=== PATIENT | female | born 1980 | race Caucasian/White ===

== ENCOUNTER → 2018-12-01 16:39 | Outpatient (CLI) | payer OTHER, SELFPAY | PROVIDERS: Family Provider Family Medicine; PCP Family Medicine; Visit Provider Physician Assistant | DX: R30.0 Dysuria (principal) | CPT/HCPCS: 87077; 87086; 87186 ==

== ENCOUNTER → 2019-04-01 12:32 | Outpatient (CLI) | payer OTHER, SELFPAY ==
--- NOTE | 2019-04-01 | DI.MRI.S_ITS ---
PROCEDURE: MR HEAD/BRAIN WO/W CON INDICATIONS: Multiple sclerosis TECHNIQUE: Noncontrast sagittal and axial FLAIR, axial and coronal T2 fast spin echo, axial VIBE, axial gradient echo, axial diffusion and ADC through the brain. After the administration of contrast, axial and coronal VIBE with fat saturation through the brain. COMPARISON: None are available for review at the time of this dictation. FINDINGS: Image quality: Excellent. CSF spaces: Ventricles are normal in size and shape. Basal cisterns are patent. No extra-axial fluid collections. Brain: There are numerous abnormal white matter lesions are seen, which are primarily seen within the periventricular and deep white matter. Several of the periventricular lesions demonstrate a perpendicular orientation to the lateral ventricles. Several of the larger lesions demonstrate decreased T1 weighted signal. There is involvement of the undersurface of the corpus callosum. Numerous juxtacortical lesions are also seen. There are faintly seen lesions present within the brainstem and within the cerebellum. On postcontrast imaging, these lesions do not enhance. No intracranial bleeds or mass effects. Manzo-white matter interface appears intact. Diffusion weighted images show no acute ischemic insults. Brainstem appears normal. Normal intravascular flow voids are present. Skull and face: Calvarial marrow signal is normal. Orbits appear normal. Sinuses: Sinuses and mastoids are clear. IMPRESSION: Multiple T2 hyperintense white matter lesions are seen, which are highly worrisome for the given clinical history of multiple sclerosis. No abnormal enhancement is seen. Dictated by: Colby Walter M.D. on 04/01/2019 at 14:35 Approved by: Colby Walter M.D. on 04/01/2019 at 14:37
== END ==
PROVIDERS: Family Provider Family Medicine; PCP Family Medicine; Visit Provider Psychiatry & Neurology Neurology
DX: G35 Multiple sclerosis (principal)
CPT/HCPCS: 70553; A9579

== ENCOUNTER → 2019-04-29 15:35 | Outpatient (CLI) | payer OTHER, SELFPAY ==
[2019-04-29 15:45] LABS: RBC Urine None Seen (0-5/HPF)
[2019-04-29 16:15] LABS: Appearance Urine UA CLEAR; Bilirubin Urine UA NEGATIVE (NEGATIVE); Color Urine UA YELLOW; Glucose Urine UA NEGATIVE (Negative); Ketones Urine UA NEGATIVE (NEGATIVE); Leukocyte Esterase Urine UA 1+ (NEGATIVE); Nitrite Urine UA NEGATIVE (Negative); Occult Blood Urine UA NEGATIVE (Negative); Protein Urine UA NEGATIVE (Negative); Specific Gravity Urine UA <=1.005 (1.000-1.035); Urobilinogen Urine UA 0.2 E.U./dL (0.2)
[2019-04-29 16:16] LABS: pH Urine UA 6.5 (4.5-8.0)
[2019-04-29 16:23] LABS: Amorphous Sediment Urine 1+; Bacteria Urine Few (2-10); Culture Indicated Urine Specimen Cultured; Squamous Epithelial Cell Urine 0-1 /HPF (0-5/HPF); WBC Urine 1-5/HPF (0-5/HPF)
== END ==
PROVIDERS: Family Provider Family Medicine; PCP Family Medicine; Referring Provider Podiatrist; Visit Provider Psychiatry & Neurology Neurology
DX: Z01.818 Encounter for other preprocedural examination (principal); Z51.81 Encounter for therapeutic drug level monitoring; G35 Multiple sclerosis
CPT/HCPCS: 81001; 87086; 93005

== ENCOUNTER 2019-06-25 07:12 | Emergency (ER) | payer OTHER, SELFPAY ==
[2019-06-25 07:28] VITALS: BP 153/97; PULSE 74; RESP 13; TEMP 36.4; O2SAT 99
--- NOTE | 2019-06-25 08:06 | ED_ITS ---
HPI - General Adult General Chief complaint: Hypertension Stated complaint: states really high blood pressure 162/107 Time Seen by Provider: 06/25/19 07:50 Source: patient Mode of arrival: Ambulatory Limitations: no limitations History of Present Illness HPI narrative: Patient comes emergency department complaining elevated blood pressure since at least 4:00 this morning. She states that she woke up and could not go back to sleep, and she felt as though her blood pressure was elevated. She states she took a measurement, and found to be in the 160s/107. Patient states that her diastolic over successive measurements went as high as 113. The patient denies any chest pain or shortness of breath. No headache or neurologic symptoms. She states she otherwise feels fine. She does state that she felt as though her blood pressure was probably high yesterday, but did not take any measurements. The patient is on atenolol for her blood pressure, and has been for number of years. She states that generally, her blood pressure runs 120s over 70s to 80s. She states that when it does go higher, it is usually when she is having an MS flare and is in pain. However, the patient states she is not currently in pain and feels fairly good. Patient states that she has not had any nausea or vomiting. She took her atenolol this morning and states it did not seem to help. She states she has felt somewhat anxious since finding the blood pressure was high, and has noticed a slight tightness in her chest. The patient states she sees Dr. Weinstein in [place] for her primary care. She does not currently have a contingent plan for taking her meds at home when her blood pressure runs higher than normal. Related Data Home Medications Medication Instructions Recorded Confirmed ibuprofen 600 mg PO TIDP PRN #0 11/27/10 12/01/18 lamotrigine [Lamictal] 25 mg PO BID #0 08/26/16 12/01/18 methylphenidate HCl 5 mg PO BID #0 08/26/16 12/01/18 acetaminophen 325 mg capsule 325 mg PO Q6H PRN 12/01/18 12/01/18 atenolol 25 mg tablet 25 mg PO DAILY 12/01/18 12/01/18 baclofen 20 mg tablet 20 mg PO QID 12/01/18 12/01/18 bupropion HCl 150 mg 24 hr tablet, 150 mg PO QAM 12/01/18 12/01/18 extended release buspirone 30 mg tablet mg PO tab 12/01/18 12/01/18 melatonin 5 mg capsule mg PO cap 12/01/18 12/01/18 olanzapine 2.5 mg tablet 2.5 mg PO BEDTIME 12/01/18 12/01/18 topiramate 25 mg tablet 50 mg PO DAILY tab 12/01/18 12/01/18 trazodone 50 mg tablet 75 mg PO DAILY 12/01/18 12/01/18 Allergies Allergy/AdvReac Type Severity Reaction Status Date / Time amitriptyline [AMITRIPTYLINE] Allergy Unknown Verified 12/01/18 16:21 gabapentin [GABAPENTIN] Allergy Unknown Verified 12/01/18 16:21 shayne [SHAYNE] Allergy Unknown Verified 12/01/18 16:21 Review of Systems Constitutional Constitutional: Denies chills, Denies fatigue, Denies fever(s), Denies frequent falls, Denies lethargy and Denies weakness Eyes Eyes: Denies change in vision, Denies eye discharge, Denies irritation and Denies loss of vision ENT Ears, Nose, Mouth, and Throat: Denies change in voice, Denies dizziness, Denies neck pain, Denies sore throat and Denies throat swelling Cardiovascular Cardiovascular: Denies chest pain, Denies irregular heart rhythm, Denies lightheadedness, Denies palpitations, Denies dyspnea, Denies dyspnea on exertion and Denies orthopnea Respiratory Respiratory: Denies cough, Denies dyspnea, Denies dyspnea on exertion and Denies wheezing Gastrointestinal Gastrointestinal: Denies abdominal pain, Denies change in bowel habits, Denies diarrhea, Denies nausea and Denies vomiting Genitourinary Genitourinary: Denies hematuria, Denies flank pain, Denies urinary incontinence and Denies urinary urgency Musculoskeletal Musculoskeletal: Denies back pain, Denies muscle weakness, Denies neck pain, Denies numbness and Denies tingling Integumentary/Breasts Skin/Breast: Denies pruritus, Denies erythema, Denies rash and Denies wounds Neurologic Neurologic: Denies behavioral changes, Denies confusion, Denies dizziness, Denies frequent falls, Denies loss of vision, Denies numbness, Denies tingling and Denies weakness Psychiatric Psychiatric: Denies anxiety, Denies behavioral changes, Denies confusion, Denies depression, Denies homicidal ideation and Denies suicidal ideation Endocrine Endocrine: Denies fatigue, Denies flushing and Denies palpitations Hematologic/Lymphatic Hematologic/Lymphatic: Denies easy bruising Allergic/Immunologic Allergic/Immunologic: Denies urticaria, Denies throat swelling and Denies wheezing Patient History Medical History HTN (hypertension) (Acute) MS (multiple sclerosis) (Acute) Social History Smoking Status: Never smoker Smoking Status: Never smoker Substance Use Type: does not use Exam Initial Vital Signs Initial Vital Signs: Vital Signs Temperature 97.5 F L 06/25/19 07:28 Pulse Rate 74 06/25/19 07:28 Respiratory Rate 13 06/25/19 07:28 Blood Pressure 153/97 H 06/25/19 07:28 Pulse Oximetry 99 06/25/19 07:28 Const General: cooperative and well developed Nutritional Appearance: well nourished Orientation: alert, awake, oriented x3 and not confused HENCA Head: normocephalic and atraumatic Ears: external ears normal Nose: external nose normal and No nasal discharge Face and sinus: face symmetric and No dry mucous membranes Mouth: oral mucosae normal and moist mucous membranes Teeth and gingiva: dentition normal Eyes General: appearance normal, both eyes and all related structures Eyelids: eyelids normal Conjunctivae: conjunctivae normal Sclera: sclerae normal Pupils: PERRL EOM: EOM intact bilaterally Neck Neck: normal visual inspection, trachea midline, No lymphadenopathy, No midline deformity and No JVD Lymphatic: No lymphedema Chest Chest: normal inspection of the chest Resp Effort & Inspection: normal respiratory effort, able to speak in complete sentences, no respiratory distress and no use of accessory muscles Auscultation: clear to auscultation bilaterally, no rales, no rhonchi and no wheezes Cardio Rate: regular rate Rhythm: regular rhythm Heart Sounds: no click, no gallops, no murmurs and no rubs Pulses: normal peripheral pulses GI Inspection: non-distended Palpation: soft, no hepatosplenomegaly, No guarding, No pulsatile mass and No tender Back/Spine/Pelvis Back: No CVA tenderness Cervical Spine: cervical ROM normal and No pain with cervical ROM Thoracic/Lumbar Spine: thoracic and lumbar spine normal to inspection Skin General: no rashes or lesions noted, No jaundice and No petechiae Neuro General: alert, oriented x3, gait normal and no focal motor deficits Speech: speech normal Extrem General: full ROM, no clubbing, cyanosis or edema, no pedal edema and no calf tenderness Psych Appearance: well kempt Mental Status: mental status grossly normal Attitude: cooperative Thought Content: normal and suicidality Judgment: judgment good Course Course Course Narrative: The patient, overall, looked good, and did not show any signs of hypertensive emergency. I gave her dose of metoprolol in the emergency department and I discussed with her a plan for taking extra atenolol at home if her blood pressure was running sustainedly high. I've also advised her that she needs to follow up with her primary care physician to discuss whether she should have a different medication at home to take in this situation when her blood pressure is running much higher than usual and is not responding to her regular home medication. We have discussed the usual indications for return. Orders Ordered: Discontinued Medications Metoprolol Tartrate (Lopressor) 25 mg PO NOW ONE Stop: 06/25/19 08:05 Last Admin: 06/25/19 08:13 Dose: 25 mg Documented by: SCANAPO Vital Signs Vital signs: Vital Signs - 8 hr 06/25/19 07:28 Temperature 97.5 F L Pulse Rate 74 Respiratory Rate 13 Blood Pressure 153/97 H Pulse Oximetry 99 Medical Decision Making Medical Records Medical records reviewed: Yes I reviewed the patient's medical records. Discharge Plan Departure Patient Disposition: Home Clinical Impression: HTN (hypertension) Qualifiers: Hypertension type: essential hypertension Qualified Code(s): I10 - Essential (primary) hypertension Discharge Date/Time: 06/25/19 08:44 Instructions: DI for High Blood Pressure Activity Restrictions/Additional Instructions: You may continue on your current dose of atenolol in general. However, if you experience a sustained elevation in your blood pressure of greater than 140/95 for more than 3 hours after taking your normal medication, you may take a 2nd dose of the atenolol 25 mg. if you would like, you could even take 1/2 of a tab of atenolol, at 12.5 mg, for your extra dose. If a few hours after this, your blood pressure is still running high, then you will need to see your primary doctor to talk about either adjusting your overall atenolol dose up or adding another medication to help better control your blood pressure. Prescriptions: No Action atenolol 25 mg tablet 25 mg PO DAILY RF: 0 bupropion HCl 150 mg tablet extended release 24 hr 150 mg PO QAM RF: 0 buspirone 30 mg tablet PO RF: 0 baclofen 20 mg tablet 20 mg PO QID RF: 0 trazodone 50 mg tablet 75 mg PO DAILY RF: 0 olanzapine 2.5 mg tablet 2.5 mg PO BEDTIME RF: 0 topiramate [Topamax] 25 mg tablet 50 mg PO DAILY RF: 0 melatonin 5 mg capsule PO RF: 0 acetaminophen [Tylenol] 325 mg capsule 325 mg PO Q6H PRNRF: 0 ibuprofen 600 MG tablet 600 mg PO TIDP PRNQty: 0 RF: 0 methylphenidate HCl 5 MG tablet 5 mg PO BID Qty: 0 RF: 0 lamotrigine [Lamictal] 25 MG tablet 25 mg PO BID Qty: 0 RF: 0 Referrals: Mona Weinstein DO [Primary Care Provider] -
[2019-06-25] MEDS: METOPROLOL IR 25 MG TABLET PO (08:13)
--- NOTE | 2019-06-25 08:43 | PC.NURSE ---
pt reports she takes htn medication daily. today noticed htn, has no other symptoms. states normally when this happens she is having an MS flare, today that is not happening.
[2019-06-25 08:44] VITALS: BP 150/99
== END 2019-06-25 08:44 | disposition home or self-care (01) ==
PROVIDERS: Emergency Provider Emergency Medicine; Family Provider Family Medicine; PCP Family Medicine
DX: I10 Essential (primary) hypertension (principal)
CPT/HCPCS: 99283

== ENCOUNTER → 2019-07-08 11:29 | Outpatient (CLI) | payer OTHER, SELFPAY ==
[2019-07-10 10:55] LABS: Collection Time Urine 24 Hours; Creatinine 24 Hour Urine 1904 mg/day (800-1800); Creatinine Urine Random 52.9 mg/dL; Sodium 24 Hour Urine 76 mmol/day (40-220); Sodium Urine Random 21 mmol/L (30-90); Total Volume Urine 3600 mL
== END ==
PROVIDERS: Family Provider Family Medicine; PCP Family Medicine; Visit Provider Nurse Practitioner Family
DX: E26.9 Hyperaldosteronism, unspecified (principal); R94.4 Abnormal results of kidney function studies
CPT/HCPCS: 82088; 82570; 84300

== ENCOUNTER → 2019-08-14 13:18 | Outpatient (CLI) | payer OTHER, SELFPAY | PROVIDERS: Family Provider Family Medicine; PCP Family Medicine; Referring Provider Family Medicine; Visit Provider Family Medicine | DX: T24.231A Burn of second degree of right lower leg, initial encounter (principal); G35 Multiple sclerosis; Z79.899 Other long term (current) drug therapy | CPT/HCPCS: 16020; 99203; 99213 ==

== ENCOUNTER → 2019-08-20 09:55 | Outpatient (CLI) | payer OTHER, SELFPAY | PROVIDERS: Family Provider Family Medicine; PCP Family Medicine; Referring Provider Family Medicine; Visit Provider Family Medicine | DX: T24.231A Burn of second degree of right lower leg, initial encounter (principal) | CPT/HCPCS: 99213 ==

== ENCOUNTER → 2019-08-27 09:39 | Outpatient (CLI) | payer OTHER, SELFPAY | PROVIDERS: Family Provider Family Medicine; PCP Family Medicine; Referring Provider Family Medicine; Visit Provider Family Medicine | DX: T24.231A Burn of second degree of right lower leg, initial encounter (principal); G35 Multiple sclerosis; Z79.899 Other long term (current) drug therapy | CPT/HCPCS: 99212; 99213 ==

== ENCOUNTER 2019-09-30 20:12 | Emergency (ER) | payer OTHER, SELFPAY ==
[2019-09-30 20:20] VITALS: BP 165/101; PULSE 82; RESP 20; TEMP 36.8; O2SAT 95; BMI 20.9
--- NOTE | 2019-09-30 20:42 | ED.GENADULT ---
HPI - General Adult General Chief complaint: Urogenital-Female Stated complaint: PELVIC PAIN Time Seen by Provider: 09/30/19 20:42 Source: patient Mode of arrival: Ambulatory Limitations: no limitations History of Present Illness HPI narrative: 39-year-old woman with multiple sclerosis presents with 6 weeks of abdominal/pelvic pain. She describes it as bilateral and constant. She has been seen by her smoking pipe liner and workup to date has included a pelvic ultrasound is reportedly unremarkable as well as a pelvic exam that is ?inconclusive?. She has as stable partner for 25 years and reports no dysuria or vaginal discharge. Last menses was in May and she uses 2 types of control (continuous NuvaRing and condoms) as she takes Topamax to help control neuropathic pain related to multiple sclerosis. She describes no change to bowel or bladder habits. No abdominal bloating, no nausea vomiting or diarrhea. She reports no fevers. She does note that the pain is getting worse over the last 6 weeks has not responded well to the oxycodone she takes for the neuropathic pain related to her multiple sclerosis and at this point the pain is significant enough that it interfering with sleep. Related Data Home Medications Medication Instructions Recorded Confirmed ibuprofen 600 mg PO TIDP PRN #0 11/27/10 12/01/18 lamotrigine [Lamictal] 25 mg PO BID #0 08/26/16 12/01/18 methylphenidate HCl 5 mg PO BID #0 08/26/16 12/01/18 acetaminophen 325 mg capsule 325 mg PO Q6H PRN 12/01/18 12/01/18 atenolol 25 mg tablet 25 mg PO DAILY 12/01/18 12/01/18 baclofen 20 mg tablet 20 mg PO QID 12/01/18 12/01/18 bupropion HCl 150 mg 24 hr tablet, 150 mg PO QAM 12/01/18 12/01/18 extended release buspirone 30 mg tablet mg PO tab 12/01/18 12/01/18 melatonin 5 mg capsule mg PO cap 12/01/18 12/01/18 olanzapine 2.5 mg tablet 2.5 mg PO BEDTIME 12/01/18 12/01/18 topiramate 25 mg tablet 50 mg PO DAILY tab 12/01/18 12/01/18 trazodone 50 mg tablet 75 mg PO DAILY 12/01/18 12/01/18 Allergies Allergy/AdvReac Type Severity Reaction Status Date / Time amitriptyline [AMITRIPTYLINE] Allergy Unknown Verified 12/01/18 16:21 gabapentin [GABAPENTIN] Allergy Unknown Verified 12/01/18 16:21 shayne [SHAYNE] Allergy Unknown Verified 12/01/18 16:21 Review of Systems Review of Systems Narrative: All systems reviewed and are unremarkable except as noted in HPI and below Patient History Social History Smoking Status: Never smoker Smoking Status: Never smoker alcohol intake frequency: 0-2 drinks per day Substance Use Type: does not use Exam Narrative Exam Narrative: General: Healthy appearing, anxious and frightened but no acute medical distress. Able to give a complete and coherent history. Well-nourished well-developed HEENT: Moist mucous membranes, normal sclera with reactive pupils, Neck: No JVD, supple Respiratory: Lungs are clear to auscultation, no wheezing no rales no rhonchi. Full and symmetrical air movement Cardiac: Regular rate and rhythm no murmurs no bruits Abdomen: Soft, mildly tender in lower quadrants without rebound or guarding, good bowel tones, no flank pain Skin: Warm and dry, no rashes Neurologic: Grossly neurologically intact with no obvious asymmetries or abnormalities Extremities: No trauma, well perfused Psych: Cooperative, appropriate insight and affect Initial Vital Signs Initial Vital Signs: Vital Signs Temperature 98.2 F 09/30/19 20:20 Pulse Rate 82 09/30/19 20:20 Respiratory Rate 20 09/30/19 20:20 Blood Pressure 165/101 H 09/30/19 20:20 Pulse Oximetry 95 09/30/19 20:20 Course Orders Ordered: ED Orders 09/30/19 20:38 Chlamydia Gonorrhea PCR -URINE Stat Urine Culture Stat Urine Microscopic Stat 09/30/19 20:58 CT chest abd pel w con Stat 09/30/19 21:25 Complete Blood Count AUTO DIFF Stat Comprehensive Metabolic Panel Stat HCG Quantitative /Beta subunit Stat Discontinued Medications Ketorolac Tromethamine (Toradol) 15 mg IV NOW ONE Stop: 09/30/19 20:57 Last Admin: 09/30/19 21:15 Dose: 15 mg Documented by: SARAH Vital Signs Vital signs: Vital Signs - 8 hr 09/30/19 20:20 09/30/19 21:03 09/30/19 22:42 Temperature 98.2 F 98.2 F Pulse Rate 82 89 Respiratory Rate 20 18 Blood Pressure 165/101 H Blood Pressure [Left Arm] 131/88 165/70 H Pulse Oximetry 95 98 Medical Decision Making Medical Records Medical records reviewed: Yes I reviewed the patient's medical records. Lab Data Lab results reviewed: Yes I reviewed the patient's lab results. Result diagrams: 09/30/19 21:25 09/30/19 21:25 Labs: Lab Results 09/30/19 09/30/19 09/30/19 Range/Units 20:38 21:25 21:25 WBC 5.2 (4.5-11.0) X10^3/uL RBC 3.88 L (4.0-5.2) X10^6/uL Hgb 11.8 L (12.0-16.0) g/dL Hct 35.0 L (36-46) % MCV 90.1 (80-100) fL MCH 30.4 (26-34) PG MCHC 33.8 (30-36) % RDW 12.7 (11.6-14.8) % Plt Count 222 (150-400) X10^3/uL Neut % (Auto) 52.4 (50-75) % Lymph % (Auto) 33.3 (25-40) % Luna % (Auto) 10.0 (3-14) % Eos % (Auto) 3.4 (2-4) % Baso % (Auto) 0.9 (0-2) % Neut # (Auto) 2700 (8582-6516) /uL Lymph # (Auto) 1700 (9428-6438) /uL Luna # (Auto) 500 (0-900) /uL Eos # (Auto) 200 (0-450) /uL Baso # (Auto) 0 (0-100) /uL Sodium 138 (137-145) mmol/L Potassium 3.3 L (3.4-5.1) mmol/L Chloride 104 (98-107) mmol/L Carbon Dioxide 29 (22-32) mmol/L BUN 18 H (7-17) mg/dL Creatinine 1.06 H (0.52-1.04) mg/dL Estimated GFR 57.1 L (>60) mL/min BUN/Creatinine Ratio 17.0 (6-22) Glucose 87 (70-100) mg/dL Calcium 9.2 (8.4-10.2) mg/dL Total Bilirubin 0.2 (0.2-1.3) mg/dL AST 26 (14-36) IU/L ALT 23 (<35) IU/L Alkaline Phosphatase 54 (38-126) U/L Total Protein 7.6 (6.3-8.2) g/dL Albumin 4.4 (3.5-5.0) g/dL Globulin 3.2 (1.7-4.1) g/dL Albumin/Globulin Ratio 1.4 (1.0-2.8) HCG, Quant < 2.4 mIU/mL Urine RBC None seen (0-5/HPF) Urine WBC 5-10/hpf H (0-5/HPF) Ur Squamous Epith Cells 0-1 /hpf (0-5/HPF) Urine Bacteria Few (2-10) H (None) Ur Culture Indicated? Specimen cultured Point of Care Testing Test Results Negative Urine Dip Bedside Urine Glucose Negative Bedside Urine Bilirubin - Negative Bedside Urine Ketone - Negative Urine Specific [place] 1.015 Bedside Urine Occult Blood - Negative Bedside Urine pH 6.0 Bedside Urine Protein - Negative Bedside Urine Urobilinogen - Negative Bedside Urine Nitrite - Negative Bedside Urine Leukocytes + 70 Esterase Point of care testing: Point of Care Testing Test Results Negative Urine Dip Bedside Urine Glucose Negative Bedside Urine Bilirubin - Negative Bedside Urine Ketone - Negative Urine Specific [place] 1.015 Bedside Urine Occult Blood - Negative Bedside Urine pH 6.0 Bedside Urine Protein - Negative Bedside Urine Urobilinogen - Negative Bedside Urine Nitrite - Negative Bedside Urine Leukocytes + [address] chest abdomen pelvis: Radiologist's Impression: No evidence of acute pathology Ruslan Stephens MD [facility] Narrative Medical decision making narrative: No significant pathology is found to explain the pelvic pain she is having. CT of the abdomen pelvis was what I had meant order, chest abdomen pelvis is a study that I actually clicked. I did reveal the accidental chest CT scan order. We reviewed the findings of the full scan from the chest through the pelvis, blood work and urinalysis. She understands that there is no significant pathology that we found and certainly nothing life-threatening. At this point she continues on up to 615 mg of oxycodone daily, I do not believe that adding additional pain medication for example tramadol would be of any benefit. She notes that even with the oxycodone the abdominal pelvic pain is not relieved. She will follow-up with her primary care physician in is safe for home discharge Discharge Plan Departure Patient Disposition: Home Clinical Impression: Pelvic pain Instructions: DI for Pelvic Pain Activity Restrictions/Additional Instructions: Thank you for coming in today Your blood work and CT scan were very reassuring. No significant pathology was found. Specifically there is no liver injury, kidney injury, tumors, masses or other findings of significance at this time. While this does not explain why you were hurting it does give you quite a bit of reassurance that the pain is not currently life-threatening. Please continue with your current pain regimen and follow-up with your primary care physician regarding next steps in trying to figure out source of the pain or help in treating the overall pain. I wish you the best Prescriptions: No Action atenolol 25 mg tablet 25 mg PO DAILY RF: 0 bupropion HCl 150 mg tablet extended release 24 hr 150 mg PO QAM RF: 0 buspirone 30 mg tablet PO RF: 0 baclofen 20 mg tablet 20 mg PO QID RF: 0 trazodone 50 mg tablet 75 mg PO DAILY RF: 0 olanzapine 2.5 mg tablet 2.5 mg PO BEDTIME RF: 0 topiramate [Topamax] 25 mg tablet 50 mg PO DAILY RF: 0 melatonin 5 mg capsule PO RF: 0 acetaminophen [Tylenol] 325 mg capsule 325 mg PO Q6H PRNRF: 0 ibuprofen 600 MG tablet 600 mg PO TIDP PRNQty: 0 RF: 0 methylphenidate HCl 5 MG tablet 5 mg PO BID Qty: 0 RF: 0 lamotrigine [Lamictal] 25 MG tablet 25 mg PO BID Qty: 0 RF: 0 Referrals: Mona Weinstein DO [Primary Care Provider] -
[2019-09-30 20:48] LABS: RBC Urine None Seen (0-5/HPF)
[2019-09-30 20:58] LABS: Bacteria Urine Few (2-10); Culture Indicated Urine Specimen Cultured; Squamous Epithelial Cell Urine 0-1 /HPF (0-5/HPF); WBC Urine 5-10/HPF (0-5/HPF)
--- NOTE | 2019-09-30 20:58 | DI.CT.S_ITS ---
PROCEDURE: CT CHEST ABD PEL W CON INDICATIONS: abdominal/pelvic pain TECHNIQUE: After the administration of intravenous contrast, 5 mm thick sections acquired from the lung apices to the symphysis. 2.5 mm thick coronal and sagittal reformats were acquired. Additional 7 mm thick coronal maximum intensity projection (MIP) reformats acquired through the lungs. Optional 10-minute delayed imaging may be performed from the kidneys to the bladder. For radiation dose reduction, the following was used: automated exposure control, adjustment of mA and/or kV according to patient size. COMPARISON: [facility], CT, ABDOMEN/PELVIS WITH CONTRAST, 12/03/2013, 22:49. [facility], CT, ABDOMEN/PELVIS WITH CONTRAST, 12/07/2013, 11:01. [facility], CT, PE STUDY (CTA CHEST), 12/08/2013, 21:30. FINDINGS: Image quality: Excellent. CHEST: Lungs: No pulmonary contusions or lacerations. No acute airspace opacities. No pneumothorax or hemothorax. Central and peripheral airways appear patent and normal in caliber. Mediastinum: No mediastinal hematomas. Heart size is normal. No pericardial effusion. Thoracic aorta and pulmonary arteries demonstrate normal size and enhancement. No mediastinal or hilar adenopathy. Esophagus is normal in caliber. No hiatal hernia. Chest wall: No rib fractures. No subcutaneous emphysema. No axillary or supraclavicular adenopathy. Thyroid gland is normal. ABDOMEN: Solid organs: Liver is normal in size and enhancement, without lacerations. Gallbladder is normal. Biliary system is non-dilated. Pancreas enhances normally, without transection. Spleen is normal in size and enhancement, without lacerations. No adrenal hematomas. Both kidneys enhance normally, without hydronephrosis or lacerations. There is a 4 mm non--obstructing stone in right kidney. A possible 3 mm stone is present in the left kidney. A 1.8 cm simple appearing cyst is present in the inferior pole of the right kidney, and a 7 mm cyst in the left kidney.. Peritoneum and bowel: Stomach is mildly distended. No free fluid or air. Unenhanced bowel loops demonstrate normal wall thickness and caliber. There is a moderate amount of stool in colon. Normal appendix. Nodes and vessels: No retroperitoneal or mesenteric adenopathy. Aorta and inferior vena cava are normal in size and enhancement. Miscellaneous: No ventral hernias. PELVIS: Genitourinary: Bladder wall thickness is normal. Miscellaneous: No inguinal hernias or adenopathy. Bones: Pelvic ring and hip joints appear intact. No vertebral compression fractures. IMPRESSION: 1. No acute abnormalities. 2. Moderately distended stomach, which is nonspecific. 3. Moderate amount of stool in colon. 4. Small non-obsjectiong stones in kidneys. 5. Bilateral small renal cysts No significant discrepancy with the maintenance technician 2nd shift radiology preliminary report. Dictated by: Rafa Encarnacion M.D. on 10/01/2019 at 8:00 Approved by: Rafa Encarnacion M.D. on 10/01/2019 at 8:16
[2019-09-30 21:03] VITALS: BP 131/88
[2019-09-30] MEDS: KETOROLAC 60 MG/2 ML VIAL 15 MG IV (21:15)
[2019-09-30 21:32] LABS: Add Manual Diff / Slide Review NO; Basophils Absolute Auto 0 /uL (0-100); Basophils Percent Auto 0.9 % (0-2); Eosinophils Absolute Auto 200 /uL (0-450); Eosinophils Percent Auto 3.4 % (2-4); Hemoglobin 11.8 g/dL (12.0-16.0); Lymphocytes Absolute Auto 1700 /uL (1100-4500); Lymphocytes Percent Auto 33.3 % (25-40); Mean Corpuscular HGB Conc 33.8 % (30-36); Mean Corpuscular Hemoglobin 30.4 PG (26-34); Mean Corpuscular Volume 90.1 fL (80-100); Monocytes Absolute Auto 500 /uL (0-900); Neutrophils Absolute Auto 2700 /uL (1500-7000); Neutrophils Percent Auto 52.4 % (50-75); Platelet Count 222 X10^3/uL (150-400); Red Blood Cell Count 3.88 X10^6/uL (4.0-5.2); Red Cell Distribution Width 12.7 % (11.6-14.8); White Blood Cell Count 5.2 X10^3/uL (4.5-11.0)
[2019-09-30 21:41] LABS: Alanine Aminotransferase 23 IU/L (<35); Albumin 4.4 g/dL (3.5-5.0); Albumin Globulin Ratio 1.4 (1.0-2.8); Alkaline Phosphatase 54 U/L (38-126); Aspartate Aminotransferase 26 IU/L (14-36); Bilirubin Total 0.2 mg/dL (0.2-1.3); Blood Urea Nitrogen 18 mg/dL (7-17); Calcium 9.2 mg/dL (8.4-10.2); Carbon Dioxide 29 mmol/L (22-32); Chloride 104 mmol/L (98-107); Estimated Glomerular Filt Rate 57.1 mL/min (>60); Globulin 3.2 g/dL (1.7-4.1); Glucose 87 mg/dL (70-100); HEMOLYSIS < 15 (0-50); Potassium 3.3 mmol/L (3.4-5.1); Sodium 138 mmol/L (137-145); Total Protein 7.6 g/dL (6.3-8.2)
[2019-09-30 21:59] LABS: HCG Quantitative /Beta subunit < 2.4 mIU/mL
[2019-09-30 22:42] VITALS: BP 165/70; PULSE 89; RESP 18; TEMP 36.8; O2SAT 98
[2019-09-30 23:41] LABS: Urine Chlamydia NOT DETECTED; Urine N gonorrhoeae NOT DETECTED
== END 2019-09-30 22:52 | disposition home or self-care (01) ==
PROVIDERS: Emergency Provider Emergency Medicine; Family Provider Family Medicine; PCP Family Medicine
DX: R10.2 Pelvic and perineal pain (principal); I10 Essential (primary) hypertension
CPT/HCPCS: 36415; 71260; 74177; 80053; 81003; 81015; 81025; 84702; 85025; 87086; 87491; 87591; 96374; 99284; J1885; Q9967

== ENCOUNTER → 2019-12-08 14:20 | Outpatient (CLI) | payer OTHER, SELFPAY ==
[2019-12-09 09:04] LABS: COVID19 Sendout NOT DETECTED (Not Detect)
== END ==
PROVIDERS: Family Provider Family Medicine; PCP Family Medicine; Visit Provider Physician Assistant
DX: Z01.818 Encounter for other preprocedural examination (principal)
CPT/HCPCS: 87635

== ENCOUNTER 2019-12-16 06:42 | Emergency (ER) | payer OTHER, SELFPAY ==
[2019-12-16] VITALS (9 sets, daily range): BP systolic 114–139; BP diastolic 63–91; PULSE 60–82; RESP 20; TEMP 36.9; O2SAT 98–100; BMI 19.5
--- NOTE | 2019-12-16 07:14 | ED.GENADULT ---
HPI - General Adult General Chief complaint: Extremity Problem,Nontraumatic Stated complaint: multiple sclerosis problems Time Seen by Provider: 12/16/19 06:45 Mode of arrival: Wheelchair History of Present Illness HPI narrative: 39-year-old woman with multiple sclerosis with increasing lower extremity pain, neuropathic pain muscle spasm and a feeling that her skin is being peeled off all worsening over the last month. Plans were in place to schedule another MRI to see if there is new lesions in her spinal cord and to schedule her for IV steroids in addition to continuing all of her usual multiple sclerosis medications. Last night was severe enough that she was unable to sleep at all in presents to the emergency room this morning with significant physical as well as emotional distress. Related Data Home Medications Medication Instructions Recorded Confirmed ibuprofen 600 mg PO TIDP PRN #0 11/27/10 12/01/18 lamotrigine [Lamictal] 25 mg PO BID #0 08/26/16 12/01/18 methylphenidate HCl 5 mg PO BID #0 08/26/16 12/01/18 acetaminophen 325 mg capsule 325 mg PO Q6H PRN 12/01/18 12/01/18 atenolol 25 mg tablet 25 mg PO DAILY 12/01/18 12/01/18 baclofen 20 mg tablet 20 mg PO QID 12/01/18 12/01/18 bupropion HCl 150 mg 24 hr tablet, 150 mg PO QAM 12/01/18 12/01/18 extended release buspirone 30 mg tablet mg PO tab 12/01/18 12/01/18 melatonin 5 mg capsule mg PO cap 12/01/18 12/01/18 olanzapine 2.5 mg tablet 2.5 mg PO BEDTIME 12/01/18 12/01/18 topiramate 25 mg tablet 50 mg PO DAILY tab 12/01/18 12/01/18 trazodone 50 mg tablet 75 mg PO DAILY 12/01/18 12/01/18 Previous Rx's Medication Instructions Recorded diazepam 5 mg PO BID PRN #30 tab 12/16/19 Allergies Allergy/AdvReac Type Severity Reaction Status Date / Time amitriptyline [AMITRIPTYLINE] Allergy Unknown Verified 12/01/18 16:21 gabapentin [GABAPENTIN] Allergy Unknown Verified 12/01/18 16:21 shayne [SHAYNE] Allergy Unknown Verified 12/01/18 16:21 Review of Systems Review of Systems Narrative: Pertinent positive and negative findings as per HPI Remainder of review of systems is otherwise unremarkable for Constitutional: Fevers, chills, weakness ENT: No sore throat, neck pain, ear pain CV: Chest pain, palpitations, dyspnea on exertion Respiratory: Cough, wheeze, dyspnea GI: Nausea, vomiting, diarrhea, change in bowel habits, black or bloody stools : Dysuria, hematuria, flank pain Skin: Rashes, nonhealing lesions Neuro: Syncope, dizziness, Psych: Depression, anxiety, suicidal ideation Patient History Medical History HTN (hypertension) (Acute) MS (multiple sclerosis) (Acute) Social History Smoking Status: Never smoker Smoking Status: Never smoker alcohol intake frequency: 0-2 drinks per day Substance Use Type: does not use Exam Narrative Exam Narrative: General: Healthy appearing, in mild distress due to neuropathic pain and sleep deprivation.. Able to give a complete and coherent history. Well-nourished well-developed HEENT: Moist mucous membranes, normal sclera with reactive pupils, Neck: No JVD, supple Respiratory: Lungs are clear to auscultation, no wheezing no rales no rhonchi. Full and symmetrical air movement Cardiac: Regular rate and rhythm no murmurs no bruits Abdomen: Soft nontender good bowel tones, no flank pain Skin: Warm and dry, no rashes Neurologic: Hyperreflexic lower extremities with no obvious asymmetries or abnormalities Extremities: No trauma, well perfused Psych: Cooperative, sleep deprived, anxious Initial Vital Signs Initial Vital Signs: Vital Signs Temperature 98.5 F 12/16/19 06:53 Pulse Rate 81 12/16/19 06:53 Respiratory Rate 20 12/16/19 06:53 Blood Pressure 139/91 H 12/16/19 06:53 Pulse Oximetry 100 12/16/19 06:53 Course Orders Ordered: ED Orders 12/16/19 07:10 Basic Metabolic Panel Stat C-Reactive Protein Quant Stat Complete Blood Count AUTO DIFF Stat Hydromorphone HCl (Dilaudid) 0.5 mg IV PRN PRN PRN Reason: Pain, Moderate (4-6) Discontinued Medications Diazepam (Valium) 5 mg PO NOW ONE Stop: 12/16/19 08:20 Last Admin: 12/16/19 08:24 Dose: 5 mg Documented by: TOYA Methylprednisolone 1,000 mg/ (Sodium Chloride) 258 mls @ 258 mls/hr IV NOW ONE Stop: 12/16/19 06:54 Last Infusion: 12/16/19 08:19 Dose: 0 mls/hr Documented by: Admin: 12/16/19 07:18 Dose: 258 mls/hr Documented by: TOYA Ketorolac Tromethamine (Toradol) 15 mg IV NOW ONE Stop: 12/16/19 08:20 Last Admin: 12/16/19 08:24 Dose: 15 mg Documented by: TOYA Vital Signs Vital signs: Vital Signs - 8 hr 12/16/19 06:53 12/16/19 07:00 12/16/19 07:05 Temperature 98.5 F Pulse Rate 81 60 60 Respiratory Rate 20 20 20 Blood Pressure 139/91 H Pulse Oximetry 100 12/16/19 08:05 12/16/19 08:10 12/16/19 08:27 Temperature Pulse Rate 60 60 60 Respiratory Rate 20 20 20 Blood Pressure Pulse Oximetry 12/16/19 08:30 12/16/19 09:27 12/16/19 09:28 Temperature Pulse Rate 60 82 79 Respiratory Rate Blood Pressure 114/63 Pulse Oximetry 98 98 Medical Decision Making Lab Data Lab results reviewed: Yes I reviewed the patient's lab results. Result diagrams: 12/16/19 07:10 12/16/19 07:10 Labs: Lab Results 12/16/19 12/16/19 12/16/19 Range/Units 07:10 07:10 07:10 WBC 6.2 (4.5-11.0) X10^3/uL RBC 4.16 (4.0-5.2) X10^6/uL Hgb 12.9 (12.0-16.0) g/dL Hct 37.8 (36-46) % MCV 90.8 (80-100) fL MCH 31.0 (26-34) PG MCHC 34.1 (30-36) % RDW 12.6 (11.6-14.8) % Plt Count 239 (150-400) X10^3/uL Neut % (Auto) 61.1 (50-75) % Lymph % (Auto) 27.2 (25-40) % Marin % (Auto) 7.9 (3-14) % Eos % (Auto) 3.2 (2-4) % Baso % (Auto) 0.6 (0-2) % Neut # (Auto) 3800 (7034-2470) /uL Lymph # (Auto) 1700 (8520-4374) /uL Marin # (Auto) 500 (0-900) /uL Eos # (Auto) 200 (0-450) /uL Baso # (Auto) 0 (0-100) /uL Sodium 141 (137-145) mmol/L Potassium 3.3 L (3.4-5.1) mmol/L Chloride 108 H (98-107) mmol/L Carbon Dioxide 23 (22-32) mmol/L BUN 18 H (7-17) mg/dL Creatinine 0.83 (0.52-1.04) mg/dL Estimated GFR > 60.0 (>60) mL/min BUN/Creatinine Ratio 21.7 (6-22) Glucose 109 H (70-100) mg/dL Calcium 9.3 (8.4-10.2) mg/dL C-Reactive Protein < 0.5 (<1.0) mg/dL MDM Narrative Medical decision making narrative: 39-year-old woman with MS. Currently mid flare. She is given 1gm IV Solu-Medrol here in the emergency department. She is also given 5 mg of oral Valium and 15 mg of IV Toradol which helped with the overall pain and muscle spasm as well. Phone call to her primary care physician Dr. Hoff to help arrange additional outpatient 1 g Solu-Medrol infusions. Typically when she has a flare she states she does 5 days rather than 3. Will give her a prescription for oral Valium to help with muscle spasm over the next couple of days. She will follow-up with her primary care physician and scheduled infusion tomorrow. 950 finally able to reach front office staff at clinic. Doctor is out of the office. Message is left with [facility] of the clinic nurses who will route the request for outpatient Solu-Medrol over the next 4 days to the on-call doctor. They will contact patient with follow-up times. Discharge Plan Departure Patient Disposition: Home Clinical Impression: MS (multiple sclerosis) Activity Restrictions/Additional Instructions: Thank you for coming in today I am so sorry that your MS is flaring right now. You received 1 g of IV Solu-Medrol as well as 5 mg of Valium and 15 mg of IV Toradol for pain control in the emergency department today. In addition to your usual medications I am going to give you a small prescription for Valium to help with muscle spasm. The prescription has been electronically transmitted to [facility] in [place] for you. You can compare this to baclofen and see which is most effective for you. I have left a message with her primary care physician's office. Your doctor is not in the office today but the providing doctor should be able to schedule the next 4 days of Solu-Medrol at the infusion clinic at [facility]. You should hear from their office by today with scheduled times. I wish you the best Prescriptions: New diazepam 5 mg tablet 5 mg PO BID PRN (Reason: muscle spasm) Qty: 30 RF: 0 No Action atenolol 25 mg tablet 25 mg PO DAILY RF: 0 bupropion HCl 150 mg tablet extended release 24 hr 150 mg PO QAM RF: 0 buspirone 30 mg tablet PO RF: 0 baclofen 20 mg tablet 20 mg PO QID RF: 0 trazodone 50 mg tablet 75 mg PO DAILY RF: 0 olanzapine 2.5 mg tablet 2.5 mg PO BEDTIME RF: 0 topiramate [Topamax] 25 mg tablet 50 mg PO DAILY RF: 0 melatonin 5 mg capsule PO RF: 0 acetaminophen [Tylenol] 325 mg capsule 325 mg PO Q6H PRNRF: 0 ibuprofen 600 MG tablet 600 mg PO TIDP PRNQty: 0 RF: 0 methylphenidate HCl 5 MG tablet 5 mg PO BID Qty: 0 RF: 0 lamotrigine [Lamictal] 25 MG tablet 25 mg PO BID Qty: 0 RF: 0 Referrals: Mona Weinstein DO [Primary Care Provider] -
[2019-12-16] MEDS: methylPREDNISolone 1,000 MG in SODIUM CHLORIDE 0.9% 250 ML 258 ML IV (07:18)
--- NOTE | 2019-12-16 07:20 | PC.NURSE ---
Pt reports MS flare up. Bilateral leg burning and sharp pain. Reports toes are curling from pain. Reports pain has been getting worse over the last couple weeks
[2019-12-16 07:21] LABS: Add Manual Diff / Slide Review NO; Basophils Absolute Auto 0 /uL (0-100); Basophils Percent Auto 0.6 % (0-2); Eosinophils Absolute Auto 200 /uL (0-450); Eosinophils Percent Auto 3.2 % (2-4); Hematocrit 37.8 % (36-46); Hemoglobin 12.9 g/dL (12.0-16.0); Lymphocytes Absolute Auto 1700 /uL (1100-4500); Lymphocytes Percent Auto 27.2 % (25-40); Mean Corpuscular HGB Conc 34.1 % (30-36); Mean Corpuscular Volume 90.8 fL (80-100); Monocytes Absolute Auto 500 /uL (0-900); Monocytes Percent Auto 7.9 % (3-14); Neutrophils Absolute Auto 3800 /uL (1500-7000); Neutrophils Percent Auto 61.1 % (50-75); Platelet Count 239 X10^3/uL (150-400); Red Blood Cell Count 4.16 X10^6/uL (4.0-5.2); Red Cell Distribution Width 12.6 % (11.6-14.8); White Blood Cell Count 6.2 X10^3/uL (4.5-11.0)
[2019-12-16 07:36] LABS: BUN Creatinine Ratio 21.7 (6-22); Blood Urea Nitrogen 18 mg/dL (7-17); Calcium 9.3 mg/dL (8.4-10.2); Carbon Dioxide 23 mmol/L (22-32); Chloride 108 mmol/L (98-107); Estimated Glomerular Filt Rate > 60.0 mL/min (>60); Glucose 109 mg/dL (70-100); HEMOLYSIS < 15 (0-50); Potassium 3.3 mmol/L (3.4-5.1); Sodium 141 mmol/L (137-145)
[2019-12-16 07:40] LABS: C-Reactive Protein Quant < 0.5 mg/dL (<1.0)
[2019-12-16] MEDS: KETOROLAC 60 MG/2 ML VIAL 15 MG IV (08:24)
[2019-12-16] MEDS: diazePAM 5 MG TABLET PO (08:24)
== END 2019-12-16 10:06 | disposition home or self-care (01) ==
PROVIDERS: Emergency Medicine; Emergency Provider Emergency Medicine; Family Provider Family Medicine; PCP Family Medicine
DX: G35 Multiple sclerosis (principal)
CPT/HCPCS: 36415; 80048; 85025; 86140; 96365; 96375; 99284; J1885; J2930

== ENCOUNTER 2019-12-17 02:18 | Emergency (ER) | payer OTHER, SELFPAY ==
[2019-12-17 02:21] VITALS: PULSE 107; O2SAT 98
[2019-12-17 02:22] VITALS: BP 143/87; PULSE 107; O2SAT 98
[2019-12-17 02:25] VITALS: BP 143/87; PULSE 110; RESP 16; TEMP 36.8; O2SAT 97; BMI 19.7
[2019-12-17 02:30] VITALS: BP 138/91; PULSE 108; O2SAT 99
--- NOTE | 2019-12-17 02:33 | ED_ITS ---
HPI - Extremity Problem General Chief complaint: Extremity Problem,Nontraumatic Stated complaint: leg pain Time Seen by Provider: 12/17/19 02:21 Source: patient and EMS History of Present Illness HPI Narrative: Patient brought in by ambulance from home, seen here 24 hours ago for the same complaints. Multiple sclerosis flare. Please see notes below from previous visit for disposition and plan. Patient does have a neurologist in telling him, Dr. Maldonado, goes to [facility]. Had MRI of the lower spine 2 months ago with concern of lesions at the lumbar spine, scheduled for repeat lumbar spine MRI December 26. Symptoms have worsened. Two days ago flared up again. No incontinence. Has burning fire sensation to both legs right greater than left, denies any back pain, no recent injury or fever or chills. No cough cold congestion MDM Narrative Medical decision making narrative: 39-year-old woman with MS. Currently mid flare. She is given 1gm IV Solu-Medrol here in the emergency department. She is also given 5 mg of oral Valium and 15 mg of IV Toradol which helped with the overall pain and muscle spasm as well. Phone call to her primary care physician Dr. Hoff to help arrange additional outpatient 1 g Solu-Medrol infusions. Typically when she has a flare she states she does 5 days rather than 3. Will give her a prescription for oral Valium to help with muscle spasm over the next couple of days. She will follow-up with her primary care physician and scheduled infusion tomorrow. 950 finally able to reach front office staff at clinic. Doctor is out of the office. Message is left with A[facility] Best of the clinic nurses who will route the request for outpatient Solu-Medrol over the next 4 days to the on-call doctor. They will contact patient with follow-up times. Complaint: extremity pain Onset (ago): day(s) Pain Consistency: constant Location: left, right and lower extremity Severity scale (1-10): 10 Quality: burning Radiation: none Relieving factors: nothing Exacerbating factors: nothing Related Data Home Medications Medication Instructions Recorded Confirmed ibuprofen 600 mg PO TIDP PRN #0 11/27/10 12/01/18 lamotrigine [Lamictal] 25 mg PO BID #0 08/26/16 12/01/18 methylphenidate HCl 5 mg PO BID #0 08/26/16 12/01/18 acetaminophen 325 mg capsule 325 mg PO Q6H PRN 12/01/18 12/01/18 atenolol 25 mg tablet 25 mg PO DAILY 12/01/18 12/01/18 baclofen 20 mg tablet 20 mg PO QID 12/01/18 12/01/18 bupropion HCl 150 mg 24 hr tablet, 150 mg PO QAM 12/01/18 12/01/18 extended release buspirone 30 mg tablet mg PO tab 12/01/18 12/01/18 melatonin 5 mg capsule mg PO cap 12/01/18 12/01/18 olanzapine 2.5 mg tablet 2.5 mg PO BEDTIME 12/01/18 12/01/18 topiramate 25 mg tablet 50 mg PO DAILY tab 12/01/18 12/01/18 trazodone 50 mg tablet 75 mg PO DAILY 12/01/18 12/01/18 Previous Rx's Medication Instructions Recorded diazepam 5 mg PO BID PRN #30 tab 12/16/19 Allergies Allergy/AdvReac Type Severity Reaction Status Date / Time amitriptyline [AMITRIPTYLINE] Allergy Unknown Verified 12/01/18 16:21 gabapentin [GABAPENTIN] Allergy Unknown Verified 12/01/18 16:21 shayne [SHAYNE] Allergy Unknown Verified 12/01/18 16:21 Review of Systems Review of Systems Narrative: GENERAL: Denies chills, fatigue, malaise, fever, sweats. HEENT: Denies sinus pain, ear pain, sore throat, difficulty swallowing, dizziness. RESPIRATORY: Denies dyspnea, cough, wheezing, hemoptysis, sputum. CARDIOVASCULAR: Denies chest pain, palpitations, orthopnea, edema, GASTROINTESTINAL: Denies nausea, vomiting, abdominal pain, diarrhea, constipation, melena. : Denies dysuria, frequency, incontinence, hematuria, urinary retention. MUSCULOSKELETAL: denies weakness, joint pain, or bony pain SKIN: Denies rash, skin lesions, or other NEUROLOGIC: Denies weakness, headache, numbness, change in speech, confusion, seizures, incoordination. PSYCHIATRIC: No concerning psychosocial issues. ROS Unobtainable: All systems reviewed & are unremarkable except as noted in HPI and below Patient History Medical History HTN (hypertension) (Acute) MS (multiple sclerosis) (Acute) Social History Smoking Status: Never smoker Smoking Status: Never smoker alcohol intake frequency: 0-2 drinks per day Substance Use Type: does not use Exam Narrative Exam Narrative: GENERAL: patient appears stated age. Well-nourished, well-developed patient, in no distress, not toxic HEAD: Atraumatic. Normocephalic. EYES: Pupils equal round and reactive. Extraocular motions intact. No scleral icterus. No injection or drainage. ENT: Nose without bleeding, purulent drainage. Throat without erythema, tonsillar hypertrophy or exudate. Airway patent. NECK: Trachea midline. Non tender CARDIOVASCULAR: Regular rate and rhythm without murmurs, gallops, or rubs. RESPIRATORY: Clear to auscultation. Breath sounds equal bilaterally. No wheezes, rales, or rhonchi. GASTROINTESTINAL: Abdomen soft, non-tender, nondistended. EXTREMITIES: Bilateral knees to toes exposed. Shoes and socks off. No rash. No erythema no induration. No knee or ankle tenderness. Light touch intact to bilateral feet toes and legs, he will to bring legs off the bed BACK: Nontender without deformity or crepitance. No flank tenderness. NEURO: AOx3. SKIN: No rash or erythema of visible areas Initial Vital Signs Initial Vital Signs: Vital Signs Pulse Rate 107 H 12/17/19 02:21 Pulse Oximetry 98 12/17/19 02:21 Course Course Course Narrative: [facility] neurologist 3:40 a.m., no call back at 4:33 a.m.. We will proceed to call hospitalist for admission Orders Ordered: ED Orders 12/17/19 02:40 Complete Blood Count AUTO DIFF Stat Comprehensive Metabolic Panel Stat Test Serum,Qual Stat Discontinued Medications Diazepam (Valium) 5 mg PO NOW ONE Stop: 12/17/19 02:34 Last Admin: 12/17/19 02:45 Dose: 5 mg Documented by: NOEMÍ Methylprednisolone 1,000 mg/ (Sodium Chloride) 258 mls @ 258 mls/hr IV NOW ONE Stop: 12/17/19 02:42 Last Infusion: 12/17/19 04:39 Dose: 0 mls/hr Documented by: Admin: 12/17/19 03:21 Dose: 258 mls/hr Documented by: NOEMÍ Reevaluation(s) Reevaluation #1: Patient resting comfortably at this time. No distress Time: 04:34 Consultations Consultation #1: Spoke with [facility], [facility], hospitalist, Dr. Saldana, will accept Time: 04:41 Vital Signs Vital signs: Vital Signs - 8 hr 12/17/19 02:21 12/17/19 02:22 12/17/19 02:25 Temperature 98.3 F Pulse Rate 107 H 107 H 110 H Respiratory Rate 16 Blood Pressure 143/87 H 143/87 H Pulse Oximetry 98 98 97 12/17/19 02:30 12/17/19 05:30 Temperature Pulse Rate 108 H 99 H Respiratory Rate Blood Pressure 138/91 H 137/70 Pulse Oximetry 99 96 MDM - Extremity (Nontraumatic) Differential Diagnosis Differential diagnosis: Likely other (MS flare-up) Lab Data Result diagrams: 12/17/19 02:40 12/17/19 02:40 Labs: Lab Results 12/17/19 12/17/19 12/17/19 Range/Units 02:40 02:40 02:40 WBC 10.0 D (4.5-11.0) X10^3/uL RBC 4.05 (4.0-5.2) X10^6/uL Hgb 12.7 (12.0-16.0) g/dL Hct 36.6 (36-46) % MCV 90.6 (80-100) fL MCH 31.5 (26-34) PG MCHC 34.7 (30-36) % RDW 12.4 (11.6-14.8) % Plt Count 234 (150-400) X10^3/uL Neut % (Auto) 84.6 H D (50-75) % Lymph % (Auto) 8.3 L (25-40) % Perry % (Auto) 6.9 (3-14) % Eos % (Auto) 0.0 L (2-4) % Baso % (Auto) 0.2 (0-2) % Neut # (Auto) 8500 H (3672-5386) /uL Lymph # (Auto) 800 L (7800-1318) /uL Perry # (Auto) 700 (0-900) /uL Eos # (Auto) 0 (0-450) /uL Baso # (Auto) 0 (0-100) /uL Sodium 143 (137-145) mmol/L Potassium 3.5 (3.4-5.1) mmol/L Chloride 110 H (98-107) mmol/L Carbon Dioxide 22 (22-32) mmol/L BUN 18 H (7-17) mg/dL Creatinine 0.82 (0.52-1.04) mg/dL Estimated GFR > 60.0 (>60) mL/min BUN/Creatinine Ratio 22.0 (6-22) Glucose 118 H (70-100) mg/dL Calcium 9.3 (8.4-10.2) mg/dL Total Bilirubin 0.3 (0.2-1.3) mg/dL AST 25 (14-36) IU/L ALT 23 (<35) IU/L Alkaline Phosphatase 53 (38-126) U/L Total Protein 7.6 (6.3-8.2) g/dL Albumin 4.9 (3.5-5.0) g/dL Globulin 2.7 (1.7-4.1) g/dL Albumin/Globulin Ratio 1.8 (1.0-2.8) Serum , Qual Negative (Negative) COVID-19 PCR (Negative) 12/17/19 Range/Units 05:30 WBC (4.5-11.0) X10^3/uL RBC (4.0-5.2) X10^6/uL Hgb (12.0-16.0) g/dL Hct (36-46) % MCV (80-100) fL MCH (26-34) PG MCHC (30-36) % RDW (11.6-14.8) % Plt Count (150-400) X10^3/uL Neut % (Auto) (50-75) % Lymph % (Auto) (25-40) % Perry % (Auto) (3-14) % Eos % (Auto) (2-4) % Baso % (Auto) (0-2) % Neut # (Auto) (0777-7383) /uL Lymph # (Auto) (0029-2853) /uL Perry # (Auto) (0-900) /uL Eos # (Auto) (0-450) /uL Baso # (Auto) (0-100) /uL Sodium (137-145) mmol/L Potassium (3.4-5.1) mmol/L Chloride (98-107) mmol/L Carbon Dioxide (22-32) mmol/L BUN (7-17) mg/dL Creatinine (0.52-1.04) mg/dL Estimated GFR (>60) mL/min BUN/Creatinine Ratio (6-22) Glucose (70-100) mg/dL Calcium (8.4-10.2) mg/dL Total Bilirubin (0.2-1.3) mg/dL AST (14-36) IU/L ALT (<35) IU/L Alkaline Phosphatase (38-126) U/L Total Protein (6.3-8.2) g/dL Albumin (3.5-5.0) g/dL Globulin (1.7-4.1) g/dL Albumin/Globulin Ratio (1.0-2.8) Serum , Qual (Negative) COVID-19 PCR Negative (Negative) MDM Narrative Medical decision making narrative: Patient to be transferred to [facility] [place] for pain management and further evaluation by her neurologist, we do not have Neurology here at this hospital, MRI not available here at this time. Patient was seen here earlier today, has not improved through the course of the day. Will admit/transfer for continuity of care with her neurologist in [place] Discharge Plan Departure Patient Disposition: [facility] Clinical Impression: MS (multiple sclerosis) Prescriptions: No Action atenolol 25 mg tablet 25 mg PO DAILY RF: 0 bupropion HCl 150 mg tablet extended release 24 hr 150 mg PO QAM RF: 0 buspirone 30 mg tablet PO RF: 0 baclofen 20 mg tablet 20 mg PO QID RF: 0 trazodone 50 mg tablet 75 mg PO DAILY RF: 0 olanzapine 2.5 mg tablet 2.5 mg PO BEDTIME RF: 0 topiramate [Topamax] 25 mg tablet 50 mg PO DAILY RF: 0 melatonin 5 mg capsule PO RF: 0 acetaminophen [Tylenol] 325 mg capsule 325 mg PO Q6H PRNRF: 0 ibuprofen 600 MG tablet 600 mg PO TIDP PRNQty: 0 RF: 0 methylphenidate HCl 5 MG tablet 5 mg PO BID Qty: 0 RF: 0 lamotrigine [Lamictal] 25 MG tablet 25 mg PO BID Qty: 0 RF: 0 diazepam 5 mg tablet 5 mg PO BID PRN (Reason: muscle spasm) Qty: 30 RF: 0 Referrals: Mona Weinstein DO [Primary Care Provider] -
[2019-12-17] MEDS: diazePAM 5 MG TABLET PO (02:45)
[2019-12-17 02:49] LABS: Add Manual Diff / Slide Review NO; Basophils Absolute Auto 0 /uL (0-100); Basophils Percent Auto 0.2 % (0-2); Eosinophils Absolute Auto 0 /uL (0-450); Hematocrit 36.6 % (36-46); Hemoglobin 12.7 g/dL (12.0-16.0); Lymphocytes Absolute Auto 800 /uL (1100-4500); Lymphocytes Percent Auto 8.3 % (25-40); Mean Corpuscular HGB Conc 34.7 % (30-36); Mean Corpuscular Hemoglobin 31.5 PG (26-34); Mean Corpuscular Volume 90.6 fL (80-100); Monocytes Absolute Auto 700 /uL (0-900); Monocytes Percent Auto 6.9 % (3-14); Neutrophils Absolute Auto 8500 /uL (1500-7000); Neutrophils Percent Auto 84.6 % (50-75); Platelet Count 234 X10^3/uL (150-400); Red Blood Cell Count 4.05 X10^6/uL (4.0-5.2); Red Cell Distribution Width 12.4 % (11.6-14.8)
[2019-12-17 02:58] LABS: Alanine Aminotransferase 23 IU/L (<35); Albumin 4.9 g/dL (3.5-5.0); Albumin Globulin Ratio 1.8 (1.0-2.8); Alkaline Phosphatase 53 U/L (38-126); Aspartate Aminotransferase 25 IU/L (14-36); Bilirubin Total 0.3 mg/dL (0.2-1.3); Blood Urea Nitrogen 18 mg/dL (7-17); Calcium 9.3 mg/dL (8.4-10.2); Carbon Dioxide 22 mmol/L (22-32); Chloride 110 mmol/L (98-107); Estimated Glomerular Filt Rate > 60.0 mL/min (>60); Globulin 2.7 g/dL (1.7-4.1); Glucose 118 mg/dL (70-100); HEMOLYSIS < 15 (0-50); Potassium 3.5 mmol/L (3.4-5.1); Sodium 143 mmol/L (137-145); Total Protein 7.6 g/dL (6.3-8.2)
[2019-12-17 03:01] LABS: Pregnancy Test Serum,Qual Negative (Negative)
[2019-12-17] MEDS: methylPREDNISolone 1,000 MG in SODIUM CHLORIDE 0.9% 250 ML 258 ML IV (03:21)
[2019-12-17 05:30] VITALS: BP 137/70; PULSE 99; O2SAT 96
[2019-12-17 06:25] LABS: COVID19 -Nasal RAPID Negative (Negative)
[2019-12-17 07:35] VITALS: BP 123/73; PULSE 60; RESP 18
== END 2019-12-17 07:58 | disposition short-term general hospital (02) ==
PROVIDERS: Emergency Provider Emergency Medicine; Family Provider Family Medicine; PCP Family Medicine
DX: G35 Multiple sclerosis (principal); Z11.59 Encounter for screening for other viral diseases
CPT/HCPCS: 36415; 80053; 84703; 85025; 87635; 96365; 99284; J2930

== ENCOUNTER 2020-01-13 13:28 | Observation (INO) | payer OTHER, SELFPAY ==
[2020-01-13] VITALS (13 sets, daily range): BP systolic 103–137; BP diastolic 56–80; PULSE 57–101; RESP 13–22; TEMP 36.1–36.9; O2SAT 97–100; BMI 19.1
--- NOTE | 2020-01-13 14:09 | ED_ITS ---
HPI - Altered Mental Status General Chief Complaint: Altered Mental Status Stated Complaint: Neuro Time Seen by Provider: 01/13/20 13:44 Source: patient, family and EMS Mode of arrival: EMS History of Present Illness HPI narrative: Patient is a 38-year-old female with history of MS presenting with cognitive impairment. She was previously seen here a month ago and was head and the midst of an MS flare, she received IV Solu-Medrol and was transferred to [facility] at the time the states that seems to have improved. However today for about the last 1 hour she is not acting herself she is having some physical movements she is not comprehending or able to answer questions in fact she is very repetitive. He is not sure if she took medicine she was and supposed to typically she is very good at taking her medications. He says that he has seen bouts of this in the past but nothing this profound. She is able to answer some questions but is obviously confused in not able to answer all questions. She is able to follow commands. MD complaint: altered mental status and confusion Onset (ago): hour(s) Timing confirmed by: spouse Related Data Home Medications Medication Instructions Recorded Confirmed ibuprofen 600 mg PO TIDP PRN #0 11/27/10 12/01/18 lamotrigine [Lamictal] 25 mg PO BID #0 08/26/16 12/01/18 methylphenidate HCl 5 mg PO BID #0 08/26/16 12/01/18 acetaminophen 325 mg capsule 325 mg PO Q6H PRN 12/01/18 12/01/18 atenolol 25 mg tablet 25 mg PO DAILY 12/01/18 12/01/18 baclofen 20 mg tablet 20 mg PO QID 12/01/18 12/01/18 bupropion HCl 150 mg 24 hr tablet, 150 mg PO QAM 12/01/18 12/01/18 extended release buspirone 30 mg tablet mg PO tab 12/01/18 12/01/18 melatonin 5 mg capsule mg PO cap 12/01/18 12/01/18 olanzapine 2.5 mg tablet 2.5 mg PO BEDTIME 12/01/18 12/01/18 topiramate 25 mg tablet 50 mg PO DAILY tab 12/01/18 12/01/18 trazodone 50 mg tablet 75 mg PO DAILY 12/01/18 12/01/18 Previous Rx's Medication Instructions Recorded diazepam 5 mg PO BID PRN #30 tab 12/16/19 Allergies Allergy/AdvReac Type Severity Reaction Status Date / Time amitriptyline [AMITRIPTYLINE] Allergy Unknown Verified 12/01/18 16:21 gabapentin [GABAPENTIN] Allergy Unknown Verified 12/01/18 16:21 shayne [SHAYNE] Allergy Unknown Verified 12/01/18 16:21 Review of Systems Review of Systems ROS Unobtainable: All systems reviewed & are unremarkable except as noted in HPI and below Constitutional Constitutional: Denies chills, Denies fever(s), Denies lethargy and Denies weakness Eyes Eyes: Denies change in vision, Denies eye discharge, Denies irritation and Denies loss of vision ENT Ears, Nose, Mouth, and Throat: Denies change in voice, Denies neck pain and Denies sore throat Cardiovascular Cardiovascular: Denies chest pain, Denies irregular heart rhythm, Denies lig htheadedness, Denies palpitations, Denies dyspnea, Denies dyspnea on exertion and Denies orthopnea Respiratory Respiratory: Denies cough, Denies dyspnea, Denies dyspnea on exertion and Denies wheezing Gastrointestinal Gastrointestinal: Denies abdominal pain, Denies change in bowel habits, Denies diarrhea, Denies nausea and Denies vomiting Musculoskeletal Musculoskeletal: Denies back pain and Denies neck pain Integumentary/Breasts Skin/Breast: Denies pruritus, Denies erythema, Denies rash and Denies wounds Neurologic Neurologic: Reports as per HPI, Reports burning sensations, Reports confusion, Reports lack of coordination, Denies loss of vision and Denies weakness Psychiatric Psychiatric: Reports confusion Endocrine Endocrine: Denies palpitations Allergic/Immunologic Allergic/Immunologic: Denies wheezing Patient History Medical History HTN (hypertension) (Acute) MS (multiple sclerosis) (Acute) Social History Smoking Status: Never smoker Smoking Status: Never smoker alcohol intake frequency: 0-2 drinks per day Substance Use Type: does not use Exam Initial Vital Signs Initial Vital Signs: Vital Signs Temperature 98.4 F 01/13/20 13:33 Pulse Rate 97 H 01/13/20 13:33 Respiratory Rate 22 01/13/20 13:33 Blood Pressure 123/80 01/13/20 13:33 Pulse Oximetry 99 01/13/20 13:33 GENERAL: Alert female confused and in no acute distress. HEENT: Head atraumatic,EOMI, pupils reactive, face symmetric, moist mucous membranes CARDIOVASCULAR: Regular rate and rhythm without murmurs, rubs or gallops. RESPIRATORY: Breath sounds equal bilaterally, no wheezes rales or rhonchi. ABDOMEN: Soft, nontender. Normoactive bowel sounds all 4 quadrants. No guarding or rebound. EXTREMITIES: Normal range of motion, no clubbing or edema. Neurovascularly intact NEUROLOGICAL: Alert and oriented x4.Normal gait and speech. Binding Stitcher strength equal bilaterally unable to count by serial sevens cannot spell world backwards, decreased sensation to the left side SKIN: Warm, dry, no laceration, no petechiae, no rashes or lesions. Course Orders Ordered: ED Orders 01/13/20 14:07 CT head/brain wo con Stat 01/13/20 14:40 Acetaminophen Stat Complete Blood Count AUTO DIFF Stat Comprehensive Metabolic Panel Stat Ethanol (ETOH) Stat Lactate (Lactic Acid) Stat Partial Thromboplastin Time Stat Prolactin Stat Prothrombin Time INR Stat Salicylate Stat Thyroid Stimulating Hormone Stat Urinalysis and Microscopic Stat Urine Culture Stat Urine Drug Screen, Rapid Stat 01/13/20 14:59 Blood Culture Stat Discontinued Medications Sodium Chloride (Normal Saline 0.9%) 1,000 mls @ 1,000 mls/hr IV BOLUS ONE Stop: 01/13/20 16:30 Last Infusion: 01/13/20 17:03 Dose: 0 mls/hr Documented by: Admin: 01/13/20 15:34 Dose: 1,000 mls/hr Documented by: TASIA Ketorolac Tromethamine (Toradol) 15 mg IV NOW ONE Stop: 01/13/20 14:17 Last Admin: 01/13/20 15:07 Dose: 15 mg Documented by: TASIA Lorazepam (Ativan) 1 mg IV NOW ONE Stop: 01/13/20 14:18 Last Admin: 01/13/20 15:07 Dose: 1 mg Documented by: TASIA Reevaluation(s) Reevaluation #1: After Ativan Not able to spell STATE can count by 7's., arousable, still confused. Time: 17:10 Consultations Consultation #1: Dr. Palmer,request neuroogy consult. Time: 17:32 Consultation #2: Dr. Mata, neurology at [facility] has reviewed patient's chart at this time difficult to assess however does not quite sound like MS does not recommend steroids at this time does recommend repeat MRI patient also has history of PTSD bipolar possible psychiatric break. Time: 18:09 Vital Signs Vital signs: Vital Signs - 8 hr 01/13/20 13:33 01/13/20 14:30 01/13/20 15:38 Temperature 98.4 F Pulse Rate 97 H 94 H 65 Respiratory Rate 22 22 15 Blood Pressure 123/80 132/67 118/66 Pulse Oximetry 99 100 98 01/13/20 16:00 01/13/20 16:30 01/13/20 16:45 Temperature Pulse Rate 62 61 57 L Respiratory Rate 15 15 15 Blood Pressure 125/66 125/66 Pulse Oximetry 100 100 100 01/13/20 17:00 01/13/20 17:30 01/13/20 18:00 Temperature Pulse Rate 61 61 60 Respiratory Rate 15 13 17 Blood Pressure 126/70 121/65 103/56 L Pulse Oximetry 100 100 100 MDM - Altered Mental Status Lab Data Attestation: I reviewed the patient's lab results. Result diagrams: 01/13/20 14:40 01/13/20 14:40 Labs: Lab Results 01/13/20 01/13/20 01/13/20 Range/Units 14:40 14:40 14:40 WBC 5.9 (4.5-11.0) X10^3/uL RBC 4.04 (4.0-5.2) X10^6/uL Hgb 12.5 (12.0-16.0) g/dL Hct 36.4 (36-46) % MCV 90.1 (80-100) fL MCH 31.0 (26-34) PG MCHC 34.4 (30-36) % RDW 12.9 (11.6-14.8) % Plt Count 253 (150-400) X10^3/uL Neut % (Auto) 75.3 H (50-75) % Lymph % (Auto) 14.9 L (25-40) % [place] % (Auto) 8.3 (3-14) % Eos % (Auto) 0.8 L (2-4) % Baso % (Auto) 0.7 (0-2) % Neut # (Auto) 4400 (3717-2930) /uL Lymph # (Auto) 900 L (6905-3089) /uL [place] # (Auto) 500 (0-900) /uL Eos # (Auto) 0 (0-450) /uL Baso # (Auto) 0 (0-100) /uL PT 10.5 (10.1-12.7) SECONDS INR 0.9 (0.9-1.3) APTT 31 (26.4-36.2) SECONDS Sodium 142 (137-145) mmol/L Potassium 3.1 L (3.4-5.1) mmol/L Chloride 107 (98-107) mmol/L Carbon Dioxide 26 (22-32) mmol/L BUN 22 H (7-17) mg/dL Creatinine 1.17 H (0.52-1.04) mg/dL Estimated GFR 51.0 L (>60) mL/min BUN/Creatinine Ratio 18.8 (6-22) Glucose 98 (70-100) mg/dL Lactate (0.7-2.1) mmol/L Calcium 9.8 (8.4-10.2) mg/dL Total Bilirubin 0.5 (0.2-1.3) mg/dL AST 25 (14-36) IU/L ALT 19 (<35) IU/L Alkaline Phosphatase 69 (38-126) U/L Total Protein 7.5 (6.3-8.2) g/dL Albumin 4.7 (3.5-5.0) g/dL Globulin 2.8 (1.7-4.1) g/dL Albumin/Globulin Ratio 1.7 (1.0-2.8) TSH (0.47-4.68) uIU/mL Prolactin 9.2 (3.0-18.6) ng/mL Urine Color Urine Appearance Urine pH (4.5-8.0) Ur Specific [place] (1.000-1.035) Urine Protein (Negative) Urine Glucose (UA) (Negative) g/dL Urine Ketones (NEGATIVE) Urine Occult Blood (Negative) Urine Nitrate (Negative) Urine Bilirubin (NEGATIVE) Urine Urobilinogen (0.2) E.U./dL Ur Leukocyte Esterase (NEGATIVE) Urine RBC (0-5/HPF) Urine WBC (0-5/HPF) Ur Squamous Epith Cells (0-5/HPF) Urine Bacteria (None) Ur Culture Indicated? Salicylates < 1.0 (<20) mg/dL U Opiates 300ng/mL cut (Negative) Ur Oxycodone Screen (Negative) Urine Methadone Screen (Negative) Acetaminophen < 10 L (10-30) ug/mL Ur Barbiturates Screen (Negative) U Tricyclic Antidepress (Negative) Ur Phencyclidine Scrn (Negative) Ur Amphetamines Screen (Negative) U Methamphetamines Scrn (Negative) Ur MDMA Scrn (Ecstasy) (Negative) U Benzodiazepines Scrn (Negative) Urine Cocaine Screen (Negative) U Marijuana (THC) Screen (Negative) Ethyl Alcohol < 10 ( - 10) mg/dL 01/13/20 01/13/20 01/13/20 Range/Units 14:40 14:40 14:40 WBC (4.5-11.0) X10^3/uL RBC (4.0-5.2) X10^6/uL Hgb (12.0-16.0) g/dL Hct (36-46) % MCV (80-100) fL MCH (26-34) PG MCHC (30-36) % RDW (11.6-14.8) % Plt Count (150-400) X10^3/uL Neut % (Auto) (50-75) % Lymph % (Auto) (25-40) % [place] % (Auto) (3-14) % Eos % (Auto) (2-4) % Baso % (Auto) (0-2) % Neut # (Auto) (2073-5710) /uL Lymph # (Auto) (8536-9401) /uL [place] # (Auto) (0-900) /uL Eos # (Auto) (0-450) /uL Baso # (Auto) (0-100) /uL PT (10.1-12.7) SECONDS INR (0.9-1.3) APTT (26.4-36.2) SECONDS Sodium (137-145) mmol/L Potassium (3.4-5.1) mmol/L Chloride (98-107) mmol/L Carbon Dioxide (22-32) mmol/L BUN (7-17) mg/dL Creatinine (0.52-1.04) mg/dL Estimated GFR (>60) mL/min BUN/Creatinine Ratio (6-22) Glucose (70-100) mg/dL Lactate 1.0 (0.7-2.1) mmol/L Calcium (8.4-10.2) mg/dL Total Bilirubin (0.2-1.3) mg/dL AST (14-36) IU/L ALT (<35) IU/L Alkaline Phosphatase (38-126) U/L Total Protein (6.3-8.2) g/dL Albumin (3.5-5.0) g/dL Globulin (1.7-4.1) g/dL Albumin/Globulin Ratio (1.0-2.8) TSH 0.106 L (0.47-4.68) uIU/mL Prolactin (3.0-18.6) ng/mL Urine Color Yellow Urine Appearance Clear Urine pH 5.5 (4.5-8.0) Ur Specific [place] 1.015 (1.000-1.035) Urine Protein Negative (Negative) Urine Glucose (UA) Negative (Negative) g/dL Urine Ketones Negative (NEGATIVE) Urine Occult Blood Trace-intact (Negative) Urine Nitrate Negative (Negative) Urine Bilirubin Negative (NEGATIVE) Urine Urobilinogen 0.2 (0.2) E.U./dL Ur Leukocyte Esterase 1+ H (NEGATIVE) Urine RBC None seen (0-5/HPF) Urine WBC 1-5/hpf (0-5/HPF) Ur Squamous Epith Cells 0-1 /hpf (0-5/HPF) Urine Bacteria None seen (None) Ur Culture Indicated? Specimen cultured Salicylates (<20) mg/dL U Opiates 300ng/mL cut (Negative) Ur Oxycodone Screen (Negative) Urine Methadone Screen (Negative) Acetaminophen (10-30) ug/mL Ur Barbiturates Screen (Negative) U Tricyclic Antidepress (Negative) Ur Phencyclidine Scrn (Negative) Ur Amphetamines Screen (Negative) U Methamphetamines Scrn (Negative) Ur MDMA Scrn (Ecstasy) (Negative) U Benzodiazepines Scrn (Negative) Urine Cocaine Screen (Negative) U Marijuana (THC) Screen (Negative) Ethyl Alcohol ( - 10) mg/dL 07/27/20 Range/Units 14:40 WBC (4.5-11.0) X10^3/uL RBC (4.0-5.2) X10^6/uL Hgb (12.0-16.0) g/dL Hct (36-46) % MCV (80-100) fL MCH (26-34) PG MCHC (30-36) % RDW (11.6-14.8) % Plt Count (150-400) X10^3/uL Neut % (Auto) (50-75) % Lymph % (Auto) (25-40) % [place] % (Auto) (3-14) % Eos % (Auto) (2-4) % Baso % (Auto) (0-2) % Neut # (Auto) (4199-2123) /uL Lymph # (Auto) (9371-5112) /uL [place] # (Auto) (0-900) /uL Eos # (Auto) (0-450) /uL Baso # (Auto) (0-100) /uL PT (10.1-12.7) SECONDS INR (0.9-1.3) APTT (26.4-36.2) SECONDS Sodium (137-145) mmol/L Potassium (3.4-5.1) mmol/L Chloride (98-107) mmol/L Carbon Dioxide (22-32) mmol/L BUN (7-17) mg/dL Creatinine (0.52-1.04) mg/dL Estimated GFR (>60) mL/min BUN/Creatinine Ratio (6-22) Glucose (70-100) mg/dL Lactate (0.7-2.1) mmol/L Calcium (8.4-10.2) mg/dL Total Bilirubin (0.2-1.3) mg/dL AST (14-36) IU/L ALT (<35) IU/L Alkaline Phosphatase (38-126) U/L Total Protein (6.3-8.2) g/dL Albumin (3.5-5.0) g/dL Globulin (1.7-4.1) g/dL Albumin/Globulin Ratio (1.0-2.8) TSH (0.47-4.68) uIU/mL Prolactin (3.0-18.6) ng/mL Urine Color Urine Appearance Urine pH (4.5-8.0) Ur Specific [place] (1.000-1.035) Urine Protein (Negative) Urine Glucose (UA) (Negative) g/dL Urine Ketones (NEGATIVE) Urine Occult Blood (Negative) Urine Nitrate (Negative) Urine Bilirubin (NEGATIVE) Urine Urobilinogen (0.2) E.U./dL Ur Leukocyte Esterase (NEGATIVE) Urine RBC (0-5/HPF) Urine WBC (0-5/HPF) Ur Squamous Epith Cells (0-5/HPF) Urine Bacteria (None) Ur Culture Indicated? Salicylates (<20) mg/dL U Opiates 300ng/mL cut Negative (Negative) Ur Oxycodone Screen Positive H (Negative) Urine Methadone Screen Negative (Negative) Acetaminophen (10-30) ug/mL Ur Barbiturates Screen Negative (Negative) U Tricyclic Antidepress Negative (Negative) Ur Phencyclidine Scrn Negative (Negative) Ur Amphetamines Screen Negative (Negative) U Methamphetamines Scrn Negative (Negative) Ur MDMA Scrn (Ecstasy) Negative (Negative) U Benzodiazepines Scrn Negative (Negative) Urine Cocaine Screen Negative (Negative) U Marijuana (THC) Screen Negative (Negative) Ethyl Alcohol ( - 10) mg/dL Point of Care Testing Test Results Negative Urine Dip Bedside Urine Glucose Negative Bedside Urine Bilirubin - Negative Bedside Urine Ketone - Negative Urine Specific [place] 1.020 Bedside Urine Occult Blood + Bedside Urine pH 6.0 Bedside Urine Protein - Negative Bedside Urine Urobilinogen - Negative Bedside Urine Nitrite - Negative Bedside Urine Leukocytes + [address] scan - head: Radiologist's Impression: PROCEDURE: CT HEAD/BRAIN WO CON INDICATIONS: altered TECHNIQUE: Noncontrast 4.5 mm thick angled axial sections acquired from the foramen magnum to the vertex, with coronal and sagittal reformats. For radiation dose reduction, the following was used: automated exposure control, adjustment of mA and/or kV according to patient size. COMPARISON: None. FINDINGS: Image quality: Excellent. CSF spaces: Basal cisterns are patent. No extra-axial fluid collections. Ventricles are normal in size and shape. Brain: No midline shift. No intracranial masses or hemorrhage. Manzo-white matter interface is normal. Skull and face: Calvarium and visualized facial bones are intact, without suspicious lesions. Sinuses: Visualized sinuses and mastoids are clear. IMPRESSION: No acute intracranial finding. Dictated by: Rickie Gutierrez M.D. on 01/13/2020 at 14:29 Approved by: Rickie Gutierrez M.D. on 01/13/2020 at 14:31 MDM Narrative Medical decision making narrative: Patient is given ativan and monitored she is reassessed in her mental status remains the same. I discussed case with Neurology at this time patient does have a psychiatric history this may be psychiatric related versus medication related but unlikely to be EMS related. Nonetheless he still recommends MRI at this time does not recommend steroids. Dr. palmer agrees with observation. Discharge Plan Departure Patient Disposition: Admitted as Observation Clinical Impression: Acute metabolic encephalopathy Discharge Date/Time: 01/13/20 19:02 Referrals: Mona Weinstein DO [Primary Care Provider] - Admit Date/Time: 01/13/20 18:10 Admit Provider: [place]
--- NOTE | 2020-01-13 14:11 | PC.NURSE ---
Pt given ice water per providers approval
[2020-01-13 14:51] LABS: Add Manual Diff / Slide Review NO; Basophils Absolute Auto 0 /uL (0-100); Basophils Percent Auto 0.7 % (0-2); Eosinophils Absolute Auto 0 /uL (0-450); Eosinophils Percent Auto 0.8 % (2-4); Hematocrit 36.4 % (36-46); Hemoglobin 12.5 g/dL (12.0-16.0); Lymphocytes Absolute Auto 900 /uL (1100-4500); Lymphocytes Percent Auto 14.9 % (25-40); Mean Corpuscular HGB Conc 34.4 % (30-36); Mean Corpuscular Volume 90.1 fL (80-100); Monocytes Absolute Auto 500 /uL (0-900); Monocytes Percent Auto 8.3 % (3-14); Neutrophils Absolute Auto 4400 /uL (1500-7000); Neutrophils Percent Auto 75.3 % (50-75); Platelet Count 253 X10^3/uL (150-400); Red Blood Cell Count 4.04 X10^6/uL (4.0-5.2); Red Cell Distribution Width 12.9 % (11.6-14.8); White Blood Cell Count 5.9 X10^3/uL (4.5-11.0)
[2020-01-13 15:02] LABS: INR 0.9 (0.9-1.3); Prothrombin Time 10.5 SECONDS (10.1-12.7)
[2020-01-13 15:04] LABS: Bacteria Urine None Seen; PTT Partial Thromboplastin Tim 31 SECONDS (26.4-36.2); RBC Urine None Seen (0-5/HPF)
[2020-01-13 15:06] LABS: Appearance Urine UA CLEAR; Bilirubin Urine UA NEGATIVE (NEGATIVE); Color Urine UA YELLOW; Glucose Urine UA NEGATIVE (Negative); Ketones Urine UA NEGATIVE (NEGATIVE); Leukocyte Esterase Urine UA 1+ (NEGATIVE); Nitrite Urine UA NEGATIVE (Negative); Occult Blood Urine UA TRACE-INTACT (Negative); Protein Urine UA NEGATIVE (Negative); Specific Gravity Urine UA 1.015 (1.000-1.035); Urobilinogen Urine UA 0.2 E.U./dL (0.2)
[2020-01-13] MEDS: KETOROLAC 60 MG/2 ML VIAL 15 MG IV (15:07)
[2020-01-13] MEDS: LORazepam 2 MG/ML INJ 1 MG IV (15:07)
[2020-01-13 15:08] LABS: Acetaminophen < 10 ug/mL (10-30); Alanine Aminotransferase 19 IU/L (<35); Albumin 4.7 g/dL (3.5-5.0); Albumin Globulin Ratio 1.7 (1.0-2.8); Alkaline Phosphatase 69 U/L (38-126); Aspartate Aminotransferase 25 IU/L (14-36); BUN Creatinine Ratio 18.8 (6-22); Bilirubin Total 0.5 mg/dL (0.2-1.3); Blood Urea Nitrogen 22 mg/dL (7-17); Calcium 9.8 mg/dL (8.4-10.2); Carbon Dioxide 26 mmol/L (22-32); Chloride 107 mmol/L (98-107); Ethanol (ETOH) < 10 mg/dL; Globulin 2.8 g/dL (1.7-4.1); Glucose 98 mg/dL (70-100); HEMOLYSIS < 15 (0-50); Potassium 3.1 mmol/L (3.4-5.1); Salicylate < 1.0 mg/dL (<20); Sodium 142 mmol/L (137-145); Total Protein 7.5 g/dL (6.3-8.2)
[2020-01-13 15:09] LABS: UR Morphine/Opiate cutoff 300 Negative (Negative); Ur Creatinine Normal (Normal); Ur Specific Gravity Normal (Normal); Urine Amphetamines Negative (Negative); Urine Barbiturates Negative (Negative); Urine Benzodiazepines Negative (Negative); Urine Cocaine Negative (Negative); Urine MDMA Negative (Negative); Urine Methadone Negative (Negative); Urine Methamphetamines Negative (Negative); Urine Oxycodone Positive (Negative); Urine Phencyclidine Negative (Negative); Urine Tetrahydrocannabinol Negative (Negative); Urine Tricyclic Antidepressant Negative (Negative); Urine pH Normal (Normal)
[2020-01-13 15:12] LABS: Culture Indicated Urine Specimen Cultured; Squamous Epithelial Cell Urine 0-1 /HPF (0-5/HPF); WBC Urine 1-5/HPF (0-5/HPF); pH Urine UA 5.5 (4.5-8.0)
[2020-01-13 15:23] LABS: Prolactin 9.2 ng/mL (3.0-18.6)
[2020-01-13] MEDS: SODIUM CHLORIDE 0.9% 1,000 ML 1000 ML IV (15:34)
[2020-01-13 15:52] LABS: Thyroid Stimulating Hormone 0.106 uIU/mL (0.47-4.68)
--- NOTE | 2020-01-13 16:41 | PC.NURSE ---
Patient with MS having an episode of altered mental status per has been repeating herself for several hours. Was fine this morning he replies, in fact it was a good morning. patient is intermittently able to answer questions appropriately and then lapses into repeating herself and making confused statements that are illogical. reports she has had episodes like this in the past however they last for an hour or so and resolve after she takes a nap. He thinks it may be related to the medication she takes and taking too much of it.
--- NOTE | 2020-01-13 16:43 | PC.NURSE ---
Patient sleeping after ativan dose, I woke her in order to assess her neuro status. it is unchanged at this time. She still is unable to answer my questions consistently and is repeating herself. Dr. Triplett aware.
--- NOTE | 2020-01-13 19:01 | PC.NURSE ---
going to floor with box of meds. at this time.
[2020-01-13 19:51] LABS: COVID19 -Nasal RAPID Negative (Negative)
--- NOTE | 2020-01-13 20:07 | PC.ADMIT ---
[email or web address] Admission Note: The patient,Keesha Cardenas,39 y/o, was given written information regarding hospital policies, unit procedures and contact persons. Patient's smoking status: Never smoker. Pt arrived from ED via stretcher. Able to stand pivot trans to bed with assistance. Oriented to self and place. Repeats answers and questions. Supportive spouse at bedside helping with admission questions. Oriented to room and call system. High fall risk measures implemented. Enc to use FWW for ambulation for now as pt is unsteady and reports mild dizziness. Bed alarm on. Pt verbalized she will call for needs. Vital Signs - 8 hr 01/13/20 13:33 01/13/20 14:30 01/13/20 15:38 Temperature 98.4 F Pulse Rate 97 H 94 H 65 Respiratory Rate 22 22 15 Blood Pressure 123/80 132/67 118/66 Pulse Oximetry 99 100 98 01/13/20 16:00 01/13/20 16:30 01/13/20 16:45 Temperature Pulse Rate 62 61 57 L Respiratory Rate 15 15 15 Blood Pressure 125/66 125/66 Pulse Oximetry 100 100 100 01/13/20 17:00 01/13/20 17:30 01/13/20 18:00 Temperature Pulse Rate 61 61 60 Respiratory Rate 15 13 17 Blood Pressure 126/70 121/65 103/56 L Pulse Oximetry 100 100 100 01/13/20 18:29 01/13/20 18:30 01/13/20 19:05 Temperature 98.3 F Pulse Rate 59 L 76 Respiratory Rate 19 18 Blood Pressure 105/56 L 136/80 Pulse Oximetry 100 98
[2020-01-13] MEDS: POTASSIUM CHLORIDE 20 MEQ TAB 40 MEQ PO (20:49)
--- NOTE | 2020-01-13 22:12 | P.HP_ITS ---
History of Present Illness History of Present Illness Date Patient Seen: 01/13/20 Time Patient Seen: 19:30 Chief complaint: Confusion and unusual movement Narrative: Keesha Cardenas who prefers to be called ?Nena is a pleasant 39-year-old female with history of PTSD and multiple sclerosis was brought in by her today due to having been observed to be confused and demonstrating unusual physical movement. She does not recall what happened and is still feeling somewhat lethargic. in the room is giving much of the history for today. He states that at around 11:00 a.m. this morning she actually got very tired and wanted to go to bed and apparently woke up being very confused. He brought her to the emergency department and when she was in the room she started to rock herself and then clock herself on her both legs and then finally crawled herself up in a ball on her back with her legs up in the air. He showed me videos of this behavior. The patient has a history of PTSD that was diagnosed when she lost her son 8 years ago and has a diagnosis of multiple sclerosis from about 20 years ago. She recently had ropinirole and Cymbalta added to her medications approximately 2 weeks ago. The states that she has lost about 20-30 lb in the past 2 months despite the eating her normal or greater than normal amount of food. Patient denies fever sweats or chills, shortness of breath, chest pain, nausea vomiting, she does have chronic pelvic pain which is still being worked up, she has chronic hand tingling. She states that she has been being worked up for some kind of pelvic pain and underwent exploratory laparoscopic abdominal surgery and found that she had adhesions from her previous C-sections. She sees Dr. Evans neuro psychiatrist at [facility] who also is a MS specialist. Dr. Sheppard in [place] history of general neurologist. And she sees Dr. Sandra DO in [place]. In the ED she was given 1 Ativan does and noted to be confused during her visit there. Temp was 98.3?, blood pressure 136/80, heart rate 76, respiratory rate 18, oxygen saturation 98% on room air, she weighs 52 kg and has a BMI of 19. WBC 5.9, RBC 4.04, hemoglobin 12.5, hematocrit 36.4, platelet count 253, she does have mildly elevated neutrophil percentage of 75%, sodium 142, potassium 3.1, chloride 107, CO2 26, BUN 22, creatinine 1.17, with a GFR greater than 51%. TSH is low at 0.106, lactate was negative and she has normal liver enzymes. COVID- 19 was negative Patient History Medical History HTN (hypertension) (Acute) MS (multiple sclerosis) (Acute) PTSD (post-traumatic stress disorder) (Acute) Surgical History Bunion, right foot (Acute) History of laparoscopy (Acute) Family & Social History Family History Mother CVA (cerebral vascular accident) Diabetes type 2, uncontrolled Father Diabetes type 2, uncontrolled Social History: household members spouse Prior Living Arrangements House Tobacco & Substance use: Smoking Status Never smoker alcohol intake former alcohol intake frequency 0-2 drinks per day Substance Use Type does not use Meds Home Medications and Allergies Home Medications Medication Instructions Recorded Confirmed Type ibuprofen 600 mg PO TIDP PRN #0 11/27/10 01/13/20 History lamotrigine [Lamictal] 250 mg PO DAILY #0 08/26/16 01/13/20 History methylphenidate HCl 5 mg PO BID #0 08/26/16 01/13/20 History acetaminophen 325 mg capsule 325 mg PO Q6H PRN 12/01/18 01/13/20 History atenolol 25 mg tablet 50 mg PO DAILY 12/01/18 01/13/20 History baclofen 20 mg tablet 30 mg PO TID 12/01/18 01/13/20 History bupropion HCl 150 mg 24 hr tablet, 150 mg PO QAM 12/01/18 01/13/20 History extended release buspirone 30 mg tablet 30 mg PO BID tab 12/01/18 01/13/20 History melatonin 5 mg capsule 5 mg PO BEDTIME cap 12/01/18 01/13/20 History olanzapine 2.5 mg tablet 2.5 mg PO BEDTIME 12/01/18 01/13/20 History topiramate 25 mg tablet 50 mg PO TID tab 12/01/18 01/13/20 History trazodone 50 mg tablet 100 mg PO DAILY PRN 12/01/18 01/13/20 History diazepam 5 mg PO BID PRN #30 tab 12/16/19 01/13/20 Rx duloxetine [Cymbalta] 30 mg PO DAILY 01/13/20 01/13/20 History hydrochlorothiazide 25 mg PO DAILY 01/13/20 01/13/20 History oxycodone 30 mg PO Q6H PRN 01/13/20 01/13/20 History ropinirole 0.5 mg PO BEDTIME 01/13/20 01/13/20 History tizanidine 8 mg PO BEDTIME 01/13/20 01/13/20 History Allergies Allergy/AdvReac Type Severity Reaction Status Date / Time amitriptyline [AMITRIPTYLINE] Allergy Unknown Verified 12/01/18 16:21 gabapentin [GABAPENTIN] Allergy Unknown Verified 12/01/18 16:21 shayne [SHAYNE] Allergy Unknown Verified 12/01/18 16:21 Review of Systems Review of Systems ROS: Yes All systems reviewed with the patient and are negative except as otherwise documented Exam Vital Signs (past 8 hours): - 01/13/20 14:30 01/13/20 15:38 01/13/20 16:00 Temperature Pulse Rate 94 H 65 62 Respiratory Rate 22 15 15 Blood Pressure 132/67 118/66 Pulse Oximetry 100 98 100 01/13/20 16:30 01/13/20 16:45 01/13/20 17:00 Temperature Pulse Rate 61 57 L 61 Respiratory Rate 15 15 15 Blood Pressure 125/66 125/66 126/70 Pulse Oximetry 100 100 100 01/13/20 17:30 01/13/20 18:00 01/13/20 18:29 Temperature Pulse Rate 61 60 59 L Respiratory Rate 13 17 19 Blood Pressure 121/65 103/56 L Pulse Oximetry 100 100 100 01/13/20 18:30 01/13/20 19:05 Temperature 98.3 F Pulse Rate 76 Respiratory Rate 18 Blood Pressure 105/56 L 136/80 Pulse Oximetry 98 Oxygen Delivery Method Room Air Objective Labs Result Diagrams: 01/13/20 14:40 01/13/20 14:40 Labs: Laboratory Results - last 24 hr 01/13/20 01/13/20 01/13/20 14:40 14:40 14:40 WBC 5.9 RBC 4.04 Hgb 12.5 Hct 36.4 MCV 90.1 MCH 31.0 MCHC 34.4 RDW 12.9 Plt Count 253 Neut % (Auto) 75.3 H Lymph % (Auto) 14.9 L [place] % (Auto) 8.3 Eos % (Auto) 0.8 L Baso % (Auto) 0.7 Neut # (Auto) 4400 Lymph # (Auto) 900 L [place] # (Auto) 500 Eos # (Auto) 0 Baso # (Auto) 0 PT 10.5 INR 0.9 APTT 31 Sodium 142 Potassium 3.1 L Chloride 107 Carbon Dioxide 26 BUN 22 H Creatinine 1.17 H Estimated GFR 51.0 L BUN/Creatinine Ratio 18.8 Glucose 98 Lactate Calcium 9.8 Total Bilirubin 0.5 AST 25 ALT 19 Alkaline Phosphatase 69 Total Protein 7.5 Albumin 4.7 Globulin 2.8 Albumin/Globulin Ratio 1.7 TSH Prolactin 9.2 Urine Color Urine Appearance Urine pH Ur Specific [place] Urine Protein Urine Glucose (UA) Urine Ketones Urine Occult Blood Urine Nitrate Urine Bilirubin Urine Urobilinogen Ur Leukocyte Esterase Urine RBC Urine WBC Ur Squamous Epith Cells Urine Bacteria Ur Culture Indicated? Salicylates < 1.0 U Opiates 300ng/mL cut Ur Oxycodone Screen Urine Methadone Screen Acetaminophen < 10 L Ur Barbiturates Screen U Tricyclic Antidepress Ur Phencyclidine Scrn Ur Amphetamines Screen U Methamphetamines Scrn Ur MDMA Scrn (Ecstasy) U Benzodiazepines Scrn Urine Cocaine Screen U Marijuana (THC) Screen Ethyl Alcohol < 10 COVID-19 PCR 01/13/20 01/13/20 01/13/20 14:40 14:40 14:40 WBC RBC Hgb Hct MCV MCH MCHC RDW Plt Count Neut % (Auto) Lymph % (Auto) [place] % (Auto) Eos % (Auto) Baso % (Auto) Neut # (Auto) Lymph # (Auto) [place] # (Auto) Eos # (Auto) Baso # (Auto) PT INR APTT Sodium Potassium Chloride Carbon Dioxide BUN Creatinine Estimated GFR BUN/Creatinine Ratio Glucose Lactate 1.0 Calcium Total Bilirubin AST ALT Alkaline Phosphatase Total Protein Albumin Globulin Albumin/Globulin Ratio TSH 0.106 L Prolactin Urine Color Yellow Urine Appearance Clear Urine pH 5.5 Ur Specific [place] 1.015 Urine Protein Negative Urine Glucose (UA) Negative Urine Ketones Negative Urine Occult Blood Trace-intact Urine Nitrate Negative Urine Bilirubin Negative Urine Urobilinogen 0.2 Ur Leukocyte Esterase 1+ H Urine RBC None seen Urine WBC 1-5/hpf Ur Squamous Epith Cells 0-1 /hpf Urine Bacteria None seen Ur Culture Indicated? Specimen cultured Salicylates U Opiates 300ng/mL cut Ur Oxycodone Screen Urine Methadone Screen Acetaminophen Ur Barbiturates Screen U Tricyclic Antidepress Ur Phencyclidine Scrn Ur Amphetamines Screen U Methamphetamines Scrn Ur MDMA Scrn (Ecstasy) U Benzodiazepines Scrn Urine Cocaine Screen U Marijuana (THC) Screen Ethyl Alcohol COVID-19 PCR 01/13/20 01/13/20 14:40 18:40 WBC RBC Hgb Hct MCV MCH MCHC RDW Plt Count Neut % (Auto) Lymph % (Auto) [place] % (Auto) Eos % (Auto) Baso % (Auto) Neut # (Auto) Lymph # (Auto) [place] # (Auto) Eos # (Auto) Baso # (Auto) PT INR APTT Sodium Potassium Chloride Carbon Dioxide BUN Creatinine Estimated GFR BUN/Creatinine Ratio Glucose Lactate Calcium Total Bilirubin AST ALT Alkaline Phosphatase Total Protein Albumin Globulin Albumin/Globulin Ratio TSH Prolactin Urine Color Urine Appearance Urine pH Ur Specific [place] Urine Protein Urine Glucose (UA) Urine Ketones Urine Occult Blood Urine Nitrate Urine Bilirubin Urine Urobilinogen Ur Leukocyte Esterase Urine RBC Urine WBC Ur Squamous Epith Cells Urine Bacteria Ur Culture Indicated? Salicylates U Opiates 300ng/mL cut Negative Ur Oxycodone Screen Positive H Urine Methadone Screen Negative Acetaminophen Ur Barbiturates Screen Negative U Tricyclic Antidepress Negative Ur Phencyclidine Scrn Negative Ur Amphetamines Screen Negative U Methamphetamines Scrn Negative Ur MDMA Scrn (Ecstasy) Negative U Benzodiazepines Scrn Negative Urine Cocaine Screen Negative U Marijuana (THC) Screen Negative Ethyl Alcohol COVID-19 PCR Negative Assessment & Plan Assessment & Plan narrative: Faith Cardenas will be placed into observation for toxic metabolic encephalopathy. Hypokalemia, acute, present on admission -she will receive 40 mEq of potassium, recheck level in the morning Toxic metabolic encephalopathy, acute, present on admission -most of her psychotropic medications have been held for tonight -likely psychiatric polypharmacy contributing to her altered state and movement patterns Cerebellar movement symptoms -MRI of the head with contrast in the am -Differential includes MS flare-up, Kali's chorea, hyperthyroidism -TSH was low, reflex to free T4 ordered and pending -Recommend further discussions with Dr. Evans at [phone] Essential hypertension -Continue home dose of atenolol 50 mg po daily Consults: none Patient is observation status as her stay is not likely to exceed 2 midnights. FEN: NS at 100 ml/hour X 1 liter, general diet, BMP in the am. VTE prophylaxis: Bilateral SCDs Dispo: probable discharge to home Code Status: Full code as discussed with patient COVID-19 COVID-19 status: Negative Result date/Date tested (Pos, Neg/Pending): 01/13/20 Quality VTE Deep Vein Thrombosis/Pulmonary Embolism Present on Admission: No
[2020-01-13] MEDS: BACLOFEN 10 MG TABLET 30 MG PO (22:55)
[2020-01-13 23:26] LABS: Free T4, Direct Thyroxine 1.04 ng/dL (0.78-2.19)
[2020-01-13] MEDS: IBUPROFEN 600 MG TABLET PO (23:33)
[2020-01-13] MEDS: SODIUM CHLORIDE 0.9% 1,000 ML 100 ML IV (23:33)
[2020-01-13] MEDS: ACETAMINOPHEN 325 MG TABLET 650 MG PO (23:33)
[2020-01-14] VITALS: O2SAT 97
[2020-01-14 04:45] VITALS: BP 91/49; PULSE 80; RESP 16; TEMP 36.5; O2SAT 99
[2020-01-14] MEDS: ACETAMINOPHEN 325 MG TABLET 650 MG PO (05:27)
[2020-01-14] MEDS: IBUPROFEN 600 MG TABLET PO (05:27)
[2020-01-14 06:25] LABS: Add Manual Diff / Slide Review NO; Basophils Absolute Auto 0 /uL (0-100); Basophils Percent Auto 0.7 % (0-2); Eosinophils Absolute Auto 100 /uL (0-450); Eosinophils Percent Auto 1.3 % (2-4); Hematocrit 31.2 % (36-46); Hemoglobin 10.6 g/dL (12.0-16.0); Lymphocytes Absolute Auto 1400 /uL (1100-4500); Lymphocytes Percent Auto 30.6 % (25-40); Mean Corpuscular Hemoglobin 30.9 PG (26-34); Mean Corpuscular Volume 90.7 fL (80-100); Monocytes Absolute Auto 600 /uL (0-900); Monocytes Percent Auto 13.2 % (3-14); Neutrophils Absolute Auto 2400 /uL (1500-7000); Neutrophils Percent Auto 54.2 % (50-75); Platelet Count 203 X10^3/uL (150-400); Red Blood Cell Count 3.44 X10^6/uL (4.0-5.2); Red Cell Distribution Width 13.2 % (11.6-14.8); White Blood Cell Count 4.5 X10^3/uL (4.5-11.0)
[2020-01-14 06:31] LABS: Alanine Aminotransferase 16 IU/L (<35); Albumin 3.5 g/dL (3.5-5.0); Albumin Globulin Ratio 1.5 (1.0-2.8); Alkaline Phosphatase 50 U/L (38-126); Aspartate Aminotransferase 22 IU/L (14-36); BUN Creatinine Ratio 27.5 (6-22); Bilirubin Total 0.4 mg/dL (0.2-1.3); Blood Urea Nitrogen 25 mg/dL (7-17); Calcium 8.8 mg/dL (8.4-10.2); Carbon Dioxide 23 mmol/L (22-32); Chloride 114 mmol/L (98-107); Estimated Glomerular Filt Rate > 60.0 mL/min (>60); Globulin 2.3 g/dL (1.7-4.1); Glucose 117 mg/dL (70-100); HEMOLYSIS < 15 (0-50); Potassium 3.8 mmol/L (3.4-5.1); Sodium 142 mmol/L (137-145); Total Protein 5.8 g/dL (6.3-8.2)
[2020-01-14 07:50] VITALS: BP 141/96; PULSE 96; RESP 18; TEMP 37.1; O2SAT 100
[2020-01-14 08:08] VITALS: O2SAT 98
[2020-01-14] MEDS: CEFTRIAXONE 1 GM/50 ML FROZ.PIGGY IV (09:17)
[2020-01-14] MEDS: BACLOFEN 10 MG TABLET 30 MG PO (09:17)
[2020-01-14] MEDS: atenoloL 25 MG TABLET 50 MG PO (09:17)
[2020-01-14] MEDS: OXYCODONE IR 10 MG TABLET 30 MG PO (09:41)
[2020-01-14] MEDS: buPROPion XL 150 MG TAB PO (09:41)
--- NOTE | 2020-01-14 09:57 | DI.MRI.S_ITS ---
PROCEDURE: MR HEAD/BRAIN WO/W CON INDICATIONS: ?MS flare TECHNIQUE: Noncontrast axial T1 spin echo, axial T2 fast spin echo, sagittal and axial FLAIR, coronal T2 fast spin echo, axial gradient echo, axial diffusion and ADC through the brain. After the administration of contrast, axial and coronal 3D VIBE or T1 spin echo with fat saturation through the brain. COMPARISON: [facility], , MR HEAD/BRAIN WO/W CON, 04/01/2019, 12:40. FINDINGS: Image quality: Excellent. CSF Spaces: Basal cisterns are patent. No extra-axial fluid collections. Ventricles are normal in size and shape. Brain: No midline shift. No intracranial bleeds or masses. No abnormal intracranial enhancement. Numerous foci of increased T2 signal involving the colo sole, pericallosal, periventricular, subcortical and juxta cortical white matter as well as the brainstem and cerebellar hemispheres are redemonstrated. White matter lesions are compatible with reported history of multiple sclerosis. Multiple sclerosis plaques are not significantly changed in size, contour or number compared to April 01, 2019. No postcontrast enhancement associated with the multiple sclerosis plaques. Diffusion-weighted images demonstrate no acute ischemic insults. No chronic ischemic insults. Normal intravascular flow voids are present. Skull and face: Calvarial marrow is normal in signal. Orbits appear normal. Sinuses: Sinuses and mastoids appear clear. IMPRESSION: 1. Numerous white matter lesions compatible with reported history of multiple sclerosis demonstrate no significant change in size, contour or number compared to April 01, 2019. 2. No suspicious postcontrast enhancement. Dictated by: Anjali Ochoa MD, PhD on 01/14/2020 at 11:18 Approved by: Anjali Ochoa MD, PhD on 01/14/2020 at 11:24
--- NOTE | 2020-01-14 10:30 | PC.NURSE ---
Day shift: Pt off unit for MRI at approx 1015.
--- NOTE | 2020-01-14 12:55 | P.DS_ITS ---
History of Present Illness History of Present Illness Date Patient Seen: 01/14/20 Time Patient Seen: 12:55 Chief complaint: Confusion and unusual movement Narrative: As per EMILY Alvarez: Keesha Cardenas who prefers to be called ?Nena is a pleasant 39-year-old female with history of PTSD and multiple sclerosis was brought in by her today due to having been observed to be confused and demonstrating unusual physical movement. She does not recall what happened and is still feeling somewhat lethargic. in the room is giving much of the history for today. He states that at around 11:00 a.m. this morning she actually got very tired and wanted to go to bed and apparently woke up being very confused. He brought her to the emergency department and when she was in the room she started to rock herself and then clock herself on her both legs and then finally crawled herself up in a ball on her back with her legs up in the air. He showed me videos of this behavior. The patient has a history of PTSD that was diagnosed when she lost her son 8 years ago and has a diagnosis of multiple sclerosis from about 20 years ago. She recently had ropinirole and Cymbalta added to her medications approximately 2 weeks ago. The states that she has lost about 20-30 lb in the past 2 months despite the eating her normal or greater than normal amount of food. Patient denies fever sweats or chills, shortness of breath, chest pain, nausea vomiting, she does have chronic pelvic pain which is still being worked up, she has chronic hand tingling. She states that she has been being worked up for some kind of pelvic pain and underwent exploratory laparoscopic abdominal surgery and found that she had adhesions from her previous C-sections. She sees Dr. Evans neuro psychiatrist at [facility] sleep homer who also is a MS specialist. Dr. Sheppard in [place] history of general neurologist. And she sees Dr. Sandra DO in [place]. In the ED she was given 1 Ativan does and noted to be confused during her visit there. Temp was 98.3?, blood pressure 136/80, heart rate 76, respiratory rate 18, oxygen saturation 98% on room air, she weighs 52 kg and has a BMI of 19. WBC 5.9, RBC 4.04, hemoglobin 12.5, hematocrit 36.4, platelet count 253, she does have mildly elevated neutrophil percentage of 75%, sodium 142, potassium 3.1, chloride 107, CO2 26, BUN 22, creatinine 1.17, with a GFR greater than 51%. TSH is low at 0.106, lactate was negative and she has normal liver enzymes. COVID- 19 was negative Discharge Providers Provider Date of admission: 01/13/20 18:10 Discharge Date: 01/14/20 Primary care physician: Mona Weinstein DO Consults: 01/13/20 19:25 Consult to Dietitian, Adult Routine Comment: Reason For Exam: recent wt loss Discharge provider: West Palmer DO Summary Hospital Course Discharge Diagnosis: Toxic metabolic encephalopathy. acute, present on admission, resolved. Hypokalemia, acute, present on admission Acute cystitis, present on admission Essential Hypertension Hospital Course: Faith Cardenas is a 39 F with PMH of multiple sclerosis and HTN who presented with a toxic metabolic encephalopathy. In the ER, provider discussed with patient's outpatient neurology whom recommended observation and MRI the following morning to rule out MS flare. Symptoms had resolved by the following morning and was deemed likely due to new medication of either cymbalta or ropinirole which was started the week before. Could also be due to acute cystitis. MRI showed findings consistent with MS with no new lesions. She was discharged home the morning after admission after returning to her baseline mental status and MRI was unremarkable. Exam Vital Signs (past 8 hours): - 01/14/20 07:50 01/14/20 08:08 Temperature 98.7 F Pulse Rate 96 H Respiratory Rate 18 Blood Pressure 141/96 H Pulse Oximetry 100 98 Oxygen Delivery Method Room Air Oxygen Flow Rate 0 Narrative Exam Narrative: Gen: thin appearing female, appears older than stated age CV: RRR no m/r/g Pulm: CTA b/l, no chest tenderness Abd: S NT ND Ext: no edema. Neuro: alert and oriented x3, normal gait, strength +5/5 in UE and LE bilaterally. Objective Labs Result Diagrams: 01/14/20 06:08 01/14/20 06:08 Labs: Laboratory Results - last 24 hr 01/13/20 01/13/20 01/13/20 14:40 14:40 14:40 WBC 5.9 RBC 4.04 Hgb 12.5 Hct 36.4 MCV 90.1 MCH 31.0 MCHC 34.4 RDW 12.9 Plt Count 253 Neut % (Auto) 75.3 H Lymph % (Auto) 14.9 L [place] % (Auto) 8.3 Eos % (Auto) 0.8 L Baso % (Auto) 0.7 Neut # (Auto) 4400 Lymph # (Auto) 900 L [place] # (Auto) 500 Eos # (Auto) 0 Baso # (Auto) 0 PT 10.5 INR 0.9 APTT 31 Sodium 142 Potassium 3.1 L Chloride 107 Carbon Dioxide 26 BUN 22 H Creatinine 1.17 H Estimated GFR 51.0 L BUN/Creatinine Ratio 18.8 Glucose 98 Lactate Calcium 9.8 Magnesium Total Bilirubin 0.5 AST 25 ALT 19 Alkaline Phosphatase 69 Total Protein 7.5 Albumin 4.7 Globulin 2.8 Albumin/Globulin Ratio 1.7 TSH Free T4 Prolactin 9.2 Urine Color Urine Appearance Urine pH Ur Specific [place] Urine Protein Urine Glucose (UA) Urine Ketones Urine Occult Blood Urine Nitrate Urine Bilirubin Urine Urobilinogen Ur Leukocyte Esterase Urine RBC Urine WBC Ur Squamous Epith Cells Urine Bacteria Ur Culture Indicated? Salicylates < 1.0 U Opiates 300ng/mL cut Ur Oxycodone Screen Urine Methadone Screen Acetaminophen < 10 L Ur Barbiturates Screen U Tricyclic Antidepress Ur Phencyclidine Scrn Ur Amphetamines Screen U Methamphetamines Scrn Ur MDMA Scrn (Ecstasy) U Benzodiazepines Scrn Urine Cocaine Screen U Marijuana (THC) Screen Ethyl Alcohol < 10 COVID-19 PCR 01/13/20 01/13/20 01/13/20 14:40 14:40 14:40 WBC RBC Hgb Hct MCV MCH MCHC RDW Plt Count Neut % (Auto) Lymph % (Auto) [place] % (Auto) Eos % (Auto) Baso % (Auto) Neut # (Auto) Lymph # (Auto) [place] # (Auto) Eos # (Auto) Baso # (Auto) PT INR APTT Sodium Potassium Chloride Carbon Dioxide BUN Creatinine Estimated GFR BUN/Creatinine Ratio Glucose Lactate 1.0 Calcium Magnesium Total Bilirubin AST ALT Alkaline Phosphatase Total Protein Albumin Globulin Albumin/Globulin Ratio TSH 0.106 L Free T4 Prolactin Urine Color Yellow Urine Appearance Clear Urine pH 5.5 Ur Specific [place] 1.015 Urine Protein Negative Urine Glucose (UA) Negative Urine Ketones Negative Urine Occult Blood Trace-intact Urine Nitrate Negative Urine Bilirubin Negative Urine Urobilinogen 0.2 Ur Leukocyte Esterase 1+ H Urine RBC None seen Urine WBC 1-5/hpf Ur Squamous Epith Cells 0-1 /hpf Urine Bacteria None seen Ur Culture Indicated? Specimen cultured Salicylates U Opiates 300ng/mL cut Ur Oxycodone Screen Urine Methadone Screen Acetaminophen Ur Barbiturates Screen U Tricyclic Antidepress Ur Phencyclidine Scrn Ur Amphetamines Screen U Methamphetamines Scrn Ur MDMA Scrn (Ecstasy) U Benzodiazepines Scrn Urine Cocaine Screen U Marijuana (THC) Screen Ethyl Alcohol COVID-19 PCR 01/13/20 01/13/20 01/13/20 14:40 14:40 18:40 WBC RBC Hgb Hct MCV MCH MCHC RDW Plt Count Neut % (Auto) Lymph % (Auto) [place] % (Auto) Eos % (Auto) Baso % (Auto) Neut # (Auto) Lymph # (Auto) [place] # (Auto) Eos # (Auto) Baso # (Auto) PT INR APTT Sodium Potassium Chloride Carbon Dioxide BUN Creatinine Estimated GFR BUN/Creatinine Ratio Glucose Lactate Calcium Magnesium Total Bilirubin AST ALT Alkaline Phosphatase Total Protein Albumin Globulin Albumin/Globulin Ratio TSH Free T4 1.04 Prolactin Urine Color Urine Appearance Urine pH Ur Specific [place] Urine Protein Urine Glucose (UA) Urine Ketones Urine Occult Blood Urine Nitrate Urine Bilirubin Urine Urobilinogen Ur Leukocyte Esterase Urine RBC Urine WBC Ur Squamous Epith Cells Urine Bacteria Ur Culture Indicated? Salicylates U Opiates 300ng/mL cut Negative Ur Oxycodone Screen Positive H Urine Methadone Screen Negative Acetaminophen Ur Barbiturates Screen Negative U Tricyclic Antidepress Negative Ur Phencyclidine Scrn Negative Ur Amphetamines Screen Negative U Methamphetamines Scrn Negative Ur MDMA Scrn (Ecstasy) Negative U Benzodiazepines Scrn Negative Urine Cocaine Screen Negative U Marijuana (THC) Screen Negative Ethyl Alcohol COVID-19 PCR Negative 01/14/20 01/14/20 06:08 06:08 WBC 4.5 RBC 3.44 L Hgb 10.6 L Hct 31.2 L MCV 90.7 MCH 30.9 MCHC 34.0 RDW 13.2 Plt Count 203 Neut % (Auto) 54.2 D Lymph % (Auto) 30.6 [place] % (Auto) 13.2 Eos % (Auto) 1.3 L Baso % (Auto) 0.7 Neut # (Auto) 2400 Lymph # (Auto) 1400 [place] # (Auto) 600 Eos # (Auto) 100 Baso # (Auto) 0 PT INR APTT Sodium 142 Potassium 3.8 Chloride 114 H Carbon Dioxide 23 BUN 25 H Creatinine 0.91 Estimated GFR > 60.0 BUN/Creatinine Ratio 27.5 H Glucose 117 H Lactate Calcium 8.8 Magnesium 2.0 Total Bilirubin 0.4 AST 22 ALT 16 Alkaline Phosphatase 50 Total Protein 5.8 L Albumin 3.5 Globulin 2.3 Albumin/Globulin Ratio 1.5 TSH Free T4 Prolactin Urine Color Urine Appearance Urine pH Ur Specific [place] Urine Protein Urine Glucose (UA) Urine Ketones Urine Occult Blood Urine Nitrate Urine Bilirubin Urine Urobilinogen Ur Leukocyte Esterase Urine RBC Urine WBC Ur Squamous Epith Cells Urine Bacteria Ur Culture Indicated? Salicylates U Opiates 300ng/mL cut Ur Oxycodone Screen Urine Methadone Screen Acetaminophen Ur Barbiturates Screen U Tricyclic Antidepress Ur Phencyclidine Scrn Ur Amphetamines Screen U Methamphetamines Scrn Ur MDMA Scrn (Ecstasy) U Benzodiazepines Scrn Urine Cocaine Screen U Marijuana (THC) Screen Ethyl Alcohol COVID-19 PCR Discharge Plan Discharge Plan Patient Disposition: Home Discharge comment: You were admitted to the hospital with confusion. This im proved by withholding some medications. These were likely due to a medication interaction and may be due to the new cymbalta or ropinirole in combination with your other medications. I recommend you hold the cymbalta at this time or discuss with your primary providers if this happens again.You had an MRI that did not show any new findings compared to previous images. Your urine culture was positive and you should complete a course of antibiotics at home, macrobid for 2 additional days. Discharge orders & Medications Prescriptions: Continued atenolol 25 mg tablet 50 mg PO DAILY RF: 0 bupropion HCl 150 mg tablet extended release 24 hr 150 mg PO QAM RF: 0 buspirone 30 mg tablet 30 mg PO BID RF: 0 baclofen 20 mg tablet 30 mg PO TID RF: 0 trazodone 50 mg tablet 100 mg PO DAILY PRN (Reason: Insomnia) RF: 0 olanzapine 2.5 mg tablet 2.5 mg PO BEDTIME RF: 0 topiramate [Topamax] 25 mg tablet 50 mg PO TID RF: 0 melatonin 5 mg capsule 5 mg PO BEDTIME RF: 0 acetaminophen [Tylenol] 325 mg capsule 325 mg PO Q6H PRN (Reason: Pain (Scale Score 1-3)) RF: 0 ibuprofen 600 MG tablet 600 mg PO TIDP PRN (Reason: Pain (Scale Score 1-3)) Qty: 0 RF: 0 methylphenidate HCl 5 MG tablet 5 mg PO BID Qty: 0 RF: 0 lamotrigine [Lamictal] 25 MG tablet 250 mg PO DAILY Qty: 0 RF: 0 tizanidine 4 mg Tablet 8 mg PO BEDTIME RF: 0 oxycodone 15 mg Tablet 30 mg PO Q6H PRN (Reason: Pain (Scale Score 7-10)) RF: 0 hydrochlorothiazide 25 mg Tablet 25 mg PO DAILY RF: 0 ropinirole 0.5 mg Tablet 0.5 mg PO BEDTIME RF: 0 diazepam 5 mg tablet 5 mg PO BID PRN (Reason: muscle spasm) Qty: 30 RF: 0 Discontinued duloxetine [Cymbalta] 30 mg Capsule,Delayed Release(Dr/Ec) 30 mg PO DAILY RF: 0 Follow up/Referrals: Mona Weinstein DO [Primary Care Provider] - Diet/Activity/Treatments Diet: Diet as Tolerated Activity: As tolerated Visit Report/Discharge Packet Instructions: How to Prevent Falls, DI for Prescription Opioid Use, DI for Encephalopathy, Nitrofurantoin Visit Report Forms: Patient Portal/API, Stroke Signs & Symptoms Discharge Data Primary Care Provider: Mona Weinstein Attending Provider: West Palmer Admit Date/Time: 01/13/20 18:10 Discharges patient from system. Discharge Date/Time: 01/14/20 13:55 Quality VTE Deep Vein Thrombosis/Pulmonary Embolism Present on Admission: No
--- NOTE | 2020-01-14 13:04 | CM.DANOTE ---
DCP Assessment: EMR reviewed: Patient is a 39 yr old female who was admitted for toxic metabolic encephalopathy. Patients PCP is Dr. Weinstein . CM/RN met with patient at the bedside and explained role. patient was alert and orientedx3 during CM/Rn visit. patient currently lives with her Speedy. Patient states she is feeling better and more herself. patient just recently started two new medications that Dr. Palmer believes caused psychiatric polypharmacy. Patient is now alert and oriented. I: [place]vin and self pay Plan: D/C home with when medically stable. No identified D/C planning needs noted at this time. Radha Bowens RN Discharge Planning/Care Management Advanced directive, confirm from FAMILY Start: 01/13/20 19:26 Freq: Q24H Status: Active Protocol: Document 01/13/20 20:10 GMP (Rec: 01/13/20 20:12 GMP [id number]) Advance Directive, confirm on record Time 20:10 Person contacted spouse-Copy placed in chart Copy received Yes CM Discharge Assessment Start: 01/14/20 13:01 Freq: Status: Active Protocol: Document 01/14/20 13:02 HS (Rec: 01/14/20 13:04 HS [id number]) Discharge Planning Assessment Assigned Poultry Picking Machine Tender Radha Bowens RN DPOA/Assigned Designee Name Speedy Cardenas () Contact Information Advance Directives? Yes History Provided By Patient,Medical Record Has Patient been admitted in last 30 No days? Prior Living Arrangements House Household Members spouse Type of transporation used prior to Drives own vehicle admit Independent with ADL's Yes Is patient alert and oriented? Yes Caregiver for Another No Barriers to Discharge No Discharge Plan Home Referrals Initiated None needed Whiteboard Updated in Patient Room with Yes name and ext. # of Poultry Picking Machine Tender Review Status In Process Next Review Type Continued Stay Review
--- NOTE | 2020-01-14 13:20 | DIET.PN ---
Dietary Progress Note Assessment: 39y F c hx of MS, PTSD, and fibromyalgia admitted for confusion and unusual movement found to be related to psychiatric polypharmacy referred to nutrition for recent weight loss. Pt taking Ritalin and topamax which both suppress appetite. Pt does not feel physiological hunger per se but does eat based on the clock. UBW is 125# but admit weight was 114#. Pt had been up to 130# in April 2019 and has since been unable to keep on weight. Pts food choices include many whole, unprocessed items heavy in F/V consumption which tend to be low in kcals probably contributing to inability to maintain weight in conjunction c above mentioned medications. Usual Day: wakes has coconut water c meds B: smoothie: berries, pro powder, almond milk, honey, kale, sometimes yogurt/avocado or banana but not always L: salad c small portion of leftovers Sn: 2x/d rotating string cheese, kiwi, almonds D: Chicken Sejal, Chicken enchiladas, taco soup... Does not eat after dinner. Physical Activity: walks on beach 3x/w, yoga several days/w HT: 165.1cm WT: 52kg UBW: 56.8kg BMI: 19.1 Nutrition Diagnosis: underweight r/t medication side effects (topamax, Ritalin) and unrefined diet aeb pt BMI 19.1, pt unable to maintain weight despite intentional increased intake, pt reports little physiological hunger, high intake of high fiber f/v and low intake carbohydrates. Interventions: 1. Discussed strategies to increase weight while supporting MS and fibro. Focus on increased healthy fats and proteins: avocado, nut butter, nuts, seeds, olive oil, avocado oil, larger PRO servings, switching to full fat yogurt over low-fat. Diet Order: General Monitoring/Evaluations: pt to follow up on OP basis if interventions not leading to weight gain/maintenance
--- NOTE | 2020-01-14 13:39 | PC.NURSE ---
Day shift: Pt left unit at approx 1350 via WC w/ FIELD CONSULTANT. Her spouse will be driving her home. Paperwork signed and all questions answered. scripts sent electronic. Pt has all personal belongings.
--- NOTE | 2020-01-20 18:44 | PC.NURSE ---
Late Entry: NS infusion initiated 01/12 at 23:33, complete 01/13 at 09:33.
== END 2020-01-14 13:55 | disposition home or self-care (01) ==
LOC: ED 18:11 → AC 18:11
PROVIDERS: Nurse Practitioner Family; Admitting Provider Internal Medicine; Emergency Provider Emergency Medicine; Family Provider Family Medicine; PCP Family Medicine; Referring Provider Emergency Medicine; Visit Provider Internal Medicine
DX: G92 Toxic encephalopathy (principal); R41.82 Altered mental status, unspecified; G35 Multiple sclerosis; I10 Essential (primary) hypertension; F43.10 Post-traumatic stress disorder, unspecified; Z11.59 Encounter for screening for other viral diseases
CPT/HCPCS: 36415; 70450; 70553; 80053; 80305; 80320; 80329; 81001; 81003; 81025; 83605; 83735; 84146; 84439; 84443; 85025; 85610; 85730; 87040; 87077; 87086; 87147; 87635; 96361; 96365; 96366; 96375; 99284; G0378; A9579; G0480; J1885; J2060

== ENCOUNTER → 2020-04-18 16:54 | Outpatient (CLI) | payer OTHER, SELFPAY ==
[2020-01-13 19:12] VITALS: BMI 19.1
--- NOTE | 2020-04-18 16:57 | DI.RAD.S_ITS ---
PROCEDURE: XR ANKLE RT MIN 3V INDICATIONS: ANKLE PAIN, RIGHT TECHNIQUE: 3 views of the ankle were acquired. COMPARISON: [facility] [place], [place], XR FOOT 3+ VIEWS RIGHT, 03/28/2019, 10:08. FINDINGS: Bones: No fractures or dislocations. Ankle mortise is normally aligned. No suspicious bony lesions. The talar dome demonstrates no karen abnormality. Incidental note is made of an accessory ossicle, an os trigonum. Soft tissues: No tibiotalar joint effusion. Achilles tendon appears normal. IMPRESSION: No significant ankle plain film abnormality is seen. If it would be helpful for clinical management decision making, please consider a dedicated ankle MRI for further evaluation (assuming that there is no contraindication). Dictated by: Colby aWlter M.D. on 04/18/2020 at 16:24 Approved by: Colby Walter M.D. on 04/18/2020 at 16:25
== END ==
PROVIDERS: Family Provider Family Medicine; PCP Family Medicine; Referring Provider Family Medicine; Visit Provider Family Medicine
DX: M25.571 Pain in right ankle and joints of right foot (principal)
CPT/HCPCS: 73610

== ENCOUNTER → 2020-05-26 16:17 | Outpatient (CLI) | payer OTHER, SELFPAY ==
[2020-01-13 19:12] VITALS: BMI 19.1
[2020-05-26 17:48] LABS: Add Manual Diff / Slide Review NO; Basophils Absolute Auto 0 /uL (0-100); Basophils Percent Auto 0.9 % (0-2); Eosinophils Absolute Auto 0 /uL (0-450); Eosinophils Percent Auto 0.7 % (2-4); Hematocrit 36.3 % (36-46); Lymphocytes Absolute Auto 1500 /uL (1100-4500); Lymphocytes Percent Auto 30.3 % (25-40); Mean Corpuscular HGB Conc 33.1 % (30-36); Mean Corpuscular Hemoglobin 29.8 PG (26-34); Mean Corpuscular Volume 89.9 fL (80-100); Monocytes Absolute Auto 500 /uL (0-900); Monocytes Percent Auto 10.4 % (3-14); Neutrophils Absolute Auto 2900 /uL (1500-7000); Neutrophils Percent Auto 57.7 % (50-75); Platelet Count 217 X10^3/uL (150-400); Red Blood Cell Count 4.04 X10^6/uL (4.0-5.2); Red Cell Distribution Width 12.7 % (11.6-14.8)
[2020-05-26 17:54] LABS: Alanine Aminotransferase 21 IU/L (<35); Albumin 4.3 g/dL (3.5-5.0); Albumin Globulin Ratio 1.7 (1.0-2.8); Alkaline Phosphatase 78 U/L (38-126); Aspartate Aminotransferase 28 IU/L (14-36); BUN Creatinine Ratio 17.7 (6-22); Bilirubin Total 0.4 mg/dL (0.2-1.3); Blood Urea Nitrogen 14 mg/dL (7-17); Calcium 8.9 mg/dL (8.4-10.2); Carbon Dioxide 29 mmol/L (22-32); Chloride 103 mmol/L (98-107); Estimated Glomerular Filt Rate > 60.0 mL/min (>60); Globulin 2.5 g/dL (1.7-4.1); Glucose 87 mg/dL (70-100); HEMOLYSIS < 15 (0-50); Potassium 3.4 mmol/L (3.4-5.1); Sodium 135 mmol/L (137-145); Total Protein 6.8 g/dL (6.3-8.2)
== END ==
PROVIDERS: Family Provider Family Medicine; PCP Family Medicine; Referring Provider Psychiatry & Neurology Neurology; Visit Provider Psychiatry & Neurology Neurology
DX: G35 Multiple sclerosis (principal); Z51.81 Encounter for therapeutic drug level monitoring
CPT/HCPCS: 36415; 80053; 85025; 86355; 86359; 86360

== ENCOUNTER → 2020-10-29 15:57 | Outpatient (CLI) | payer OTHER, SELFPAY ==
[2020-01-13 19:12] VITALS: BMI 19.1
[2020-10-29 17:51] LABS: Add Manual Diff / Slide Review NO; Basophils Absolute Auto 100 /uL (0-100); Eosinophils Absolute Auto 100 /uL (0-450); Eosinophils Percent Auto 2.3 % (2-4); Hematocrit 35.9 % (36-46); Hemoglobin 12.1 g/dL (12.0-16.0); Lymphocytes Absolute Auto 1500 /uL (1100-4500); Lymphocytes Percent Auto 36.7 % (25-40); Mean Corpuscular HGB Conc 33.7 % (30-36); Mean Corpuscular Hemoglobin 30.7 PG (26-34); Mean Corpuscular Volume 91.1 fL (80-100); Monocytes Absolute Auto 500 /uL (0-900); Neutrophils Absolute Auto 2000 /uL (1500-7000); Platelet Count 229 X10^3/uL (150-400); Red Blood Cell Count 3.94 X10^6/uL (4.0-5.2); Red Cell Distribution Width 13.4 % (11.6-14.8); White Blood Cell Count 4.2 X10^3/uL (4.5-11.0)
[2020-10-29 19:00] LABS: Alanine Aminotransferase 24 IU/L (<35); Albumin 4.2 g/dL (3.5-5.0); Albumin Globulin Ratio 1.4 (1.0-2.8); Alkaline Phosphatase 71 U/L (38-126); Aspartate Aminotransferase 30 IU/L (14-36); BUN Creatinine Ratio 26.5 (6-22); Bilirubin Total 0.1 mg/dL (0.2-1.3); Blood Urea Nitrogen 26 mg/dL (7-17); Calcium 8.2 mg/dL (8.4-10.2); Carbon Dioxide 25 mmol/L (22-32); Chloride 102 mmol/L (98-107); Estimated Glomerular Filt Rate > 60.0 mL/min (>60); Globulin 2.9 g/dL (1.7-4.1); Glucose 87 mg/dL (70-100); HEMOLYSIS < 15 (0-50); Potassium 3.6 mmol/L (3.4-5.1); Sodium 136 mmol/L (137-145); Total Protein 7.1 g/dL (6.3-8.2)
[2020-10-29 19:09] LABS: HCG Quantitative /Beta subunit < 2.4 mIU/mL
[2020-10-30 14:24] LABS: Appearance Urine UA CLEAR; Bilirubin Urine UA NEGATIVE (NEGATIVE); Color Urine UA YELLOW; Glucose Urine UA NEGATIVE (Negative); Ketones Urine UA 2+ (NEGATIVE); Leukocyte Esterase Urine UA NEGATIVE (NEGATIVE); Nitrite Urine UA NEGATIVE (Negative); Occult Blood Urine UA 2+ (Negative); Protein Urine UA NEGATIVE (Negative)
[2020-10-30 14:25] LABS: pH Urine UA 6.5 (4.5-8.0)
[2020-10-30 14:41] LABS: Bacteria Urine Few (2-10); Culture Indicated Urine Cult Not Indicated; RBC Urine 1-5/HPF (0-5/HPF); WBC Urine 1-5/HPF (0-5/HPF)
== END ==
PROVIDERS: Family Provider Family Medicine; PCP Family Medicine; Referring Provider Psychiatry & Neurology Neurology; Visit Provider Psychiatry & Neurology Neurology
DX: I10 Essential (primary) hypertension (principal); G35 Multiple sclerosis; Z51.81 Encounter for therapeutic drug level monitoring
CPT/HCPCS: 36415; 80053; 81001; 84702; 85025

== ENCOUNTER → 2020-11-23 16:30 | Outpatient (CLI) | payer OTHER, SELFPAY ==
[2020-01-13 19:12] VITALS: BMI 19.1
[2020-11-23 17:11] LABS: Add Manual Diff / Slide Review NO; Basophils Absolute Auto 100 /uL (0-100); Basophils Percent Auto 1.1 % (0-2); Eosinophils Absolute Auto 0 /uL (0-450); Eosinophils Percent Auto 0.6 % (2-4); Hemoglobin 12.7 g/dL (12.0-16.0); Lymphocytes Absolute Auto 1300 /uL (1100-4500); Lymphocytes Percent Auto 19.3 % (25-40); Mean Corpuscular HGB Conc 34.5 % (30-36); Mean Corpuscular Hemoglobin 31.1 PG (26-34); Mean Corpuscular Volume 90.1 fL (80-100); Monocytes Absolute Auto 400 /uL (0-900); Monocytes Percent Auto 6.1 % (3-14); Neutrophils Absolute Auto 4900 /uL (1500-7000); Neutrophils Percent Auto 72.9 % (50-75); Platelet Count 291 X10^3/uL (150-400); Red Blood Cell Count 4.11 X10^6/uL (4.0-5.2); Red Cell Distribution Width 12.6 % (11.6-14.8); White Blood Cell Count 6.8 X10^3/uL (4.5-11.0)
== END ==
PROVIDERS: Family Provider Family Medicine; PCP Family Medicine; Referring Provider Psychiatry & Neurology Neurology; Visit Provider Psychiatry & Neurology Neurology
DX: D70.9 Neutropenia, unspecified (principal)
CPT/HCPCS: 36415; 85025

== ENCOUNTER 2020-11-24 20:11 | Emergency (ER) | payer OTHER, SELFPAY ==
[2020-01-13 19:12] VITALS: BMI 19.1
[2020-11-24 20:21] VITALS: BP 129/78; PULSE 85; RESP 20; TEMP 36.8; O2SAT 99
[2020-11-24 20:51] LABS: Add Manual Diff / Slide Review NO; Basophils Absolute Auto 0 /uL (0-100); Basophils Percent Auto 0.6 % (0-2); Eosinophils Absolute Auto 100 /uL (0-450); Eosinophils Percent Auto 1.5 % (2-4); Hematocrit 36.8 % (36-46); Hemoglobin 12.4 g/dL (12.0-16.0); Lymphocytes Absolute Auto 1800 /uL (1100-4500); Lymphocytes Percent Auto 34.9 % (25-40); Mean Corpuscular HGB Conc 33.7 % (30-36); Mean Corpuscular Hemoglobin 30.4 PG (26-34); Mean Corpuscular Volume 90.3 fL (80-100); Monocytes Absolute Auto 500 /uL (0-900); Monocytes Percent Auto 9.2 % (3-14); Neutrophils Absolute Auto 2700 /uL (1500-7000); Neutrophils Percent Auto 53.8 % (50-75); Platelet Count 284 X10^3/uL (150-400); Red Blood Cell Count 4.07 X10^6/uL (4.0-5.2); Red Cell Distribution Width 13.2 % (11.6-14.8)
[2020-11-24 20:53] LABS: Alanine Aminotransferase 19 IU/L (<35); Albumin 4.4 g/dL (3.5-5.0); Albumin Globulin Ratio 1.5 (1.0-2.8); Alkaline Phosphatase 70 U/L (38-126); Aspartate Aminotransferase 28 IU/L (14-36); BUN Creatinine Ratio 22.7 (6-22); Bilirubin Total 0.1 mg/dL (0.2-1.3); Blood Urea Nitrogen 22 mg/dL (7-17); Calcium 9.1 mg/dL (8.4-10.2); Carbon Dioxide 25 mmol/L (22-32); Chloride 106 mmol/L (98-107); Estimated Glomerular Filt Rate > 60.0 mL/min (>60); Globulin 2.9 g/dL (1.7-4.1); Glucose 98 mg/dL (70-100); HEMOLYSIS 21 (0-50); Lipase 150 U/L (23-300); Potassium 3.2 mmol/L (3.4-5.1); Sodium 141 mmol/L (137-145); Total Protein 7.3 g/dL (6.3-8.2)
--- NOTE | 2020-11-24 22:53 | ED_ITS ---
HPI - Abdominal Pain General Chief Complaint: Abdominal Pain Stated Complaint: stomach ache for 10 days Time Seen by Provider: 11/24/20 22:53 Source: patient Mode of arrival: Ambulatory Limitations: no limitations History of Present Illness HPI narrative: This is a 40-year-old female comes emergency department complaint of stomach discomfort for the past 10 days. Patient states she recently had her injection medication for her multiple sclerosis. The following day she felt fine in the day after that she developed abdominal discomfort which she describes as generalized. She states since then it has been present, does not seem to be exacerbated or alleviated by any factors. It has never resolved. She states it does not really wax or wane. She denies any nausea or vomiting except for 1 time after burping. Patient states that she has had normal bowel movements regularly. She denies any melena or hematochezia. She denies any vaginal bleeding or discharge. She denies any dysuria, urgency or frequency. She denies any fevers or chills. No chest pain or shortness of breath. Patient has not had similar symptoms in the past. She has not had any new medication changes. She states her on injection medication is regular medication she receives q.3 months. Patient does take multiple medications for mood, multiple sclerosis and blood pressure. States she is allergic to amitriptyline, gabapentin and 1 additional medication. She does states she had some chronic pelvic pain and had lysis of adhesions. She states this pain feels different than that. She denies any other intra-abdominal surgeries. Related Data Home Medications Medication Instructions Recorded Confirmed ibuprofen 600 mg PO TIDP PRN #0 11/27/10 01/13/20 lamotrigine [Lamictal] 250 mg PO DAILY #0 08/26/16 01/13/20 methylphenidate HCl 5 mg PO BID #0 08/26/16 01/13/20 acetaminophen 325 mg capsule 325 mg PO Q6H PRN 12/01/18 01/13/20 atenolol 25 mg tablet 50 mg PO DAILY 12/01/18 01/13/20 baclofen 20 mg tablet 30 mg PO TID 12/01/18 01/13/20 bupropion HCl 150 mg 24 hr tablet, 150 mg PO QAM 12/01/18 01/13/20 extended release buspirone 30 mg tablet 30 mg PO BID tab 12/01/18 01/13/20 melatonin 5 mg capsule 5 mg PO BEDTIME cap 12/01/18 01/13/20 olanzapine 2.5 mg tablet 2.5 mg PO BEDTIME 12/01/18 01/13/20 topiramate 25 mg tablet 50 mg PO TID tab 12/01/18 01/13/20 trazodone 50 mg tablet 100 mg PO DAILY PRN 12/01/18 01/13/20 hydrochlorothiazide 25 mg PO DAILY 01/13/20 01/13/20 oxycodone 30 mg PO Q6H PRN 01/13/20 01/13/20 ropinirole 0.5 mg PO BEDTIME 01/13/20 01/13/20 tizanidine 8 mg PO BEDTIME 01/13/20 01/13/20 Previous Rx's Medication Instructions Recorded diazepam 5 mg PO BID PRN #30 tab 12/16/19 Allergies Allergy/AdvReac Type Severity Reaction Status Date / Time amitriptyline [AMITRIPTYLINE] Allergy Unknown Verified 12/01/18 16:21 gabapentin [GABAPENTIN] Allergy Unknown Verified 12/01/18 16:21 shayne [SHAYNE] Allergy Unknown Verified 12/01/18 16:21 Review of Systems Review of Systems ROS Unobtainable: All systems reviewed & are unremarkable except as noted in HPI and below Patient History Medical History (Updated 11/25/20 @ 00:56 by Magda Diaz DO) HTN (hypertension) MS (multiple sclerosis) PTSD (post-traumatic stress disorder) Surgical History Bunion, right foot History of laparoscopy Family History Mother CVA (cerebral vascular accident) Diabetes type 2, uncontrolled Father Diabetes type 2, uncontrolled Social History household members: spouse Smoking Status: Never smoker alcohol intake: former Smoking Status: Never smoker alcohol intake frequency: 0-2 drinks per day Substance Use Type: does not use Exam Narrative Exam Narrative: GENERAL: Alert and oriented x three, well-nourished female in mild distress. HEENT: Head normocephalic, atraumatic, EOMI, pupils reactive, face symmetric, moist mucous membranes NECK: Supple, full range of motion CARDIOVASCULAR: Regular rate and rhythm without murmurs, rubs or gallops. RESPIRATORY: Breath sounds equal bilaterally, no wheezes rales or rhonchi. ABDOMEN: Soft, mild generalized tenderness. Patient's abdomen is not significantly distended but it does feel full throughout.. Hyperactive bowel sounds all 4 quadrants. No guarding or rebound, rigidity, no mass : No CVA tenderness EXTREMITIES: Normal range of motion, no clubbing or edema. Neurovascularly intact NEUROLOGICAL: Cranial nerves II through XII grossly intact. Moving all extremities SKIN: Warm, dry, no petechiae, no rashes or lesions. Initial Vital Signs Initial Vital Signs: Vital Signs Temperature 98.2 F 11/24/20 20:21 Pulse Rate 85 11/24/20 20:21 Respiratory Rate 20 11/24/20 20:21 Blood Pressure 129/78 11/24/20 20:21 Pulse Oximetry 99 11/24/20 20:21 Course Orders Ordered: ED Orders 11/24/20 20:21 EKG-12 Lead Stat 11/24/20 20:25 Complete Blood Count AUTO DIFF Stat Comprehensive Metabolic Panel Stat Lipase Stat 11/24/20 23:03 CT abdomen pelvis w con Stat Discontinued Medications Ketorolac Tromethamine (Ketorolac 30 Mg/Ml Vial) 30 mg IV NOW ONE Stop: 11/24/20 23:04 Last Admin: 11/24/20 23:08 Dose: 30 mg Documented by: GINA Vital Signs Vital signs: Vital Signs - 8 hr 11/24/20 20:21 11/25/20 01:02 Temperature 98.2 F Pulse Rate 85 85 Respiratory Rate 20 18 Blood Pressure 129/78 101/52 L Pulse Oximetry 99 100 MDM - Abdominal Pain Lab Data Attestation: I reviewed the patient's lab results. Result diagrams: 11/24/20 20:25 11/24/20 20:25 Labs: Lab Results 11/24/20 11/24/20 Range/Units 20:25 20:25 WBC 5.0 (4.5-11.0) X10^3/uL RBC 4.07 (4.0-5.2) X10^6/uL Hgb 12.4 (12.0-16.0) g/dL Hct 36.8 (36-46) % MCV 90.3 (80-100) fL MCH 30.4 (26-34) PG MCHC 33.7 (30-36) % RDW 13.2 (11.6-14.8) % Plt Count 284 (150-400) X10^3/uL Neut % (Auto) 53.8 (50-75) % Lymph % (Auto) 34.9 (25-40) % [place] % (Auto) 9.2 (3-14) % Eos % (Auto) 1.5 L (2-4) % Baso % (Auto) 0.6 (0-2) % Neut # (Auto) 2700 (3415-5863) /uL Lymph # (Auto) 1800 (5916-3634) /uL [place] # (Auto) 500 (0-900) /uL Eos # (Auto) 100 (0-450) /uL Baso # (Auto) 0 (0-100) /uL Sodium 141 (137-145) mmol/L Potassium 3.2 L (3.4-5.1) mmol/L Chloride 106 (98-107) mmol/L Carbon Dioxide 25 (22-32) mmol/L BUN 22 H (7-17) mg/dL Creatinine 0.97 (0.52-1.04) mg/dL Estimated GFR > 60.0 (>60) mL/min BUN/Creatinine Ratio 22.7 H (6-22) Glucose 98 (70-100) mg/dL Calcium 9.1 (8.4-10.2) mg/dL Total Bilirubin 0.1 L (0.2-1.3) mg/dL AST 28 (14-36) IU/L ALT 19 (<35) IU/L Alkaline Phosphatase 70 (38-126) U/L Total Protein 7.3 (6.3-8.2) g/dL Albumin 4.4 (3.5-5.0) g/dL Globulin 2.9 (1.7-4.1) g/dL Albumin/Globulin Ratio 1.5 (1.0-2.8) Lipase 150 (23-300) U/L Point of care testing: Point of Care Testing Test Results Negative Urine Dip Bedside Urine Glucose Negative Bedside Urine Bilirubin - Negative Bedside Urine Ketone - Negative Urine Specific [place] 1.030 Bedside Urine Occult Blood - Negative Bedside Urine pH 6.0 Bedside Urine Protein - Negative Bedside Urine Urobilinogen - Negative Bedside Urine Nitrite - Negative Bedside Urine Leukocytes - Negative Esterase Imaging Data CT scan - abdomen/pelvis: Radiologist's Impression: Small nonobstructive right nephrolithiasis. Simple renal cyst. Otherwise normal kidneys. Mild to moderate distension the colon with stool. No pneumoperitoneum or abscess. No bowel obstruction. ECG Data Attestation: I personally reviewed and interpreted this ECG as follows: Interpretation: Sinus rhythm rate of 78 DC 136 QRS 84 and QTC 451. MDM Narrative Medical decision making narrative: This 40-year-old female with known MS you develop stomach discomfort for the past 10 days. She has been having regular stools. She related it to being a day or 2 after her medication that she receives for her muscle sclerosis. Patient did have generalized tenderness throughout and feels somewhat mildly distended. Her labs do not show any major abnormalities. Her urine is negative. is negative as well. Patient CT was obtained that showed renal cyst, stone in the right kidney but otherwise some distended colon throughout. Radiology read does not know a significantly distended stomach but does appear sodium myself and showed this information the patient. She states she had 2 croissants prior to arriving to the emergency department but did not have a large meal. Patient feels comfortable returning home at this time to continue with hydration, fiber and adding MiraLax and/or Colace to help her with constipation to see if this relieves her symptoms. Watchful waiting and follow up with primary care are the plan with return precautions. Discharge Plan Departure Patient Disposition: Home Clinical Impression: Abdominal pain, Constipation, Renal cyst Instructions: DI for Abdominal Pain-Adult, DI for Constipation Activity Restrictions/Additional Instructions: Follow up with your physician for recheck in the next week if no improvement. I would recommend continuing to maintain your hydration and adding fiber to your diet. I would also recommend a dose of miralax 1-2 times daily to see if this improves your symptoms If this is adequate you can add colace 1 daily to your miralax. Your CT does show a stone in the right kidney and a renal cyst so you are aware. Please return to the ER for fevers greater 100.4 F, new or worsening abdominal, back or flank pain, persistent vomiting, black or bloody stools inability to rodriguez ve a bowel movement, new chest pain or shortness of breath or other new or concerning symptoms. Prescriptions: No Action atenolol 25 mg tablet 50 mg PO DAILY RF: 0 bupropion HCl 150 mg tablet extended release 24 hr 150 mg PO QAM RF: 0 buspirone 30 mg tablet 30 mg PO BID RF: 0 baclofen 20 mg tablet 30 mg PO TID RF: 0 trazodone 50 mg tablet 100 mg PO DAILY PRN (Reason: Insomnia) RF: 0 olanzapine 2.5 mg tablet 2.5 mg PO BEDTIME RF: 0 topiramate [Topamax] 25 mg tablet 50 mg PO TID RF: 0 melatonin 5 mg capsule 5 mg PO BEDTIME RF: 0 acetaminophen [Tylenol] 325 mg capsule 325 mg PO Q6H PRN (Reason: Pain (Scale Score 1-3)) RF: 0 ibuprofen 600 MG tablet 600 mg PO TIDP PRN (Reason: Pain (Scale Score 1-3)) Qty: 0 RF: 0 methylphenidate HCl 5 MG tablet 5 mg PO BID Qty: 0 RF: 0 lamotrigine [Lamictal] 25 MG tablet 250 mg PO DAILY Qty: 0 RF: 0 tizanidine 4 mg Tablet 8 mg PO BEDTIME RF: 0 oxycodone 15 mg Tablet 30 mg PO Q6H PRN (Reason: Pain (Scale Score 7-10)) RF: 0 hydrochlorothiazide 25 mg Tablet 25 mg PO DAILY RF: 0 ropinirole 0.5 mg Tablet 0.5 mg PO BEDTIME RF: 0 diazepam 5 mg tablet 5 mg PO BID PRN (Reason: muscle spasm) Qty: 30 RF: 0 Referrals: Mona Weinstein DO [Primary Care Provider] -
--- NOTE | 2020-11-24 23:03 | DI.CT.S_ITS ---
PROCEDURE: CT ABDOMEN PELVIS W CON INDICATIONS: abdominal pain for 10 days TECHNIQUE: After the administration of intravenous contrast, 5 mm thick sections acquired from the diaphragm to the symphysis. 5 mm coronal and sagittal reformats were acquired. For radiation dose reduction, the following was used: automated exposure control, adjustment of mA and/or kV according to patient size. COMPARISON: [facility], CT, ABDOMEN/PELVIS WITH CONTRAST, 12/07/2013, 11:01. [facility], CT, ABDOMEN/PELVIS WITH CONTRAST, 12/03/2013, 22:49. FINDINGS: Image quality: Excellent. ABDOMEN: Lung bases: Lung bases are clear. Heart size is normal. Solid organs: Liver is normal in size and enhancement. Gallbladder is decompressed but otherwise unremarkable. Biliary system is non dilated. Pancreas enhances normally. Spleen is normal in size and enhancement. No adrenal nodules. Kidneys demonstrate normal size and enhancement, without hydronephrosis. Nonobstructing right nephrolith. Redemonstration of right renal cyst. Peritoneum and bowel: Bowel loops demonstrate normal wall thickness and caliber. No free fluid or air. There is a moderate-large amount of fecal material within the colon. No associated wall thickening. Normal appendix. Nodes and vessels: No retroperitoneal or mesenteric adenopathy by size criteria. Aorta and inferior vena cava are normal in size. Miscellaneous: No ventral hernias. PELVIS: Genitourinary: Bladder wall thickness is normal. Miscellaneous: No inguinal hernias or adenopathy. Bones: No suspicious bony lesions. No acute vertebral body compression fractures. IMPRESSION: Moderate amount of fecal material seen throughout the colon. Otherwise, no evidence for acute inflammatory process or obstruction. Nonobstructing right nephrolith. Normal appendix. No significant discrepancy with the welder 2nd shift radiology preliminary report. Dictated by: Joe Ware M.D. on 11/25/2020 at 7:42 Approved by: Joe Ware M.D. on 11/25/2020 at 7:48
[2020-11-24] MEDS: KETOROLAC 30 MG/ML VIAL IV (23:08)
[2020-11-25 01:02] VITALS: BP 101/52; PULSE 85; RESP 18; O2SAT 100
== END 2020-11-25 01:13 | disposition home or self-care (01) ==
PROVIDERS: Emergency Provider Emergency Medicine; Family Provider Family Medicine; PCP Family Medicine
DX: R10.9 Unspecified abdominal pain (principal); K59.00 Constipation, unspecified; N28.1 Cyst of kidney, acquired
CPT/HCPCS: 36415; 74177; 80053; 81003; 81025; 83690; 85025; 93005; 96374; 99284; J1885; Q9967

== ENCOUNTER → 2020-12-07 13:37 | Outpatient (CLI) | payer OTHER, SELFPAY ==
[2020-01-13 19:12] VITALS: BMI 19.1
--- NOTE | 2020-12-07 | DI.MRI.S_ITS ---
PROCEDURE: MR HEAD/BRAIN WO CON INDICATIONS: MS TECHNIQUE: Noncontrast axial T1 spin echo, axial T2 fast spin echo, sagittal and axial FLAIR, coronal T2 fast spin echo, axial gradient echo, axial diffusion and ADC through the brain. COMPARISON: [facility], MR, MR HEAD/BRAIN WO/W CON, 01/14/2020, 10:27. FINDINGS: Image quality: Excellent. CSF Spaces: Basal cisterns are patent. No extra-axial fluid collections. Ventricles are normal in size and shape. Brain: No intracranial masses or hemorrhage. There is redemonstration of widespread extensive bilateral white matter signal changes, grossly stable in appearance since 01/14/20 although suboptimal evaluation given the absence of IV contrast . Brainstem appears normal. Diffusion-weighted images demonstrate no acute ischemic insult. No chronic ischemic insults. Normal intravascular flow voids are present. Skull and face: Calvarium has normal marrow signal. Orbits appear normal. Sinuses: Sinuses and mastoids are clear. IMPRESSION: Overall, grossly unchanged appearance of widespread bilateral white matter signal changes since 01/14/20, in keeping with the patient's given clinical history of demyelination disorder. As clinically desired, further evaluation with IV contrast-enhanced examination could be performed. Dictated by: Salvador Schultz M.D. on 12/07/2020 at 15:54 Approved by: Salvador Schultz M.D. on 12/07/2020 at 16:00
--- NOTE | 2020-12-07 | DI.MRI.S_ITS ---
PROCEDURE: MR CERVICAL SPINE WO CON INDICATIONS: MS TECHNIQUE: Noncontrast sagittal T1 spin echo and T2 fast spin echo, sagittal STIR, foraminal oblique sagittal T2 fast spin echo, and axial gradient echo or T2 fast spin echo through the cervical spine. COMPARISON: None. FINDINGS: Image quality: Degraded by motion artifact. Alignment and Curvature: Reversal of the normal cervical lordosis. Bone Marrow: No evidence of acute fracture. Multilevel degenerative endplate sclerosis and spurring. Diffuse facet arthropathy. Diffuse T2 hyperintense cord signal changes are present. This involves the entire cervical cord as well as the upper thoracic cord to the level of T2. Suboptimal evaluation given the absence of IV contrast. There is also motion degradation of the study. No cerebellar tonsillar herniation. Paraspinous Soft Tissues: No paravertebral masses. Prevertebral soft tissues are normal in thickness. C2-C3: Normal appearance. C3-C4: Normal appearance. C4-C5: Normal appearance. C5-C6: Normal appearance. C6-C7: Mild canal narrowing. Mild right foraminal stenosis. Severe left foraminal stenosis with nerve root compression. C7-T1: Mild left foraminal narrowing. No canal or right foraminal stenosis. IMPRESSION: Motion degraded examination. Diffuse T2 hyperintense cord signal changes in keeping with demyelination involving the entire cervical cord and to the level of T2.Further evaluation could be performed with IV contrast enhanced examination as clinically necessary. Severe left C6-C7 foraminal stenosis. Reversal of the normal cervical lordosis. Dictated by: Salvador Schultz M.D. on 12/07/2020 at 16:00 Approved by: Salvador Schultz M.D. on 12/07/2020 at 16:06
--- NOTE | 2020-12-07 | DI.MRI.S_ITS ---
PROCEDURE: MR THORACIC SPINE WO CON INDICATIONS: MS TECHNIQUE: Noncontrast sagittal T1 spine echo and T2 fast spin echo, sagittal STIR, axial T1 and T2 fast spin echo through the thoracic spine. COMPARISON: None. FINDINGS: Image quality: Excellent. Alignment and Curvature: There is normal bony alignment. Bone Marrow: Marrow is of normal overall signal. No acute vertebral body compression fractures. Spinal Cord: At the level of T5-T6, and T8-T10, there is T2 hyperintense cord signal changes on the STIR pulse sequence suggestive of demyelination. Suboptimal evaluation given the absence of IV contrast. Additional cord signal changes seen at T1-T2. Paraspinous Soft Tissues: No paravertebral masses. Miscellaneous: On axial images, central canal and foramina appear widely patent at all scanned levels. 20 IMPRESSION: Cord signal changes at the level of T1-T2, T5-T6 and T8-T10, suggestive of demyelination . Dictated by: Salvador Schultz M.D. on 12/07/2020 at 16:06 Approved by: Salvador Schultz M.D. on 12/07/2020 at 16:11
== END ==
PROVIDERS: Family Provider Family Medicine; PCP Family Medicine; Referring Provider Psychiatry & Neurology Neurology; Visit Provider Psychiatry & Neurology Neurology
DX: G35 Multiple sclerosis (principal); M48.02 Spinal stenosis, cervical region
CPT/HCPCS: 70551; 72141; 72146

== ENCOUNTER 2021-03-30 19:23 | Emergency (ER) | payer OTHER, SELFPAY ==
[2020-01-13 19:12] VITALS: BMI 19.1
[2021-03-30] VITALS (7 sets, daily range): BP systolic 122–135; BP diastolic 71–84; PULSE 71–94; RESP 10–35; TEMP 36.7; O2SAT 95–99
[2021-03-30 20:07] LABS: Add Manual Diff / Slide Review NO; Basophils Absolute Auto 0 /uL (0-100); Basophils Percent Auto 0.3 % (0-2); Eosinophils Absolute Auto 0 /uL (0-450); Eosinophils Percent Auto 0.4 % (2-4); Hematocrit 36.7 % (36-46); Hemoglobin 12.1 g/dL (12.0-16.0); Lymphocytes Absolute Auto 800 /uL (1100-4500); Lymphocytes Percent Auto 7.9 % (25-40); Mean Corpuscular HGB Conc 33.1 % (30-36); Mean Corpuscular Hemoglobin 30.8 PG (26-34); Mean Corpuscular Volume 92.9 fL (80-100); Monocytes Absolute Auto 600 /uL (0-900); Monocytes Percent Auto 5.9 % (3-14); Neutrophils Absolute Auto 8200 /uL (1500-7000); Neutrophils Percent Auto 85.5 % (50-75); Platelet Count 241 X10^3/uL (150-400); Red Blood Cell Count 3.95 X10^6/uL (4.0-5.2); Red Cell Distribution Width 13.1 % (11.6-14.8); White Blood Cell Count 9.6 X10^3/uL (4.5-11.0)
[2021-03-30 20:22] LABS: Alanine Aminotransferase 28 IU/L (<35); Albumin 4.5 g/dL (3.5-5.0); Albumin Globulin Ratio 1.6 (1.0-2.8); Alkaline Phosphatase 73 U/L (38-126); Aspartate Aminotransferase 28 IU/L (14-36); BUN Creatinine Ratio 20.4 (6-22); Bilirubin Total 0.2 mg/dL (0.2-1.3); Blood Urea Nitrogen 21 mg/dL (7-17); Calcium 9.3 mg/dL (8.4-10.2); Carbon Dioxide 25 mmol/L (22-32); Chloride 107 mmol/L (98-107); Estimated Glomerular Filt Rate 58.8 mL/min (>60); Globulin 2.8 g/dL (1.7-4.1); Glucose 117 mg/dL (70-100); HEMOLYSIS < 15 (0-50); Potassium 3.7 mmol/L (3.4-5.1); Sodium 142 mmol/L (137-145); Total Protein 7.3 g/dL (6.3-8.2)
[2021-03-30 20:32] LABS: UR Morphine/Opiate cutoff 300 Positive (Negative); Ur Creatinine Normal (Normal); Ur Specific Gravity Normal (Normal); Urine Amphetamines Negative (Negative); Urine Barbiturates Negative (Negative); Urine Benzodiazepines Negative (Negative); Urine Cocaine Negative (Negative); Urine MDMA Negative (Negative); Urine Methadone Negative (Negative); Urine Methamphetamines Negative (Negative); Urine Oxycodone Positive (Negative); Urine Phencyclidine Negative (Negative); Urine Tetrahydrocannabinol Positive (Negative); Urine Tricyclic Antidepressant Negative (Negative); Urine pH Normal (Normal)
--- NOTE | 2021-03-30 20:34 | ED_ITS ---
HPI - Neuro Symptoms/Deficit General Chief Complaint: Neuro Symptoms/Deficit Stated Complaint: MS flare up, mental issues Time Seen by Provider: 03/30/21 19:30 Source: patient Mode of arrival: Ambulatory History of Present Illness HPI Narrative: 40-year-old female nonsmoker with history of MS presents with her in the chief complaint of a few days of bilateral lower extremity aching, cramping pain. This is how her MS exacerbations 10 to present. She denies any overuse or recent injuries. She has had no fever or chills. She d enies nausea, vomiting or diarrhea. She has had no change in medications or diet. In addition to this complaint she has been a bit confused and groggy over the past day or 2 as well. She has no neck pain or focal findings such as blurred vision, eye pain, difficulty with speech or other. She is followed by neurology at [facility]. Related Data Home Medications Medication Instructions Recorded Confirmed ibuprofen 600 mg tablet 600 mg PO TIDP PRN #0 11/27/10 01/13/20 lamotrigine 25 mg tablet (Lamictal) 250 mg PO DAILY #0 08/26/16 01/13/20 methylphenidate HCl 5 mg tablet 5 mg PO BID #0 08/26/16 01/13/20 acetaminophen 325 mg capsule 325 mg PO Q6H PRN 12/01/18 01/13/20 (Tylenol) atenolol 25 mg tablet 50 mg PO DAILY 12/01/18 01/13/20 baclofen 20 mg tablet 30 mg PO TID 12/01/18 01/13/20 bupropion HCl 150 mg 24 hr tablet, 150 mg PO QAM 12/01/18 01/13/20 extended release buspirone 30 mg tablet 30 mg PO BID tab 12/01/18 01/13/20 melatonin 5 mg capsule 5 mg PO BEDTIME cap 12/01/18 01/13/20 olanzapine 2.5 mg tablet 2.5 mg PO BEDTIME 12/01/18 01/13/20 topiramate 25 mg tablet (Topamax) 50 mg PO TID tab 12/01/18 01/13/20 trazodone 50 mg tablet 100 mg PO DAILY PRN 12/01/18 01/13/20 hydrochlorothiazide 25 mg tablet 25 mg PO DAILY 01/13/20 01/13/20 oxycodone 15 mg tablet 30 mg PO Q6H PRN 01/13/20 01/13/20 ropinirole 0.5 mg tablet 0.5 mg PO BEDTIME 01/13/20 01/13/20 tizanidine 4 mg tablet 8 mg PO BEDTIME 01/13/20 01/13/20 Previous Rx's Medication Instructions Recorded diazepam 5 mg tablet 5 mg PO BID PRN #30 tab 12/16/19 Allergies Allergy/AdvReac Type Severity Reaction Status Date / Time amitriptyline [AMITRIPTYLINE] Allergy Unknown Verified 12/01/18 16:21 gabapentin [GABAPENTIN] Allergy Unknown Verified 12/01/18 16:21 shayne [SHAYNE] Allergy Unknown Verified 12/01/18 16:21 Review of Systems Review of Systems Narrative: GENERAL: Denies chills, fatigue, malaise, fever, sweats. HEENT: Denies sinus pain, ear pain, sore throat, difficulty swallowing, dizziness. RESPIRATORY: Denies dyspnea, cough, wheezing, hemoptysis, sputum. CARDIOVASCULAR: Denies chest pain, palpitations, orthopnea, edema, GASTROINTESTINAL: Denies nausea, vomiting, abdominal pain, diarrhea, constipation, melena. : Denies dysuria, frequency, incontinence, hematuria, urinary retention. MUSCULOSKELETAL: d see HPI SKIN: Denies rash, skin lesions, or other NEUROLOGIC: See HPI PSYCHIATRIC: No concerning psychosocial issues. 12 point review of systems is negative except for those stated above Patient History Medical History HTN (hypertension) MS (multiple sclerosis) PTSD (post-traumatic stress disorder) Surgical History Bunion, right foot History of laparoscopy Family History Mother CVA (cerebral vascular accident) Diabetes type 2, uncontrolled Father Diabetes type 2, uncontrolled Social History household members: spouse Smoking Status: Never smoker alcohol intake: former Smoking Status: Never smoker alcohol intake frequency: 0-2 drinks per day Substance Use Type: does not use Exam Narrative Exam Narrative: GENERAL: [40 year old patient appears stated age. Well-developed patient, in mild distress. GCS 15, she does have some stuttering speech which is part of the new presentation HEAD: Atraumatic. Normocephalic. EYES: Pupils equal round and reactive. Extraocular motions intact. No scleral icterus. No injection or drainage. ENT: Nose without bleeding, purulent drainage. Throat without erythema, tonsill ar hypertrophy or exudate. Airway patent. NECK: Trachea midline. Non tender CARDIOVASCULAR: Regular rate and rhythm without murmurs, gallops, or rubs. RESPIRATORY: Clear to auscultation. Breath sounds equal bilaterally. No wheezes, rales, or rhonchi. GASTROINTESTINAL: Abdomen soft, non-tender, nondistended. EXTREMITIES: No edema or joint tenderness. BACK: Nontender without deformity or crepitance. No flank tenderness. NEURO: AOx3. SKIN: No rash or erythema of visible areas Initial Vital Signs Initial Vital Signs: Vital Signs Temperature 98.1 F 03/30/21 19:26 Pulse Rate 94 H 03/30/21 19:26 Respiratory Rate 22 03/30/21 19:26 Blood Pressure 135/78 03/30/21 19:26 Pulse Oximetry 97 03/30/21 19:26 Course Course Course Narrative: Early in the course labs were drawn, IV placed and Solu-Medrol 1000 mg ordered. A call was placed to her Neurology group at this time. When they call back they very quickly agreed with administering Solu-Medrol here in the department. We reviewed her most recent visits and imaging. They state that she had an MRI in November which, unfortunately was performed without IV contrast, they recommend that patient receive an MRI with contrast within the next few weeks as an outpatient. Historically patient has been able to connect with her primary care provider who is able to set up home care with the patient to receive Solu-Medrol at home. Neurology was very much on board with this. Patient and family given return precautions and event questions answered to their apparent satisfaction Orders Ordered: Discontinued Medications Methylprednisolone 1,000 mg/ (Sodium Chloride) 258 mls @ 258 mls/hr IV NOW ONE Stop: 03/30/21 19:39 Last Infusion: 03/30/21 22:27 Dose: 0 mls/hr Documented by: Admin: 03/30/21 20:50 Dose: 258 mls/hr Documented by: GIAN Sodium Chloride (Normal Saline 0.9%) 1,000 mls @ 150 mls/hr IV CONT JANE Last Infusion: 03/30/21 22:27 Dose: 0 mls/hr Documented by: Admin: 03/30/21 20:51 Dose: 150 mls/hr Documented by: GINA Reevaluation(s) Reevaluation #1: Patient feeling near complete resolution of symptoms after the above-stated therapies Vital Signs Vital signs: Vital Signs - 8 hr 03/30/21 22:27 Pulse Rate 71 Respiratory Rate 16 Blood Pressure 128/84 Pulse Oximetry 99 MDM - Neuro Symptoms/Deficit Lab Data Result diagrams: 03/30/21 20:00 03/30/21 20:00 Labs: Lab Results 03/30/21 03/30/21 03/30/21 Range/Units 20:00 20:00 20:20 WBC 9.6 (4.5-11.0) X10^3/uL RBC 3.95 L (4.0-5.2) X10^6/uL Hgb 12.1 (12.0-16.0) g/dL Hct 36.7 (36-46) % MCV 92.9 (80-100) fL MCH 30.8 (26-34) PG MCHC 33.1 (30-36) % RDW 13.1 (11.6-14.8) % Plt Count 241 (150-400) X10^3/uL Neut % (Auto) 85.5 H (50-75) % Lymph % (Auto) 7.9 L (25-40) % [place] % (Auto) 5.9 (3-14) % Eos % (Auto) 0.4 L (2-4) % Baso % (Auto) 0.3 (0-2) % Neut # (Auto) 8200 H (0378-8970) /uL Lymph # (Auto) 800 L (8443-6781) /uL [place] # (Auto) 600 (0-900) /uL Eos # (Auto) 0 (0-450) /uL Baso # (Auto) 0 (0-100) /uL Sodium 142 (137-145) mmol/L Potassium 3.7 (3.4-5.1) mmol/L Chloride 107 (98-107) mmol/L Carbon Dioxide 25 (22-32) mmol/L BUN 21 H (7-17) mg/dL Creatinine 1.03 (0.52-1.04) mg/dL Estimated GFR 58.8 L (>60) mL/min BUN/Creatinine Ratio 20.4 (6-22) Glucose 117 H (70-100) mg/dL Calcium 9.3 (8.4-10.2) mg/dL Total Bilirubin 0.2 (0.2-1.3) mg/dL AST 28 (14-36) IU/L ALT 28 (<35) IU/L Alkaline Phosphatase 73 (38-126) U/L Total Protein 7.3 (6.3-8.2) g/dL Albumin 4.5 (3.5-5.0) g/dL Globulin 2.8 (1.7-4.1) g/dL Albumin/Globulin Ratio 1.6 (1.0-2.8) U Opiates 300ng/mL cut Positive H (Negative) Ur Oxycodone Screen Positive H (Negative) Urine Methadone Screen Negative (Negative) Ur Barbiturates Screen Negative (Negative) U Tricyclic Antidepress Negative (Negative) Ur Phencyclidine Scrn Negative (Negative) Ur Amphetamines Screen Negative (Negative) U Methamphetamines Scrn Negative (Negative) Ur MDMA Scrn (Ecstasy) Negative (Negative) U Benzodiazepines Scrn Negative (Negative) Urine Cocaine Screen Negative (Negative) U Marijuana (THC) Screen Positive H (Negative) Point of Care Testing Glucose POC 101 Discharge Plan Departure Patient Disposition: Home Clinical Impression: MS (multiple sclerosis) Instructions: DI for Multiple Sclerosis Activity Restrictions/Additional Instructions: *You have been diagnosed with [multiple sclerosis exacerbation] *What to do: *Please continue to take your regular medications as directed. [ ] New medication prescriptions sent to your pharmacy: [ ] [ ] New medication written as a paper prescription [ x] No new medications given *Please follow up with your primary care provider tomorrow, call for an appointment. Let them know you were seen in the Emergency Department and that we ask that you be seen in follow up. We will electronically transmit a record of today's note if your PCP is in our system. I discussed your case with your neurology group and they agreed with getting steroids at home over the next few days. Additionally, they stated it would be reasonable for your primary care doctor or your primary neurologist to order an outpatient MRI with contrast this time for evaluation. *Return to Emergency Department if you should have any new, worsening or concerning symptoms, such as [fever greater than 101 F, shaking chills, worsening pain, persistent vomiting or other bothersome symptoms] Prescriptions: No Action atenolol 25 mg tablet 50 mg PO DAILY RF: 0 bupropion HCl 150 mg tablet extended release 24 hr 150 mg PO QAM RF: 0 buspirone 30 mg tablet 30 mg PO BID RF: 0 baclofen 20 mg tablet 30 mg PO TID RF: 0 trazodone 50 mg tablet 100 mg PO DAILY PRN (Reason: Insomnia) RF: 0 olanzapine 2.5 mg tablet 2.5 mg PO BEDTIME RF: 0 topiramate [Topamax] 25 mg tablet 50 mg PO TID RF: 0 melatonin 5 mg capsule 5 mg PO BEDTIME RF: 0 acetaminophen [Tylenol] 325 mg capsule 325 mg PO Q6H PRN (Reason: Pain (Scale Score 1-3)) RF: 0 ibuprofen 600 MG tablet 600 mg PO TIDP PRN (Reason: Pain (Scale Score 1-3)) Qty: 0 RF: 0 methylphenidate HCl 5 MG tablet 5 mg PO BID Qty: 0 RF: 0 lamotrigine [Lamictal] 25 MG tablet 250 mg PO DAILY Qty: 0 RF: 0 tizanidine 4 mg Tablet 8 mg PO BEDTIME RF: 0 oxycodone 15 mg Tablet 30 mg PO Q6H PRN (Reason: Pain (Scale Score 7-10)) RF: 0 hydrochlorothiazide 25 mg Tablet 25 mg PO DAILY RF: 0 ropinirole 0.5 mg Tablet 0.5 mg PO BEDTIME RF: 0 diazepam 5 mg tablet 5 mg PO BID PRN (Reason: muscle spasm) Qty: 30 RF: 0 Referrals: Mona Weinstein DO [Primary Care Provider] -
[2021-03-30] MEDS: methylPREDNISolone 1,000 MG in SODIUM CHLORIDE 0.9% 250 ML 258 ML IV (20:50)
[2021-03-30] MEDS: SODIUM CHLORIDE 0.9% 1,000 ML 150 ML IV (20:51)
== END 2021-03-30 22:27 | disposition home or self-care (01) ==
PROVIDERS: Emergency Provider Emergency Medicine; Family Provider Family Medicine; PCP Family Medicine
DX: G35 Multiple sclerosis (principal)
CPT/HCPCS: 36415; 80053; 80305; 82962; 85025; 93005; 93010; 96365; 96366; 99284; J2930

== ENCOUNTER 2021-04-05 06:02 | Emergency (ER) | payer OTHER, SELFPAY ==
[2020-01-13 19:12] VITALS: BMI 19.1
[2021-04-05 06:11] VITALS: BP 162/104; PULSE 72; RESP 18; TEMP 36.2; O2SAT 99; BMI 27.4
--- NOTE | 2021-04-05 06:15 | ED_ITS ---
HPI - Neuro Symptoms/Deficit <Miky Gonzalo, DO - Last Filed: 04/10/21 19:10> General Chief Complaint: Hypertension Stated Complaint: high blood pressure, constant pain Time Seen by Provider: 04/05/21 06:11 History of Present Illness HPI Narrative: 40-year-old female nonsmoker with known multiple sclerosis presents with a chief complaint of ongoing symptoms consistent with an MS flare including pain and tingling in her legs. She had been seen and evaluated ea sylvia in the week for these complaints and we initiated Solu-Medrol 1000 mg and had conversations with her neurology group down at [facility] who agreed with this plan. Historically she has been able to connect with her primary care provider and arrange for home administration of Solu-Medrol 1000 mg x 5 days but has had much difficulty this time around and has thus far only had 3 doses. Today would be her 4th dose. Additionally she complains that her blood pressure has been creeping up and was in the 160s. She normally takes atenolol and hydrochlorothiazide and states she did not yet take her medications this morning. She denies any blurred vision, trouble speech chest pain or shortness of breath. Related Data Home Medications Medication Instructions Recorded Confirmed ibuprofen 600 mg tablet 600 mg PO TIDP PRN #0 11/27/10 01/13/20 lamotrigine 25 mg tablet (Lamictal) 250 mg PO DAILY #0 08/26/16 01/13/20 methylphenidate HCl 5 mg tablet 5 mg PO BID #0 08/26/16 01/13/20 acetaminophen 325 mg capsule 325 mg PO Q6H PRN 12/01/18 01/13/20 (Tylenol) atenolol 25 mg tablet 50 mg PO DAILY 12/01/18 01/13/20 baclofen 20 mg tablet 30 mg PO TID 12/01/18 01/13/20 bupropion HCl 150 mg 24 hr tablet, 150 mg PO QAM 12/01/18 01/13/20 extended release buspirone 30 mg tablet 30 mg PO BID tab 12/01/18 01/13/20 melatonin 5 mg capsule 5 mg PO BEDTIME cap 12/01/18 01/13/20 olanzapine 2.5 mg tablet 2.5 mg PO BEDTIME 12/01/18 01/13/20 topiramate 25 mg tablet (Topamax) 50 mg PO TID tab 12/01/18 01/13/20 trazodone 50 mg tablet 100 mg PO DAILY PRN 12/01/18 01/13/20 hydrochlorothiazide 25 mg tablet 25 mg PO DAILY 01/13/20 01/13/20 oxycodone 15 mg tablet 30 mg PO Q6H PRN 01/13/20 01/13/20 ropinirole 0.5 mg tablet 0.5 mg PO BEDTIME 01/13/20 01/13/20 tizanidine 4 mg tablet 8 mg PO BEDTIME 01/13/20 01/13/20 Previous Rx's Medication Instructions Recorded diazepam 5 mg tablet 5 mg PO BID PRN #30 tab 12/16/19 Allergies Allergy/AdvReac Type Severity Reaction Status Date / Time amitriptyline [AMITRIPTYLINE] Allergy Unknown Verified 12/01/18 16:21 gabapentin [GABAPENTIN] Allergy Unknown Verified 12/01/18 16:21 shayne [SHAYNE] Allergy Unknown Verified 12/01/18 16:21 Review of Systems <Miky Sánchez DO - Last Filed: 04/10/21 19:10> Review of Systems Narrative: GENERAL: Denies chills, fatigue, malaise, fever, sweats. HEENT: Denies sinus pain, ear pain, sore throat, difficulty swallowing, dizziness. RESPIRATORY: Denies dyspnea, cough, wheezing, hemoptysis, sputum. CARDIOVASCULAR: Denies chest pain, palpitations, orthopnea, edema, GASTROINTESTINAL: Denies nausea, vomiting, abdominal pain, diarrhea, constipation, melena. : Denies dysuria, frequency, incontinence, hematuria, urinary retention. MUSCULOSKELETAL: See HPI SKIN: Denies rash, skin lesions, or other NEUROLOGIC: Denies weakness, headache, numbness, change in speech, confusion, seizures, incoordination. PSYCHIATRIC: No concerning psychosocial issues. 12 point review of systems is negative except for those stated above Patient History <Miky Sánchez DO - Last Filed: 04/10/21 19:10> Medical History (Updated 04/05/21 @ 09:51 by Alee Triplett DO) HTN (hypertension) MS (multiple sclerosis) PTSD (post-traumatic stress disorder) Surgical History Bunion, right foot History of laparoscopy Family History Mother CVA (cerebral vascular accident) Diabetes type 2, uncontrolled Father Diabetes type 2, uncontrolled Social History household members: spouse Smoking Status: Never smoker alcohol intake: former Smoking Status: Never smoker alcohol intake frequency: 0-2 drinks per day Substance Use Type: does not use Exam <Miky Sánchez DO - Last Filed: 04/10/21 19:10> Narrative Exam Narrative: GEN: AOx3 and in mild distress EYES: Pupils are equal, round, and reactive to light and accommodation. Extraoccular muscles are intact bilaterally. There is no subconjunctival hemorrhage or exudate. CHEST: Lungs are clear to auscultation bilaterally and free of wheezes, rales, or rhonchi. Heart rate is regular rhythm, there are no murmurs, clicks, rubs, or gallops. There is no chest wall tenderness. ABD: Abdomen is soft and nontender. There is no guarding or rebound. Bowel sounds are normal in all 4 quadrants. There is no mass or organomegaly. EXT: Full painless ROM of all extremities with no loss of sensation or strength. SKIN: Warm, pink, and dry. No erythema or rash Initial Vital Signs Initial Vital Signs: Vital Signs Temperature 97.1 F L 04/05/21 06:11 Pulse Rate 72 04/05/21 06:11 Respiratory Rate 18 04/05/21 06:11 Blood Pressure 162/104 H 04/05/21 06:11 Pulse Oximetry 99 04/05/21 06:11 <Alee Triplett DO - Last Filed: 04/05/21 15:36> Initial Vital Signs Initial Vital Signs: Vital Signs Temperature 97.1 F L 04/05/21 06:11 Pulse Rate 72 04/05/21 06:11 Respiratory Rate 18 04/05/21 06:11 Blood Pressure 162/104 H 04/05/21 06:11 Pulse Oximetry 99 04/05/21 06:11 Course <Miky Sánchez DO - Last Filed: 04/10/21 19:10> Orders Ordered: Discontinued Medications Atenolol (Atenolol 50 Mg Tablet) 50 mg PO NOW ONE Stop: 04/05/21 06:12 Last Admin: 04/05/21 08:30 Dose: 50 mg Documented by: HECTOR Hydromorphone HCl (Hydromorphone 0.5 Mg Inj) 0.5 mg IV NOW ONE Stop: 04/05/21 07:12 Last Admin: 04/05/21 07:24 Dose: 0.5 mg Documented by: HECTOR Methylprednisolone 1,000 mg/ (Sodium Chloride) 258 mls @ 258 mls/hr IV NOW ONE Stop: 04/05/21 06:12 Last Infusion: 04/05/21 08:31 Dose: 0 mls/hr Documented by: Admin: 04/05/21 07:23 Dose: 258 mls/hr Documented by: HECTOR Vital Signs Vital signs: Vital Signs - 8 hr 04/05/21 09:12 Pulse Rate 70 Blood Pressure 179/87 H Pulse Oximetry 98 <Alee Triplett DO - Last Filed: 04/05/21 15:36> Orders Ordered: Discontinued Medications Atenolol (Atenolol 50 Mg Tablet) 50 mg PO NOW ONE Stop: 04/05/21 06:12 Last Admin: 04/05/21 08:30 Dose: 50 mg Documented by: HECTOR Hydromorphone HCl (Hydromorphone 0.5 Mg Inj) 0.5 mg IV NOW ONE Stop: 04/05/21 07:12 Last Admin: 04/05/21 07:24 Dose: 0.5 mg Documented by: HECTOR Methylprednisolone 1,000 mg/ (Sodium Chloride) 258 mls @ 258 mls/hr IV NOW ONE Stop: 04/05/21 06:12 Last Infusion: 04/05/21 08:31 Dose: 0 mls/hr Documented by: Admin: 04/05/21 07:23 Dose: 258 mls/hr Documented by: HECTOR Vital Signs Vital signs: Vital Signs - 8 hr 04/05/21 09:12 Pulse Rate 70 Blood Pressure 179/87 H Pulse Oximetry 98 MDM - Neuro Symptoms/Deficit <Miky Sánchez DO - Last Filed: 04/10/21 19:10> Lab Data Labs: Urine Dip Bedside Urine Glucose Negative Bedside Urine Bilirubin - Negative Bedside Urine Ketone - Negative Urine Specific [place] 1.025 Bedside Urine Occult Blood - Negative Bedside Urine pH 6.0 Bedside Urine Protein - Negative Bedside Urine Urobilinogen - Negative Bedside Urine Nitrite - Negative Bedside Urine Leukocytes - Negative Esterase <Alee Ioana, DO - Last Filed: 04/05/21 15:36> Lab Data Labs: Urine Dip Bedside Urine Glucose Negative Bedside Urine Bilirubin - Negative Bedside Urine Ketone - Negative Urine Specific [place] 1.025 Bedside Urine Occult Blood - Negative Bedside Urine pH 6.0 Bedside Urine Protein - Negative Bedside Urine Urobilinogen - Negative Bedside Urine Nitrite - Negative Bedside Urine Leukocytes - Negative Esterase Imaging Data Extremity x-ray #1: Radiologist's Impression: PROCEDURE:? XR LUMBAR SPINE 2-3V ? INDICATIONS:? pain falls ? TECHNIQUE:? 3 views of the lumbar spine were acquired.? ? COMPARISON:? None. ? FINDINGS:? ? Bones:? 5 [id number] vertebrae are present.? There is normal bony alignment.? No vertebral body compression fractures.? No suspicious bony lesions.? Mild degenerative disc changes noted in the lower lumbar spine.? ? Soft tissues:? Overlying bowel gas pattern is normal.? No suspicious soft tissue calcifications.? ? ? IMPRESSION:? No fracture. No acute osseous lesion. If symptoms and/or clinical suspicion for pathology persists, evaluation with MRI should be considered for further assessment. ? ? Dictated by: Anjali Ochoa MD, PhD on 04/05/2021 at 8:16 ? ? Approved by: Anjali Ochoa MD, PhD on 04/05/2021 at 8:16 ? [facility] Narrative Medical decision making narrative: I received sign-out from Dr. Sánchez is seen evaluated patient myself. She continues to have lower extremity pain. She has previously gotten much better after Solu-Medrol, however this time she is not having any improvement. She recently medication in the emergency department to help with pain. He actually is ambulatory in the ED to use the restroom really no sign of UTI. Back x-ray is negative. 0915- Dr. Schafer, neurology at [facility] on-call for patient's neurologist this mapped and patient's symptoms and test results. At this time states that patient he can follow up with her neurologist and possibly have outpatient MRI. Discharge Plan Departure Patient Disposition: Home Clinical Impression: MS (multiple sclerosis) Instructions: DI for Multiple Sclerosis Activity Restrictions/Additional Instructions: *You have been diagnosed with multiple sclerosis *What to do: At this time I have spoken with your Neurology group. They recommend following up with them. He may need an outpatient MRI. You can still have improvement with Solu-Medrol even though it is not immediate. You are still having difficulty with pain please talk to your neurologist or primary care provider *Continue to take medications as directed *Follow up with your primary care provider in 2-3 days *Return to ER if you should have increasing weakness, falls, fevers or any new, worsening or concerning symptoms Prescriptions: No Action atenolol 25 mg tablet 50 mg PO DAILY RF: 0 bupropion HCl 150 mg tablet extended release 24 hr 150 mg PO QAM RF: 0 buspirone 30 mg tablet 30 mg PO BID RF: 0 baclofen 20 mg tablet 30 mg PO TID RF: 0 trazodone 50 mg tablet 100 mg PO DAILY PRN (Reason: Insomnia) RF: 0 olanzapine 2.5 mg tablet 2.5 mg PO BEDTIME RF: 0 topiramate [Topamax] 25 mg tablet 50 mg PO TID RF: 0 melatonin 5 mg capsule 5 mg PO BEDTIME RF: 0 acetaminophen [Tylenol] 325 mg capsule 325 mg PO Q6H PRN (Reason: Pain (Scale Score 1-3)) RF: 0 ibuprofen 600 MG tablet 600 mg PO TIDP PRN (Reason: Pain (Scale Score 1-3)) Qty: 0 RF: 0 methylphenidate HCl 5 MG tablet 5 mg PO BID Qty: 0 RF: 0 lamotrigine [Lamictal] 25 MG tablet 250 mg PO DAILY Qty: 0 RF: 0 tizanidine 4 mg Tablet 8 mg PO BEDTIME RF: 0 oxycodone 15 mg Tablet 30 mg PO Q6H PRN (Reason: Pain (Scale Score 7-10)) RF: 0 hydrochlorothiazide 25 mg Tablet 25 mg PO DAILY RF: 0 ropinirole 0.5 mg Tablet 0.5 mg PO BEDTIME RF: 0 diazepam 5 mg tablet 5 mg PO BID PRN (Reason: muscle spasm) Qty: 30 RF: 0 Referrals: Mona Weinstein DO [Primary Care Provider] -
--- NOTE | 2021-04-05 07:11 | DI.RAD.S_ITS ---
PROCEDURE: XR LUMBAR SPINE 2-3V INDICATIONS: pain falls TECHNIQUE: 3 views of the lumbar spine were acquired. COMPARISON: None. FINDINGS: Bones: 5 [id number] vertebrae are present. There is normal bony alignment. No vertebral body compression fractures. No suspicious bony lesions. Mild degenerative disc changes noted in the lower lumbar spine. Soft tissues: Overlying bowel gas pattern is normal. No suspicious soft tissue calcifications. IMPRESSION: No fracture. No acute osseous lesion. If symptoms and/or clinical suspicion for pathology persists, evaluation with MRI should be considered for further assessment. Dictated by: Anjali Ochoa MD, PhD on 04/05/2021 at 8:16 Approved by: Anjali Ochoa MD, PhD on 04/05/2021 at 8:16
[2021-04-05] MEDS: methylPREDNISolone 1,000 MG in SODIUM CHLORIDE 0.9% 250 ML 258 ML IV (07:23)
[2021-04-05] MEDS: HYDROMORPHONE 0.5 MG INJ IV (07:24)
[2021-04-05] MEDS: atenoloL 50 MG TABLET PO (08:30)
[2021-04-05 09:12] VITALS: BP 179/87; PULSE 70; O2SAT 98
== END 2021-04-05 10:10 | disposition home or self-care (01) ==
PROVIDERS: Emergency Provider Emergency Medicine; Family Provider Family Medicine; PCP Family Medicine
DX: G35 Multiple sclerosis (principal)
CPT/HCPCS: 36415; 72100; 81003; 96365; 96375; 99284; J1170; J2930

== ENCOUNTER 2021-04-29 01:02 | Emergency (ER) | payer OTHER, SELFPAY ==
[2020-01-13 19:12] VITALS: BMI 19.1
[2021-04-29 01:10] VITALS: BP 122/72; PULSE 80; RESP 18; TEMP 36.3; O2SAT 98
--- NOTE | 2021-04-29 01:36 | ED.EXTPRO ---
HPI - Extremity Problem General Chief complaint: Extremity Problem,Nontraumatic Stated complaint: extreme discomfort, pml Time Seen by Provider: 04/29/21 01:36 Source: patient Mode of arrival: Ambulatory Limitations: altered mental status History of Present Illness HPI Narrative: 40F nonsmoker with a history of MS presents with her due to an episode of intractable bilateral lower extremity pain earlier this evening. She has a long history of MS and has been declining as of late. She frequently has leg pain as a manifestation of her illness. She last had IV steroids a few weeks ago and was administered these medications both here and in [place]. She has had increasing episodes and severity of confusion and mental decline over the past few months. 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 She has had no change in her medications, denies any recent trauma has had no fever or chills. She was having intense pain in her legs earlier tonight and was pacing around significantly, her states that she frequently has confusion and alterations in her mental status when her pain ramps, it sounds like her care team correlates this with an exacerbation of her MS. Related Data Home Medications Medication Instructions Recorded Confirmed ibuprofen 600 mg tablet 600 mg PO TIDP PRN #0 11/27/10 01/13/20 lamotrigine 25 mg tablet (Lamictal) 250 mg PO DAILY #0 08/26/16 01/13/20 methylphenidate HCl 5 mg tablet 5 mg PO BID #0 08/26/16 01/13/20 acetaminophen 325 mg capsule 325 mg PO Q6H PRN 12/01/18 01/13/20 (Tylenol) atenolol 25 mg tablet 50 mg PO DAILY 12/01/18 01/13/20 baclofen 20 mg tablet 30 mg PO TID 12/01/18 01/13/20 bupropion HCl 150 mg 24 hr tablet, 150 mg PO QAM 12/01/18 01/13/20 extended release buspirone 30 mg tablet 30 mg PO BID tab 12/01/18 01/13/20 melatonin 5 mg capsule 5 mg PO BEDTIME cap 12/01/18 01/13/20 olanzapine 2.5 mg tablet 2.5 mg PO BEDTIME 12/01/18 01/13/20 topiramate 25 mg tablet (Topamax) 50 mg PO TID tab 12/01/18 01/13/20 trazodone 50 mg tablet 100 mg PO DAILY PRN 12/01/18 01/13/20 hydrochlorothiazide 25 mg tablet 25 mg PO DAILY 01/13/20 01/13/20 oxycodone 15 mg tablet 30 mg PO Q6H PRN 01/13/20 01/13/20 ropinirole 0.5 mg tablet 0.5 mg PO BEDTIME 01/13/20 01/13/20 tizanidine 4 mg tablet 8 mg PO BEDTIME 01/13/20 01/13/20 Previous Rx's Medication Instructions Recorded diazepam 5 mg tablet 5 mg PO BID PRN #30 tab 12/16/19 Allergies Allergy/AdvReac Type Severity Reaction Status Date / Time amitriptyline [AMITRIPTYLINE] Allergy Unknown Verified 12/01/18 16:21 gabapentin [GABAPENTIN] Allergy Unknown Verified 12/01/18 16:21 shayne [SHAYNE] Allergy Unknown Verified 12/01/18 16:21 Review of Systems Review of Systems Narrative: GENERAL: Denies chills, fatigue, malaise, fever, sweats. HEENT: Denies sinus pain, ear pain, sore throat, difficulty swallowing, dizziness. RESPIRATORY: Denies dyspnea, cough, wheezing, hemoptysis, sputum. CARDIOVASCULAR: Denies chest pain, palpitations, orthopnea, edema, GASTROINTESTINAL: Denies nausea, vomiting, abdominal pain, diarrhea, constipation, melena. : Denies dysuria, frequency, incontinence, hematuria, urinary retention. MUSCULOSKELETAL: denies weakness, joint pain, or bony pain SKIN: Denies rash, skin lesions, or other NEUROLOGIC: See HPI PSYCHIATRIC: No concerning psychosocial issues. 12 point review of systems is negative except for those stated above Patient History Medical History (Updated 04/29/21 @ 03:06 by Miky Sánchez DO) HTN (hypertension) MS (multiple sclerosis) PTSD (post-traumatic stress disorder) Surgical History Bunion, right foot History of laparoscopy Family History Mother CVA (cerebral vascular accident) Diabetes type 2, uncontrolled Father Diabetes type 2, uncontrolled Social History household members: spouse Smoking Status: Never smoker alcohol intake: former Smoking Status: Never smoker alcohol intake frequency: 0-2 drinks per day Substance Use Type: does not use Exam Narrative Exam Narrative: GENERAL: [40] year old patient appears stated age. Well-developed patient, in mild distress. Confused, frequent repetitive speech. Resting comfortably HEAD: Atraumatic. Normocephalic. EYES: Pupils equal round and reactive. Extraocular motions intact. No scleral icterus. No injection or drainage. ENT: Nose without bleeding, purulent drainage. Throat without erythema, tonsillar hypertrophy or exudate. Airway patent. NECK: Trachea midline. Non tender CARDIOVASCULAR: Regular rate and rhythm without murmurs, gallops, or rubs. RESPIRATORY: Clear to auscultation. Breath sounds equal bilaterally. No wheezes, rales, or rhonchi. GASTROINTESTINAL: Abdomen soft, non-tender, nondistended. EXTREMITIES: No edema or joint tenderness. BACK: Nontender without deformity or crepitance. No flank tenderness. NEURO: CN II-XII grossly in tact SKIN: No rash or erythema of visible areas Initial Vital Signs Initial Vital Signs: Vital Signs Temperature 97.4 F L 04/29/21 01:10 Pulse Rate 80 04/29/21 01:10 Respiratory Rate 18 04/29/21 01:10 Blood Pressure 122/72 04/29/21 01:10 Pulse Oximetry 98 04/29/21 01:10 Course Orders Ordered: ED Orders 04/29/21 02:01 CT head/brain wo con Stat Discontinued Medications Lorazepam (Lorazepam 0.5 Mg Tablet) 0.5 mg PO NOW ONE Stop: 04/29/21 02:49 Last Admin: 04/29/21 02:56 Dose: 0.5 mg Documented by: ANDRAE Blunt Consultation #1: call to patient's neurologist at [place] (Dr. Sheppard). We have reviewed the patient's history and this presentation is very similar to what has been happening as of late. She tells me the patient had some subtle abnormalities on an EEG and is currently being referred to a sleep specialist. An MRI recently suggested no evolution of her MS and for this reason she recommends against any steroids tonight. There is some thought of potential underlying seizure element and she recommends a single dose of Ativan tonight and increasing Topamax to 100 mg for the 1st dose followed by 50 mg and 50 mg for subsequent doses. She recommends patient reach out to her office later in the day for follow-up. She stares the opinion that a large workup with labs or even lumbar puncture are not indicated. Vital Signs Vital signs: Vital Signs - 8 hr 04/29/21 01:10 04/29/21 03:12 Temperature 97.4 F L Pulse Rate 80 84 Respiratory Rate 18 18 Blood Pressure 122/72 150/90 H Pulse Oximetry 98 97 MDM - Extremity (Nontraumatic) Imaging Data CT scan - head: Radiologist's Impression: No acute intracranial pathology Discharge Plan Departure Patient Disposition: Home Clinical Impression: MS (multiple sclerosis) Activity Restrictions/Additional Instructions: *You have been diagnosed with [likely MS exacerbation] *What to do: * as we discussed, please increase your 1st Topamax dose of the day to 100 mg, otherwise continue to take your regular medications as directed. [ ] New medication prescriptions sent to your pharmacy: [ ] [ ] New medication written as a paper prescription [ x] No new medications given *Please follow up with your primary neurology provider in 2-3 days, call for an appointment. Let them know you were seen in the Emergency Department and that we ask that you be seen in follow up. *Return to Emergency Department if you should have any new, worsening or concerning symptoms, such as [fever greater than 101 F, shaking chills, worsening pain, persistent vomiting or other bothersome symptoms] Prescriptions: No Action atenolol 25 mg tablet 50 mg PO DAILY RF: 0 bupropion HCl 150 mg tablet extended release 24 hr 150 mg PO QAM RF: 0 buspirone 30 mg tablet 30 mg PO BID RF: 0 baclofen 20 mg tablet 30 mg PO TID RF: 0 trazodone 50 mg tablet 100 mg PO DAILY PRN (Reason: Insomnia) RF: 0 olanzapine 2.5 mg tablet 2.5 mg PO BEDTIME RF: 0 topiramate [Topamax] 25 mg tablet 50 mg PO TID RF: 0 melatonin 5 mg capsule 5 mg PO BEDTIME RF: 0 acetaminophen [Tylenol] 325 mg capsule 325 mg PO Q6H PRN (Reason: Pain (Scale Score 1-3)) RF: 0 ibuprofen 600 MG tablet 600 mg PO TIDP PRN (Reason: Pain (Scale Score 1-3)) Qty: 0 RF: 0 methylphenidate HCl 5 MG tablet 5 mg PO BID Qty: 0 RF: 0 lamotrigine [Lamictal] 25 MG tablet 250 mg PO DAILY Qty: 0 RF: 0 tizanidine 4 mg Tablet 8 mg PO BEDTIME RF: 0 oxycodone 15 mg Tablet 30 mg PO Q6H PRN (Reason: Pain (Scale Score 7-10)) RF: 0 hydrochlorothiazide 25 mg Tablet 25 mg PO DAILY RF: 0 ropinirole 0.5 mg Tablet 0.5 mg PO BEDTIME RF: 0 diazepam 5 mg tablet 5 mg PO BID PRN (Reason: muscle spasm) Qty: 30 RF: 0 Referrals: Mona Weinstein DO [Primary Care Provider] -
--- NOTE | 2021-04-29 02:01 | DI.CT.S_ITS ---
PROCEDURE: CT HEAD/BRAIN WO CON INDICATIONS: altered mental status TECHNIQUE: Noncontrast 4.5 mm thick angled axial sections acquired from the foramen magnum to the vertex, with coronal and sagittal reformats. For radiation dose reduction, the following was used: automated exposure control, adjustment of mA and/or kV according to patient size. COMPARISON: [facility], CT, CT HEAD/BRAIN WO CON, 01/13/2020, 14:13. FINDINGS: Image quality: There are motion artifacts. CSF spaces: Basal cisterns are patent. No extra-axial fluid collections. The ventricles are symmetric in size and shape. Brain: No intracranial bleeds or masses. There is cerebral volume loss for age, with resultant ventricular and sulcal prominence. There are periventricular and deep white matter chronic small vessel ischemic changes. There is intracranial internal carotid artery atherosclerosis. Skull and face: Calvarium and visualized facial bones appear intact, without suspicious lesions. Sinuses: Visualized sinuses and mastoids are clear. IMPRESSION: 1. No acute intracranial abnormalities. 2. Cerebral volume loss and chronic microvascular ischemic changes. No significant discrepancy with the night time nanny radiology preliminary report. Dictated by: Rafa Encarnacion M.D. on 04/29/2021 at 7:39 Approved by: Rafa Encarnacion M.D. on 04/29/2021 at 7:41
[2021-04-29] MEDS: LORazepam 0.5 MG TABLET PO (02:56)
[2021-04-29 03:12] VITALS: BP 150/90; PULSE 84; RESP 18; O2SAT 97
[2021-04-29 03:29] VITALS: BP 97/84; PULSE 90; RESP 15; O2SAT 97
== END 2021-04-29 03:34 | disposition home or self-care (01) ==
PROVIDERS: Emergency Provider Emergency Medicine; Family Provider Family Medicine; PCP Family Medicine
DX: G35 Multiple sclerosis (principal)
CPT/HCPCS: 70450; 99283; 99284

== ENCOUNTER 2021-06-20 19:48 | Emergency (ER) | payer OTHER, SELFPAY ==
[2020-01-13 19:12] VITALS: BMI 19.1
[2021-06-20 19:50] VITALS: BP 143/91; PULSE 121; RESP 18; TEMP 37.1; O2SAT 98; BMI 23.3
[2021-06-20 20:42] LABS: Add Manual Diff / Slide Review NO; Basophils Absolute Auto 0 /uL (0-100); Basophils Percent Auto 0.6 % (0-2); Eosinophils Absolute Auto 0 /uL (0-450); Eosinophils Percent Auto 0.4 % (2-4); Hematocrit 36.4 % (36-46); Hemoglobin 12.1 g/dL (12.0-16.0); Lymphocytes Absolute Auto 800 /uL (1100-4500); Lymphocytes Percent Auto 14.5 % (25-40); Mean Corpuscular HGB Conc 33.2 % (30-36); Mean Corpuscular Hemoglobin 30.8 PG (26-34); Mean Corpuscular Volume 92.7 fL (80-100); Monocytes Absolute Auto 500 /uL (0-900); Monocytes Percent Auto 9.3 % (3-14); Neutrophils Absolute Auto 4100 /uL (1500-7000); Neutrophils Percent Auto 75.2 % (50-75); Platelet Count 225 X10^3/uL (150-400); Red Blood Cell Count 3.93 X10^6/uL (4.0-5.2); Red Cell Distribution Width 13.1 % (11.6-14.8); White Blood Cell Count 5.4 X10^3/uL (4.5-11.0)
[2021-06-20 20:46] LABS: Alanine Aminotransferase 26 IU/L (<35); Albumin 4.6 g/dL (3.5-5.0); Albumin Globulin Ratio 1.7 (1.0-2.8); Alkaline Phosphatase 62 U/L (38-126); Aspartate Aminotransferase 27 IU/L (14-36); Bilirubin Total 0.4 mg/dL (0.2-1.3); Blood Urea Nitrogen 15 mg/dL (7-17); Calcium 9.1 mg/dL (8.4-10.2); Carbon Dioxide 21 mmol/L (22-32); Chloride 115 mmol/L (98-107); Estimated Glomerular Filt Rate > 60.0 mL/min (>60); Globulin 2.7 g/dL (1.7-4.1); Glucose 119 mg/dL (70-100); HEMOLYSIS 19 (0-50); Potassium 3.4 mmol/L (3.4-5.1); Sodium 144 mmol/L (137-145); Total Protein 7.3 g/dL (6.3-8.2)
[2021-06-20] MEDS: SODIUM CHLORIDE 0.9% 1,000 ML 1000 ML IV (21:26)
[2021-06-20 21:35] LABS: UR Morphine/Opiate cutoff 300 Positive (Negative); Ur Creatinine 20 (Normal); Ur Specific Gravity 1.015 (Normal); Urine Amphetamines Negative (Negative); Urine Barbiturates Negative (Negative); Urine Benzodiazepines Negative (Negative); Urine Cocaine Negative (Negative); Urine MDMA Negative (Negative); Urine Methadone Negative (Negative); Urine Methamphetamines Negative (Negative); Urine Oxycodone Positive (Negative); Urine Phencyclidine Negative (Negative); Urine Tetrahydrocannabinol Positive (Negative); Urine Tricyclic Antidepressant Negative (Negative); Urine pH 6.5 (Normal)
[2021-06-20 21:38] LABS: COVID19 -Nasal RAPID Negative (Negative)
[2021-06-20 21:39] VITALS: PULSE 103
[2021-06-20 22:03] LABS: RBC Urine 1-5/HPF (0-5/HPF); Squamous Epithelial Cell Urine >30 /HPF (0-5/HPF); WBC Urine 10-30/HPF (0-5/HPF)
[2021-06-20 22:04] LABS: Bacteria Urine Many (>30); Culture Indicated Urine Cult Not Indicated
--- NOTE | 2021-06-20 22:34 | ED_ITS ---
HPI - Extremity Problem General Chief complaint: Extremity Problem,Nontraumatic Stated complaint: Has MS doesnt feel well Time Seen by Provider: 06/20/21 20:20 Source: patient and family Mode of arrival: Wheelchair Limitations: no limitations History of Present Illness HPI Narrative: This is a 40-year-old female with history of multiple sclerosis who was diagnosed approximately 20 years ago. She follows with 2 neurologist but most recently Dr. Erin Sheppard at [facility] in [place]. Patient is currently tr ansitioning back to her prior neurologist in [place]. Patient has been seen with similar symptoms most recently in April. She has bilateral lower extremity pain which has been increased and chronic spasm and discomfort which is typical her MS flares. She has also had episodes of confusion and mental decline over several months which her neurology team suspects is also related. She had a dose of IV steroids in April and had improvement of her symptoms at that time. She has been continuing her home medications without any other new changes, she is also treated for hypertension. denies any fevers, chills, no other new GI or urinary symptoms although she has had few episodes of incon tinence at night and found that she is urinating more frequently overnight but dry during the daytime. She has not had any abdominal, back or flank pain. No chest pain or shortness of breath, no cold cough or congestion. She is not having dysuria or sense of urgency. She has not had any rashes or skin changes. No other infectious symptoms that she is appreciated. Related Data Home Medications Medication Instructions Recorded Confirmed ibuprofen 600 mg tablet 600 mg PO TIDP PRN #0 11/27/10 01/13/20 lamotrigine 25 mg tablet (Lamictal) 250 mg PO DAILY #0 08/26/16 01/13/20 methylphenidate HCl 5 mg tablet 5 mg PO BID #0 08/26/16 01/13/20 acetaminophen 325 mg capsule 325 mg PO Q6H PRN 12/01/18 01/13/20 (Tylenol) atenolol 25 mg tablet 50 mg PO DAILY 12/01/18 01/13/20 baclofen 20 mg tablet 30 mg PO TID 12/01/18 01/13/20 bupropion HCl 150 mg 24 hr tablet, 150 mg PO QAM 12/01/18 01/13/20 extended release buspirone 30 mg tablet 30 mg PO BID tab 12/01/18 01/13/20 melatonin 5 mg capsule 5 mg PO BEDTIME cap 12/01/18 01/13/20 olanzapine 2.5 mg tablet 2.5 mg PO BEDTIME 12/01/18 01/13/20 topiramate 25 mg tablet (Topamax) 50 mg PO TID tab 12/01/18 01/13/20 trazodone 50 mg tablet 100 mg PO DAILY PRN 12/01/18 01/13/20 hydrochlorothiazide 25 mg tablet 25 mg PO DAILY 01/13/20 01/13/20 oxycodone 15 mg tablet 30 mg PO Q6H PRN 01/13/20 01/13/20 ropinirole 0.5 mg tablet 0.5 mg PO BEDTIME 01/13/20 01/13/20 tizanidine 4 mg tablet 8 mg PO BEDTIME 01/13/20 01/13/20 Previous Rx's Medication Instructions Recorded diazepam 5 mg tablet 5 mg PO BID PRN #30 tab 12/16/19 Allergies Allergy/AdvReac Type Severity Reaction Status Date / Time amitriptyline [AMITRIPTYLINE] Allergy Unknown Verified 12/01/18 16:21 gabapentin [GABAPENTIN] Allergy Unknown Verified 12/01/18 16:21 shayne [SHAYNE] Allergy Unknown Verified 12/01/18 16:21 Review of Systems Review of Systems ROS Unobtainable: All systems reviewed & are unremarkable except as noted in HPI and below Patient History Medical History HTN (hypertension) MS (multiple sclerosis) PTSD (post-traumatic stress disorder) Surgical History Bunion, right foot History of laparoscopy Family History Mother CVA (cerebral vascular accident) Diabetes type 2, uncontrolled Father Diabetes type 2, uncontrolled Social History household members: spouse Smoking Status: Never smoker alcohol intake: former Smoking Status: Never smoker alcohol intake frequency: 0-2 drinks per day Substance Use Type: does not use Exam Narrative Exam Narrative: GEN: well nourished, well appearing female, alert and oriented x 3, patient appears to be in mild distress. HEENT: Atraumatic, pupils are equal round reactive to light, extraocular movements are intact, nares are clear. Throat is clear without any exudates, erythema, tonsillar enlargement or uvular deviation HEART: Mildly tachycardic at 102 with Regular rate and rhythm without murmur, clicks, rubs. LUNGS:Lungs clear to auscultation, no wheezes, rales, crackles, chest moves symmetrically ABD:bowel sounds normal, soft, non-tender, no guarding, rebound, rigidity, no masses noted, no hepatosplenomegaly :No CVA tenderness MSCL: Non-tender, no muscle atrophy, full range of motion in extremities NEURO:CN 2-12 intact, sensation normal, reflexes 3/4 lower extremities. SKIN: No rash, erythema or other skin changes. Initial Vital Signs Initial Vital Signs: Vital Signs Temperature 98.8 F 06/20/21 19:50 Pulse Rate 121 H 06/20/21 19:50 Respiratory Rate 18 06/20/21 19:50 Blood Pressure 143/91 H 06/20/21 19:50 Pulse Oximetry 98 06/20/21 19:50 Course Orders Ordered: ED Orders 06/20/21 20:20 CBC Auto Diff [Complete Blood Count AUTO DIFF] Stat CMP [Comprehensive Metabolic Panel] Stat 06/20/21 20:45 COVID19 -Nasal swab/Pre-Proc Stat 06/20/21 21:24 Urine Drug Screen, Rapid Stat Urine Microscopic Stat Discontinued Medications Hydromorphone HCl (Hydromorphone 0.5 Mg Inj) 0.5 mg IV NOW ONE Stop: 06/20/21 22:45 Last Admin: 06/20/21 23:40 Dose: 0.5 mg Documented by: ARIANNE Sodium Chloride (Normal Saline 0.9%) 1,000 mls @ 1,000 mls/hr IV BOLUS ONE Stop: 06/20/21 21:53 Last Infusion: 06/21/21 00:41 Dose: 0 mls/hr Documented by: Admin: 06/20/21 21:26 Dose: 1,000 mls/hr Documented by: DALE Methylprednisolone 1,000 mg/ (Sodium Chloride) 258 mls @ 258 mls/hr IV NOW ONE Stop: 06/20/21 22:45 Last Infusion: 06/21/21 00:43 Dose: 0 mls/hr Documented by: Admin: 06/20/21 23:31 Dose: 258 mls/hr Documented by: ARIANNE Consultations Consultation #1: Dr. Refugio Orourke with [facility] Neurologist irrigation service technician for patients neurologist Dr. Erin Sheppard and agrees with plan for 1 g Solu-Medrol, patient is to call the office in the morning her regular neurologist is on-call and available tomorrow morning and can help facilitate the 5 day infusion patient typically gets. We discussed that had some bacteria but was not convincing for infection so will culture. Patient's labs and COVID swab did not suggest other signs of infection currently. Vital Signs Vital signs: Vital Signs - 8 hr 06/20/21 21:39 06/20/21 23:15 06/20/21 23:39 Pulse Rate 103 H 88 104 H Respiratory Rate 16 Blood Pressure 150/88 H 152/96 H Pulse Oximetry 100 97 06/21/21 00:00 06/21/21 00:23 06/21/21 00:30 Pulse Rate 108 H 103 H 106 H Respiratory Rate Blood Pressure 166/102 H 165/87 H 166/84 H Pulse Oximetry 96 97 98 06/21/21 00:47 Pulse Rate 99 H Respiratory Rate 18 Blood Pressure 165/88 H Pulse Oximetry 97 MDM - Extremity (Nontraumatic) Lab Data Result diagrams: 06/20/21 20:20 06/20/21 20:20 Labs: Lab Results 06/20/21 06/20/21 06/20/21 Range/Units 20:20 20:20 20:45 WBC 5.4 (4.5-11.0) X10^3/uL RBC 3.93 L (4.0-5.2) X10^6/uL Hgb 12.1 (12.0-16.0) g/dL Hct 36.4 (36-46) % MCV 92.7 (80-100) fL MCH 30.8 (26-34) PG MCHC 33.2 (30-36) % RDW 13.1 (11.6-14.8) % Plt Count 225 (150-400) X10^3/uL Neut % (Auto) 75.2 H (50-75) % Lymph % (Auto) 14.5 L (25-40) % Clinch % (Auto) 9.3 (3-14) % Eos % (Auto) 0.4 L (2-4) % Baso % (Auto) 0.6 (0-2) % Neut # (Auto) 4100 (0024-4535) /uL Lymph # (Auto) 800 L (6026-5450) /uL Clinch # (Auto) 500 (0-900) /uL Eos # (Auto) 0 (0-450) /uL Baso # (Auto) 0 (0-100) /uL Sodium 144 (137-145) mmol/L Potassium 3.4 (3.4-5.1) mmol/L Chloride 115 H (98-107) mmol/L Carbon Dioxide 21 L (22-32) mmol/L BUN 15 (7-17) mg/dL Creatinine 0.94 (0.52-1.04) mg/dL Estimated GFR > 60.0 (>60) mL/min BUN/Creatinine Ratio 16.0 (6-22) Glucose 119 H (70-100) mg/dL Calcium 9.1 (8.4-10.2) mg/dL Total Bilirubin 0.4 (0.2-1.3) mg/dL AST 27 (14-36) IU/L ALT 26 (<35) IU/L Alkaline Phosphatase 62 (38-126) U/L Total Protein 7.3 (6.3-8.2) g/dL Albumin 4.6 (3.5-5.0) g/dL Globulin 2.7 (1.7-4.1) g/dL Albumin/Globulin Ratio 1.7 (1.0-2.8) Urine RBC (0-5/HPF) Urine WBC (0-5/HPF) Ur Squamous Epith Cells (0-5/HPF) Urine Bacteria (None) Ur Culture Indicated? U Opiates 300ng/mL cut (Negative) Ur Oxycodone Screen (Negative) Urine Methadone Screen (Negative) Ur Barbiturates Screen (Negative) U Tricyclic Antidepress (Negative) Ur Phencyclidine Scrn (Negative) Ur Amphetamines Screen (Negative) U Methamphetamines Scrn (Negative) Ur MDMA Scrn (Ecstasy) (Negative) U Benzodiazepines Scrn (Negative) Urine Cocaine Screen (Negative) U Marijuana (THC) Screen (Negative) SARS-CoV-2 (PCR) Negative (Negative) 06/20/21 06/20/21 Range/Units 21:24 21:24 WBC (4.5-11.0) X10^3/uL RBC (4.0-5.2) X10^6/uL Hgb (12.0-16.0) g/dL Hct (36-46) % MCV (80-100) fL MCH (26-34) PG MCHC (30-36) % RDW (11.6-14.8) % Plt Count (150-400) X10^3/uL Neut % (Auto) (50-75) % Lymph % (Auto) (25-40) % Clinch % (Auto) (3-14) % Eos % (Auto) (2-4) % Baso % (Auto) (0-2) % Neut # (Auto) (1355-8773) /uL Lymph # (Auto) (2485-4661) /uL Clinch # (Auto) (0-900) /uL Eos # (Auto) (0-450) /uL Baso # (Auto) (0-100) /uL Sodium (137-145) mmol/L Potassium (3.4-5.1) mmol/L Chloride (98-107) mmol/L Carbon Dioxide (22-32) mmol/L BUN (7-17) mg/dL Creatinine (0.52-1.04) mg/dL Estimated GFR (>60) mL/min BUN/Creatinine Ratio (6-22) Glucose (70-100) mg/dL Calcium (8.4-10.2) mg/dL Total Bilirubin (0.2-1.3) mg/dL AST (14-36) IU/L ALT (<35) IU/L Alkaline Phosphatase (38-126) U/L Total Protein (6.3-8.2) g/dL Albumin (3.5-5.0) g/dL Globulin (1.7-4.1) g/dL Albumin/Globulin Ratio (1.0-2.8) Urine RBC 1-5/hpf (0-5/HPF) Urine WBC 10-30/hpf H (0-5/HPF) Ur Squamous Epith Cells >30 /hpf H D (0-5/HPF) Urine Bacteria Many (>30) H (None) Ur Culture Indicated? Cult not indicated U Opiates 300ng/mL cut Positive H (Negative) Ur Oxycodone Screen Positive H (Negative) Urine Methadone Screen Negative (Negative) Ur Barbiturates Screen Negative (Negative) U Tricyclic Antidepress Negative (Negative) Ur Phencyclidine Scrn Negative (Negative) Ur Amphetamines Screen Negative (Negative) U Methamphetamines Scrn Negative (Negative) Ur MDMA Scrn (Ecstasy) Negative (Negative) U Benzodiazepines Scrn Negative (Negative) Urine Cocaine Screen Negative (Negative) U Marijuana (THC) Screen Positive H (Negative) SARS-CoV-2 (PCR) (Negative) Point of Care Testing Test Results Negative Urine Dip Bedside Urine Glucose Negative Bedside Urine Bilirubin - Negative Bedside Urine Ketone - Negative Urine Specific Vera 1.020 Bedside Urine Occult Blood ++ Bedside Urine pH 6 Bedside Urine Protein - Negative Bedside Urine Urobilinogen - Negative Bedside Urine Nitrite - Negative Bedside Urine Leukocytes + 70 Esterase MDM Narrative Medical decision making narrative: This is a 40-year-old female comes to the emergency department a history of MS with suspected exacerbation of her symptoms. No clear other causes are found such as infectious etiology. Patient labs are generally reassuring. Urine shows bacteria but not clear infection and is sent for culture. Will await culture results before starting any antibiotics. This was discussed with patient she is comfortable with this. I also spoke with her neurology team and as we suspect she is having a flare was initiated on 1000 mg of Solu-Medrol with plan for her to follow up tomorrow with her team and infusion solutions for 5 days total of steroids. Patient is well connected. Her regular neurologist is available tomorrow to help with this. Patient feels comfortable with this plan and has appropriate resources in place. Discharge Plan Departure Patient Disposition: Home Clinical Impression: MS (multiple sclerosis) Activity Restrictions/Additional Instructions: Call to follow up with your neurologist tomorrow. I spoke with your neurology team this evening and they asked that you call tomorrow to set up outpatient infusion for the next additional 4 days. Please return for fevers, you are having new or worsening symptoms, changes that are atypical, persistent vomiting, passing, new chest pain or shortness of breath, swelling redness or warmth in your extremities or other new or concerning symptoms. Prescriptions: No Action atenolol 25 mg tablet 50 mg PO DAILY 0RF bupropion HCl 150 mg tablet extended release 24 hr 150 mg PO QAM 0RF buspirone 30 mg tablet 30 mg PO BID 0RF baclofen 20 mg tablet 30 mg PO TID 0RF trazodone 50 mg tablet 100 mg PO DAILY PRN (Reason: Insomnia) 0RF olanzapine 2.5 mg tablet 2.5 mg PO BEDTIME 0RF Rx Instructions: No longer taking topiramate [Topamax] 25 mg tablet 50 mg PO TID 0RF melatonin 5 mg capsule 5 mg PO BEDTIME 0RF acetaminophen [Tylenol] 325 mg capsule 325 mg PO Q6H PRN (Reason: Pain (Scale Score 1-3)) 0RF ibuprofen 600 MG tablet 600 mg PO TIDP PRN (Reason: Pain (Scale Score 1-3)) Qty: 0 0RF methylphenidate HCl 5 MG tablet 5 mg PO BID Qty: 0 0RF lamotrigine [Lamictal] 25 MG tablet 250 mg PO DAILY Qty: 0 0RF tizanidine 4 mg Tablet 8 mg PO BEDTIME 0RF oxycodone 15 mg Tablet 30 mg PO Q6H PRN (Reason: Pain (Scale Score 7-10)) 0RF hydrochlorothiazide 25 mg Tablet 25 mg PO DAILY 0RF ropinirole 0.5 mg Tablet 0.5 mg PO BEDTIME 0RF diazepam 5 mg tablet 5 mg PO BID PRN (Reason: muscle spasm) Qty: 30 0RF Label Comments: No longer taking Referrals: Mona Weinstein DO [Primary Care Provider] -
[2021-06-20 23:15] VITALS: BP 150/88; PULSE 88; RESP 16; O2SAT 100
[2021-06-20] MEDS: methylPREDNISolone 1,000 MG in SODIUM CHLORIDE 0.9% 250 ML 258 ML IV (23:31)
[2021-06-20 23:39] VITALS: BP 152/96; PULSE 104; O2SAT 97
[2021-06-20] MEDS: HYDROMORPHONE 0.5 MG INJ IV (23:40)
[2021-06-21] VITALS: BP 166/102; PULSE 108; O2SAT 96
[2021-06-21 00:23] VITALS: BP 165/87; PULSE 103; O2SAT 97
[2021-06-21 00:30] VITALS: BP 166/84; PULSE 106; O2SAT 98
[2021-06-21 00:47] VITALS: BP 165/88; PULSE 99; RESP 18; O2SAT 97
== END 2021-06-21 00:56 | disposition home or self-care (01) ==
PROVIDERS: Emergency Provider Emergency Medicine; Family Provider Family Medicine; PCP Family Medicine
DX: G35 Multiple sclerosis (principal); Z20.822 Contact with and (suspected) exposure to COVID-19
CPT/HCPCS: 36415; 80053; 80305; 81003; 81015; 81025; 85025; 87635; 96361; 96365; 96375; 99284; C9803; J1170; J2930

== ENCOUNTER 2021-06-21 07:23 | Emergency (ER) | payer MEDICARE, SELFPAY ==
[2020-01-13 19:12] VITALS: BMI 19.1
[2021-06-21] VITALS (37 sets, daily range): BP systolic 124–191; BP diastolic 71–103; PULSE 68–143; RESP 16–44; TEMP 36.1–37.2; O2SAT 98–100
--- NOTE | 2021-06-21 07:28 | ED.GENADULT ---
HPI - General Adult <Nona Evans MD - Last Filed: 06/22/21 15:30> General Chief complaint: Neuro Symptoms/Deficit Stated complaint: MS, pain and tremors Time Seen by Provider: 06/21/21 07:28 History of Present Illness HPI narrative: 40-year-old woman with history of multiple sclerosis who was seen last night with concerns for a flare. In discussion with her 2 neurologists she was started on 3 days of methylprednisolone and 1 g was given IV last night with additional doses scheduled later today. Her symptoms were bilateral lower extremity pain and increasing muscle spasm. Apparently was doing well after discharge until early this morning when she began having significantly more muscle spasm to the point that she was unable to rest in any way and medics were called. On arrival they describe severe spasm to the point of almost tetany including the upper extremities and an obviously distressed patient. 10mg IM versed was given at 7am by medics. On arrival in the emergency department patient is appropriately sedated with no significant spasm. Related Data Home Medications Medication Instructions Recorded Confirmed ibuprofen 600 mg tablet 600 mg PO TIDP PRN #0 11/27/10 01/13/20 lamotrigine 25 mg tablet (Lamictal) 250 mg PO DAILY #0 08/26/16 01/13/20 methylphenidate HCl 5 mg tablet 5 mg PO BID #0 08/26/16 01/13/20 acetaminophen 325 mg capsule 325 mg PO Q6H PRN 12/01/18 01/13/20 (Tylenol) atenolol 25 mg tablet 50 mg PO DAILY 12/01/18 01/13/20 baclofen 20 mg tablet 30 mg PO TID 12/01/18 01/13/20 bupropion HCl 150 mg 24 hr tablet, 150 mg PO QAM 12/01/18 01/13/20 extended release buspirone 30 mg tablet 30 mg PO BID tab 12/01/18 01/13/20 melatonin 5 mg capsule 5 mg PO BEDTIME cap 12/01/18 01/13/20 olanzapine 2.5 mg tablet 2.5 mg PO BEDTIME 12/01/18 01/13/20 topiramate 25 mg tablet (Topamax) 50 mg PO TID tab 12/01/18 01/13/20 trazodone 50 mg tablet 100 mg PO DAILY PRN 12/01/18 01/13/20 hydrochlorothiazide 25 mg tablet 25 mg PO DAILY 01/13/20 01/13/20 oxycodone 15 mg tablet 30 mg PO Q6H PRN 01/13/20 01/13/20 ropinirole 0.5 mg tablet 0.5 mg PO BEDTIME 01/13/20 01/13/20 tizanidine 4 mg tablet 8 mg PO BEDTIME 01/13/20 01/13/20 Previous Rx's Medication Instructions Recorded diazepam 5 mg tablet 5 mg PO BID PRN #30 tab 12/16/19 Allergies Allergy/AdvReac Type Severity Reaction Status Date / Time amitriptyline [AMITRIPTYLINE] Allergy Unknown Verified 06/21/21 11:03 gabapentin [GABAPENTIN] Allergy Unknown Verified 06/21/21 11:03 shayne [SHAYNE] Allergy Unknown Verified 06/21/21 11:03 Review of Systems <Nona Evans MD - Last Filed: 06/22/21 15:30> Review of Systems Narrative: Recent increase in muscle spasticity, lower extremity pain. No complaints of dyspnea, palpitations, fevers, abdominal pain. Patient History <Nona Evans MD - Last Filed: 06/22/21 15:30> Medical History (Updated 06/21/21 @ 17:07 by Nona Evans MD) HTN (hypertension) MS (multiple sclerosis) PTSD (post-traumatic stress disorder) Surgical History Bunion, right foot History of laparoscopy Family History Mother CVA (cerebral vascular accident) Diabetes type 2, uncontrolled Father Diabetes type 2, uncontrolled Social History household members: spouse Smoking Status: Never smoker alcohol intake: former Smoking Status: Never smoker alcohol intake frequency: 0-2 drinks per day Substance Use Type: does not use Exam <Nona Evans MD - Last Filed: 06/22/21 15:30> Narrative Exam Narrative: General: Sleeping comfortably, in no acute distress. HEENT: Moist mucous membranes, Respiratory: Lungs are clear to auscultation, no wheezing no rales no rhonchi. Full and symmetrical air movement Cardiac: Regular rate and rhythm no murmurs no bruits Abdomen: Soft, nontender, good bowel tones, no flank pain Skin: Warm and dry, no rashes Neurologic: no current muscle spasms, moving all extremities Extremities: No trauma, well perfused 840 am as patient awakes she is significantly altered Nonpurposeful movement of all extremiteis, writhing about the bed without obvious visible or palpable muscle spasm She is not alert to person time or place and is repetitively muttering ?hospital? Initial Vital Signs Initial Vital Signs: Vital Signs Pulse Rate 78 06/21/21 07:25 Blood Pressure 145/90 H 06/21/21 07:25 Pulse Oximetry 99 06/21/21 07:25 <Tez Lagunas DO - Last Filed: 06/22/21 17:56> Initial Vital Signs Initial Vital Signs: Vital Signs Pulse Rate 78 06/21/21 07:25 Blood Pressure 145/90 H 06/21/21 07:25 Pulse Oximetry 99 06/21/21 07:25 Course <Nona Evans MD - Last Filed: 06/22/21 15:30> Orders Ordered: Discontinued Medications Chlorhexidine Gluconate (Chlorhexidine Gluconate 15 Ml Cup) 15 ml PO Q6HR [facility] Last Admin: 06/22/21 14:14 Dose: 15 ml Documented by: Admin: 06/22/21 09:30 Dose: 15 ml Documented by: Admin: 06/22/21 00:12 Dose: 15 ml Documented by: Admin: 06/21/21 18:00 Dose: 15 ml Documented by: Admin: 06/21/21 13:04 Dose: 15 ml Documented by: NOEMÍ Diphenhydramine HCl (Diphenhydramine 50 Mg/Ml Vial) 50 mg IV NOW ONE Stop: 06/21/21 08:48 Last Admin: 06/21/21 08:51 Dose: 50 mg Documented by: BERNA Fentanyl (Fentanyl 100 Mcg/2 Ml Inj) 100 mcg IV Q30MIN PRN PRN Reason: pain/agitation Stop: 06/23/21 10:42 Last Admin: 06/21/21 12:58 Dose: 100 mcg Documented by: Admin: 06/21/21 11:30 Dose: 100 mcg Documented by: NOEMÍ Haloperidol (Haloperidol 5 Mg/Ml Vial) 10 mg IV NOW ONE Stop: 06/21/21 10:03 Last Admin: 06/21/21 10:11 Dose: 10 mg Documented by: TIERA Heparin Sodium (Porcine) (Heparin Flush (Cl/Picc/Mid-Line) 50 Unit/5 Ml Syringe) 50 unit IV NOW ONE Stop: 06/21/21 17:36 Last Admin: 06/21/21 18:00 Dose: 50 unit Documented by: NOEMÍ Sodium Chloride (Normal Saline 0.9%) 1,000 mls @ 1,000 mls/hr IV BOLUS ONE Stop: 06/21/21 11:12 Last Infusion: 06/21/21 11:33 Dose: 0 mls/hr Documented by: Admin: 06/21/21 10:33 Dose: 1,000 mls/hr Documented by: TIERA dexmedeTOMIDine in 0.9 % NaCL (Precedex) 400 mcg in 100 mls @ 3.413 mls/hr IV TITRATE JANE; Protocol Last Titration: 06/22/21 15:11 Dose: 0 mcg/kg/hr, 0 mls/hr Documented by: Admin: 06/22/21 13:09 Dose: 1.5 mcg/kg/hr, 25.6 mls/hr Documented by: Titration: 06/22/21 13:08 Dose: 0 mcg/kg/hr, 0 mls/hr Documented by: Admin: 06/22/21 09:42 Dose: 1.5 mcg/kg/hr, 25.6 mls/hr Documented by: Titration: 06/22/21 09:41 Dose: 0 mcg/kg/hr, 0 mls/hr Documented by: Admin: 06/22/21 05:07 Dose: 1.5 mcg/kg/hr, 25.6 mls/hr Documented by: Titration: 06/22/21 04:44 Dose: 1.5 mcg/kg/hr, 25.6 mls/hr Documented by: Admin: 06/22/21 00:49 Dose: 1.5 mcg/kg/hr, 25.6 mls/hr Documented by: Titration: 06/22/21 00:49 Dose: 1.5 mcg/kg/hr, 25.6 mls/hr Documented by: Admin: 06/21/21 21:51 Dose: 1.5 mcg/kg/hr, 25.6 mls/hr Documented by: Titration: 06/21/21 21:51 Dose: 1.5 mcg/kg/hr, 25.6 mls/hr Documented by: Admin: 06/21/21 18:05 Dose: 1.5 mcg/kg/hr, 25.6 mls/hr Documented by: Titration: 06/21/21 18:05 Dose: 1.5 mcg/kg/hr, 25.6 mls/hr Documented by: MARIANELAIEDLE Admin: 06/21/21 14:16 Dose: 1.5 mcg/kg/hr, 25.6 mls/hr Documented by: Titration: 06/21/21 14:16 Dose: 1.5 mcg/kg/hr, 25.6 mls/hr Documented by: Titration: 06/21/21 14:04 Dose: 1.5 mcg/kg/hr, 25.6 mls/hr Documented by: Titration: 06/21/21 13:42 Dose: 1.3 mcg/kg/hr, 22.186 mls/hr Documented by: Titration: 06/21/21 12:50 Dose: 1.13 mcg/kg/hr, 19.3 mls/hr Documented by: Titration: 06/21/21 11:42 Dose: 1.03 mcg/kg/hr, 17.5 mls/hr Documented by: Titration: 06/21/21 11:38 Dose: 0.82 mcg/kg/hr, 14 mls/hr Documented by: Titration: 06/21/21 11:37 Dose: 0.72 mcg/kg/hr, 12.3 mls/hr Documented by: Titration: 06/21/21 11:20 Dose: 0.62 mcg/kg/hr, 10.5 mls/hr Documented by: Titration: 06/21/21 10:50 Dose: 0.52 mcg/kg/hr, 8.8 mls/hr Documented by: Titration: 06/21/21 10:40 Dose: 6.15 mcg/kg/hr, 105 mls/hr Documented by: Admin: 06/21/21 10:40 Dose: 0.2 mcg/kg/hr, 3.413 mls/hr Documented by: TIERA Propofol (Propofol) 1,000 mg in 100 mls @ 6.144 mls/hr IV TITRATE JANE; Protocol Last Titration: 06/22/21 15:11 Dose: 0 mcg/kg/min, 0 mls/hr Documented by: Admin: 06/22/21 13:47 Dose: 40 mcg/kg/min, 16.384 mls/hr Documented by: Titration: 06/22/21 13:47 Dose: 40 mcg/kg/min, 16.384 mls/hr Documented by: Admin: 06/22/21 11:32 Dose: 40 mcg/kg/min, 16.384 mls/hr Documented by: Titration: 06/22/21 11:32 Dose: 40 mcg/kg/min, 16.384 mls/hr Documented by: Titration: 06/22/21 11:30 Dose: 40 mcg/kg/min, 16.384 mls/hr Documented by: Titration: 06/22/21 06:15 Dose: 40 mcg/kg/min, 16.384 mls/hr Documented by: Admin: 06/22/21 05:39 Dose: 35 mcg/kg/min, 14.336 mls/hr Documented by: Titration: 06/22/21 05:34 Dose: 35 mcg/kg/min, 14.336 mls/hr Documented by: Titration: 06/21/21 23:51 Dose: 35 mcg/kg/min, 14.336 mls/hr Documented by: Admin: 06/21/21 22:22 Dose: 30 mcg/kg/min, 12.288 mls/hr Documented by: Titration: 06/21/21 22:14 Dose: 30 mcg/kg/min, 12.288 mls/hr Documented by: Titration: 06/21/21 18:54 Dose: 30 mcg/kg/min, 12.288 mls/hr Documented by: MARIANELAIEDLE Titration: 06/21/21 18:35 Dose: 35 mcg/kg/min, 14.336 mls/hr Documented by: Titration: 06/21/21 18:18 Dose: 40 mcg/kg/min, 16.384 mls/hr Documented by: Titration: 06/21/21 18:07 Dose: 50 mcg/kg/min, 20.48 mls/hr Documented by: Admin: 06/21/21 16:14 Dose: 60 mcg/kg/min, 24.576 mls/hr Documented by: Titration: 06/21/21 16:14 Dose: 60 mcg/kg/min, 24.576 mls/hr Documented by: Titration: 06/21/21 14:05 Dose: 60 mcg/kg/min, 24.576 mls/hr Documented by: Titration: 06/21/21 13:42 Dose: 40 mcg/kg/min, 16.384 mls/hr Documented by: Titration: 06/21/21 11:51 Dose: 30 mcg/kg/min, 12.288 mls/hr Documented by: Admin: 06/21/21 11:50 Dose: 15 mcg/kg/min, 6.144 mls/hr Documented by: NOEMÍ Fentanyl 1,000 mcg/ Dextrose 250 mls @ 17.067 mls/hr IV TITRATE JANE; Protocol Last Titration: 06/22/21 15:12 Dose: 0 mcg/kg/hr, 0 mls/hr Documented by: Admin: 06/22/21 09:43 Dose: 1.99 mcg/kg/hr, 34 mls/hr Documented by: Titration: 06/22/21 09:43 Dose: 0 mcg/kg/hr, 0 mls/hr Documented by: Admin: 06/22/21 01:31 Dose: 2 mcg/kg/hr, 34.133 mls/hr Documented by: Titration: 06/22/21 01:31 Dose: 2 mcg/kg/hr, 34.133 mls/hr Documented by: Titration: 06/21/21 23:55 Dose: 2 mcg/kg/hr, 34.133 mls/hr Documented by: Admin: 06/21/21 13:05 Dose: 1 mcg/kg/hr, 17.067 mls/hr Documented by: NOEMÍ Midazolam HCl 50 mg/ Dextrose 250 mls @ 6.827 mls/hr IV TITRATE JANE; Protocol Last Titration: 06/22/21 07:04 Dose: 0 mg/kg/hr, 0 mls/hr Documented by: Titration: 06/21/21 18:54 Dose: 0 mg/kg/hr, 0 mls/hr Documented by: Titration: 06/21/21 18:33 Dose: 0.02 mg/kg/hr, 6.827 mls/hr Documented by: Titration: 06/21/21 18:20 Dose: 0.04 mg/kg/hr, 13.653 mls/hr Documented by: Titration: 06/21/21 14:15 Dose: 0.07 mg/kg/hr, 23.893 mls/hr Documented by: Admin: 06/21/21 14:05 Dose: 0.02 mg/kg/hr, 6.827 mls/hr Documented by: NOEMÍ Nicardipine HCl 25 mg/ Sodium (Chloride) 250 mls @ 50 mls/hr IV TITRATE JANE; Protocol Last Titration: 06/22/21 15:12 Dose: 0 mg/hr, 0 mls/hr Documented by: Titration: 06/22/21 14:16 Dose: 0 mg/hr, 0 mls/hr Documented by: Admin: 06/22/21 13:10 Dose: 2.5 mg/hr, 25 mls/hr Documented by: Titration: 06/22/21 07:04 Dose: 0 mg/hr, 0 mls/hr Documented by: Titration: 06/22/21 01:56 Dose: 0 mg/hr, 0 mls/hr Documented by: Admin: 06/21/21 23:34 Dose: 2.5 mg/hr, 25 mls/hr Documented by: Titration: 06/21/21 23:34 Dose: 2.5 mg/hr, 25 mls/hr Documented by: Titration: 06/21/21 15:08 Dose: 2.5 mg/hr, 25 mls/hr Documented by: Admin: 06/21/21 14:42 Dose: 5 mg/hr, 50 mls/hr Documented by: NOEMÍ Sodium Chloride (Normal Saline 0.9%) 500 mls @ 1,000 mls/hr IV BOLUS ONE Stop: 06/21/21 15:38 Last Infusion: 06/21/21 15:57 Dose: 0 mls/hr Documented by: Admin: 06/21/21 15:13 Dose: 1,000 mls/hr Documented by: NOEMÍ Sodium Chloride (Normal Saline 0.9%) 1,000 mls @ 150 mls/hr IV CONT ONE Stop: 06/21/21 22:37 Last Infusion: 06/21/21 23:05 Dose: 0 mls/hr Documented by: Admin: 06/21/21 16:07 Dose: 150 mls/hr Documented by: NOEMÍ Sodium Chloride (Normal Saline 0.9%) 1,000 mls @ 150 mls/hr IV CONT JANE Last Infusion: 06/22/21 15:12 Dose: 0 mls/hr Documented by: Admin: 06/22/21 11:45 Dose: 150 mls/hr Documented by: Infusion: 06/22/21 11:44 Dose: 0 mls/hr Documented by: Admin: 06/22/21 05:14 Dose: 150 mls/hr Documented by: Infusion: 06/22/21 05:14 Dose: 150 mls/hr Documented by: Admin: 06/21/21 23:06 Dose: 150 mls/hr Documented by: VERENICE POTASSIUM CHLORIDE IN WATER (Potassium Cl 10 Meq/100 Ml [place]) 10 meq in 100 mls @ 100 mls/hr IV Q1H JANE Stop: 06/22/21 03:44 Last Infusion: 06/22/21 04:23 Dose: 0 mls/hr Documented by: Admin: 06/22/21 03:04 Dose: 100 mls/hr Documented by: Infusion: 06/22/21 03:00 Dose: 100 mls/hr Documented by: Admin: 06/22/21 02:00 Dose: 100 mls/hr Documented by: Infusion: 06/22/21 01:51 Dose: 100 mls/hr Documented by: Admin: 06/22/21 00:51 Dose: 100 mls/hr Documented by: Infusion: 06/22/21 00:47 Dose: 100 mls/hr Documented by: Admin: 06/21/21 23:47 Dose: 100 mls/hr Documented by: SARAH Midazolam HCl (Midazolam 5 Mg/Ml Vial) 4 mg IV NOW ONE Stop: 06/21/21 08:48 Last Admin: 06/21/21 08:51 Dose: 4 mg Documented by: BERNA Midazolam HCl (Midazolam 5 Mg/Ml Vial) 4 mg IV NOW ONE Stop: 06/21/21 09:07 Last Admin: 06/21/21 09:23 Dose: 4 mg Documented by: NOEMÍ Midazolam HCl (Midazolam 5 Mg/Ml Vial) 5 mg IV NOW ONE Stop: 06/22/21 15:00 Last Admin: 06/22/21 15:03 Dose: 5 mg Documented by: TIERA Propofol (Propofol 200 Mg/20 Ml Vial) 60 mg IV NOW ONE Stop: 06/21/21 10:43 Last Admin: 06/21/21 10:44 Dose: 60 mg Documented by: TIERA Rocuronium [place] (Rocuronium 50 Mg/5 Ml Inj) 80 mg IV NOW ONE Stop: 06/21/21 10:26 Last Admin: 06/21/21 10:39 Dose: 80 mg Documented by: TIERA Rocuronium [place] (Rocuronium 50 Mg/5 Ml Inj) 80 mg IV NOW ONE Stop: 06/21/21 12:01 Last Admin: 06/21/21 12:00 Dose: 80 mg Documented by: NOEMÍ Vital Signs Vital signs: Vital Signs - 8 hr 06/22/21 10:00 06/22/21 10:15 06/22/21 10:30 Temperature 98.8 F 98.8 F 99.0 F Pulse Rate 74 75 74 Respiratory Rate 20 21 20 Blood Pressure 146/93 H Pulse Oximetry 99 99 99 06/22/21 10:45 06/22/21 11:00 06/22/21 11:15 Temperature 99.0 F Pulse Rate 73 74 74 Respiratory Rate 20 20 20 Blood Pressure 157/101 H Pulse Oximetry 100 100 100 06/22/21 11:30 06/22/21 11:45 06/22/21 12:00 Temperature 99.1 F 99.0 F Pulse Rate 75 74 73 Respiratory Rate 21 20 20 Blood Pressure 166/107 H Pulse Oximetry 99 98 99 06/22/21 12:15 06/22/21 12:30 06/22/21 12:45 Temperature 98.6 F Pulse Rate 73 73 72 Respiratory Rate 20 20 20 Blood Pressure Pulse Oximetry 99 99 99 06/22/21 12:52 06/22/21 12:56 06/22/21 12:59 Temperature 98.6 F 98.6 F Pulse Rate 71 70 69 Respiratory Rate 20 20 20 Blood Pressure 170/107 H 164/107 H 166/106 H Pulse Oximetry 99 99 99 06/22/21 13:00 06/22/21 13:15 06/22/21 13:30 Temperature 98.6 F 98.6 F 98.4 F Pulse Rate 69 74 77 Respiratory Rate 20 20 20 Blood Pressure 162/104 H 138/88 Pulse Oximetry 99 98 97 06/22/21 13:45 06/22/21 13:50 06/22/21 14:00 Temperature 98.2 F 98.2 F 98.2 F Pulse Rate 76 75 75 Respiratory Rate 20 20 20 Blood Pressure 138/88 129/78 Pulse Oximetry 97 98 98 06/22/21 14:14 06/22/21 14:15 06/22/21 14:29 Temperature 98.2 F 98.1 F 98.1 F Pulse Rate 76 76 71 Respiratory Rate 20 20 20 Blood Pressure 127/79 144/91 H Pulse Oximetry 98 98 99 06/22/21 14:30 06/22/21 14:45 06/22/21 15:00 Temperature 98.1 F 98.2 F 98.4 F Pulse Rate 72 69 74 Respiratory Rate 20 20 20 Blood Pressure Pulse Oximetry 99 99 99 <Tez Lagunas DO - Last Filed: 06/22/21 17:56> Orders Ordered: Discontinued Medications Chlorhexidine Gluconate (Chlorhexidine Gluconate 15 Ml Cup) 15 ml PO Q6HR [facility] Last Admin: 06/22/21 14:14 Dose: 15 ml Documented by: Admin: 06/22/21 09:30 Dose: 15 ml Documented by: Admin: 06/22/21 00:12 Dose: 15 ml Documented by: Admin: 06/21/21 18:00 Dose: 15 ml Documented by: Admin: 06/21/21 13:04 Dose: 15 ml Documented by: NOEMÍ Diphenhydramine HCl (Diphenhydramine 50 Mg/Ml Vial) 50 mg IV NOW ONE Stop: 06/21/21 08:48 Last Admin: 06/21/21 08:51 Dose: 50 mg Documented by: BERNA Fentanyl (Fentanyl 100 Mcg/2 Ml Inj) 100 mcg IV Q30MIN PRN PRN Reason: pain/agitation Stop: 06/23/21 10:42 Last Admin: 06/21/21 12:58 Dose: 100 mcg Documented by: Admin: 06/21/21 11:30 Dose: 100 mcg Documented by: NOEMÍ Haloperidol (Haloperidol 5 Mg/Ml Vial) 10 mg IV NOW ONE Stop: 06/21/21 10:03 Last Admin: 06/21/21 10:11 Dose: 10 mg Documented by: TIERA Heparin Sodium (Porcine) (Heparin Flush (Cl/Picc/Mid-Line) 50 Unit/5 Ml Syringe) 50 unit IV NOW ONE Stop: 06/21/21 17:36 Last Admin: 06/21/21 18:00 Dose: 50 unit Documented by: NOEMÍ Sodium Chloride (Normal Saline 0.9%) 1,000 mls @ 1,000 mls/hr IV BOLUS ONE Stop: 06/21/21 11:12 Last Infusion: 06/21/21 11:33 Dose: 0 mls/hr Documented by: Admin: 06/21/21 10:33 Dose: 1,000 mls/hr Documented by: TIERA dexmedeTOMIDine in 0.9 % NaCL (Precedex) 400 mcg in 100 mls @ 3.413 mls/hr IV TITRATE JANE; Protocol Last Titration: 06/22/21 15:11 Dose: 0 mcg/kg/hr, 0 mls/hr Documented by: Admin: 06/22/21 13:09 Dose: 1.5 mcg/kg/hr, 25.6 mls/hr Documented by: Titration: 06/22/21 13:08 Dose: 0 mcg/kg/hr, 0 mls/hr Documented by: Admin: 06/22/21 09:42 Dose: 1.5 mcg/kg/hr, 25.6 mls/hr Documented by: Titration: 06/22/21 09:41 Dose: 0 mcg/kg/hr, 0 mls/hr Documented by: Admin: 06/22/21 05:07 Dose: 1.5 mcg/kg/hr, 25.6 mls/hr Documented by: Titration: 06/22/21 04:44 Dose: 1.5 mcg/kg/hr, 25.6 mls/hr Documented by: Admin: 06/22/21 00:49 Dose: 1.5 mcg/kg/hr, 25.6 mls/hr Documented by: Titration: 06/22/21 00:49 Dose: 1.5 mcg/kg/hr, 25.6 mls/hr Documented by: Admin: 06/21/21 21:51 Dose: 1.5 mcg/kg/hr, 25.6 mls/hr Documented by: Titration: 06/21/21 21:51 Dose: 1.5 mcg/kg/hr, 25.6 mls/hr Documented by: Admin: 06/21/21 18:05 Dose: 1.5 mcg/kg/hr, 25.6 mls/hr Documented by: Titration: 06/21/21 18:05 Dose: 1.5 mcg/kg/hr, 25.6 mls/hr Documented by: Admin: 06/21/21 14:16 Dose: 1.5 mcg/kg/hr, 25.6 mls/hr Documented by: Titration: 06/21/21 14:16 Dose: 1.5 mcg/kg/hr, 25.6 mls/hr Documented by: MARIANELAIEDLE Titration: 06/21/21 14:04 Dose: 1.5 mcg/kg/hr, 25.6 mls/hr Documented by: Titration: 06/21/21 13:42 Dose: 1.3 mcg/kg/hr, 22.186 mls/hr Documented by: MARIANELAIEDLE Titration: 06/21/21 12:50 Dose: 1.13 mcg/kg/hr, 19.3 mls/hr Documented by: Titration: 06/21/21 11:42 Dose: 1.03 mcg/kg/hr, 17.5 mls/hr Documented by: Titration: 06/21/21 11:38 Dose: 0.82 mcg/kg/hr, 14 mls/hr Documented by: Titration: 06/21/21 11:37 Dose: 0.72 mcg/kg/hr, 12.3 mls/hr Documented by: Titration: 06/21/21 11:20 Dose: 0.62 mcg/kg/hr, 10.5 mls/hr Documented by: Titration: 06/21/21 10:50 Dose: 0.52 mcg/kg/hr, 8.8 mls/hr Documented by: Titration: 06/21/21 10:40 Dose: 6.15 mcg/kg/hr, 105 mls/hr Documented by: Admin: 06/21/21 10:40 Dose: 0.2 mcg/kg/hr, 3.413 mls/hr Documented by: TIERA Propofol (Propofol) 1,000 mg in 100 mls @ 6.144 mls/hr IV TITRATE JANE; Protocol Last Titration: 06/22/21 15:11 Dose: 0 mcg/kg/min, 0 mls/hr Documented by: Admin: 06/22/21 13:47 Dose: 40 mcg/kg/min, 16.384 mls/hr Documented by: Titration: 06/22/21 13:47 Dose: 40 mcg/kg/min, 16.384 mls/hr Documented by: Admin: 06/22/21 11:32 Dose: 40 mcg/kg/min, 16.384 mls/hr Documented by: Titration: 06/22/21 11:32 Dose: 40 mcg/kg/min, 16.384 mls/hr Documented by: Titration: 06/22/21 11:30 Dose: 40 mcg/kg/min, 16.384 mls/hr Documented by: Titration: 06/22/21 06:15 Dose: 40 mcg/kg/min, 16.384 mls/hr Documented by: Admin: 06/22/21 05:39 Dose: 35 mcg/kg/min, 14.336 mls/hr Documented by: Titration: 06/22/21 05:34 Dose: 35 mcg/kg/min, 14.336 mls/hr Documented by: Titration: 06/21/21 23:51 Dose: 35 mcg/kg/min, 14.336 mls/hr Documented by: Admin: 06/21/21 22:22 Dose: 30 mcg/kg/min, 12.288 mls/hr Documented by: Titration: 06/21/21 22:14 Dose: 30 mcg/kg/min, 12.288 mls/hr Documented by: Titration: 06/21/21 18:54 Dose: 30 mcg/kg/min, 12.288 mls/hr Documented by: Titration: 06/21/21 18:35 Dose: 35 mcg/kg/min, 14.336 mls/hr Documented by: Titration: 06/21/21 18:18 Dose: 40 mcg/kg/min, 16.384 mls/hr Documented by: Titration: 06/21/21 18:07 Dose: 50 mcg/kg/min, 20.48 mls/hr Documented by: Admin: 06/21/21 16:14 Dose: 60 mcg/kg/min, 24.576 mls/hr Documented by: Titration: 06/21/21 16:14 Dose: 60 mcg/kg/min, 24.576 mls/hr Documented by: Titration: 06/21/21 14:05 Dose: 60 mcg/kg/min, 24.576 mls/hr Documented by: Titration: 06/21/21 13:42 Dose: 40 mcg/kg/min, 16.384 mls/hr Documented by: Titration: 06/21/21 11:51 Dose: 30 mcg/kg/min, 12.288 mls/hr Documented by: Admin: 06/21/21 11:50 Dose: 15 mcg/kg/min, 6.144 mls/hr Documented by: SUNSHINELE Fentanyl 1,000 mcg/ Dextrose 250 mls @ 17.067 mls/hr IV TITRATE JANE; Protocol Last Titration: 06/22/21 15:12 Dose: 0 mcg/kg/hr, 0 mls/hr Documented by: Admin: 06/22/21 09:43 Dose: 1.99 mcg/kg/hr, 34 mls/hr Documented by: Titration: 06/22/21 09:43 Dose: 0 mcg/kg/hr, 0 mls/hr Documented by: Admin: 06/22/21 01:31 Dose: 2 mcg/kg/hr, 34.133 mls/hr Documented by: Titration: 06/22/21 01:31 Dose: 2 mcg/kg/hr, 34.133 mls/hr Documented by: Titration: 06/21/21 23:55 Dose: 2 mcg/kg/hr, 34.133 mls/hr Documented by: Admin: 06/21/21 13:05 Dose: 1 mcg/kg/hr, 17.067 mls/hr Documented by: NOEMÍ Midazolam HCl 50 mg/ Dextrose 250 mls @ 6.827 mls/hr IV TITRATE JANE; Protocol Last Titration: 06/22/21 07:04 Dose: 0 mg/kg/hr, 0 mls/hr Documented by: Titration: 06/21/21 18:54 Dose: 0 mg/kg/hr, 0 mls/hr Documented by: MARIANELAIEDLE Titration: 06/21/21 18:33 Dose: 0.02 mg/kg/hr, 6.827 mls/hr Documented by: MARIANELAIEDLE Titration: 06/21/21 18:20 Dose: 0.04 mg/kg/hr, 13.653 mls/hr Documented by: Titration: 06/21/21 14:15 Dose: 0.07 mg/kg/hr, 23.893 mls/hr Documented by: MARIANELAIEDLE Admin: 06/21/21 14:05 Dose: 0.02 mg/kg/hr, 6.827 mls/hr Documented by: NOEMÍ Nicardipine HCl 25 mg/ Sodium (Chloride) 250 mls @ 50 mls/hr IV TITRATE JANE; Protocol Last Titration: 06/22/21 15:12 Dose: 0 mg/hr, 0 mls/hr Documented by: Titration: 06/22/21 14:16 Dose: 0 mg/hr, 0 mls/hr Documented by: Admin: 06/22/21 13:10 Dose: 2.5 mg/hr, 25 mls/hr Documented by: Titration: 06/22/21 07:04 Dose: 0 mg/hr, 0 mls/hr Documented by: Titration: 06/22/21 01:56 Dose: 0 mg/hr, 0 mls/hr Documented by: Admin: 06/21/21 23:34 Dose: 2.5 mg/hr, 25 mls/hr Documented by: Titration: 06/21/21 23:34 Dose: 2.5 mg/hr, 25 mls/hr Documented by: Titration: 06/21/21 15:08 Dose: 2.5 mg/hr, 25 mls/hr Documented by: Admin: 06/21/21 14:42 Dose: 5 mg/hr, 50 mls/hr Documented by: CSIEDLE Sodium Chloride (Normal Saline 0.9%) 500 mls @ 1,000 mls/hr IV BOLUS ONE Stop: 06/21/21 15:38 Last Infusion: 06/21/21 15:57 Dose: 0 mls/hr Documented by: Admin: 06/21/21 15:13 Dose: 1,000 mls/hr Documented by: CSIEDLE Sodium Chloride (Normal Saline 0.9%) 1,000 mls @ 150 mls/hr IV CONT ONE Stop: 06/21/21 22:37 Last Infusion: 06/21/21 23:05 Dose: 0 mls/hr Documented by: Admin: 06/21/21 16:07 Dose: 150 mls/hr Documented by: CSIEDLE Sodium Chloride (Normal Saline 0.9%) 1,000 mls @ 150 mls/hr IV CONT JANE Last Infusion: 06/22/21 15:12 Dose: 0 mls/hr Documented by: Admin: 06/22/21 11:45 Dose: 150 mls/hr Documented by: Infusion: 06/22/21 11:44 Dose: 0 mls/hr Documented by: Admin: 06/22/21 05:14 Dose: 150 mls/hr Documented by: Infusion: 06/22/21 05:14 Dose: 150 mls/hr Documented by: Admin: 06/21/21 23:06 Dose: 150 mls/hr Documented by: VERENICE POTASSIUM CHLORIDE IN WATER (Potassium Cl 10 Meq/100 Ml Blessing) 10 meq in 100 mls @ 100 mls/hr IV Q1H JANE Stop: 06/22/21 03:44 Last Infusion: 06/22/21 04:23 Dose: 0 mls/hr Documented by: Admin: 06/22/21 03:04 Dose: 100 mls/hr Documented by: Infusion: 06/22/21 03:00 Dose: 100 mls/hr Documented by: Admin: 06/22/21 02:00 Dose: 100 mls/hr Documented by: Infusion: 06/22/21 01:51 Dose: 100 mls/hr Documented by: Admin: 06/22/21 00:51 Dose: 100 mls/hr Documented by: Infusion: 06/22/21 00:47 Dose: 100 mls/hr Documented by: Admin: 06/21/21 23:47 Dose: 100 mls/hr Documented by: SARAH Midazolam HCl (Midazolam 5 Mg/Ml Vial) 4 mg IV NOW ONE Stop: 06/21/21 08:48 Last Admin: 06/21/21 08:51 Dose: 4 mg Documented by: BERNA Midazolam HCl (Midazolam 5 Mg/Ml Vial) 4 mg IV NOW ONE Stop: 06/21/21 09:07 Last Admin: 06/21/21 09:23 Dose: 4 mg Documented by: NOEMÍ Midazolam HCl (Midazolam 5 Mg/Ml Vial) 5 mg IV NOW ONE Stop: 06/22/21 15:00 Last Admin: 06/22/21 15:03 Dose: 5 mg Documented by: TIERA Propofol (Propofol 200 Mg/20 Ml Vial) 60 mg IV NOW ONE Stop: 06/21/21 10:43 Last Admin: 06/21/21 10:44 Dose: 60 mg Documented by: TIERA Rocuronium [place] (Rocuronium 50 Mg/5 Ml Inj) 80 mg IV NOW ONE Stop: 06/21/21 10:26 Last Admin: 06/21/21 10:39 Dose: 80 mg Documented by: TIERA Rocuronium [place] (Rocuronium 50 Mg/5 Ml Inj) 80 mg IV NOW ONE Stop: 06/21/21 12:01 Last Admin: 06/21/21 12:00 Dose: 80 mg Documented by: NOEMÍ Vital Signs Vital signs: Vital Signs - 8 hr 06/22/21 10:00 06/22/21 10:15 06/22/21 10:30 Temperature 98.8 F 98.8 F 99.0 F Pulse Rate 74 75 74 Respiratory Rate 20 21 20 Blood Pressure 146/93 H Pulse Oximetry 99 99 99 06/22/21 10:45 06/22/21 11:00 06/22/21 11:15 Temperature 99.0 F Pulse Rate 73 74 74 Respiratory Rate 20 20 20 Blood Pressure 157/101 H Pulse Oximetry 100 100 100 06/22/21 11:30 06/22/21 11:45 06/22/21 12:00 Temperature 99.1 F 99.0 F Pulse Rate 75 74 73 Respiratory Rate 21 20 20 Blood Pressure 166/107 H Pulse Oximetry 99 98 99 06/22/21 12:15 06/22/21 12:30 06/22/21 12:45 Temperature 98.6 F Pulse Rate 73 73 72 Respiratory Rate 20 20 20 Blood Pressure Pulse Oximetry 99 99 99 06/22/21 12:52 06/22/21 12:56 06/22/21 12:59 Temperature 98.6 F 98.6 F Pulse Rate 71 70 69 Respiratory Rate 20 20 20 Blood Pressure 170/107 H 164/107 H 166/106 H Pulse Oximetry 99 99 99 06/22/21 13:00 06/22/21 13:15 06/22/21 13:30 Temperature 98.6 F 98.6 F 98.4 F Pulse Rate 69 74 77 Respiratory Rate 20 20 20 Blood Pressure 162/104 H 138/88 Pulse Oximetry 99 98 97 06/22/21 13:45 06/22/21 13:50 06/22/21 14:00 Temperature 98.2 F 98.2 F 98.2 F Pulse Rate 76 75 75 Respiratory Rate 20 20 20 Blood Pressure 138/88 129/78 Pulse Oximetry 97 98 98 06/22/21 14:14 01/04/22 14:15 06/22/21 14:29 Temperature 98.2 F 98.1 F 98.1 F Pulse Rate 76 76 71 Respiratory Rate 20 20 20 Blood Pressure 127/79 144/91 H Pulse Oximetry 98 98 99 06/22/21 14:30 06/22/21 14:45 06/22/21 15:00 Temperature 98.1 F 98.2 F 98.4 F Pulse Rate 72 69 74 Respiratory Rate 20 20 20 Blood Pressure Pulse Oximetry 99 99 99 Medical Decision Making <Nona Evans MD - Last Filed: 06/22/21 15:30> Lab Data Result diagrams: 06/22/21 05:57 06/22/21 05:57 Labs: Lab Results 06/21/21 06/21/21 06/21/21 Range/Units 07:27 07:27 10:51 WBC 4.6 (4.5-11.0) X10^3/uL RBC 4.07 (4.0-5.2) X10^6/uL Hgb 12.6 (12.0-16.0) g/dL Hct 37.5 (36-46) % MCV 92.2 (80-100) fL MCH 30.9 (26-34) PG MCHC 33.5 (30-36) % RDW 13.2 (11.6-14.8) % Plt Count 230 (150-400) X10^3/uL Neut % (Auto) 91.5 H (50-75) % Lymph % (Auto) 7.8 L (25-40) % [place] % (Auto) 0.4 L (3-14) % Eos % (Auto) 0.0 L (2-4) % Baso % (Auto) 0.3 (0-2) % Neut # (Auto) 4200 (1850-3061) /uL Lymph # (Auto) 400 L (6230-0255) /uL [place] # (Auto) 0 (0-900) /uL Eos # (Auto) 0 (0-450) /uL Baso # (Auto) 0 (0-100) /uL ABG pH (7.35-7.45) ABG pCO2 (35-45) mmHg ABG pO2 (80-100) mmHg ABG HCO3 (22-26) mmol/L ABG Total CO2 (21-31) mmol/L ABG O2 Saturation (95-100) % ABG Base Excess (-2-2) mmol/L FiO2 Sodium 147 H (137-145) mmol/L Potassium 3.6 (3.4-5.1) mmol/L Chloride 114 H (98-107) mmol/L Carbon Dioxide 15 L (22-32) mmol/L BUN 13 (7-17) mg/dL Creatinine 0.86 (0.52-1.04) mg/dL Estimated GFR > 60.0 (>60) mL/min BUN/Creatinine Ratio 15.1 (6-22) Glucose 149 H (70-100) mg/dL Calcium 9.3 (8.4-10.2) mg/dL Total Bilirubin 0.4 (0.2-1.3) mg/dL AST 33 (14-36) IU/L ALT 36 H (<35) IU/L Alkaline Phosphatase 69 (38-126) U/L Total Protein 8.2 (6.3-8.2) g/dL Albumin 5.1 H (3.5-5.0) g/dL Globulin 3.1 (1.7-4.1) g/dL Albumin/Globulin Ratio 1.6 (1.0-2.8) TSH (0.47-4.68) uIU/mL Urine Color Urine Appearance Urine pH (4.5-8.0) Ur Specific [place] (1.000-1.035) Urine Protein (Negative) Urine Glucose (UA) (Negative) g/dL Urine Ketones (NEGATIVE) Urine Occult Blood (Negative) Urine Nitrate (Negative) Urine Bilirubin (NEGATIVE) Urine Urobilinogen (0.2) E.U./dL Ur Leukocyte Esterase (NEGATIVE) Urine RBC (0-5/HPF) Urine WBC (0-5/HPF) Urine Bacteria (None) Ur Culture Indicated? Micro UA Comment U Opiates 300ng/mL cut (Negative) Ur Oxycodone Screen (Negative) Urine Methadone Screen (Negative) Ur Barbiturates Screen (Negative) U Tricyclic Antidepress (Negative) Ur Phencyclidine Scrn (Negative) Ur Amphetamines Screen (Negative) U Methamphetamines Scrn (Negative) Ur MDMA Scrn (Ecstasy) (Negative) U Benzodiazepines Scrn (Negative) Urine Cocaine Screen (Negative) U Marijuana (THC) Screen (Negative) SARS-CoV-2 (PCR) Negative (Negative) 06/21/21 06/21/21 06/21/21 Range/Units 10:55 10:55 12:10 WBC (4.5-11.0) X10^3/uL RBC (4.0-5.2) X10^6/uL Hgb (12.0-16.0) g/dL Hct (36-46) % MCV (80-100) fL MCH (26-34) PG MCHC (30-36) % RDW (11.6-14.8) % Plt Count (150-400) X10^3/uL Neut % (Auto) (50-75) % Lymph % (Auto) (25-40) % [place] % (Auto) (3-14) % Eos % (Auto) (2-4) % Baso % (Auto) (0-2) % Neut # (Auto) (2474-4744) /uL Lymph # (Auto) (2950-1173) /uL [place] # (Auto) (0-900) /uL Eos # (Auto) (0-450) /uL Baso # (Auto) (0-100) /uL ABG pH 7.25 L* (7.35-7.45) ABG pCO2 41.8 (35-45) mmHg ABG pO2 169 H (80-100) mmHg ABG HCO3 18 L (22-26) mmol/L ABG Total CO2 20 L (21-31) mmol/L ABG O2 Saturation 99 (95-100) % ABG Base Excess -9.0 L (-2-2) mmol/L FiO2 35 Sodium (137-145) mmol/L Potassium (3.4-5.1) mmol/L Chloride (98-107) mmol/L Carbon Dioxide (22-32) mmol/L BUN (7-17) mg/dL Creatinine (0.52-1.04) mg/dL Estimated GFR (>60) mL/min BUN/Creatinine Ratio (6-22) Glucose (70-100) mg/dL Calcium (8.4-10.2) mg/dL Total Bilirubin (0.2-1.3) mg/dL AST (14-36) IU/L ALT (<35) IU/L Alkaline Phosphatase (38-126) U/L Total Protein (6.3-8.2) g/dL Albumin (3.5-5.0) g/dL Globulin (1.7-4.1) g/dL Albumin/Globulin Ratio (1.0-2.8) TSH (0.47-4.68) uIU/mL Urine Color Yellow Urine Appearance Clear Urine pH 6.5 (4.5-8.0) Ur Specific [place] 1.020 (1.000-1.035) Urine Protein Trace H (Negative) Urine Glucose (UA) Negative (Negative) g/dL Urine Ketones Trace H (NEGATIVE) Urine Occult Blood Negative (Negative) Urine Nitrate Negative (Negative) Urine Bilirubin Negative (NEGATIVE) Urine Urobilinogen 0.2 (0.2) E.U./dL Ur Leukocyte Esterase Negative (NEGATIVE) Urine RBC None seen (0-5/HPF) Urine WBC None seen D (0-5/HPF) Urine Bacteria None seen (None) Ur Culture Indicated? Cult not indicated Micro UA Comment Microscopic normal U Opiates 300ng/mL cut Negative (Negative) Ur Oxycodone Screen Positive H (Negative) Urine Methadone Screen Negative (Negative) Ur Barbiturates Screen Negative (Negative) U Tricyclic Antidepress Negative (Negative) Ur Phencyclidine Scrn Negative (Negative) Ur Amphetamines Screen Negative (Negative) U Methamphetamines Scrn Negative (Negative) Ur MDMA Scrn (Ecstasy) Negative (Negative) U Benzodiazepines Scrn Negative (Negative) Urine Cocaine Screen Negative (Negative) U Marijuana (THC) Screen Positive H (Negative) SARS-CoV-2 (PCR) (Negative) 06/21/21 06/21/21 06/21/21 Range/Units 22:35 23:18 23:18 WBC 7.3 D (4.5-11.0) X10^3/uL RBC 3.22 L (4.0-5.2) X10^6/uL Hgb 10.1 L (12.0-16.0) g/dL Hct 29.8 L (36-46) % MCV 92.8 (80-100) fL MCH 31.3 (26-34) PG MCHC 33.8 (30-36) % RDW 13.0 (11.6-14.8) % Plt Count 151 (150-400) X10^3/uL Neut % (Auto) 76.5 H (50-75) % Lymph % (Auto) 14.9 L (25-40) % [place] % (Auto) 7.9 (3-14) % Eos % (Auto) 0.1 L (2-4) % Baso % (Auto) 0.6 (0-2) % Neut # (Auto) 5600 (6601-4259) /uL Lymph # (Auto) 1100 (9607-2154) /uL [place] # (Auto) 600 (0-900) /uL Eos # (Auto) 0 (0-450) /uL Baso # (Auto) 0 (0-100) /uL ABG pH 7.34 L (7.35-7.45) ABG pCO2 31.8 L (35-45) mmHg ABG pO2 101 H (80-100) mmHg ABG HCO3 17 L (22-26) mmol/L ABG Total CO2 18 L (21-31) mmol/L ABG O2 Saturation 98 (95-100) % ABG Base Excess -8.0 L (-2-2) mmol/L FiO2 25 Sodium 138 (137-145) mmol/L Potassium 2.7 L* (3.4-5.1) mmol/L Chloride 115 H (98-107) mmol/L Carbon Dioxide 19 L (22-32) mmol/L BUN 6 L (7-17) mg/dL Creatinine 0.45 L (0.52-1.04) mg/dL Estimated GFR > 60.0 (>60) mL/min BUN/Creatinine Ratio 13.3 (6-22) Glucose 149 H (70-100) mg/dL Calcium 6.7 L (8.4-10.2) mg/dL Total Bilirubin (0.2-1.3) mg/dL AST (14-36) IU/L ALT (<35) IU/L Alkaline Phosphatase (38-126) U/L Total Protein (6.3-8.2) g/dL Albumin (3.5-5.0) g/dL Globulin (1.7-4.1) g/dL Albumin/Globulin Ratio (1.0-2.8) TSH (0.47-4.68) uIU/mL Urine Color Urine Appearance Urine pH (4.5-8.0) Ur Specific [place] (1.000-1.035) Urine Protein (Negative) Urine Glucose (UA) (Negative) g/dL Urine Ketones (NEGATIVE) Urine Occult Blood (Negative) Urine Nitrate (Negative) Urine Bilirubin (NEGATIVE) Urine Urobilinogen (0.2) E.U./dL Ur Leukocyte Esterase (NEGATIVE) Urine RBC (0-5/HPF) Urine WBC (0-5/HPF) Urine Bacteria (None) Ur Culture Indicated? Micro UA Comment U Opiates 300ng/mL cut (Negative) Ur Oxycodone Screen (Negative) Urine Methadone Screen (Negative) Ur Barbiturates Screen (Negative) U Tricyclic Antidepress (Negative) Ur Phencyclidine Scrn (Negative) Ur Amphetamines Screen (Negative) U Methamphetamines Scrn (Negative) Ur MDMA Scrn (Ecstasy) (Negative) U Benzodiazepines Scrn (Negative) Urine Cocaine Screen (Negative) U Marijuana (THC) Screen (Negative) SARS-CoV-2 (PCR) (Negative) 06/21/21 06/22/21 06/22/21 Range/Units 23:18 05:57 05:57 WBC 8.7 (4.5-11.0) X10^3/uL RBC 3.45 L (4.0-5.2) X10^6/uL Hgb 10.6 L (12.0-16.0) g/dL Hct 31.7 L (36-46) % MCV 92.0 (80-100) fL MCH 30.9 (26-34) PG MCHC 33.5 (30-36) % RDW 13.1 (11.6-14.8) % Plt Count 162 (150-400) X10^3/uL Neut % (Auto) 75.3 H (50-75) % Lymph % (Auto) 19.3 L (25-40) % [place] % (Auto) 5.0 (3-14) % Eos % (Auto) 0.1 L (2-4) % Baso % (Auto) 0.3 (0-2) % Neut # (Auto) 6500 (5899-8994) /uL Lymph # (Auto) 1700 (7255-7303) /uL [place] # (Auto) 400 (0-900) /uL Eos # (Auto) 0 (0-450) /uL Baso # (Auto) 0 (0-100) /uL ABG pH (7.35-7.45) ABG pCO2 (35-45) mmHg ABG pO2 (80-100) mmHg ABG HCO3 (22-26) mmol/L ABG Total CO2 (21-31) mmol/L ABG O2 Saturation (95-100) % ABG Base Excess (-2-2) mmol/L FiO2 Sodium 137 (137-145) mmol/L Potassium 3.4 (3.4-5.1) mmol/L Chloride 113 H (98-107) mmol/L Carbon Dioxide 20 L (22-32) mmol/L BUN 7 (7-17) mg/dL Creatinine 0.55 (0.52-1.04) mg/dL Estimated GFR > 60.0 (>60) mL/min BUN/Creatinine Ratio 12.7 (6-22) Glucose 127 H (70-100) mg/dL Calcium 7.8 L (8.4-10.2) mg/dL Total Bilirubin (0.2-1.3) mg/dL AST (14-36) IU/L ALT (<35) IU/L Alkaline Phosphatase (38-126) U/L Total Protein (6.3-8.2) g/dL Albumin (3.5-5.0) g/dL Globulin (1.7-4.1) g/dL Albumin/Globulin Ratio (1.0-2.8) TSH 1.53 (0.47-4.68) uIU/mL Urine Color Urine Appearance Urine pH (4.5-8.0) Ur Specific [place] (1.000-1.035) Urine Protein (Negative) Urine Glucose (UA) (Negative) g/dL Urine Ketones (NEGATIVE) Urine Occult Blood (Negative) Urine Nitrate (Negative) Urine Bilirubin (NEGATIVE) Urine Urobilinogen (0.2) E.U./dL Ur Leukocyte Esterase (NEGATIVE) Urine RBC (0-5/HPF) Urine WBC (0-5/HPF) Urine Bacteria (None) Ur Culture Indicated? Micro UA Comment U Opiates 300ng/mL cut (Negative) Ur Oxycodone Screen (Negative) Urine Methadone Screen (Negative) Ur Barbiturates Screen (Negative) U Tricyclic Antidepress (Negative) Ur Phencyclidine Scrn (Negative) Ur Amphetamines Screen (Negative) U Methamphetamines Scrn (Negative) Ur MDMA Scrn (Ecstasy) (Negative) U Benzodiazepines Scrn (Negative) Urine Cocaine Screen (Negative) U Marijuana (THC) Screen (Negative) SARS-CoV-2 (PCR) (Negative) Imaging Data CT scan - head: Radiologist's Impression: FINDINGS:? Image quality:? Diagnostic.? Patient motion is noted throughout the study. ? CSF spaces:? Basal cisterns are patent.? No extra-axial fluid collections.? The ventricles are symmetric in size and shape.? ? Brain:? No intracranial bleeds or masses.? There is cerebral volume loss for age, with resultant ventricular and sulcal prominence.? There are periventricular and deep white matter chronic small vessel ischemic changes.? There is intracranial internal carotid artery atherosclerosis.? ? Skull and face:? Calvarium and visualized facial bones appear intact, without suspicious lesions.? ? Sinuses:? Visualized sinuses and mastoids are clear.? ? IMPRESSION:? No CT evidence of acute intracranial pathology.? No significant changes from previous study. ? ? Dictated by: Arden Marie M.D. on 06/21/2021 at 9:30 ? ? MDM Narrative Medical decision making narrative: 40-year-old woman with multiple sclerosis seen last night with lower extremity pain and spasm felt to be an MS flare and was given 1 g of Solu-Medrol. Awoke early this morning with severe spasms and was given 10 mg of IM Versed by medics. On arrival in the emergency room she is appropriately sedated with all muscles relaxed. Lab work is unremarkable. As she wakes, she is having again dramatically increased muscle spasm with significantly altered mental status. Symptoms appear to be far beyond what 1 would expect from Versed sedation. She is given both IV of Benadryl and additional Versed and a CT scan of the head is obtained to confirm no acute intracranial bleeding or lesions. Once that information has returned, will review her care with her neurologist [phone] no acute intracranial hemorrhage or abnormalities. Dr. Erin Sheppard with [facility] is her primary neurologist. Will work on contacting her neurologist [phone] Dr Erin Sheppard, neurology. Patient is significantly agitated and continues to increase with agitation. This is not seizure-like activities she is not alert nor aware, she has had large doses of Versed and Benadryl will add Haldol at this point. Her neurologist is available on the phone and notes that over the last month she has been having episodes of increasing agitation nothing sounds that it has been as severe as receiving today. She had an EEG in early May[place] part of workup for these episodes ofincreased agitation and cognitive impairment. It did not show epileptiform activity. She had a lumbar puncture as part of this workup around June 06 to further eval for PML or autoimmune encephalitis. The results from that are reportedly unremarkable and will be reviewed again by Dr. Sheppard. At this point with episode last evening normal blood work and then again this dramatic episode this morning not responsive to large doses of Versed I believe she needs hospital admission and observation with continued neurologic workup. With all local hospitals at min more than maximal bed capacity finding a hospital bed may be challenging. Have asked Dr Sheppard to speak with [facility] transfer center to see if we can expedite transfer and continue neurology continuity of care 1020 after IV Haldol there has been minimal effect and she continues to be dramatically agitated to the point she is hurting herself nurses. We are going to proceed with Intubation and paralysis. She may well benefit from Precedex 1223 patient was intubated with ketamine and rocuronium. Precedex was started. She needed a couple of doses blood pressure control.f propofol as the Precedex was escalated. As the rocuronium is wearing off she continues with significant agitation. Present X is now maxed. Propofol drip is been added. Phone call with Dr. Buenrostro, tele rehabilitation aide for [facility]. After reviewing her care his impression was that this was an acute intoxication picture particularly in light of the widely dilated pupils. Her urine tox comes back positive for oxycodone and marijuana. No amphetamines or tricyclics or PCP. His recommendation for additional sedation is adding fentanyl and then adding Versed. He did mention that a ketamine drip might be very effective if were able to facilitate that at this hospital. Will continue to look for ICU beds. Phone consult with pharmacy, [facility] does not have any protocols for ketamine drips. 140om still significantly agitated with Precedex, propofol, fentanyl and now beginning Versed drip. Still continue to look for bed availability 2:15 despite for drips to do with her agitation she has remained significantly hypertensive care. Currently at 178/103. Will begin nicardipine drip. Consult for PICC line is placed and we continue to look for bed availability 345 Spoke with [facility] transfer. No beds. Spoke with Dr. Gadiel King, neurology. Would consult but would need ICU bed with medical admit. Remains more appropriately sedated currently with continued Precedex, propofol, fentanyl, Versed drips and nicardipine for blood pressure control 5pm Reviewed with Dr Gallo Ivan, medical ICU fellow. Patient will be excepted to the medical ICU. Currently awaiting bed availability expectation is ?today? and all attempts are made to expedite as much as possible. Transfer center will call in bed is available. Dr lagunas: Received turned over. Reviewed patient's history and physical exam. Patient has been stable. We have been able to wean her off of her Versed. She is also off of the nicardipine drip and systolic blood pressures have been greater than 120 with acceptable mean arterial pressures. She has been calm. Somewhat arousable with stimulation. Repeat ABG shows pH of 7.3 pCO2 of 31.8 PO2 101. Will keep her on her current vent settings. Repeat labs shows that her hypernatremia has resolved. She is hypokalemic. Will replace her potassium IV. Patient continues to remain stable. We continue to wait for a bed assignment at [facility]. Patient is currently stable for transport. Patient continues to produce adequate urine output. Care transitioned back to Dr. Evans at change of shift to continue with evaluation and disposition. 1:[address] Ivan, accepting physican. Anticipate transfer immenently. <Tez Lagunas, - Last Filed: 06/22/21 17:56> Lab Data Labs: Lab Results 06/21/21 06/21/21 06/21/21 Range/Units 07:27 07:27 10:51 WBC 4.6 (4.5-11.0) X10^3/uL RBC 4.07 (4.0-5.2) X10^6/uL Hgb 12.6 (12.0-16.0) g/dL Hct 37.5 (36-46) % MCV 92.2 (80-100) fL MCH 30.9 (26-34) PG MCHC 33.5 (30-36) % RDW 13.2 (11.6-14.8) % Plt Count 230 (150-400) X10^3/uL Neut % (Auto) 91.5 H (50-75) % Lymph % (Auto) 7.8 L (25-40) % [place] % (Auto) 0.4 L (3-14) % Eos % (Auto) 0.0 L (2-4) % Baso % (Auto) 0.3 (0-2) % Neut # (Auto) 4200 (0538-4216) /uL Lymph # (Auto) 400 L (4619-4352) /uL [place] # (Auto) 0 (0-900) /uL Eos # (Auto) 0 (0-450) /uL Baso # (Auto) 0 (0-100) /uL ABG pH (7.35-7.45) ABG pCO2 (35-45) mmHg ABG pO2 (80-100) mmHg ABG HCO3 (22-26) mmol/L ABG Total CO2 (21-31) mmol/L ABG O2 Saturation (95-100) % ABG Base Excess (-2-2) mmol/L FiO2 Sodium 147 H (137-145) mmol/L Potassium 3.6 (3.4-5.1) mmol/L Chloride 114 H (98-107) mmol/L Carbon Dioxide 15 L (22-32) mmol/L BUN 13 (7-17) mg/dL Creatinine 0.86 (0.52-1.04) mg/dL Estimated GFR > 60.0 (>60) mL/min BUN/Creatinine Ratio 15.1 (6-22) Glucose 149 H (70-100) mg/dL Calcium 9.3 (8.4-10.2) mg/dL Total Bilirubin 0.4 (0.2-1.3) mg/dL AST 33 (14-36) IU/L ALT 36 H (<35) IU/L Alkaline Phosphatase 69 (38-126) U/L Total Protein 8.2 (6.3-8.2) g/dL Albumin 5.1 H (3.5-5.0) g/dL Globulin 3.1 (1.7-4.1) g/dL Albumin/Globulin Ratio 1.6 (1.0-2.8) TSH (0.47-4.68) uIU/mL Urine Color Urine Appearance Urine pH (4.5-8.0) Ur Specific [place] (1.000-1.035) Urine Protein (Negative) Urine Glucose (UA) (Negative) g/dL Urine Ketones (NEGATIVE) Urine Occult Blood (Negative) Urine Nitrate (Negative) Urine Bilirubin (NEGATIVE) Urine Urobilinogen (0.2) E.U./dL Ur Leukocyte Esterase (NEGATIVE) Urine RBC (0-5/HPF) Urine WBC (0-5/HPF) Urine Bacteria (None) Ur Culture Indicated? Micro UA Comment U Opiates 300ng/mL cut (Negative) Ur Oxycodone Screen (Negative) Urine Methadone Screen (Negative) Ur Barbiturates Screen (Negative) U Tricyclic Antidepress (Negative) Ur Phencyclidine Scrn (Negative) Ur Amphetamines Screen (Negative) U Methamphetamines Scrn (Negative) Ur MDMA Scrn (Ecstasy) (Negative) U Benzodiazepines Scrn (Negative) Urine Cocaine Screen (Negative) U Marijuana (THC) Screen (Negative) SARS-CoV-2 (PCR) Negative (Negative) 06/21/21 06/21/21 06/21/21 Range/Units 10:55 10:55 12:10 WBC (4.5-11.0) X10^3/uL RBC (4.0-5.2) X10^6/uL Hgb (12.0-16.0) g/dL Hct (36-46) % MCV (80-100) fL MCH (26-34) PG MCHC (30-36) % RDW (11.6-14.8) % Plt Count (150-400) X10^3/uL Neut % (Auto) (50-75) % Lymph % (Auto) (25-40) % [place] % (Auto) (3-14) % Eos % (Auto) (2-4) % Baso % (Auto) (0-2) % Neut # (Auto) (7958-2763) /uL Lymph # (Auto) (0939-0577) /uL [place] # (Auto) (0-900) /uL Eos # (Auto) (0-450) /uL Baso # (Auto) (0-100) /uL ABG pH 7.25 L* (7.35-7.45) ABG pCO2 41.8 (35-45) mmHg ABG pO2 169 H (80-100) mmHg ABG HCO3 18 L (22-26) mmol/L ABG Total CO2 20 L (21-31) mmol/L ABG O2 Saturation 99 (95-100) % ABG Base Excess -9.0 L (-2-2) mmol/L FiO2 35 Sodium (137-145) mmol/L Potassium (3.4-5.1) mmol/L Chloride (98-107) mmol/L Carbon Dioxide (22-32) mmol/L BUN (7-17) mg/dL Creatinine (0.52-1.04) mg/dL Estimated GFR (>60) mL/min BUN/Creatinine Ratio (6-22) Glucose (70-100) mg/dL Calcium (8.4-10.2) mg/dL Total Bilirubin (0.2-1.3) mg/dL AST (14-36) IU/L ALT (<35) IU/L Alkaline Phosphatase (38-126) U/L Total Protein (6.3-8.2) g/dL Albumin (3.5-5.0) g/dL Globulin (1.7-4.1) g/dL Albumin/Globulin Ratio (1.0-2.8) TSH (0.47-4.68) uIU/mL Urine Color Yellow Urine Appearance Clear Urine pH 6.5 (4.5-8.0) Ur Specific [place] 1.020 (1.000-1.035) Urine Protein Trace H (Negative) Urine Glucose (UA) Negative (Negative) g/dL Urine Ketones Trace H (NEGATIVE) Urine Occult Blood Negative (Negative) Urine Nitrate Negative (Negative) Urine Bilirubin Negative (NEGATIVE) Urine Urobilinogen 0.2 (0.2) E.U./dL Ur Leukocyte Esterase Negative (NEGATIVE) Urine RBC None seen (0-5/HPF) Urine WBC None seen D (0-5/HPF) Urine Bacteria None seen (None) Ur Culture Indicated? Cult not indicated Micro UA Comment Microscopic normal U Opiates 300ng/mL cut Negative (Negative) Ur Oxycodone Screen Positive H (Negative) Urine Methadone Screen Negative (Negative) Ur Barbiturates Screen Negative (Negative) U Tricyclic Antidepress Negative (Negative) Ur Phencyclidine Scrn Negative (Negative) Ur Amphetamines Screen Negative (Negative) U Methamphetamines Scrn Negative (Negative) Ur MDMA Scrn (Ecstasy) Negative (Negative) U Benzodiazepines Scrn Negative (Negative) Urine Cocaine Screen Negative (Negative) U Marijuana (THC) Screen Positive H (Negative) SARS-CoV-2 (PCR) (Negative) 06/21/21 06/21/21 06/21/21 Range/Units 22:35 23:18 23:18 WBC 7.3 D (4.5-11.0) X10^3/uL RBC 3.22 L (4.0-5.2) X10^6/uL Hgb 10.1 L (12.0-16.0) g/dL Hct 29.8 L (36-46) % MCV 92.8 (80-100) fL MCH 31.3 (26-34) PG MCHC 33.8 (30-36) % RDW 13.0 (11.6-14.8) % Plt Count 151 (150-400) X10^3/uL Neut % (Auto) 76.5 H (50-75) % Lymph % (Auto) 14.9 L (25-40) % [place] % (Auto) 7.9 (3-14) % Eos % (Auto) 0.1 L (2-4) % Baso % (Auto) 0.6 (0-2) % Neut # (Auto) 5600 (9844-4078) /uL Lymph # (Auto) 1100 (8013-4144) /uL [place] # (Auto) 600 (0-900) /uL Eos # (Auto) 0 (0-450) /uL Baso # (Auto) 0 (0-100) /uL ABG pH 7.34 L (7.35-7.45) ABG pCO2 31.8 L (35-45) mmHg ABG pO2 101 H (80-100) mmHg ABG HCO3 17 L (22-26) mmol/L ABG Total CO2 18 L (21-31) mmol/L ABG O2 Saturation 98 (95-100) % ABG Base Excess -8.0 L (-2-2) mmol/L FiO2 25 Sodium 138 (137-145) mmol/L Potassium 2.7 L* (3.4-5.1) mmol/L Chloride 115 H (98-107) mmol/L Carbon Dioxide 19 L (22-32) mmol/L BUN 6 L (7-17) mg/dL Creatinine 0.45 L (0.52-1.04) mg/dL Estimated GFR > 60.0 (>60) mL/min BUN/Creatinine Ratio 13.3 (6-22) Glucose 149 H (70-100) mg/dL Calcium 6.7 L (8.4-10.2) mg/dL Total Bilirubin (0.2-1.3) mg/dL AST (14-36) IU/L ALT (<35) IU/L Alkaline Phosphatase (38-126) U/L Total Protein (6.3-8.2) g/dL Albumin (3.5-5.0) g/dL Globulin (1.7-4.1) g/dL Albumin/Globulin Ratio (1.0-2.8) TSH (0.47-4.68) uIU/mL Urine Color Urine Appearance Urine pH (4.5-8.0) Ur Specific [place] (1.000-1.035) Urine Protein (Negative) Urine Glucose (UA) (Negative) g/dL Urine Ketones (NEGATIVE) Urine Occult Blood (Negative) Urine Nitrate (Negative) Urine Bilirubin (NEGATIVE) Urine Urobilinogen (0.2) E.U./dL Ur Leukocyte Esterase (NEGATIVE) Urine RBC (0-5/HPF) Urine WBC (0-5/HPF) Urine Bacteria (None) Ur Culture Indicated? Micro UA Comment U Opiates 300ng/mL cut (Negative) Ur Oxycodone Screen (Negative) Urine Methadone Screen (Negative) Ur Barbiturates Screen (Negative) U Tricyclic Antidepress (Negative) Ur Phencyclidine Scrn (Negative) Ur Amphetamines Screen (Negative) U Methamphetamines Scrn (Negative) Ur MDMA Scrn (Ecstasy) (Negative) U Benzodiazepines Scrn (Negative) Urine Cocaine Screen (Negative) U Marijuana (THC) Screen (Negative) SARS-CoV-2 (PCR) (Negative) 06/21/21 06/22/21 06/22/21 Range/Units 23:18 05:57 05:57 WBC 8.7 (4.5-11.0) X10^3/uL RBC 3.45 L (4.0-5.2) X10^6/uL Hgb 10.6 L (12.0-16.0) g/dL Hct 31.7 L (36-46) % MCV 92.0 (80-100) fL MCH 30.9 (26-34) PG MCHC 33.5 (30-36) % RDW 13.1 (11.6-14.8) % Plt Count 162 (150-400) X10^3/uL Neut % (Auto) 75.3 H (50-75) % Lymph % (Auto) 19.3 L (25-40) % [place] % (Auto) 5.0 (3-14) % Eos % (Auto) 0.1 L (2-4) % Baso % (Auto) 0.3 (0-2) % Neut # (Auto) 6500 (7264-9492) /uL Lymph # (Auto) 1700 (6020-6816) /uL [place] # (Auto) 400 (0-900) /uL Eos # (Auto) 0 (0-450) /uL Baso # (Auto) 0 (0-100) /uL ABG pH (7.35-7.45) ABG pCO2 (35-45) mmHg ABG pO2 (80-100) mmHg ABG HCO3 (22-26) mmol/L ABG Total CO2 (21-31) mmol/L ABG O2 Saturation (95-100) % ABG Base Excess (-2-2) mmol/L FiO2 Sodium 137 (137-145) mmol/L Potassium 3.4 (3.4-5.1) mmol/L Chloride 113 H (98-107) mmol/L Carbon Dioxide 20 L (22-32) mmol/L BUN 7 (7-17) mg/dL Creatinine 0.55 (0.52-1.04) mg/dL Estimated GFR > 60.0 (>60) mL/min BUN/Creatinine Ratio 12.7 (6-22) Glucose 127 H (70-100) mg/dL Calcium 7.8 L (8.4-10.2) mg/dL Total Bilirubin (0.2-1.3) mg/dL AST (14-36) IU/L ALT (<35) IU/L Alkaline Phosphatase (38-126) U/L Total Protein (6.3-8.2) g/dL Albumin (3.5-5.0) g/dL Globulin (1.7-4.1) g/dL Albumin/Globulin Ratio (1.0-2.8) TSH 1.53 (0.47-4.68) uIU/mL Urine Color Urine Appearance Urine pH (4.5-8.0) Ur Specific [place] (1.000-1.035) Urine Protein (Negative) Urine Glucose (UA) (Negative) g/dL Urine Ketones (NEGATIVE) Urine Occult Blood (Negative) Urine Nitrate (Negative) Urine Bilirubin (NEGATIVE) Urine Urobilinogen (0.2) E.U./dL Ur Leukocyte Esterase (NEGATIVE) Urine RBC (0-5/HPF) Urine WBC (0-5/HPF) Urine Bacteria (None) Ur Culture Indicated? Micro UA Comment U Opiates 300ng/mL cut (Negative) Ur Oxycodone Screen (Negative) Urine Methadone Screen (Negative) Ur Barbiturates Screen (Negative) U Tricyclic Antidepress (Negative) Ur Phencyclidine Scrn (Negative) Ur Amphetamines Screen (Negative) U Methamphetamines Scrn (Negative) Ur MDMA Scrn (Ecstasy) (Negative) U Benzodiazepines Scrn (Negative) Urine Cocaine Screen (Negative) U Marijuana (THC) Screen (Negative) SARS-CoV-2 (PCR) (Negative) MDM Narrative Medical decision making narrative: 40-year-old woman with multiple sclerosis seen last night with lower extremity pain and spasm felt to be an MS flare and was given 1 g of Solu-Medrol. Awoke early this morning with severe spasms and was given 10 mg of IM Versed by medics. On arrival in the emergency room she is appropriately sedated with all muscles relaxed. Lab work is unremarkable. As she wakes, she is having again dramatically increased muscle spasm with significantly altered mental status. Symptoms appear to be far beyond what 1 would expect from Versed sedation. She is given both IV of Benadryl and additional Versed and a CT scan of the head is obtained to confirm no acute intracranial bleeding or lesions. Once that information has returned, will review her care with her neurologist [phone] no acute intracranial hemorrhage or abnormalities. Dr. Erin Sheppard with [facility] is her primary neurologist. Will work on contacting her neurologist [phone] Dr Erin Sheppard, neurology. Patient is significantly agitated and continues to increase with agitation. This is not seizure-like activities she is not alert nor aware, she has had large doses of Versed and Benadryl will add Haldol at this point. Her neurologist is available on the phone and notes that over the last month she has been having episodes of increasing agitation nothing sounds that it has been as severe as receiving today. She had an EEG in early [place] part of workup for these episodes ofincreased agitation and cognitive impairment. It did not show epileptiform activity. She had a lumbar puncture as part of this workup around June 06 to further eval for PML or autoimmune encephalitis. The results from that are reportedly unremarkable and will be reviewed again by Dr. Sheppard. At this point with episode last evening normal blood work and then again this dramatic episode this morning not responsive to large doses of Versed I believe she needs hospital admission and observation with continued neurologic workup. With all local hospitals at min more than maximal bed capacity finding a hospital bed may be challenging. Have asked Dr Sheppard to speak with [facility] transfer center to see if we can expedite transfer and continue neurology continuity of care 1020 after IV Haldol there has been minimal effect and she continues to be dramatically agitated to the point she is hurting herself nurses. We are going to proceed with Intubation and paralysis. She may well benefit from Precedex 1223 patient was intubated with ketamine and rocuronium. Precedex was started. She needed a couple of doses blood pressure control.f propofol as the Precedex was escalated. As the rocuronium is wearing off she continues with significant agitation. Present X is now maxed. Propofol drip is been added. Phone call with Dr. Buenrostro, tele rehabilitation aide for [facility]. After reviewing her care his impression was that this was an acute intoxication picture particularly in light of the widely dilated pupils. Her urine tox comes back positive for oxycodone and marijuana. No amphetamines or tricyclics or PCP. His recommendation for additional sedation is adding fentanyl and then adding Versed. He did mention that a ketamine drip might be very effective if were able to facilitate that at this hospital. Will continue to look for ICU beds. Phone consult with pharmacy, [facility] does not have any protocols for ketamine drips. 140om still significantly agitated with Precedex, propofol, fentanyl and now beginning Versed drip. Still continue to look for bed availability 2:15 despite for drips to do with her agitation she has remained significantly hypertensive care. Currently at 178/103. Will begin nicardipine drip. Consult for PICC line is placed and we continue to look for bed availability 345 Spoke with transfer. No beds. Spoke with Dr. Gadiel King, neurology. Would consult but would need ICU bed with medical admit. Remains more appropriately sedated currently with continued Precedex, propofol, fentanyl, Versed drips and nicardipine for blood pressure control 5pm Reviewed with Dr Gallo Ivan, medical ICU fellow. Patient will be excepted to the medical ICU. Currently awaiting bed availability expectation is ?today? and all attempts are made to expedite as much as possible. Transfer center will call in bed is available. Dr lagunas: Received turned over. Reviewed patient's history and physical exam. Patient has been stable. We have been able to wean her off of her Versed. She is also off of the nicardipine drip and systolic blood pressures have been greater than 120 with acceptable mean arterial pressures. She has been calm. Somewhat arousable with stimulation. Repeat ABG shows pH of 7.3 pCO2 of 31.8 PO2 101. Will keep her on her current vent settings. Repeat labs shows that her hypernatremia has resolved. She is hypokalemic. Will replace her potassium IV. Patient continues to remain stable. We continue to wait for a bed assignment at [facility]. Patient is currently stable for transport. Patient continues to produce adequate urine output. Care transitioned back to Dr. Evans at change of shift to continue with evaluation and disposition. Critical Care Time <Nona Evans MD - Last Filed: 06/22/21 15:30> Critical Care Time Critical Care Time: Yes Total Critical Care Time: 480 Attestation: Critical care time is separate from other billable procedures. There is a high probability of a significant, sudden or life-threatening deterioration that requires my full and direct attention, intervention and personal management. This critical care time includes consultation with family and other consulting doctors, review of records, and interpretation of data from labs, EKGs and imaging as well as ICU management for 28 hours with ventilator management, IV medications required for blood pressure management and multiple sedatives. Extensive time spent in consultation trying to obtain appropriate facility to continue her care. Discharge Plan Departure Patient Disposition: [facility] Clinical Impression: Acute delirium, Agitation, HTN (hypertension) Prescriptions: No Action atenolol 25 mg tablet 50 mg PO DAILY 0RF bupropion HCl 150 mg tablet extended release 24 hr 150 mg PO QAM 0RF buspirone 30 mg tablet 30 mg PO BID 0RF baclofen 20 mg tablet 30 mg PO TID 0RF trazodone 50 mg tablet 100 mg PO DAILY PRN (Reason: Insomnia) 0RF olanzapine 2.5 mg tablet 2.5 mg PO BEDTIME 0RF Rx Instructions: No longer taking topiramate [Topamax] 25 mg tablet 50 mg PO TID 0RF melatonin 5 mg capsule 5 mg PO BEDTIME 0RF acetaminophen [Tylenol] 325 mg capsule 325 mg PO Q6H PRN (Reason: Pain (Scale Score 1-3)) 0RF ibuprofen 600 MG tablet 600 mg PO TIDP PRN (Reason: Pain (Scale Score 1-3)) Qty: 0 0RF methylphenidate HCl 5 MG tablet 5 mg PO BID Qty: 0 0RF lamotrigine [Lamictal] 25 MG tablet 250 mg PO DAILY Qty: 0 0RF tizanidine 4 mg Tablet 8 mg PO BEDTIME 0RF oxycodone 15 mg Tablet 30 mg PO Q6H PRN (Reason: Pain (Scale Score 7-10)) 0RF hydrochlorothiazide 25 mg Tablet 25 mg PO DAILY 0RF ropinirole 0.5 mg Tablet 0.5 mg PO BEDTIME 0RF diazepam 5 mg tablet 5 mg PO BID PRN (Reason: muscle spasm) Qty: 30 0RF Label Comments: No longer taking Referrals: Mona Weinstein DO [Primary Care Provider] -
[2021-06-21 07:39] LABS: Add Manual Diff / Slide Review NO; Basophils Absolute Auto 0 /uL (0-100); Basophils Percent Auto 0.3 % (0-2); Eosinophils Absolute Auto 0 /uL (0-450); Hematocrit 37.5 % (36-46); Hemoglobin 12.6 g/dL (12.0-16.0); Lymphocytes Absolute Auto 400 /uL (1100-4500); Lymphocytes Percent Auto 7.8 % (25-40); Mean Corpuscular HGB Conc 33.5 % (30-36); Mean Corpuscular Hemoglobin 30.9 PG (26-34); Mean Corpuscular Volume 92.2 fL (80-100); Monocytes Absolute Auto 0 /uL (0-900); Monocytes Percent Auto 0.4 % (3-14); Neutrophils Absolute Auto 4200 /uL (1500-7000); Neutrophils Percent Auto 91.5 % (50-75); Platelet Count 230 X10^3/uL (150-400); Red Blood Cell Count 4.07 X10^6/uL (4.0-5.2); Red Cell Distribution Width 13.2 % (11.6-14.8); White Blood Cell Count 4.6 X10^3/uL (4.5-11.0)
[2021-06-21 07:46] LABS: Albumin 5.1 g/dL (3.5-5.0); Albumin Globulin Ratio 1.6 (1.0-2.8); Alkaline Phosphatase 69 U/L (38-126); Aspartate Aminotransferase 33 IU/L (14-36); BUN Creatinine Ratio 15.1 (6-22); Bilirubin Total 0.4 mg/dL (0.2-1.3); Blood Urea Nitrogen 13 mg/dL (7-17); Calcium 9.3 mg/dL (8.4-10.2); Carbon Dioxide 15 mmol/L (22-32); Chloride 114 mmol/L (98-107); Estimated Glomerular Filt Rate > 60.0 mL/min (>60); Globulin 3.1 g/dL (1.7-4.1); Glucose 149 mg/dL (70-100); HEMOLYSIS < 15 (0-50); Potassium 3.6 mmol/L (3.4-5.1); Sodium 147 mmol/L (137-145); Total Protein 8.2 g/dL (6.3-8.2)
[2021-06-21 07:53] LABS: Alanine Aminotransferase 36 IU/L (<35)
--- NOTE | 2021-06-21 08:29 | PC.NURSE ---
Pt presented to EMS with rapid involuntary muscle spasms, pt was cognitively aware at the time of the spasming. H/O MS and PML with increasing cognitive decline over the last few months per . 10MG IM versed given by EMS to transfer pt out of house. Pt was discharged within the last 8 hrs from ED after full workup and consult with her following neurologist. Pt sleeping at this time with ETCO2 and VS WNL. Rouses to painful stimuli. Unable to conduct full neuro assessment at this time. placed on cardiac monitoring. seizure pads in place. suction available. pt allowed to rest. awaiting who is said to be on his way.
--- NOTE | 2021-06-21 08:47 | DI.CT.S_ITS ---
PROCEDURE: CT HEAD/BRAIN WO CON INDICATIONS: altered mental status TECHNIQUE: Noncontrast 4.5 mm thick angled axial sections acquired from the foramen magnum to the vertex, with coronal and sagittal reformats. For radiation dose reduction, the following was used: automated exposure control, adjustment of mA and/or kV according to patient size. COMPARISON: [facility], CT, CT HEAD/BRAIN WO CON, 04/29/2021, 2:11. FINDINGS: Image quality: Diagnostic. Patient motion is noted throughout the study. CSF spaces: Basal cisterns are patent. No extra-axial fluid collections. The ventricles are symmetric in size and shape. Brain: No intracranial bleeds or masses. There is cerebral volume loss for age, with resultant ventricular and sulcal prominence. There are periventricular and deep white matter chronic small vessel ischemic changes. There is intracranial internal carotid artery atherosclerosis. Skull and face: Calvarium and visualized facial bones appear intact, without suspicious lesions. Sinuses: Visualized sinuses and mastoids are clear. IMPRESSION: No CT evidence of acute intracranial pathology. No significant changes from previous study. Dictated by: Arden Marie M.D. on 06/21/2021 at 9:30 Approved by: Arden Marie M.D. on 06/21/2021 at 9:31
[2021-06-21] MEDS: diphenhydrAMINE 50 MG/ML VIAL IV (08:51)
[2021-06-21] MEDS: MIDAZOLAM 5 MG/ML VIAL 4 MG IV ×2 (08:51→09:23)
--- NOTE | 2021-06-21 09:24 | PC.NURSE ---
0840: pt awake alert, cannot answer questions appropriately and repetitive speech. Spastic movements in bed. unable to orient. Dr Evans at bedside and rec'd orders. Pt to and from CT with assist
[2021-06-21] MEDS: HALOPERIDOL 5 MG/ML VIAL 10 MG IV (10:11)
--- NOTE | 2021-06-21 10:12 | PC.NURSE ---
Pt with intense thrashing with flailing all extremities, screaming, getting limbs caught in siderails, not cognitively aware or able to stop and is a danger to herself. Dr Evans at bedside. Pt placed in 4point soft restraints for safety until IV medications produce calming effect and pt is no longer a danger to herself and staff. pt remains on ETCO2 and SPO2 monitor. Unable to keep monitor car operator on. Pt also wearing what appears to be a Holter device. 10mg IV haldol given. pt on 1:1 observation with [employer]. Call placed to [facility] and awaiting reply.
--- NOTE | 2021-06-21 10:25 | DI.RAD.S_ITS ---
PROCEDURE: XR CHEST 1V INDICATIONS: post intubation and OG tube placement TECHNIQUE: One view of the chest was acquired. COMPARISON: [facility], MR, MR THORACIC SPINE WO CON, 12/07/2020, 14:41. [facility], CR, CHEST 2 VIEW, 12/08/2013, 13:07. FINDINGS: Surgical changes and devices: An endotracheal tube is seen, with the tip 3 cm above the alen. A gastric tube is seen, with the tip overlying the mid proximal stomach. The side hole is seen below the level of the diaphragm. Lungs and pleura: On this semiupright portable chest examination, no large pneumothorax or large pleural effusions are seen. No focal infiltrates are seen. Mediastinum: Mediastinal contours appear normal. Heart size is normal. Bones and chest wall: No suspicious bony lesions. Overlying soft tissues appear unremarkable. IMPRESSION: The tip of the endotracheal tube is seen 3 cm above the alen. The tip of the gastric tube is seen overlying the stomach. Dictated by: Colby Walter M.D. on 06/21/2021 at 10:15 Approved by: Colby Walter M.D. on 06/21/2021 at 10:17
[2021-06-21] MEDS: SODIUM CHLORIDE 0.9% 1,000 ML 1000 ML IV (10:33)
[2021-06-21] MEDS: ROCURONIUM 50 MG/5 ML INJ 80 MG IV ×2 (10:39→12:00)
[2021-06-21] MEDS: KETAMINE 500 MG/5 ML INJ (10:39)
[2021-06-21] MEDS: dexmedeTOMIDine in 0.9 % NaCL 400 MCG/100 ML PLAST..BAG IV (10:40)
[2021-06-21] MEDS: propofoL 200 MG/20 ML VIAL 60 MG IV (10:44)
[2021-06-21 11:01] LABS: Appearance Urine UA CLEAR; Bilirubin Urine UA NEGATIVE (NEGATIVE); Color Urine UA YELLOW; Glucose Urine UA NEGATIVE (Negative); Ketones Urine UA TRACE (NEGATIVE); Leukocyte Esterase Urine UA NEGATIVE (NEGATIVE); Nitrite Urine UA NEGATIVE (Negative); Occult Blood Urine UA NEGATIVE (Negative); Protein Urine UA TRACE (Negative); Urobilinogen Urine UA 0.2 E.U./dL (0.2)
[2021-06-21 11:04] LABS: pH Urine UA 6.5 (4.5-8.0)
[2021-06-21 11:05] LABS: UR Morphine/Opiate cutoff 300 Negative (Negative); Ur Creatinine Normal (Normal); Ur Specific Gravity Normal (Normal); Urine Amphetamines Negative (Negative); Urine Barbiturates Negative (Negative); Urine Benzodiazepines Negative (Negative); Urine Cocaine Negative (Negative); Urine MDMA Negative (Negative); Urine Methadone Negative (Negative); Urine Methamphetamines Negative (Negative); Urine Oxycodone Positive (Negative); Urine Phencyclidine Negative (Negative); Urine Tetrahydrocannabinol Positive (Negative); Urine Tricyclic Antidepressant Negative (Negative); Urine pH Normal (Normal)
[2021-06-21 11:06] LABS: Bacteria Urine None Seen; Culture Indicated Urine Cult Not Indicated; RBC Urine None Seen (0-5/HPF); Urine Comments Microscopic Normal; WBC Urine None Seen (0-5/HPF)
[2021-06-21 11:18] LABS: COVID19 -Nasal RAPID Negative (Negative)
[2021-06-21] MEDS: fentaNYL 100 MCG/2 ML INJ IV ×2 (11:30→12:58)
[2021-06-21] MEDS: propofoL 1,000 MG/100 ML VIAL 6.144 MG IV (11:50)
--- NOTE | 2021-06-21 12:13 | DIET.CONS ---
Dietary Consultation Note Assessment: 40y F admitted for full body spasms thought to be MS flare requiring intubation as pt unable to control movements and at risk of harming self and others. Pt referred to nutrition for tube feeding reccs as pt NPO on ventilator awaiting transfer to neurology capable facility. Pt currently receiving Propofol 30mcg/kg/min providing [address] worked c pt 1.5y ago during hospitalization, pt has gained 16kg since that time with current BMI 26. Ht: 165cm Wt: 68.266 kg BMI: 26 Labs: RBC 4.07 X10^6/uL (4.0-5.2) 06/21/21 07:27 Hgb 12.6 g/dL (12.0-16.0) 06/21/21 07:27 Hct 37.5 % (36-46) 06/21/21 07:27 Creatinine 0.86 mg/dL (0.52-1.04) 06/21/21 07:27 Nutrition Diagnosis: inability to consume adequate oral intake r/t NPO status of ventilator. Interventions: 1. Recc continuous enteral feeding of Jevity 1.2 formula via NG/OG once tube placement verified by imaging and okay for feeding by provider. Start feed at 25mL/h and titrate up by 10-20mL q4h as tolerated to goal rate of 50mL/h. 2. Recc 250mL free water flushes q4h. Please defer to provider for adjustment of water flushes and IVF for fluid balance. 3. HOB to be elevated >30 degrees at all time to reduce risk of aspiration. Feed, propofol, plus flushes provide: 1764kcals (26kcal/kg) 67g PRO (1g/kg) 203g CHO 83g Fat 968mL feed water 1500mL flush water Total water: 2468mL (36mL/kg) Monitoring/Evaluations: TF initiation, feed tolerance, POC Electronically Signed by: Madison Degroot 06/21/21 12:13 Clinical Dietitian [address] [id number]
--- NOTE | 2021-06-21 12:25 | PC.NURSE ---
Please see paper chart for Q5 vital signs
[2021-06-21] MEDS: CHLORHEXIDINE GLUCONATE 15 ML CUP PO ×2 (13:04→18:00)
[2021-06-21] MEDS: fentaNYL 1,000 MCG in DEXTROSE 5% IN WATER 230 ML 17.067 ML IV (13:05)
[2021-06-21 13:41] LABS: HCO3 ABG 18 mmol/L (22-26); PCO2 ABG 41.8 mmHg (35-45); PO2 ABG 169 mmHg (80-100); TCO2 ABG 20 mmol/L (21-31); pH ABG 7.25 (7.35-7.45)
[2021-06-21 13:42] LABS: Fractionated Inspired Oxygen 35; Oxygen Saturation ABG 99 % (95-100)
[2021-06-21] MEDS: MIDAZOLAM 50 MG in DEXTROSE 5% IN WATER 240 ML 6.827 ML IV (14:05)
[2021-06-21] MEDS: dexmedeTOMIDine in 0.9 % NaCL 400 MCG/100 ML PLAST..BAG 25.6 MCG IV ×3 (14:16→21:51)
--- NOTE | 2021-06-21 14:33 | PC.NURSE ---
At 1030 decision made to intubate pt for airway protection. Brought to rm 1, attached to cardiac monitoring and ETCO2. Pt combative and difficult to restrain. RT at bedside. Prepped for RSI with ketamine and Rocuronium per AUG. Intubated via glidescope by Dr Evans with 7.5 ETT 22@ lip, +BS, + color change. Tube secured by RT. 18F OG placed with + gastric content. CXR obtained to confirm placement. Vent settings 400/20RR/21%/5. Pt tolerating ventilator well. Precedex bolus and infusion stared. Pt started to become increasingly agitated and precedex increased, 100mcg boluses of fentanyl given IVP per AUG and propofol added for increased sedation. Pt continued to become increasingly more agigtated with vent dyssynchrony. Pt re-paralyzed with Rocuronium and Versed gtt started. Pt at infusion MAX per [facility] protocol at 1.5 mcg/kg/hr, and propofol currently at 60mcg/kg/min. Pt hypertensive with BP 180-190s/systolic. Dr Evans made aware of increasing BP and nicardipine gtt started at 5mg/hr. Pupils 2mm, equal, sluggish. FiO2 increased and current settings 400/20RR/35%/5, ETCO2 35-38, HR 70-80's NSR, BP 156/88 on Nicardipine gtt with a goal of systolic less than 160. OG to LIS, 16F temp curry in place reading 98.6 core, UO 60cc/3h and Dr Evans made aware. Rouses to firm tactile stimulation. Appears comfortable at this time and tolerating vent appropriately.
[2021-06-21] MEDS: NICARDIPINE 25 MG in SODIUM CHLORIDE 0.9% 240 ML 50 ML IV (14:42)
[2021-06-21] MEDS: SODIUM CHLORIDE 0.9% 500 ML 1000 ML IV (15:13)
[2021-06-21] MEDS: SODIUM CHLORIDE 0.9% 1,000 ML 150 ML IV ×2 (16:07→23:06)
[2021-06-21] MEDS: propofoL 1,000 MG/100 ML VIAL 24.576 MG IV (16:14)
--- NOTE | 2021-06-21 16:47 | PC.NURSE ---
BREEZY RN at bedside for PICC placement
--- NOTE | 2021-06-21 17:08 | DI.RAD.S_ITS ---
PROCEDURE: XR CHEST FOR PICC 1V INDICATIONS: PICC PLACEMENT COMPARISON: [facility], , XR CHEST 1V, 06/21/2021, 10:56. FINDINGS: PICC was placed by the intravenous therapy team from the right side. Fluoroscopic spot film demonstrates the tip of PICC projecting to the area of mid SVC. Endotracheal and nasogastric tubes remain unchanged in good position. No pneumothorax.. IMPRESSION: Tip of PICC projects to the area of mid SVC. Approved by: Gadiel Chappell M.D. on 06/21/2021 at 17:07
--- NOTE | 2021-06-21 17:09 | PM.CN.EICU ---
History of Present Illness Consult details Chief complaint: MS, pain and tremors :: This patient was seen via real time interactive two-way audiovisual telecommunication. 40 year old woman with history of MS presenting with acute hyperactive delirium along woith muscle spams and consuion. Patient was recently admitted and workup by her neurologist for concern of a MS flare - LP was neg, as was imaging. She presented yesterday with similar symptoms and was sent home, but she returned today with similar and worsenign symptoms as well as a worsneing mental status. Her neuologist was ocntacted, and she was givne pulse dose solumedrol for presumed MS flare. per ED she became more encephalpahtic which required them to scure her airway and be intubated. per ED her pupils were very dilated, and thouihg she was on precedex, and propofol she continued to be agitsted and have spastic movements. labs and imaging reviewed, signifvcant for worsening hypernatremia and a metabolic acidosis. CTH negative. After peakign with ED , I rec adding fentanyl and versed if needed. [facility] Medical History (Updated 06/21/21 @ 17:07 by Nona Evans MD) HTN (hypertension) MS (multiple sclerosis) PTSD (post-traumatic stress disorder) Surgical History Bunion, right foot History of laparoscopy Family History Mother CVA (cerebral vascular accident) Diabetes type 2, uncontrolled Father Diabetes type 2, uncontrolled Social History household members: spouse Smoking Status: Never smoker alcohol intake: former Current Medications Current Medications Medications: Home Medications ibuprofen 600 mg tablet 600 mg PO TIDP PRN #0 11/27/10 [History Confirmed 01/13/20] lamotrigine 25 mg tablet (Lamictal) 250 mg PO DAILY #0 08/26/16 [History Confirmed 01/13/20] methylphenidate HCl 5 mg tablet 5 mg PO BID #0 08/26/16 [History Confirmed 01/13/20] acetaminophen 325 mg capsule (Tylenol) 325 mg PO Q6H PRN 12/01/18 [History Confirmed 01/13/20] atenolol 25 mg tablet 50 mg PO DAILY 12/01/18 [History Confirmed 01/13/20] baclofen 20 mg tablet 30 mg PO TID 12/01/18 [History Confirmed 01/13/20] bupropion HCl 150 mg 24 hr tablet, extended release 150 mg PO QAM 12/01/18 [History Confirmed 01/13/20] buspirone 30 mg tablet 30 mg PO BID tab 12/01/18 [History Confirmed 01/13/20] melatonin 5 mg capsule 5 mg PO BEDTIME cap 12/01/18 [History Confirmed 01/13/20] olanzapine 2.5 mg tablet 2.5 mg PO BEDTIME 12/01/18 [History Confirmed 01/13/20] topiramate 25 mg tablet (Topamax) 50 mg PO TID tab 12/01/18 [History Confirmed 01/13/20] trazodone 50 mg tablet 100 mg PO DAILY PRN 12/01/18 [History Confirmed 01/13/20] diazepam 5 mg tablet 5 mg PO BID PRN #30 tab 12/16/19 [Rx Confirmed 01/13/20] hydrochlorothiazide 25 mg tablet 25 mg PO DAILY 01/13/20 [History Confirmed 01/13/20] oxycodone 15 mg tablet 30 mg PO Q6H PRN 01/13/20 [History Confirmed 01/13/20] ropinirole 0.5 mg tablet 0.5 mg PO BEDTIME 01/13/20 [History Confirmed 01/13/20] tizanidine 4 mg tablet 8 mg PO BEDTIME 01/13/20 [History Confirmed 01/13/20] Visit Medications (administered) Generic Name Dose Route Start Last Admin Trade Name Freq PRN Reason Stop Dose Admin Chlorhexidine Gluconate 15 ml 06/21/21 12:00 06/21/21 13:04 Chlorhexidine Gluconate 15 Ml Cup PO 15 ml Q6HR JANE Administration Fentanyl 100 mcg 06/21/21 10:43 06/21/21 12:58 Fentanyl 100 Mcg/2 Ml Inj IV 06/23/21 10:42 100 mcg Q30MIN PRN Administration pain/agitation dexmedeTOMIDine in 0.9 % NaCL 400 mcg in 100 mls @ 3.413 mls/hr 06/21/21 10:30 06/21/21 14:16 Precedex IV 1.5 mcg/kg/hr TITRATE JANE 25.6 mls/hr Administration Protocol 0.2 MCG/KG/HR Propofol 1,000 mg in 100 mls @ 6.144 mls/hr 06/21/21 11:45 06/21/21 16:14 Propofol IV 60 mcg/kg/min TITRATE JANE 24.576 mls/hr Administration Protocol 15 MCG/KG/MIN Fentanyl 1,000 mcg/ Dextrose 250 mls @ 17.067 mls/hr 06/21/21 12:45 06/21/21 13:05 IV 1 mcg/kg/hr TITRATE JANE 17.067 mls/hr Administration Protocol 1 MCG/KG/HR Midazolam HCl 50 mg/ Dextrose 250 mls @ 6.827 mls/hr 06/21/21 13:45 06/21/21 14:15 IV 0.07 mg/kg/hr TITRATE JANE 23.893 mls/hr Titration Protocol 0.02 MG/KG/HR Nicardipine HCl 25 mg/ Sodium 250 mls @ 50 mls/hr 06/21/21 14:30 06/21/21 15:08 Chloride IV 2.5 mg/hr TITRATE JANE 25 mls/hr Titration Protocol 5 MG/HR Sodium Chloride 1,000 mls @ 150 mls/hr 06/21/21 15:58 06/21/21 16:07 Normal Saline 0.9% IV 06/21/21 22:37 150 mls/hr CONT ONE Administration Exam Vital Signs (past 8 hours): - 06/21/21 09:22 06/21/21 09:30 06/21/21 10:00 Temperature Pulse Rate 89 93 H 106 H Respiratory Rate 22 28 H 44 H Blood Pressure 139/86 Pulse Oximetry 100 100 99 06/21/21 10:02 06/21/21 10:04 06/21/21 10:06 Temperature Pulse Rate 143 H 116 H 80 Respiratory Rate Blood Pressure Pulse Oximetry 100 06/21/21 10:08 06/21/21 10:10 06/21/21 10:12 Temperature Pulse Rate 109 H 100 H 96 H Respiratory Rate Blood Pressure Pulse Oximetry 100 100 100 06/21/21 10:14 06/21/21 10:16 06/21/21 10:18 Temperature Pulse Rate 102 H 106 H 98 H Respiratory Rate Blood Pressure Pulse Oximetry 99 100 100 06/21/21 10:20 06/21/21 12:23 06/21/21 12:31 Temperature 99.0 F 99.0 F Pulse Rate 90 77 74 Respiratory Rate 20 20 Blood Pressure 162/88 H Pulse Oximetry 99 98 98 06/21/21 13:14 06/21/21 13:48 06/21/21 14:30 Temperature 98.8 F 98.8 F 98.8 F Pulse Rate 71 72 71 Respiratory Rate 20 20 20 Blood Pressure 176/99 H 178/103 H 191/103 H Pulse Oximetry 98 98 06/21/21 15:23 06/21/21 16:06 06/21/21 16:38 Temperature 98.1 F 98.1 F 97.9 F Pulse Rate 71 74 74 Respiratory Rate 20 20 20 Blood Pressure 136/88 138/81 139/82 Pulse Oximetry 98 98 98 Oxygen Delivery Method Mechanical Ventilation Narrative Exam Narrative: surrogate for exam is primary team Objective Labs Result Diagrams: 06/21/21 07:27 06/21/21 07:27 Labs: Laboratory Results - last 24 hr 06/21/21 06/21/21 06/21/21 07:27 07:27 10:51 WBC 4.6 RBC 4.07 Hgb 12.6 Hct 37.5 MCV 92.2 MCH 30.9 MCHC 33.5 RDW 13.2 Plt Count 230 Neut % (Auto) 91.5 H Lymph % (Auto) 7.8 L [place] % (Auto) 0.4 L Eos % (Auto) 0.0 L Baso % (Auto) 0.3 Neut # (Auto) 4200 Lymph # (Auto) 400 L [place] # (Auto) 0 Eos # (Auto) 0 Baso # (Auto) 0 ABG pH ABG pCO2 ABG pO2 ABG HCO3 ABG Total CO2 ABG O2 Saturation ABG Base Excess FiO2 Sodium 147 H Potassium 3.6 Chloride 114 H Carbon Dioxide 15 L BUN 13 Creatinine 0.86 Estimated GFR > 60.0 BUN/Creatinine Ratio 15.1 Glucose 149 H Calcium 9.3 Total Bilirubin 0.4 AST 33 ALT 36 H Alkaline Phosphatase 69 Total Protein 8.2 Albumin 5.1 H Globulin 3.1 Albumin/Globulin Ratio 1.6 Urine Color Urine Appearance Urine pH Ur Specific [place] Urine Protein Urine Glucose (UA) Urine Ketones Urine Occult Blood Urine Nitrate Urine Bilirubin Urine Urobilinogen Ur Leukocyte Esterase Urine RBC Urine WBC Urine Bacteria Ur Culture Indicated? Micro UA Comment U Opiates 300ng/mL cut Ur Oxycodone Screen Urine Methadone Screen Ur Barbiturates Screen U Tricyclic Antidepress Ur Phencyclidine Scrn Ur Amphetamines Screen U Methamphetamines Scrn Ur MDMA Scrn (Ecstasy) U Benzodiazepines Scrn Urine Cocaine Screen U Marijuana (THC) Screen SARS-CoV-2 (PCR) Negative 06/21/21 06/21/21 06/21/21 10:55 10:55 12:10 WBC RBC Hgb Hct MCV MCH MCHC RDW Plt Count Neut % (Auto) Lymph % (Auto) [place] % (Auto) Eos % (Auto) Baso % (Auto) Neut # (Auto) Lymph # (Auto) [place] # (Auto) Eos # (Auto) Baso # (Auto) ABG pH 7.25 L* ABG pCO2 41.8 ABG pO2 169 H ABG HCO3 18 L ABG Total CO2 20 L ABG O2 Saturation 99 ABG Base Excess -9.0 L FiO2 35 Sodium Potassium Chloride Carbon Dioxide BUN Creatinine Estimated GFR BUN/Creatinine Ratio Glucose Calcium Total Bilirubin AST ALT Alkaline Phosphatase Total Protein Albumin Globulin Albumin/Globulin Ratio Urine Color Yellow Urine Appearance Clear Urine pH 6.5 Ur Specific [place] 1.020 Urine Protein Trace H Urine Glucose (UA) Negative Urine Ketones Trace H Urine Occult Blood Negative Urine Nitrate Negative Urine Bilirubin Negative Urine Urobilinogen 0.2 Ur Leukocyte Esterase Negative Urine RBC None seen Urine WBC None seen D Urine Bacteria None seen Ur Culture Indicated? Cult not indicated Micro UA Comment Microscopic normal U Opiates 300ng/mL cut Negative Ur Oxycodone Screen Positive H Urine Methadone Screen Negative Ur Barbiturates Screen Negative U Tricyclic Antidepress Negative Ur Phencyclidine Scrn Negative Ur Amphetamines Screen Negative U Methamphetamines Scrn Negative Ur MDMA Scrn (Ecstasy) Negative U Benzodiazepines Scrn Negative Urine Cocaine Screen Negative U Marijuana (THC) Screen Positive H SARS-CoV-2 (PCR) Assessment & Plan Assessment & Plan narrative: Acute resp failure acute hyperactive delirium possible MS flare acute metabolic encephalpathy metabolic acidosis unclear why she has a detrioating mental stauts and spastic movements. after reviewing her meds , its possible this maybe due to overdose of baclofen ( muscle spasticity wouldnt fit this) or methylphenidate. Plan would continue sedation with precedex, propfol fentanyl and versed if ruther agents needed would add ketaminde gtt ? poison control eval? trend abg ltvv TF bp control trend bmp monitor bicabr, may need bicabr gtt IVF monitor UO dvt ppx neurology f/u trasnfer to MRI brain CCT 60 min Time Spent With Patient Critical Care time: I spent a total of [] minutes of critical care time on this patient's care today; this time is exclusive of procedural time.
--- NOTE | 2021-06-21 18:00 | PC.NURSE ---
Double Lumen PICC line inserted in GRAZYNA by BREEZY Yates RN. Confirmed placement with XR. Compatibility of Versed and Nicardipine confirmed and infusing through GRAZYNA PICC. 2nd lumen flushed with 50 units heparin per PICC protocol and clamped. Pt appears comfortable on ventilator and current infusion titrations per AUG. Pt accepted at MICU and awaiting bed assignment.
[2021-06-21] MEDS: propofoL 1,000 MG/100 ML VIAL 12.288 MG IV (22:22)
[2021-06-21 23:24] LABS: HCO3 ABG 17 mmol/L (22-26); PCO2 ABG 31.8 mmHg (35-45); PO2 ABG 101 mmHg (80-100); TCO2 ABG 18 mmol/L (21-31); pH ABG 7.34 (7.35-7.45)
[2021-06-21 23:25] LABS: Fractionated Inspired Oxygen 25; Oxygen Saturation ABG 98 % (95-100)
[2021-06-21 23:29] LABS: Add Manual Diff / Slide Review NO; Basophils Absolute Auto 0 /uL (0-100); Basophils Percent Auto 0.6 % (0-2); Eosinophils Absolute Auto 0 /uL (0-450); Eosinophils Percent Auto 0.1 % (2-4); Hematocrit 29.8 % (36-46); Hemoglobin 10.1 g/dL (12.0-16.0); Lymphocytes Absolute Auto 1100 /uL (1100-4500); Lymphocytes Percent Auto 14.9 % (25-40); Mean Corpuscular HGB Conc 33.8 % (30-36); Mean Corpuscular Hemoglobin 31.3 PG (26-34); Mean Corpuscular Volume 92.8 fL (80-100); Monocytes Absolute Auto 600 /uL (0-900); Monocytes Percent Auto 7.9 % (3-14); Neutrophils Absolute Auto 5600 /uL (1500-7000); Neutrophils Percent Auto 76.5 % (50-75); Platelet Count 151 X10^3/uL (150-400); Red Blood Cell Count 3.22 X10^6/uL (4.0-5.2); White Blood Cell Count 7.3 X10^3/uL (4.5-11.0)
[2021-06-21] MEDS: NICARDIPINE 25 MG in SODIUM CHLORIDE 0.9% 240 ML 25 ML IV (23:34)
[2021-06-21 23:35] LABS: BUN Creatinine Ratio 13.3 (6-22); Blood Urea Nitrogen 6 mg/dL (7-17); Calcium 6.7 mg/dL (8.4-10.2); Carbon Dioxide 19 mmol/L (22-32); Chloride 115 mmol/L (98-107); Estimated Glomerular Filt Rate > 60.0 mL/min (>60); Glucose 149 mg/dL (70-100); HEMOLYSIS < 15 (0-50); Sodium 138 mmol/L (137-145)
[2021-06-21 23:37] LABS: Potassium 2.7 mmol/L (3.4-5.1)
[2021-06-21] MEDS: POTASSIUM CHLORIDE IN WATER 10 MEQ/100 ML PIGGYBACK 100 MEQ IV (23:47)
[2021-06-22] VITALS (92 sets, daily range): BP systolic 113–170; BP diastolic 77–107; PULSE 69–89; RESP 3–24; TEMP 36.2–37.3; O2SAT 97–100
--- NOTE | 2021-06-22 00:07 | PC.NURSE ---
Pt resting comfortably, tolerating mechanical ventilation. Remains on Precedex, propofol, and fentanyl drips for sedation with nicardepine for BP management. Pt noted to be alert on routine nursing care, squeezed my hand on command but was unable to open eyes. Breathing over vent. Dr Lagunas called to bedside, care discussed; Plan to keep pt heavily sedated to protect lines/tubes and for pt comfort. Fentanyl and proprfol drops titrated up. Repeat labs were drawn from PICC and sent to lab; Potassium came back critical low 2.7; Now repleting per order. Pt turned and respositioned, soft restraints checked. Oral care done.
[2021-06-22] MEDS: CHLORHEXIDINE GLUCONATE 15 ML CUP PO ×3 (00:12→14:14)
[2021-06-22] MEDS: dexmedeTOMIDine in 0.9 % NaCL 400 MCG/100 ML PLAST..BAG 25.6 MCG IV ×4 (00:49→13:09)
[2021-06-22 00:51] LABS: Thyroid Stimulating Hormone 1.53 uIU/mL (0.47-4.68)
[2021-06-22] MEDS: POTASSIUM CHLORIDE IN WATER 10 MEQ/100 ML PIGGYBACK 100 MEQ IV ×3 (00:51→03:04)
[2021-06-22] MEDS: fentaNYL 1,000 MCG in DEXTROSE 5% IN WATER 230 ML 34.133 ML IV (01:31)
--- NOTE | 2021-06-22 04:27 | PC.NURSE ---
Bed bath given, pt tolerated well. Minimally responsive on propofol, fentanyl, and precedex drips. LESLIE. Soft wrist restraints discontinued. ROM done. Hypoactive bowel tones present; OGT productive of small amounts brown gastric secretions to LIS. Abd soft/NT. Lungs CTA bilat. Oral care done. Resting comfortably on vent. Nicardepine drip off with BP 134/73; Dr Lagunas aware. Raza cath draining clear yellow urine. R arm PICC patent as well as PIV to LAC and RAC. K-Riders 40meq complete, will repeat labs this morning. [place] collar removed, pt repositioned for comfort. Skin intact.
[2021-06-22] MEDS: SODIUM CHLORIDE 0.9% 1,000 ML 150 ML IV ×2 (05:14→11:45)
[2021-06-22] MEDS: propofoL 1,000 MG/100 ML VIAL 14.336 MG IV (05:39)
[2021-06-22 06:08] LABS: Add Manual Diff / Slide Review NO; Basophils Absolute Auto 0 /uL (0-100); Basophils Percent Auto 0.3 % (0-2); Eosinophils Absolute Auto 0 /uL (0-450); Eosinophils Percent Auto 0.1 % (2-4); Hematocrit 31.7 % (36-46); Hemoglobin 10.6 g/dL (12.0-16.0); Lymphocytes Absolute Auto 1700 /uL (1100-4500); Lymphocytes Percent Auto 19.3 % (25-40); Mean Corpuscular HGB Conc 33.5 % (30-36); Mean Corpuscular Hemoglobin 30.9 PG (26-34); Monocytes Absolute Auto 400 /uL (0-900); Neutrophils Absolute Auto 6500 /uL (1500-7000); Neutrophils Percent Auto 75.3 % (50-75); Platelet Count 162 X10^3/uL (150-400); Red Blood Cell Count 3.45 X10^6/uL (4.0-5.2); Red Cell Distribution Width 13.1 % (11.6-14.8); White Blood Cell Count 8.7 X10^3/uL (4.5-11.0)
[2021-06-22 06:20] LABS: BUN Creatinine Ratio 12.7 (6-22); Blood Urea Nitrogen 7 mg/dL (7-17); Calcium 7.8 mg/dL (8.4-10.2); Carbon Dioxide 20 mmol/L (22-32); Chloride 113 mmol/L (98-107); Estimated Glomerular Filt Rate > 60.0 mL/min (>60); Glucose 127 mg/dL (70-100); HEMOLYSIS < 15 (0-50); Potassium 3.4 mmol/L (3.4-5.1); Sodium 137 mmol/L (137-145)
[2021-06-22] MEDS: fentaNYL 1,000 MCG in DEXTROSE 5% IN WATER 230 ML 34 ML IV (09:43)
--- NOTE | 2021-06-22 10:19 | PC.NURSE ---
received pt on vent Fio2, 25 percent. RR 20, TV 400, peep +5. pt is being suctioned occasionally for white secretions, ogt draining coffee ground to low intermittent suction. repositioning and turning patient every 2 hours. skin looks good, pt is on propofol, fentanyl, precedex and IVF's. pt is resting comfortably. vital signs stable. commutator repairer SR with no ectopy. manintaining oxygen saturation.
[2021-06-22] MEDS: propofoL 1,000 MG/100 ML VIAL 16.384 MG IV ×2 (11:32→13:47)
--- NOTE | 2021-06-22 12:58 | PC.NURSE ---
pt's wedding band removed from finger with hand cream. placed in a container and given to . hands are beginning to swell. took ring home.
[2021-06-22] MEDS: NICARDIPINE 25 MG in SODIUM CHLORIDE 0.9% 240 ML 25 ML IV (13:10)
--- NOTE | 2021-06-22 13:12 | PC.NURSE ---
Dr. kurtz aware of BP trending up. restarted Nicardipine gtt at 2.5 mg per hours. titrating per protocol .
[2021-06-22] MEDS: MIDAZOLAM 5 MG/ML VIAL IV (15:03)
--- NOTE | 2021-06-22 15:13 | PC.NURSE ---
drips as documented continued w/ ALNW. waste completed for purposes of IH documentation only.
== END 2021-06-22 15:30 | disposition short-term general hospital (02) ==
PROVIDERS: Emergency Medicine; Emergency Provider Emergency Medicine; Family Provider Family Medicine; PCP Family Medicine
DX: G35 Multiple sclerosis (principal); R41.0 Disorientation, unspecified; R45.1 Restlessness and agitation; I10 Essential (primary) hypertension; E87.6 Hypokalemia; Z20.822 Contact with and (suspected) exposure to COVID-19
CPT/HCPCS: 36415; 36569; 36600; 70450; 71045; 80048; 80053; 80305; 81001; 82805; 84443; 85025; 87635; 93005; 94002; 94799; 96361; 96365; 96366; 96367; 96368; 96375; 96376; 99285; 99291; 99292; C9803; J1200; J1630; J1642; J2250; J2704; J3010

== ENCOUNTER 2021-08-09 21:26 | Emergency (ER) | payer MEDICARE, SELFPAY ==
[2020-01-13 19:12] VITALS: BMI 19.1
[2021-06-22 13:19] VITALS: PULSE 73; RESP 23; RESP 3; O2SAT 99
[2021-08-09] VITALS (8 sets, daily range): BP systolic 166–222; BP diastolic 86–117; PULSE 73–78; RESP 13–24; TEMP 36.3; O2SAT 89–100; BMI 23.7
--- NOTE | 2021-08-09 22:20 | ED_ITS ---
HPI - General Adult General Chief complaint: Hypertension Stated complaint: BP high since in a coma Time Seen by Provider: 08/09/21 22:17 Source: patient Mode of arrival: Ambulatory History of Present Illness HPI narrative: 41-year-old female nonsmoker with history of MS reports that she has had slightly elevated blood pressures which have been creeping up for the past few weeks if not longer. She has had a mild achy headache that was generalized in nature and gradual in its onset. She denies blurred vision, trouble speech. She had some chest heaviness earlier today at which point she took her blood pressure and found it to be elevated in the 170s over 110s. She denies nausea, vomiting or diarrhea. She has had no change in her medications and has been taking them as previously directed. She denies any dietary change. Related Data Home Medications Medication Instructions Recorded Confirmed ibuprofen 600 mg tablet 600 mg PO TIDP PRN #0 11/27/10 01/13/20 lamotrigine 25 mg tablet (Lamictal) 250 mg PO DAILY #0 08/26/16 01/13/20 methylphenidate HCl 5 mg tablet 5 mg PO BID #0 08/26/16 01/13/20 acetaminophen 325 mg capsule 325 mg PO Q6H PRN 12/01/18 01/13/20 (Tylenol) atenolol 25 mg tablet 50 mg PO DAILY 12/01/18 01/13/20 baclofen 20 mg tablet 30 mg PO TID 12/01/18 01/13/20 bupropion HCl 150 mg 24 hr tablet, 150 mg PO QAM 12/01/18 01/13/20 extended release buspirone 30 mg tablet 30 mg PO BID tab 12/01/18 01/13/20 melatonin 5 mg capsule 5 mg PO BEDTIME cap 12/01/18 01/13/20 olanzapine 2.5 mg tablet 2.5 mg PO BEDTIME 12/01/18 01/13/20 topiramate 25 mg tablet (Topamax) 50 mg PO TID tab 12/01/18 01/13/20 trazodone 50 mg tablet 100 mg PO DAILY PRN 12/01/18 01/13/20 hydrochlorothiazide 25 mg tablet 25 mg PO DAILY 01/13/20 01/13/20 oxycodone 15 mg tablet 30 mg PO Q6H PRN 01/13/20 01/13/20 ropinirole 0.5 mg tablet 0.5 mg PO BEDTIME 01/13/20 01/13/20 tizanidine 4 mg tablet 8 mg PO BEDTIME 01/13/20 01/13/20 Previous Rx's Medication Instructions Recorded diazepam 5 mg tablet 5 mg PO BID PRN #30 tab 12/16/19 Allergies Allergy/AdvReac Type Severity Reaction Status Date / Time amitriptyline [AMITRIPTYLINE] Allergy Unknown Verified 06/21/21 11:03 gabapentin [GABAPENTIN] Allergy Unknown Verified 06/21/21 11:03 shayne [SHAYNE] Allergy Unknown Verified 06/21/21 11:03 Review of Systems Review of Systems Narrative: GENERAL: See HPI HEENT: Denies sinus pain, ear pain, sore throat, difficulty swallowing, dizziness. RESPIRATORY: See HPI CARDIOVASCULAR: See HPI GASTROINTESTINAL: See HPI : Denies dysuria, frequency, incontinence, hematuria, urinary retention. MUSCULOSKELETAL: denies weakness, joint pain, or bony pain SKIN: Denies rash, skin lesions, or other NEUROLOGIC: D see HPI PSYCHIATRIC: No concerning psychosocial issues. 12 point review of systems is negative except for those stated above Patient History Medical History HTN (hypertension) MS (multiple sclerosis) PTSD (post-traumatic stress disorder) Surgical History Bunion, right foot History of laparoscopy Family History Mother CVA (cerebral vascular accident) Diabetes type 2, uncontrolled Father Diabetes type 2, uncontrolled Social History household members: spouse Smoking Status: Never smoker alcohol intake: former Smoking Status: Never smoker alcohol intake frequency: 0-2 drinks per day Substance Use Type: does not use Exam Narrative Exam Narrative: GENERAL: [41 year old patient appears stated age. Well-developed patient, in mild distress. HEAD: Atraumatic. Normocephalic. EYES: Pupils equal round and reactive. Extraocular motions intact. No scleral icterus. No injection or drainage. ENT: Nose without bleeding, purulent drainage. Throat without erythema, tonsillar hypertrophy or exudate. Airway patent. NECK: Trachea midline. Non tender CARDIOVASCULAR: Regular rate and rhythm without murmurs, gallops, or rubs. RESPIRATORY: Clear to auscultation. Breath sounds equal bilaterally. No wheezes, rales, or rhonchi. GASTROINTESTINAL: Abdomen soft, non-tender, nondistended. EXTREMITIES: No edema or joint tenderness. BACK: Nontender without deformity or crepitance. No flank tenderness. NEURO: AOx3. SKIN: No rash or erythema of visible areas NIH Stroke Scale 1a. LOC: Patient is alert and keenly responsive (0) 1b. LOC Questions: Patient answers both LOC questions accurately (0) 1c. LOC Commands: Patient performs both tasks correctly (0) 2. Best Gaze: Normal (0) 3. Visual: No visual loss (0) 4. Facial palsy: Normal symmetrical movements (0) 5. Motor arm: No drift (0) 6. Motor leg: No drift (0) 7. Limb ataxia: Absent (0) 8. Sensory: Normal (0) 9. Best language: No aphasia; normal (0) 10. Dysarthria: Normal (0) 11. Extinction and inattention: No abnormality (0) NIHSS: 0 Initial Vital Signs Initial Vital Signs: Vital Signs Temperature 97.3 F L 08/09/21 21:33 Pulse Rate 78 08/09/21 21:33 Respiratory Rate 18 08/09/21 21:33 Blood Pressure 222/117 H 08/09/21 21:33 Pulse Oximetry 100 08/09/21 21:33 Course Orders Ordered: ED Orders 08/09/21 22:07 Complete Blood Count AUTO DIFF Stat Comprehensive Metabolic Panel Stat Lipase Stat NT-proBNP (BNP-Adult 18+) Stat Troponin & CK Cardiac Panel Stat Discontinued Medications Hydralazine HCl (Hydralazine 20 Mg/Ml Vial) 5 mg IV NOW ONE Stop: 08/09/21 23:46 Last Admin: 08/09/21 23:59 Dose: 5 mg Documented by: TANK Sodium Chloride (Normal Saline 0.9%) 1,000 mls @ 150 mls/hr IV CONT JANE Last Infusion: 08/10/21 00:49 Dose: 0 mls/hr Documented by: Admin: 08/09/21 22:52 Dose: 150 mls/hr Documented by: NEHA Vital Signs Vital signs: Vital Signs - 8 hr 08/09/21 21:33 08/09/21 22:10 08/09/21 22:11 Temperature 97.3 F L Pulse Rate 78 73 74 Respiratory Rate 18 13 16 Blood Pressure 222/117 H 203/107 H 203/107 H Pulse Oximetry 100 97 89 L 08/09/21 22:30 08/09/21 23:00 08/09/21 23:01 Temperature Pulse Rate 74 74 75 Respiratory Rate 24 20 20 Blood Pressure 171/97 H 166/97 H Pulse Oximetry 99 99 99 08/09/21 23:30 08/09/21 23:59 08/10/21 00:24 Temperature Pulse Rate 75 77 70 Respiratory Rate 17 18 Blood Pressure 178/108 H 190/86 H 176/90 H Pulse Oximetry 100 99 Medical Decision Making Lab Data Result diagrams: 08/09/21 22:07 08/09/21 22:07 Labs: Lab Results 08/09/21 08/09/21 Range/Units 22:07 22:07 WBC 5.7 (4.5-11.0) X10^3/uL RBC 4.24 (4.0-5.2) X10^6/uL Hgb 12.6 (12.0-16.0) g/dL Hct 38.2 (36-46) % MCV 90.1 (80-100) fL MCH 29.8 (26-34) PG MCHC 33.1 (30-36) % RDW 13.0 (11.6-14.8) % Plt Count 331 (150-400) X10^3/uL Neut % (Auto) 60.1 (50-75) % Lymph % (Auto) 28.6 (25-40) % [place] % (Auto) 8.5 (3-14) % Eos % (Auto) 2.1 (2-4) % Baso % (Auto) 0.7 (0-2) % Neut # (Auto) 3400 (1776-5607) /uL Lymph # (Auto) 1600 (4102-8140) /uL [place] # (Auto) 500 (0-900) /uL Eos # (Auto) 100 (0-450) /uL Baso # (Auto) 0 (0-100) /uL Sodium 137 (137-145) mmol/L Potassium 3.4 (3.4-5.1) mmol/L Chloride 102 (98-107) mmol/L Carbon Dioxide 28 (22-32) mmol/L BUN 18 H (7-17) mg/dL Creatinine 1.09 H (0.52-1.04) mg/dL Estimated GFR 54.8 L (>60) mL/min BUN/Creatinine Ratio 16.5 (6-22) Glucose 102 H (70-100) mg/dL Calcium 9.3 (8.4-10.2) mg/dL Total Bilirubin 0.5 (0.2-1.3) mg/dL AST 38 H (14-36) IU/L ALT 58 H (<35) IU/L Alkaline Phosphatase 91 (38-126) U/L Total Creatine Kinase 44 (30-135) U/L CK-MB (CK-2) TNP CK-MB (CK-2) Rel Index TNP Troponin I < 0.012 (0.01-0.034) ng/mL NT-Pro-B Natriuret Pep 225 H (<125) pg/mL Total Protein 8.4 H (6.3-8.2) g/dL Albumin 4.9 (3.5-5.0) g/dL Globulin 3.5 (1.7-4.1) g/dL Albumin/Globulin Ratio 1.4 (1.0-2.8) Lipase 81 (23-300) U/L MDM Narrative Medical decision making narrative: Multiple etiologies for patient's symptoms considered including: [Hypertensive issues versus MS exacerbation versus cardiac ischemia versus other Multiple causes of chest pain considered including VT, PE, pneumothorax, pneumonia, aortic dissection, and pleurisy. Patient reports no radiation, no diaphoresis, no provocation with exertion, and no vomiting Patient's symptoms improved over duration of stay with above-stated therapies. Findings and discharge diagnosis discussed with patient/family followed by verbalization of understanding Return precautions discussed with patient/family whom verbalize understanding. Discharge Plan Departure Patient Disposition: Home Clinical Impression: HTN (hypertension) Instructions: DI for High Blood Pressure Activity Restrictions/Additional Instructions: *You have been diagnosed with [Hypertension ] *What to do: *Please continue to take your regular medications as directed. Please continue taking your Atenolol twice daily and follow closely with your doctor. [ ] New medication prescriptions sent to your pharmacy: [ ] [ ] New medication written as a paper prescription [ ] No new medications given *Please follow up with your primary care provider in 2-3 days, call for an nanda ointment. Let them know you were seen in the Emergency Department and that we ask that you be seen in follow up. We will electronically transmit a record of today's note if your PCP is in our system *If you do not have a primary care provider please contact the [facility] Resource line at [phone]. They will ask some questions about your medical history and help get you set up with a doctor in the community. *Return to Emergency Department if you should have any new, worsening or con cerning symptoms, such as [fever greater than 101 F, shaking chills, worsening pain, persistent vomiting or other bothersome symptoms] Prescriptions: No Action atenolol 25 mg tablet 50 mg PO DAILY 0RF bupropion HCl 150 mg tablet extended release 24 hr 150 mg PO QAM 0RF buspirone 30 mg tablet 30 mg PO BID 0RF baclofen 20 mg tablet 30 mg PO TID 0RF trazodone 50 mg tablet 100 mg PO DAILY PRN (Reason: Insomnia) 0RF olanzapine 2.5 mg tablet 2.5 mg PO BEDTIME 0RF Rx Instructions: No longer taking topiramate [Topamax] 25 mg tablet 50 mg PO TID 0RF melatonin 5 mg capsule 5 mg PO BEDTIME 0RF acetaminophen [Tylenol] 325 mg capsule 325 mg PO Q6H PRN (Reason: Pain (Scale Score 1-3)) 0RF ibuprofen 600 MG tablet 600 mg PO TIDP PRN (Reason: Pain (Scale Score 1-3)) Qty: 0 0RF methylphenidate HCl 5 MG tablet 5 mg PO BID Qty: 0 0RF lamotrigine [Lamictal] 25 MG tablet 250 mg PO DAILY Qty: 0 0RF tizanidine 4 mg Tablet 8 mg PO BEDTIME 0RF oxycodone 15 mg Tablet 30 mg PO Q6H PRN (Reason: Pain (Scale Score 7-10)) 0RF hydrochlorothiazide 25 mg Tablet 25 mg PO DAILY 0RF ropinirole 0.5 mg Tablet 0.5 mg PO BEDTIME 0RF diazepam 5 mg tablet 5 mg PO BID PRN (Reason: muscle spasm) Qty: 30 0RF Label Comments: No longer taking Referrals: Mona Weinstein, [Primary Care Provider] -
[2021-08-09 22:34] LABS: Add Manual Diff / Slide Review NO; Basophils Absolute Auto 0 /uL (0-100); Basophils Percent Auto 0.7 % (0-2); Eosinophils Absolute Auto 100 /uL (0-450); Eosinophils Percent Auto 2.1 % (2-4); Hematocrit 38.2 % (36-46); Hemoglobin 12.6 g/dL (12.0-16.0); Lymphocytes Absolute Auto 1600 /uL (1100-4500); Lymphocytes Percent Auto 28.6 % (25-40); Mean Corpuscular HGB Conc 33.1 % (30-36); Mean Corpuscular Hemoglobin 29.8 PG (26-34); Mean Corpuscular Volume 90.1 fL (80-100); Monocytes Absolute Auto 500 /uL (0-900); Monocytes Percent Auto 8.5 % (3-14); Neutrophils Absolute Auto 3400 /uL (1500-7000); Neutrophils Percent Auto 60.1 % (50-75); Platelet Count 331 X10^3/uL (150-400); Red Blood Cell Count 4.24 X10^6/uL (4.0-5.2); White Blood Cell Count 5.7 X10^3/uL (4.5-11.0)
[2021-08-09 22:37] LABS: Alanine Aminotransferase 58 IU/L (<35); Albumin 4.9 g/dL (3.5-5.0); Albumin Globulin Ratio 1.4 (1.0-2.8); Alkaline Phosphatase 91 U/L (38-126); Aspartate Aminotransferase 38 IU/L (14-36); BUN Creatinine Ratio 16.5 (6-22); Bilirubin Total 0.5 mg/dL (0.2-1.3); Blood Urea Nitrogen 18 mg/dL (7-17); Calcium 9.3 mg/dL (8.4-10.2); Carbon Dioxide 28 mmol/L (22-32); Chloride 102 mmol/L (98-107); Creatine Kinase 44 U/L (30-135); Estimated Glomerular Filt Rate 54.8 mL/min (>60); Globulin 3.5 g/dL (1.7-4.1); Glucose 102 mg/dL (70-100); HEMOLYSIS < 15 (0-50); Lipase 81 U/L (23-300); Potassium 3.4 mmol/L (3.4-5.1); Sodium 137 mmol/L (137-145); Total Protein 8.4 g/dL (6.3-8.2)
[2021-08-09 22:49] LABS: NT-proBNP (BNP-Adult 18+) 225 pg/mL (<125); Troponin I < 0.012 ng/mL (0.01-0.034)
[2021-08-09] MEDS: SODIUM CHLORIDE 0.9% 1,000 ML 150 ML IV (22:52)
[2021-08-09] MEDS: HYDRALAZINE 20 MG/ML VIAL 5 MG IV (23:59)
[2021-08-10 00:24] VITALS: BP 176/90; PULSE 70; RESP 18; O2SAT 99
== END 2021-08-10 00:50 | disposition home or self-care (01) ==
PROVIDERS: Emergency Provider Emergency Medicine; Family Provider Family Medicine; PCP Family Medicine
DX: I10 Essential (primary) hypertension (principal)
CPT/HCPCS: 36415; 80053; 82550; 83690; 83880; 84484; 85025; 93005; 96361; 96374; 99284; J0360

== ENCOUNTER 2021-08-15 22:27 | Observation (INO) | payer MEDICARE, SELFPAY ==
[2020-01-13 19:12] VITALS: BMI 19.1
[2021-06-22 13:19] VITALS: PULSE 73; RESP 23; RESP 3; O2SAT 99
[2021-08-15 22:27] VITALS: BP 84/52; PULSE 72; RESP 18; TEMP 36.3; O2SAT 97; BMI 23.3
--- NOTE | 2021-08-15 22:35 | DI.RAD.S_ITS ---
PROCEDURE: XR CHEST 1V INDICATIONS: chest pain TECHNIQUE: One view of the chest was acquired. COMPARISON: [facility], , XR CHEST FOR PICC 1V, 06/21/2021, 17:07. FINDINGS: Surgical changes and devices: None. Lungs and pleura: Lungs are clear. No pleural effusions or pneumothorax. Mediastinum: Mediastinal contours appear normal. Heart size is normal. Bones and chest wall: No suspicious bony lesions. Overlying soft tissues appear unremarkable. IMPRESSION: No acute process. Dictated by: Jose D Ghotra M.D. on 08/15/2021 at 23:38 Approved by: Jose D Ghotra M.D. on 08/15/2021 at 23:39
[2021-08-15 22:40] VITALS: PULSE 69; O2SAT 98
[2021-08-15 22:50] LABS: Add Manual Diff / Slide Review NO; Basophils Absolute Auto 100 /uL (0-100); Basophils Percent Auto 0.7 % (0-2); Eosinophils Absolute Auto 100 /uL (0-450); Eosinophils Percent Auto 0.6 % (2-4); Hematocrit 35.2 % (36-46); Hemoglobin 11.9 g/dL (12.0-16.0); Lymphocytes Absolute Auto 1600 /uL (1100-4500); Lymphocytes Percent Auto 17.3 % (25-40); Mean Corpuscular HGB Conc 33.9 % (30-36); Mean Corpuscular Hemoglobin 29.9 PG (26-34); Mean Corpuscular Volume 88.1 fL (80-100); Monocytes Absolute Auto 700 /uL (0-900); Monocytes Percent Auto 7.3 % (3-14); Neutrophils Absolute Auto 6800 /uL (1500-7000); Neutrophils Percent Auto 74.1 % (50-75); Platelet Count 362 X10^3/uL (150-400); Red Blood Cell Count 3.99 X10^6/uL (4.0-5.2); Red Cell Distribution Width 12.9 % (11.6-14.8); White Blood Cell Count 9.2 X10^3/uL (4.5-11.0)
--- NOTE | 2021-08-15 22:50 | PC.NURSE ---
drawn per EMS
[2021-08-15 22:52] LABS: Prothrombin Time 10.8 SECONDS (10.1-12.7)
[2021-08-15] MEDS: SODIUM CHLORIDE 0.9% 1,000 ML 150 ML IV (22:52)
[2021-08-15 22:56] LABS: D Dimer < 200 ng/mL (<230)
--- NOTE | 2021-08-15 22:57 | ED.CHESTPAIN ---
HPI - Chest Pain General Chief Complaint: Chest Pain Stated Complaint: chest pain Time Seen by Provider: 08/15/21 22:29 Source: patient and EMS Mode of arrival: EMS History of Present Illness HPI narrative: 41-year-old female nonsmoker with history of MS reports that she has had?some anterior chest pressure for the past few hours, she states that started while at rest in sits in the center of her chest. She states that it worsens with deep breath and seems to improve with rest. She denies any radiation of her discomfort. She is not dizzy nor weak or lightheaded denies any shortness of breath. She states that she had recently started amlodipine 5 mg and took her 1st dose yesterday, 2nd dose tonight. She noticed her blood pressure at home reading in the 70s and 80s and this along with her pain prompted a call to EMS. She has already had a full dose aspirin. She denies any other change in her medications or diet. She denies any recent long distance travel. Related Data Home Medications Medication Instructions Recorded Confirmed ibuprofen 600 mg tablet 600 mg PO TIDP PRN #0 11/27/10 08/15/21 lamotrigine 25 mg tablet (Lamictal) 300 mg PO DAILY #0 08/26/16 08/15/21 methylphenidate HCl 5 mg tablet 20 mg PO DAILY #0 08/26/16 08/15/21 acetaminophen 325 mg capsule 325 mg PO Q6H PRN 12/01/18 08/15/21 (Tylenol) atenolol 25 mg tablet 50 mg PO DAILY 12/01/18 08/15/21 baclofen 20 mg tablet 30 mg PO TID 12/01/18 08/15/21 bupropion HCl 150 mg 24 hr tablet, 150 mg PO QAM 12/01/18 08/15/21 extended release buspirone 30 mg tablet 30 mg PO BID tab 12/01/18 08/15/21 melatonin 5 mg capsule 5 mg PO BEDTIME cap 12/01/18 08/15/21 olanzapine 2.5 mg tablet 2.5 mg PO BEDTIME 12/01/18 01/13/20 topiramate 25 mg tablet (Topamax) 50 mg PO TID tab 12/01/18 08/15/21 trazodone 50 mg tablet 100 mg PO DAILY PRN 12/01/18 08/15/21 hydrochlorothiazide 25 mg tablet 25 mg PO DAILY 01/13/20 08/15/21 oxycodone 15 mg tablet 30 mg PO Q6H PRN 01/13/20 08/15/21 ropinirole 0.5 mg tablet 0.5 mg PO BEDTIME 01/13/20 01/13/20 tizanidine 4 mg tablet 8 mg PO BEDTIME 01/13/20 08/15/21 duloxetine 30 mg capsule,delayed 90 mg PO DAILY 08/15/21 08/15/21 release ketamine 08/15/21 Previous Rx's Medication Instructions Recorded diazepam 5 mg tablet 5 mg PO BID PRN #30 tab 12/16/19 Allergies Allergy/AdvReac Type Severity Reaction Status Date / Time amitriptyline [AMITRIPTYLINE] Allergy Unknown Verified 08/15/21 22:32 fluoxetine Allergy Unknown Verified 08/15/21 22:32 gabapentin [GABAPENTIN] Allergy Unknown Verified 08/15/21 22:32 shayne [SHAYNE] Allergy Unknown Verified 08/15/21 22:32 Review of Systems Review of Systems Narrative: GENERAL: Denies chills, fatigue, malaise, fever, sweats. HEENT: Denies sinus pain, ear pain, sore throat, difficulty swallowing, dizziness. RESPIRATORY: Denies dyspnea, cough, wheezing, hemoptysis, sputum. CARDIOVASCULAR: See HPI GASTROINTESTINAL: Denies nausea, vomiting, abdominal pain, diarrhea, constipation, melena. : Denies dysuria, frequency, incontinence, hematuria, urinary retention. MUSCULOSKELETAL: denies weakness, joint pain, or bony pain SKIN: Denies rash, skin lesions, or other NEUROLOGIC: Denies weakness, headache, numbness, change in speech, confusion, seizures, incoordination. PSYCHIATRIC: No concerning psychosocial issues. 12 point review of systems is negative except for those stated above Patient History Medical History (Updated 08/16/21 @ 01:27 by Miky Sánchez DO) HTN (hypertension) MS (multiple sclerosis) PTSD (post-traumatic stress disorder) Surgical History Bunion, right foot History of laparoscopy Family History Mother CVA (cerebral vascular accident) Diabetes type 2, uncontrolled Father Diabetes type 2, uncontrolled Social History household members: spouse Smoking Status: Never smoker alcohol intake: former Smoking Status: Never smoker alcohol intake frequency: a few times a month Substance Use Type: does not use Exam Narrative Exam Narrative: GENERAL: [41 year old patient appears stated age. Well-developed patient, in mild distress. HEAD: Atraumatic. Normocephalic. EYES: Pupils equal round and reactive. Extraocular motions intact. No scleral icterus. No injection or drainage. ENT: Nose without bleeding, purulent drainage. Throat without erythema, tonsillar hypertrophy or exudate. Airway patent. NECK: Trachea midline. Non tender CARDIOVASCULAR: Regular rate and rhythm without murmurs, gallops, or rubs. RESPIRATORY: Clear to auscultation. Breath sounds equal bilaterally. No wheezes, rales, or rhonchi. GASTROINTESTINAL: Abdomen soft, non-tender, nondistended. EXTREMITIES: No edema or joint tenderness. BACK: Nontender without deformity or crepitance. No flank tenderness. NEURO: AOx3. SKIN: No rash or erythema of visible areas Initial Vital Signs Initial Vital Signs: Vital Signs Temperature 97.4 F L 08/15/21 22:27 Pulse Rate 72 08/15/21 22:27 Respiratory Rate 18 08/15/21 22:27 Blood Pressure 84/52 L 08/15/21 22:27 Pulse Oximetry 97 08/15/21 22:27 Course Orders Ordered: ED Orders 08/15/21 22:30 Complete Blood Count AUTO DIFF Stat Comprehensive Metabolic Panel Stat D Dimer Stat Lipase Stat NT-proBNP (BNP-Adult 18+) Stat Prothrombin Time INR Stat Troponin & CK Cardiac Panel Stat 08/15/21 22:35 XR chest 1V Stat EKG-12 Lead Stat 08/15/21 22:37 EKG-12 Lead Stat 08/16/21 00:35 Troponin & CK Cardiac Panel Stat Sodium Chloride (Normal Saline 0.9%) 1,000 mls @ 150 mls/hr IV CONT JANE Last Admin: 08/15/21 22:52 Dose: 150 mls/hr Documented by: JACKY Discontinued Medications Aspirin (Aspirin 81 Mg Chew Tab) 324 mg PO NOW ONE Stop: 08/15/21 22:35 Last Admin: 08/15/21 22:45 Dose: Not Given Documented by: RUBIO Ketorolac Tromethamine (Ketorolac 30 Mg/Ml Vial) 15 mg IV NOW ONE Stop: 08/16/21 00:09 Last Admin: 08/16/21 00:24 Dose: 15 mg Documented by: Methylprednisolone (Methylprednisolone 125 Mg/2 Ml Vial) 125 mg IV NOW ONE Stop: 08/16/21 00:09 Last Admin: 08/16/21 00:24 Dose: 125 mg Documented by: Vital Signs Vital signs: Vital Signs - 8 hr 08/15/21 22:27 08/15/21 22:40 08/15/21 23:00 Temperature 97.4 F L Pulse Rate 72 69 65 Respiratory Rate 18 Blood Pressure 84/52 L Pulse Oximetry 97 98 98 08/15/21 23:30 08/15/21 23:37 08/16/21 00:00 Temperature Pulse Rate 74 71 67 Respiratory Rate 16 Blood Pressure 91/61 95/54 L Pulse Oximetry 98 99 98 08/16/21 00:30 08/16/21 01:00 Temperature Pulse Rate 66 72 Respiratory Rate 22 19 Blood Pressure 126/71 112/58 L Pulse Oximetry 99 98 MDM - Chest Pain Lab Data Result diagrams: 08/15/21 22:30 08/15/21 22:30 Labs: Lab Results 08/15/21 08/15/21 08/15/21 Range/Units 22:30 22:30 22:30 WBC 9.2 (4.5-11.0) X10^3/uL RBC 3.99 L (4.0-5.2) X10^6/uL Hgb 11.9 L (12.0-16.0) g/dL Hct 35.2 L (36-46) % MCV 88.1 (80-100) fL MCH 29.9 (26-34) PG MCHC 33.9 (30-36) % RDW 12.9 (11.6-14.8) % Plt Count 362 (150-400) X10^3/uL Neut % (Auto) 74.1 (50-75) % Lymph % (Auto) 17.3 L (25-40) % Delta % (Auto) 7.3 (3-14) % Eos % (Auto) 0.6 L (2-4) % Baso % (Auto) 0.7 (0-2) % Neut # (Auto) 6800 (1820-5735) /uL Lymph # (Auto) 1600 (7787-3363) /uL Delta # (Auto) 700 (0-900) /uL Eos # (Auto) 100 (0-450) /uL Baso # (Auto) 100 (0-100) /uL PT 10.8 (10.1-12.7) SECONDS INR 1.0 (0.9-1.3) D-Dimer < 200 (<230) ng/mL Sodium (137-145) mmol/L Potassium (3.4-5.1) mmol/L Chloride (98-107) mmol/L Carbon Dioxide (22-32) mmol/L BUN (7-17) mg/dL Creatinine (0.52-1.04) mg/dL Estimated GFR (>60) mL/min BUN/Creatinine Ratio (6-22) Glucose (70-100) mg/dL Calcium (8.4-10.2) mg/dL Total Bilirubin (0.2-1.3) mg/dL AST (14-36) IU/L ALT (<35) IU/L Alkaline Phosphatase (38-126) U/L Total Creatine Kinase (30-135) U/L CK-MB (CK-2) CK-MB (CK-2) Rel Index Troponin I (0.01-0.034) ng/mL NT-Pro-B Natriuret Pep 298 H (<125) pg/mL Total Protein (6.3-8.2) g/dL Albumin (3.5-5.0) g/dL Globulin (1.7-4.1) g/dL Albumin/Globulin Ratio (1.0-2.8) Lipase (23-300) U/L 08/15/21 08/16/21 Range/Units 22:30 00:28 WBC (4.5-11.0) X10^3/uL RBC (4.0-5.2) X10^6/uL Hgb (12.0-16.0) g/dL Hct (36-46) % MCV (80-100) fL MCH (26-34) PG MCHC (30-36) % RDW (11.6-14.8) % Plt Count (150-400) X10^3/uL Neut % (Auto) (50-75) % Lymph % (Auto) (25-40) % Delta % (Auto) (3-14) % Eos % (Auto) (2-4) % Baso % (Auto) (0-2) % Neut # (Auto) (4791-1893) /uL Lymph # (Auto) (3211-5907) /uL Delta # (Auto) (0-900) /uL Eos # (Auto) (0-450) /uL Baso # (Auto) (0-100) /uL PT (10.1-12.7) SECONDS INR (0.9-1.3) D-Dimer (<230) ng/mL Sodium 138 (137-145) mmol/L Potassium 3.7 (3.4-5.1) mmol/L Chloride 103 (98-107) mmol/L Carbon Dioxide 26 (22-32) mmol/L BUN 22 H (7-17) mg/dL Creatinine 1.23 H (0.52-1.04) mg/dL Estimated GFR 47.7 L (>60) mL/min BUN/Creatinine Ratio 17.9 (6-22) Glucose 129 H (70-100) mg/dL Calcium 9.7 (8.4-10.2) mg/dL Total Bilirubin 0.5 (0.2-1.3) mg/dL AST 50 H (14-36) IU/L ALT 47 H (<35) IU/L Alkaline Phosphatase 91 (38-126) U/L Total Creatine Kinase 61 50 (30-135) U/L CK-MB (CK-2) TNP TNP CK-MB (CK-2) Rel Index TNP TNP Troponin I 0.041 H 0.024 (0.01-0.034) ng/mL NT-Pro-B Natriuret Pep (<125) pg/mL Total Protein 7.9 (6.3-8.2) g/dL Albumin 4.6 (3.5-5.0) g/dL Globulin 3.3 (1.7-4.1) g/dL Albumin/Globulin Ratio 1.4 (1.0-2.8) Lipase 106 (23-300) U/L MDM Narrative Medical decision making narrative: Patient presents with chest pain that started at rest, she has been here a few times recently with labile blood pressures. She's recently been started on Amlodipine and tonight had significant hypotension. Her EKGs are nonischemic, 1st troponin was indeterminate and second was negative, she does have a bump in creatinine as well. PE considered unlikely given negative d dimer. Patient will require hospitalization for ongoing evaluation and stabilization of her condition. Discharge Plan Departure Patient Disposition: Admitted as Observation Clinical Impression: MS (multiple sclerosis), Chest pain
[2021-08-15 22:58] LABS: Alanine Aminotransferase 47 IU/L (<35); Albumin 4.6 g/dL (3.5-5.0); Albumin Globulin Ratio 1.4 (1.0-2.8); Alkaline Phosphatase 91 U/L (38-126); Aspartate Aminotransferase 50 IU/L (14-36); BUN Creatinine Ratio 17.9 (6-22); Bilirubin Total 0.5 mg/dL (0.2-1.3); Blood Urea Nitrogen 22 mg/dL (7-17); Calcium 9.7 mg/dL (8.4-10.2); Carbon Dioxide 26 mmol/L (22-32); Chloride 103 mmol/L (98-107); Creatine Kinase 61 U/L (30-135); Estimated Glomerular Filt Rate 47.7 mL/min (>60); Globulin 3.3 g/dL (1.7-4.1); Glucose 129 mg/dL (70-100); HEMOLYSIS < 15 (0-50); Lipase 106 U/L (23-300); Potassium 3.7 mmol/L (3.4-5.1); Sodium 138 mmol/L (137-145); Total Protein 7.9 g/dL (6.3-8.2)
[2021-08-15 23:00] VITALS: PULSE 65; O2SAT 98
[2021-08-15 23:08] LABS: NT-proBNP (BNP-Adult 18+) 298 pg/mL (<125)
[2021-08-15 23:10] LABS: Troponin I 0.041 ng/mL (0.01-0.034)
--- NOTE | 2021-08-15 23:23 | PC.NURSE ---
pt started having a fullness in her chest after taking her amlodipine today, this is a new med for her to tx her htn
[2021-08-15 23:30] VITALS: PULSE 74; O2SAT 98
[2021-08-15 23:37] VITALS: BP 91/61; PULSE 71; O2SAT 99
--- NOTE | 2021-08-15 23:46 | PC.NURSE ---
Pt reports her chest pain is now spreading from Left chest to across her chest. Dr Sánchez notified. Repeat EKG/trop ordered.
[2021-08-16] VITALS (10 sets, daily range): BP systolic 95–151; BP diastolic 54–77; PULSE 66–114; RESP 16–97; TEMP 36.3–37.1; O2SAT 94–100; BMI 23.3
[2021-08-16] MEDS: methylPREDNISolone 125 MG/2 ML VIAL IV (00:24)
[2021-08-16] MEDS: KETOROLAC 30 MG/ML VIAL 15 MG IV (00:24)
[2021-08-16 00:47] LABS: Creatine Kinase 50 U/L (30-135)
[2021-08-16 01:00] LABS: Troponin I 0.024 ng/mL (0.01-0.034)
[2021-08-16 01:53] LABS: COVID19 -Nasal RAPID Negative (Negative)
--- NOTE | 2021-08-16 01:57 | DI.ECHO.S_ITS ---
[facility]---------+ [facility] +---------+ : : [address] [place] [address] : : : : [id number] : : : : Phone: [phone] Echocardiogram Report + + :Name: RAVEN CLAROS Study Date: 08/16/2021 Height: 63.5 in: :[facility] ReadingLocation: Weight: 134 lb : : Gender: Female BSA: 1.6 m2 : :: 1980 Age: 41 yrs BP: 151/69 mmHg: :Reason For Study: CHEST PAIN : :Ordering Physician: David CARSONformed By: Cait Leiva : :Referring: SONIA CARSON : + + Interpretation Summary Normal left ventricle size with ejection fraction 60-65%. Mildly dilated left atrium. No valvular abnormality. Procedure: A two-dimensional transthoracic echocardiogram with color flow and Doppler was performed. There is no prior echocardiogram noted for this patient. The patient was in sinus rhythm with heart rates between 75-98 bpm during the exam. Left Ventricle: The left ventricle appears normal in size, wall thickness, and systolic function without any focal wall motion abnormalities. The ejection fraction is estimated to be 60-65%. Right Ventricle: The right ventricle is normal in size and function. Atria: The left atrium is mildly dilated. Right atrial size is normal. There is no Doppler evidence for an interatrial shunt. Mitral Valve: The mitral valve is normal in structure and function. There is trace mitral regurgitation. Aortic Valve: The aortic valve is trileaflet. The aortic valve opens well. There is no aortic valve stenosis. No aortic regurgitation is present. Tricuspid Valve: The tricuspid valve is normal in structure and function. There is trace tricuspid regurgitation. Pulmonic Valve: The pulmonic valve leaflets are thin and pliable; valve motion is normal. There is no pulmonic valvular regurgitation. Great Vessels: The aortic root is normal size. The dimensions of the ascending aorta are normal. The IVC is of normal diameter and collapses greater than 50% with a sniff. This suggests a low right atrial pressure of 3 mm Hg. Pericardium/ Pleura There is no pericardial effusion. There is no pleural effusion. MMode/2D Measurements & Calculations LVIDd: 4.8 cm LVOT diam: 1.9 cm LVIDs: 3.3 cm Ao root diam: 3.0 cm FS: 32.1 % asc Aorta Diam: 2.9 cm IVSd: 0.94 cm Ao Arch Diam (Prox Trans): 2.8 cm LVPWd: 0.87 cm LV bhat. diameter/BSA (cm/m^2): 2.9 LV sys. diameter/BSA (cm/m^2): 2.0 LA A2 area: 23.9 cm2 RA long axis: 4.9 cm LA A4 area: 24.3 cm2 RA area: 13.8 cm2 LA length (vol): 5.8 cm RA vol: 33.3 ml LA vol: 84.9 ml RA : 20.3 ml/m2 LA vol index: 51.8 ml/m2 IVC diam: 1.7 cm RVD1 (basal): 3.4 cm TAPSE: 2.2 cm Doppler Measurements & Calculations Ao V2 max: 156.1 cm/sec LVOT Max Viraj: 104.8 cm/sec Ao V2 mean: 104.2 cm/sec LV V1 max P.4 mmHg Ao max P.7 mmHg LV V1 VTI: 22.6 cm Ao mean P.0 mmHg ZOYA(I,D): 2.2 cm2 Ao V2 VTI: 30.5 cm ZOYA(V,D): 2.0 cm2 sev ratio: 0.74 ZOYA indexed to BSA (cm^2/m^2): 1.3 MV E max viraj: 72.8 cm/sec PA V2 max: 116.1 cm/sec MV A max viraj: 71.9 cm/sec PA V2 mean: 82.4 cm/sec MV E/A: 1.0 PA mean P.0 mmHg Med Peak E' Viraj: 10.0 cm/sec PA pr(Accel): 24.2 mmHg E/E' med: 7.3 Lat Peak E' Viraj: 13.1 cm/sec E/E' lat: 5.6 E/e' average: 6.4 MV dec time: 0.21 sec SV(LVOT): 66.9 ml Electronically signed by: Lilian Diane on Reading Physician:08/16/2021 02:04 PM
[2021-08-16] MEDS: NITROGLYCERIN 0.4 MG SL TAB SL ×2 (02:26→02:43)
[2021-08-16] MEDS: SODIUM CHLORIDE 0.9% 1,000 ML 100 ML IV (02:27)
--- NOTE | 2021-08-16 02:51 | PC.ADMIT ---
[email or web address] [facility] Admission Note: Patient admitted to unit from ED. Walked from wheelchair to bed with a cane. Patient reported chest pain present on initial assessment stating, It feels like the pressure from taking a deep breath, but it never went away. Like a block of concrete on my chest. Denies nausea and vomiting. Stated headache, mild dizziness, and diaphoresis present. Two tablets of Nitro administered which resolved chest pain. Patient having an animated conversation with hospitalist during Nitro tablet administrations. Now resting comfortably in bed. The patient,Keesha Cardenas,41 y/o, was given written information regarding hospital policies, unit procedures and contact persons. Patient's smoking status: Never smoker. Vital Signs - 8 hr 08/15/21 22:27 08/15/21 22:40 08/15/21 23:00 Temperature 97.4 F L Pulse Rate 72 69 65 Respiratory Rate 18 Blood Pressure 84/52 L Pulse Oximetry 97 98 98 08/15/21 23:30 08/15/21 23:37 08/16/21 00:00 Temperature Pulse Rate 74 71 67 Respiratory Rate 16 Blood Pressure 91/61 95/54 L Pulse Oximetry 98 99 98 08/16/21 00:30 08/16/21 01:00 08/16/21 02:15 Temperature 97.4 F L Pulse Rate 66 72 83 Respiratory Rate 22 19 18 Blood Pressure 126/71 112/58 L 151/69 H Pulse Oximetry 99 98 99 08/16/21 02:26 Temperature Pulse Rate 83 Respiratory Rate Blood Pressure 151/69 H Pulse Oximetry
--- NOTE | 2021-08-16 03:03 | P.HP_ITS ---
History of Present Illness History of Present Illness Date Patient Seen: 08/16/21 Time Patient Seen: 03:04 Chief complaint: chest pain Narrative: Keesha Cardenas is a 41-year-old female with a history of multiple sclerosis currently receiving twice yearly infusions of Ocrelizumab presented to the ED with headache, dizziness and chest pain/pressure like a brick sitting on my chest. States she started having bouts of high blood pressure in April of 2021. She was recently put on amlodipine 5 mg during the day. Initially she thought that her which were due to pain from her multiple sclerosis. She finds that at nighttime her blood pressure is on the low side around 80s over 60s. When she wakes up in the morning her systolic blood pressures range anywhere from the 150s to over 200. She is currently experiencing diaphoresis in the room, she denies fever chills, she does have a headache that she normally takes Topamax 4, she denies nausea or vomiting, dysuria, or diarrhea. She does endorse only having bowel movements anywhere from 5-7 days and this has been present since she was a child now worsened with the medication she takes. She states with the infusions that she started 2 years ago she has been able to significantly reduce her opioid load. She does take OxyContin 15 mg, up to 8 now half pills per day. She states that previous to the infusions she was taking up to 18 pills a day. She apparently sees a pain specialist. X-ray ordered in the emergency department was negative for any acute cardiopulmonary process. Currently she is afebrile, blood pressure 151/69 heart rate 83 respiratory rate 18 oxygen saturation is 99% on room air she weighs 60.7 kg with a BMI of 23.3. She is slightly anemic with a hemoglobin of 11.9 hemat ocrit of 35.2 platelet count 362, she has a creatinine bump of 1.23 which is a little higher than her normal with an EGFR 47.7, glucose is 129, AST 50, ALT 47, proBNP is mildly elevated at 298, a mildly elevated troponin at 0.041 which is now normalized on the 2nd draw. COVID-19 PCR is negative. She was administered SL nitroglycerine while on the floor, stated her pain was cut in half after the first dose. At that time she denied having a headache. In June of this year she presented to the emergency department with acute delirium, needed to be intubated to protect her airway and was transferred to [facility] intensive care unit then transferred to their neurology service for workup of an acute metabolic encephalopathy. Patient History Medical History (Updated 08/16/21 @ 03:47 by EMILY Alvarez) HTN (hypertension) Hx of optic neuritis MS (multiple sclerosis) PTSD (post-traumatic stress disorder) Surgical History Bunion, right foot History of laparoscopy Family & Social History Family History Mother CVA (cerebral vascular accident) Diabetes type 2, uncontrolled Father Diabetes type 2, uncontrolled Social History: household members spouse Safety & Behavioral: Feels Safe in Current Yes Environment Been Physically Hurt or No Threatened By a Person Tobacco & Substance use: Smoking Status Never smoker alcohol intake former alcohol intake frequency a few times a month Substance Use Type does not use Meds Home Medications and Allergies Home Medications Medication Instructions Recorded Confirmed Type ibuprofen 600 mg tablet 600 mg PO TIDP PRN #0 11/27/10 08/15/21 History lamotrigine 25 mg tablet (Lamictal) 300 mg PO DAILY #0 08/26/16 08/15/21 History methylphenidate HCl 5 mg tablet 20 mg PO DAILY #0 08/26/16 08/15/21 History acetaminophen 325 mg capsule 325 mg PO Q6H PRN 12/01/18 08/15/21 History (Tylenol) atenolol 25 mg tablet 50 mg PO DAILY 12/01/18 08/15/21 History baclofen 20 mg tablet 30 mg PO TID 12/01/18 08/15/21 History bupropion HCl 150 mg 24 hr tablet, 150 mg PO QAM 12/01/18 08/15/21 History extended release buspirone 30 mg tablet 30 mg PO BID tab 12/01/18 08/15/21 History melatonin 5 mg capsule 5 mg PO BEDTIME cap 12/01/18 08/15/21 History topiramate 25 mg tablet (Topamax) 50 mg PO TID tab 12/01/18 08/15/21 History trazodone 50 mg tablet 100 mg PO DAILY PRN 12/01/18 08/15/21 History hydrochlorothiazide 25 mg tablet 25 mg PO DAILY 01/13/20 08/15/21 History oxycodone 15 mg tablet 30 mg PO Q6H PRN 01/13/20 08/15/21 History tizanidine 4 mg tablet 8 mg PO BEDTIME 01/13/20 08/15/21 History duloxetine 30 mg capsule,delayed 90 mg PO DAILY 08/15/21 08/15/21 History release amlodipine 5 mg tablet 5 mg PO DAILY 08/16/21 08/16/21 History Allergies Allergy/AdvReac Type Severity Reaction Status Date / Time amitriptyline [AMITRIPTYLINE] Allergy Unknown Verified 08/15/21 22:32 fluoxetine Allergy Unknown Verified 08/15/21 22:32 gabapentin [GABAPENTIN] Allergy Unknown Verified 08/15/21 22:32 shayne [SHAYNE] Allergy Unknown Verified 08/15/21 22:32 Review of Systems Review of Systems ROS: Yes All systems reviewed with the patient and are negative except as otherwise documented Exam Vital Signs (past 8 hours): - 08/15/21 22:27 08/15/21 22:40 08/15/21 23:00 Temperature 97.4 F L Pulse Rate 72 69 65 Respiratory Rate 18 Blood Pressure 84/52 L Pulse Oximetry 97 98 98 08/15/21 23:30 08/15/21 23:37 08/16/21 00:00 Temperature Pulse Rate 74 71 67 Respiratory Rate 16 Blood Pressure 91/61 95/54 L Pulse Oximetry 98 99 98 08/16/21 00:30 08/16/21 01:00 08/16/21 02:15 Temperature 97.4 F L Pulse Rate 66 72 83 Respiratory Rate 22 19 18 Blood Pressure 126/71 112/58 L 151/69 H Pulse Oximetry 99 98 99 08/16/21 02:26 Temperature Pulse Rate 83 Respiratory Rate Blood Pressure 151/69 H Pulse Oximetry Oxygen Delivery Method Room Air Narrative Exam Narrative: Gen: Alert, oriented, well-developed 41 y.o. female, appears com fortable HEENT: normocephalic, atraumatic, conjunctiva clear, sclera non-icteric, oral mucosa pink and moist Neck: supple, full ROM, no JVD, trachea is midline Resp: Lungs CTA, non-labored breathing CV: RRR, no murmur or rubs Abd: soft, non-tender, normoactive BTs Skin: no lesions or rashes, dry and intact Neuro: Alert and oriented X 4 w/no focal deficits. Speech clear and coherent. Extremities: moves all 4 extremities, is ambulatory, negative Vandana?s sign Psyche: normal mood and affect. Objective Labs Result Diagrams: 08/15/21 22:30 08/15/21 22:30 Labs: Laboratory Results - last 24 hr 08/15/21 08/15/21 08/15/21 22:30 22:30 22:30 WBC 9.2 RBC 3.99 L Hgb 11.9 L Hct 35.2 L MCV 88.1 MCH 29.9 MCHC 33.9 RDW 12.9 Plt Count 362 Neut % (Auto) 74.1 Lymph % (Auto) 17.3 L [place] % (Auto) 7.3 Eos % (Auto) 0.6 L Baso % (Auto) 0.7 Neut # (Auto) 6800 Lymph # (Auto) 1600 [place] # (Auto) 700 Eos # (Auto) 100 Baso # (Auto) 100 PT 10.8 INR 1.0 D-Dimer < 200 Sodium Potassium Chloride Carbon Dioxide BUN Creatinine Estimated GFR BUN/Creatinine Ratio Glucose Calcium Total Bilirubin AST ALT Alkaline Phosphatase Total Creatine Kinase CK-MB (CK-2) CK-MB (CK-2) Rel Index Troponin I NT-Pro-B Natriuret Pep 298 H Total Protein Albumin Globulin Albumin/Globulin Ratio Lipase SARS-CoV-2 (PCR) 08/15/21 08/16/21 08/16/21 22:30 00:28 01:30 WBC RBC Hgb Hct MCV MCH MCHC RDW Plt Count Neut % (Auto) Lymph % (Auto) [place] % (Auto) Eos % (Auto) Baso % (Auto) Neut # (Auto) Lymph # (Auto) [place] # (Auto) Eos # (Auto) Baso # (Auto) PT INR D-Dimer Sodium 138 Potassium 3.7 Chloride 103 Carbon Dioxide 26 BUN 22 H Creatinine 1.23 H Estimated GFR 47.7 L BUN/Creatinine Ratio 17.9 Glucose 129 H Calcium 9.7 Total Bilirubin 0.5 AST 50 H ALT 47 H Alkaline Phosphatase 91 Total Creatine Kinase 61 50 CK-MB (CK-2) TNP TNP CK-MB (CK-2) Rel Index TNP TNP Troponin I 0.041 H 0.024 NT-Pro-B Natriuret Pep Total Protein 7.9 Albumin 4.6 Globulin 3.3 Albumin/Globulin Ratio 1.4 Lipase 106 SARS-CoV-2 (PCR) Negative Assessment & Plan Assessment & Plan narrative: Keesha Cardenas will be observed overnight and worked up for 1. Chest pain, acute ? Echo in am ? Pharmacological stress test ? Start ASA 81 mg ? Received nitro X 2 on arrival to the floor with effect ? EKG shows NSR w/no ischemic changes ? Trend troponin X 2, normalized on second troponin 2. Essential hypertension, labile ? Start/continue amlodipine 5 mg daily 3. Acute kidney injury * Creatinine is 1.23 with an eGFR of 47.7, not her baseline * Gentle fluid hydration w/NS 3. Multiple sclerosis * She may continue her home doses of oxycodone, duloxetine, lamotrigine, and mithylphenadate. Risk stratification ? Start/continue atorvastatin 40 mg po at bedtime ? Fasting lipid panel scheduled for 0500 labs ? A1c 5.0%, not diabetic . VTE Prophylaxis: Wells risk score 0 Enoxaparin 40 mg subQ once daily Patient is placed into observation as her stay is not expected to exceed 2 midnights. FEN: IV fluids: NS at 100 ml/hour, diet: heart healthy, labs: CBC, C/BMP, liver enzymes, [employer] None Dispo: likely home. Code status: Full Code as discussed with the patient who identifies her , Speedy Ivan as her surrogate and POA. [X] I have utilized all available immediate resources to obtain, update, or review of the patient's current medications COVID-19 COVID-19 status: Negative Result date/Date tested (Pos, Neg/Pending): 08/16/21 Scores Wells' Criteria for PE Clinical signs and symptoms of DVT: No PE is #1 Dx or equally likely: No Heart rate > 100: No Immobilization at least 3 days or surg in previous 4 weeks: No History of PE or DVT: No Hemoptysis: No Malignancy w/Treatment within 6 months or palliative: No Wells' PE Score total: 0 Quality MIPS - Admit I confirm the patient?s Advance Care Plan is present, Code status is documented, Surrogate decision maker is in patient?s record [If Yes, STOP here]: Yes MIPS - DC The patient has current or prior documentation of left ventricular ejection fraction (LVEF) less than 40%, or moderate or severely depressed left ventricular systolic function.: No
[2021-08-16] MEDS: TRAZODONE 50 MG TABLET 100 MG PO (03:23)
[2021-08-16] MEDS: OXYCODONE IR 5 MG TABLET 30 MG PO ×2 (03:25→09:36)
[2021-08-16] MEDS: MORPHINE 2 MG/ML INJ IV (06:39)
[2021-08-16 07:53] LABS: Troponin I < 0.012 ng/mL (0.01-0.034)
[2021-08-16 08:40] LABS: Cholesterol 171 mg/dL (140-199); HDL Cholesterol 105 mg/dL (40-60); LDL Cholesterol Calculated 44 mg/dL (<100); Triglycerides 109 mg/dL (35-150)
[2021-08-16] MEDS: AMLODIPINE 5 MG TABLET PO (09:02)
[2021-08-16] MEDS: ASPIRIN EC 81 MG TABLET PO (09:02)
[2021-08-16] MEDS: BACLOFEN 10 MG TABLET 30 MG PO ×2 (09:03→15:31)
[2021-08-16] MEDS: DULOXETINE 30 MG CAPSULE 90 MG PO (09:04)
[2021-08-16] MEDS: buPROPion XL 150 MG TAB PO (09:04)
[2021-08-16] MEDS: lamoTRIgine 100 MG TABLET 300 MG PO (09:05)
[2021-08-16] MEDS: HEPARIN 5,000 UNIT/ML VIAL 5000 UNIT SUBCUT (09:05)
[2021-08-16] MEDS: TOPIRAMATE 25 MG TABLET 50 MG PO ×2 (09:06→15:31)
[2021-08-16] MEDS: ACETAMINOPHEN 325 MG TABLET 650 MG PO (09:37)
[2021-08-16 12:40] LABS: Troponin I < 0.012 ng/mL (0.01-0.034)
--- NOTE | 2021-08-16 13:24 | PM.TREADMILL ---
Cardiac Stress Test Report Referral & Results Date Patient Seen: 08/16/21 Time Patient Seen: 13:25 Requesting provider: Lashell Schultz Indication: chest pain Rest ECG: Sinus rhythm Procedure Note: After Lexiscan injection had minimal dyspnea with chest pressure and radiating down right arm and up right side of her neck No significant ECG changes after Lexiscan injection or with chest pressure No ectopy Impression: Symptom positive Lexiscan injection Nuclear images pending Please note: Actual ECG tracings can be found in the PACS system.
[2021-08-16] MEDS: OXYCODONE IR 5 MG TABLET 15 MG PO ×2 (15:31→18:41)
--- NOTE | 2021-08-16 15:36 | CM.DANOTE ---
Patient is a 41 yo female who was admitted on 08/16/21 for Chest Pain. Pt has [facility] for insurance and her PCP is Mona Weinstein. EMR was reviewed. Per , pt with hx of MS at baseline and admitted for ongoing bp issues and chest pain for the past couple months. Echo and stress test ordered. Pt was last in [facility] ED in Jun 2021 a month ago and had to be intubated and transferred to . SW met beside with pt and explained role and she confirms she lives in [place] out of town and has an amazing view of [place] but has many many stairs entering the house and they are working to put a lift chair on the stairs. Pt denies any hx of HH or SNF and lives with her spouse and fairly independent at baseline but does not drive and when she has MS flare ups she struggles with chores and shopping and therefore they have gotten a live-in full time staff interpreter caregiver who helps with cooking, shopping, chores, etc and provides transport for appointments. Pt does not anticipate any d/c needs and is hopeful to get test results soon so that she can get home. Pt states her caregiver can give her a ride home and spouse is available and very supportive but works. Pt states she is also very connected with her [employer] zoroastrian and has lots of friends who can assist. Plan: SW to follow closely for Echo and Stress test results towards plan of d/c home via caregiver POV and any further identified needs. ALEXANDRA Cobb Discharge Planning/Care Management CM Discharge Assessment Start: 08/16/21 15:31 Freq: Status: Active Protocol: Document 08/16/21 15:31 BF (Rec: 08/16/21 15:35 [id number]) Discharge Planning Assessment Assigned Sewer And Drain Technician ALEXANDRA Chavez DPOA/Assigned Designee Name spouse Speedy Ivan Contact Information [phone] Advance Directives? Yes Advance Directives on File No History Provided By Patient,Medical Record Has Patient been admitted in last 30 No days? Prior Living Arrangements House Household Members spouse,caregiver Type of transporation used prior to Relies on Others admit Independent with ADL's Yes Is patient alert and oriented? Yes Needs Assistance With Home Chores / Shopping Caregiver for Another No DME Already Rented / Owned Cane Barriers to Discharge No Discharge Plan Home Transportation Arrangement Pt's full time staff interpreter caregiver can provide transport at d/c Referrals Initiated None needed Whiteboard Updated in Patient Room with Yes name and ext. # of Sewer And Drain Technician Review Status In Process Please Provide Date Initial DC 08/16/21 Assessment Was Performed Next Review Type Continued Stay Review
--- NOTE | 2021-08-16 18:59 | DI.NM.S_ITS ---
DATE OF SERVICE: 08/16/2021 PROCEDURE PERFORMED: Pharmacologic vasodilator stress-only myocardial perfusion imaging study with gating to assess ejection fraction and regional wall motion. INDICATIONS: The patient is a 41-year-old female with multiple sclerosis who was admitted with atypical chest discomfort and borderline troponin. ORDERING PROVIDER: EMILY Alvarez. PHARMACOLOGIC STRESS: Per protocol, 0.4 mg of regadenoson was infused with a normal hemodynamic response. She had minimal dyspnea and slight chest pressure radiating to the right neck and down the right arm. Her resting ECG is normal with normal ST segments, and there are no ST-segment shifts or arrhythmias with stress. Per protocol, 25.4 millicuries of technetium-99m Myoview was injected. She was imaged 20 minutes later using a gated SPECT acquisition protocol. Because of the lack of any concerning perfusion defects, it was felt that resting images were not needed. FINDINGS: 1. Raw data: There is fair myocardial tracer uptake with mild breast shadows noted. Lung/heart ratio was normal at 0.40. 2. Quantitated gated SPECT: Post-stress ejection fraction is 82% without any focal wall motion abnormality. Post-stress end-diastolic volume is normal at 107 mL. 3. Myocardial perfusion imaging: Post-stress supine images shows a fairly normal myocardial perfusion pattern without any significant perfusion defects, supported by normal perfusion imaging in the prone position. IMPRESSION: 1. Normal myocardial perfusion study. 2. No evidence of myocardial ischemia or previous myocardial infarction. 3. Normal left ventricular systolic function without focal wall motion abnormality and normal left ventricular volumes. 4. Minimal dyspnea and atypical chest tightness with pharmacologic vasodilator stress but no ECG evidence of ischemia. Keesha Cardenas - CJ/christopher/wang doc#: [id number]/job#: [id number] dd: 08/16/2021 16:27:00 dt: 08/16/2021 18:53:00 DICTATING MD/COPIES TO: Shayne Haddad MD; EMILY Alvarez; Evelia Raza MD COPIES MNE: DARRIAN; ;
== END 2021-08-16 19:15 | disposition home or self-care (01) ==
LOC: ED 08-16 01:27 → AC 08-16 01:34
PROVIDERS: Admitting Provider Nurse Practitioner Family; Emergency Provider Emergency Medicine; Family Provider Family Medicine; PCP Family Medicine; Visit Provider Nurse Practitioner Family
DX: R07.9 Chest pain, unspecified (principal); G35 Multiple sclerosis; R51.9 Headache, unspecified; R42 Dizziness and giddiness; I10 Essential (primary) hypertension; N17.9 Acute kidney failure, unspecified; Z20.822 Contact with and (suspected) exposure to COVID-19
CPT/HCPCS: 36415; 71045; 78451; 80053; 80061; 82550; 82553; 83036; 83690; 83880; 84484; 85025; 85379; 85610; 87635; 93005; 93016; 93017; 93018; 93306; 94762; 96361; 96374; 96375; 99284; C9803; G0378; A9502; J1644; J1885; J2270; J2785; J2930

== ENCOUNTER 2021-08-17 15:58 | Emergency (ER) | payer MEDICARE, SELFPAY ==
[2021-06-22 13:19] VITALS: PULSE 73; RESP 23; RESP 3; O2SAT 99
[2021-08-16 01:52] VITALS: BMI 23.3
[2021-08-17 16:14] VITALS: BP 199/111; PULSE 95; RESP 22; TEMP 36.5; O2SAT 98
--- NOTE | 2021-08-17 16:23 | DI.RAD.S_ITS ---
PROCEDURE: XR CHEST 1V INDICATIONS: chest pain TECHNIQUE: One view of the chest was acquired. COMPARISON: [facility], CR, XR CHEST 1V, 08/15/2021, 23:04. FINDINGS: Surgical changes and devices: None. Lungs and pleura: Lungs are clear. No pleural effusions or pneumothorax. Mediastinum: Mediastinal contours appear normal. Heart size is normal. Bones and chest wall: No suspicious bony lesions. Overlying soft tissues appear unremarkable. IMPRESSION: No acute cardiopulmonary findings. Dictated by: Beverley Kemp M.D. on 08/17/2021 at 16:51 Approved by: Beverley Kemp M.D. on 08/17/2021 at 16:51
[2021-08-17 17:00] LABS: Alanine Aminotransferase 32 IU/L (<35); Albumin 4.8 g/dL (3.5-5.0); Albumin Globulin Ratio 1.5 (1.0-2.8); Alkaline Phosphatase 81 U/L (38-126); Aspartate Aminotransferase 24 IU/L (14-36); BUN Creatinine Ratio 28.2 (6-22); Bilirubin Total 0.3 mg/dL (0.2-1.3); Blood Urea Nitrogen 24 mg/dL (7-17); Calcium 9.5 mg/dL (8.4-10.2); Carbon Dioxide 26 mmol/L (22-32); Chloride 108 mmol/L (98-107); Creatine Kinase 57 U/L (30-135); Estimated Glomerular Filt Rate > 60.0 mL/min (>60); Globulin 3.3 g/dL (1.7-4.1); Glucose 109 mg/dL (70-100); HEMOLYSIS < 15 (0-50); Lipase 160 U/L (23-300); Potassium 3.8 mmol/L (3.4-5.1); Sodium 142 mmol/L (137-145); Total Protein 8.1 g/dL (6.3-8.2)
[2021-08-17 17:04] LABS: Add Manual Diff / Slide Review NO; Basophils Absolute Auto 100 /uL (0-100); Basophils Percent Auto 0.9 % (0-2); Eosinophils Absolute Auto 0 /uL (0-450); Eosinophils Percent Auto 0.4 % (2-4); Hematocrit 35.8 % (36-46); Lymphocytes Absolute Auto 1600 /uL (1100-4500); Lymphocytes Percent Auto 27.3 % (25-40); Mean Corpuscular HGB Conc 33.6 % (30-36); Mean Corpuscular Hemoglobin 29.9 PG (26-34); Monocytes Absolute Auto 500 /uL (0-900); Neutrophils Absolute Auto 3700 /uL (1500-7000); Neutrophils Percent Auto 63.4 % (50-75); Platelet Count 347 X10^3/uL (150-400); Red Blood Cell Count 4.02 X10^6/uL (4.0-5.2); Red Cell Distribution Width 13.2 % (11.6-14.8); White Blood Cell Count 5.9 X10^3/uL (4.5-11.0)
[2021-08-17 17:10] LABS: Troponin I 0.014 ng/mL (0.01-0.034)
[2021-08-17 19:00] VITALS: BP 191/107
[2021-08-17 19:01] VITALS: PULSE 100; RESP 22; O2SAT 98
--- NOTE | 2021-08-17 19:19 | ED_ITS ---
HPI - Chest Pain General Chief Complaint: Chest Pain Stated Complaint: high blood pressure, meds not lowering it Time Seen by Provider: 08/17/21 18:58 Source: patient Mode of arrival: Ambulatory Limitations: no limitations History of Present Illness HPI narrative: Patient is a 41-year-old female. Has a history of MS. Also has a history of high blood pressure. Is on amlodipine atenolol and hydrochlorothiazide. Was recently admitted to the hospital after having a elevated troponin and high blood pressure. Had a stress test performed that she states was unremarkable. Was discharged in the past 24 hours. She has a follow-up with her primary doctor later this week. She is taking all of her medications as directed. States at home she took her blood pressure that was elevated. She contacted her primary doctor in because of the elevation was told to come to the emergency department. She is having chest pain and shortness of breath but this is not new. She has had this for several weeks if not longer. She was having and when she was admitted to the hospital couple days ago. Related Data Home Medications Medication Instructions Recorded Confirmed ibuprofen 600 mg tablet 600 mg PO TIDP PRN #0 11/27/10 08/15/21 lamotrigine 25 mg tablet (Lamictal) 300 mg PO DAILY #0 08/26/16 08/15/21 methylphenidate HCl 5 mg tablet 20 mg PO DAILY #0 08/26/16 08/15/21 acetaminophen 325 mg capsule 325 mg PO Q6H PRN 12/01/18 08/15/21 (Tylenol) atenolol 25 mg tablet 50 mg PO DAILY 12/01/18 08/15/21 baclofen 20 mg tablet 30 mg PO TID 12/01/18 08/15/21 bupropion HCl 150 mg 24 hr tablet, 150 mg PO QAM 12/01/18 08/15/21 extended release buspirone 30 mg tablet 30 mg PO BID tab 12/01/18 08/15/21 melatonin 5 mg capsule 5 mg PO BEDTIME cap 12/01/18 08/15/21 topiramate 25 mg tablet (Topamax) 50 mg PO TID tab 12/01/18 08/15/21 trazodone 50 mg tablet 100 mg PO DAILY PRN 12/01/18 08/15/21 hydrochlorothiazide 25 mg tablet 25 mg PO DAILY 01/13/20 08/15/21 oxycodone 15 mg tablet 30 mg PO Q6H PRN 01/13/20 08/15/21 tizanidine 4 mg tablet 8 mg PO BEDTIME 01/13/20 08/15/21 duloxetine 30 mg capsule,delayed 90 mg PO DAILY 08/15/21 08/15/21 release amlodipine 5 mg tablet 5 mg PO DAILY 08/16/21 08/16/21 Allergies Allergy/AdvReac Type Severity Reaction Status Date / Time amitriptyline [AMITRIPTYLINE] Allergy Unknown Verified 08/15/21 22:32 fluoxetine Allergy Unknown Verified 08/15/21 22:32 gabapentin [GABAPENTIN] Allergy Unknown Verified 08/15/21 22:32 shayne [SHAYNE] Allergy Unknown Verified 08/15/21 22:32 Review of Systems Review of Systems ROS Unobtainable: All systems reviewed & are unremarkable except as noted in HPI and below Patient History Medical History HTN (hypertension) Hx of optic neuritis MS (multiple sclerosis) PTSD (post-traumatic stress disorder) Surgical History Bunion, right foot History of laparoscopy Family History Mother CVA (cerebral vascular accident) Diabetes type 2, uncontrolled Father Diabetes type 2, uncontrolled Social History household members: spouse and caregiver Smoking Status: Never smoker alcohol intake: former Smoking Status: Never smoker alcohol intake frequency: a few times a month Substance Use Type: does not use Exam Initial Vital Signs Initial Vital Signs: Vital Signs Temperature 97.7 F 08/17/21 16:14 Pulse Rate 95 H 08/17/21 16:14 Respiratory Rate 22 08/17/21 16:14 Blood Pressure 199/111 H 08/17/21 16:14 Pulse Oximetry 98 08/17/21 16:14 Const General: cooperative, comfortable and well developed HENMD Head: normal to inspection and normocephalic Chest Chest: normal inspection of the chest Resp Effort & Inspection: normal respiratory effort Auscultation: clear to auscultation bilaterally Cardio Rate: regular rate Rhythm: regular rhythm GI Inspection: normal to inspection Skin General: no rashes or lesions noted Neuro General: patient alert, patient awake, patient oriented x3 and moves all extremities Extrem General: normal to inspection and capillary refill normal Psych Appearance: grossly normal and well kempt Course Orders Ordered: ED Orders 08/17/21 16:22 Complete Blood Count AUTO DIFF Stat Comprehensive Metabolic Panel Stat Lipase Stat Magnesium Stat Troponin & CK Cardiac Panel Stat 08/17/21 16:23 XR chest 1V Stat EKG-12 Lead Stat Vital Signs Vital signs: Vital Signs - 8 hr 08/17/21 19:00 08/17/21 19:01 Pulse Rate 100 H Respiratory Rate 22 Blood Pressure 191/107 H Pulse Oximetry 98 MDM - Chest Pain Lab Data Attestation: I reviewed the patient's lab results. Result diagrams: 08/17/21 16:22 08/17/21 16:22 Labs: Lab Results 08/17/21 08/17/21 Range/Units 16:22 16:22 WBC 5.9 (4.5-11.0) X10^3/uL RBC 4.02 (4.0-5.2) X10^6/uL Hgb 12.0 (12.0-16.0) g/dL Hct 35.8 L (36-46) % MCV 89.0 (80-100) fL MCH 29.9 (26-34) PG MCHC 33.6 (30-36) % RDW 13.2 (11.6-14.8) % Plt Count 347 (150-400) X10^3/uL Neut % (Auto) 63.4 (50-75) % Lymph % (Auto) 27.3 (25-40) % [place] % (Auto) 8.0 (3-14) % Eos % (Auto) 0.4 L (2-4) % Baso % (Auto) 0.9 (0-2) % Neut # (Auto) 3700 (7570-7579) /uL Lymph # (Auto) 1600 (4236-2607) /uL [place] # (Auto) 500 (0-900) /uL Eos # (Auto) 0 (0-450) /uL Baso # (Auto) 100 (0-100) /uL Sodium 142 (137-145) mmol/L Potassium 3.8 (3.4-5.1) mmol/L Chloride 108 H (98-107) mmol/L Carbon Dioxide 26 (22-32) mmol/L BUN 24 H (7-17) mg/dL Creatinine 0.85 (0.52-1.04) mg/dL Estimated GFR > 60.0 (>60) mL/min BUN/Creatinine Ratio 28.2 H (6-22) Glucose 109 H (70-100) mg/dL Calcium 9.5 (8.4-10.2) mg/dL Magnesium 2.0 (1.6-2.3) mg/dL Total Bilirubin 0.3 (0.2-1.3) mg/dL AST 24 (14-36) IU/L ALT 32 (<35) IU/L Alkaline Phosphatase 81 (38-126) U/L Total Creatine Kinase 57 (30-135) U/L CK-MB (CK-2) TNP CK-MB (CK-2) Rel Index TNP Troponin I 0.014 (0.01-0.034) ng/mL Total Protein 8.1 (6.3-8.2) g/dL Albumin 4.8 (3.5-5.0) g/dL Globulin 3.3 (1.7-4.1) g/dL Albumin/Globulin Ratio 1.5 (1.0-2.8) Lipase 160 D (23-300) U/L Imaging Data Chest x-ray: Radiologist's Impression: [address] [address] XRay Report Signed Patient: Keesha Cardenas MR#: [id number] : 1980 Acct:[id number] Age/Sex: 41 / F Date of Service: 08/17/21 Loc: ED Accession Number: [id number] ?? Procedure: XR chest 1V Ordering Provider: Alee Triplett D.O. PROCEDURE:? XR CHEST 1V ? INDICATIONS:? chest pain ? TECHNIQUE:? One view of the chest was acquired.? ? COMPARISON:? Located Within [facility], [place], XR CHEST 1V, 08/15/2021, 23:04. ? FINDINGS:? ? Surgical changes and devices:? None.? ? Lungs and pleura:? Lungs are clear.? No pleural effusions or pneumothorax.? ? Mediastinum:? Mediastinal contours appear normal.? Heart size is normal.? ? Bones and chest wall:? No suspicious bony lesions.? Overlying soft tissues appear unremarkable.? ? IMPRESSION:? No acute cardiopulmonary findings. ? ? Dictated by: Beverley Kemp M.D. on 08/17/2021 at 16:51 ? ? Approved by: Beverley Kemp M.D. on 08/17/2021 at 16:51? ECG Data Attestation: I personally reviewed and interpreted this ECG as follows: Prior ECG tracings: available for review Interpretation: Sinus rhythm Ventricular rate 90 Normal axis Normal QRS Normal QTC No ST T wave changes MDM Narrative Medical decision making narrative: Patient was hypertensive today. She has only been on amlodipine for the past several days. She has a follow-up later this week with her primary doctor. The symptoms she is having today are not new. She had them when she was admitted to the hospital where she had an extensive cardiac workup subsequently discharged home. It appears that her blood pressure on average has been running with systolics in the 170s. Here in the emergency department she has 190s. No indication of end-organ dysfunction given her high blood pressure today. She is alert oriented x3. She has not been on amlodipine long enough for us to say that she has feel this medication or that we need to change her medications. I inform her that she should continue to take her blood pressure at home. Infor med her that she needs to keep her scheduled appointment her primary doctor later this week. She was given strict return precautions with regard did change of symptoms. She expressed understanding and agreement. Discharge Plan Departure Patient Disposition: Home Clinical Impression: HTN (hypertension) Instructions: Essential Hypertension Activity Restrictions/Additional Instructions: I do recommend that you continue to take all of your medications like we discussed. Be sure to take your blood pressure at home like we discussed as well. Keep your appointment on with your primary provider. Return to the emergency department for any new or worsening symptoms. Prescriptions: No Action atenolol 25 mg tablet 50 mg PO DAILY 0RF bupropion HCl 150 mg tablet extended release 24 hr 150 mg PO QAM 0RF buspirone 30 mg tablet 30 mg PO BID 0RF baclofen 20 mg tablet 30 mg PO TID 0RF trazodone 50 mg tablet 100 mg PO DAILY PRN (Reason: Insomnia) 0RF topiramate [Topamax] 25 mg tablet 50 mg PO TID 0RF melatonin 5 mg capsule 5 mg PO BEDTIME 0RF acetaminophen [Tylenol] 325 mg capsule 325 mg PO Q6H PRN (Reason: Pain (Scale Score 1-3)) 0RF ibuprofen 600 MG tablet 600 mg PO TIDP PRN (Reason: Pain (Scale Score 1-3)) Qty: 0 0RF methylphenidate HCl 5 MG tablet 20 mg PO DAILY Qty: 0 0RF lamotrigine [Lamictal] 25 MG tablet 300 mg PO DAILY Qty: 0 0RF tizanidine 4 mg Tablet 8 mg PO BEDTIME 0RF oxycodone 15 mg Tablet 30 mg PO Q6H PRN (Reason: Pain (Scale Score 7-10)) 0RF hydrochlorothiazide 25 mg Tablet 25 mg PO DAILY 0RF duloxetine 30 mg capsule,delayed release(DR/EC) 90 mg PO DAILY 0RF Label Comments: take 2 capsules by mouth once daily amlodipine 5 mg tablet 5 mg PO DAILY 0RF Label Comments: take 1 tablet by mouth once daily Referrals: Mona Weinstein DO [Primary Care Provider] -
== END 2021-08-17 19:28 | disposition home or self-care (01) ==
PROVIDERS: Emergency Medicine; Emergency Provider Emergency Medicine; Family Provider Family Medicine; PCP Family Medicine
DX: I10 Essential (primary) hypertension (principal)
CPT/HCPCS: 36415; 71045; 80053; 82550; 83690; 83735; 84484; 85025; 93005; 99283; 99284

== ENCOUNTER 2021-11-10 20:46 | Emergency (ER) | payer MEDICARE, SELFPAY ==
[2021-06-22 13:19] VITALS: PULSE 73; RESP 23; RESP 3; O2SAT 99
[2021-08-16 01:52] VITALS: BMI 23.3
[2021-11-10] VITALS (7 sets, daily range): BP systolic 141–215; BP diastolic 79–106; PULSE 101–144; RESP 14–33; TEMP 37.3; O2SAT 98–100
--- NOTE | 2021-11-10 21:08 | DI.RAD.S_ITS ---
PROCEDURE: XR CHEST 1V INDICATIONS: suspected sepsis TECHNIQUE: One view of the chest was acquired. COMPARISON: [facility], CR, XR CHEST 1V, 08/17/2021, 16:33. FINDINGS: Surgical changes and devices: None. Lungs and pleura: Lungs are clear. No pleural effusions or pneumothorax. Mediastinum: Mediastinal contours appear normal. Heart size is normal. Bones and chest wall: No suspicious bony lesions. Overlying soft tissues appear unremarkable. IMPRESSION: 1. No acute cardiopulmonary disease. Dictated by: Gil Mendoza M.D. on 11/10/2021 at 21:36 Approved by: Gil Mendoza M.D. on 11/10/2021 at 21:37
--- NOTE | 2021-11-10 21:44 | ED_ITS ---
HPI - Neuro Symptoms/Deficit General Chief Complaint: Neuro Symptoms/Deficit Stated Complaint: MS flare up Time Seen by Provider: 11/10/21 21:31 Source: patient Mode of arrival: Ambulatory History of Present Illness HPI Narrative: 41-year-old female. Has a history of MS. Also has chronic pain issues secondary to this. Does see a house painter helper. Is on multiple pain medications at home. Last week there was an attempt at trying an IV ketamine infusion. She states that afterwards she started to have more discomfort. It is worsened over the past week. She states she has contacted both her neurologist and primary doctor and also house painter helper for helped for which she states is a MS flare up. She has had flares up in the past that are very similar to this. She states that multiple times year she gets Solu- Medrol infusions. She states she was told to come to the emergency department for Solu-Medrol infusion to start the process and then she stated that her primary doctor can help get the remaining doses of this infusion set up an outpatient over the next couple days. On Anticoagulants: No Related Data Home Medications Medication Instructions Recorded Confirmed ibuprofen 600 mg tablet 600 mg PO TIDP PRN #0 11/27/10 09/13/21 lamotrigine 25 mg tablet (Lamictal) 300 mg PO DAILY #0 08/26/16 09/13/21 methylphenidate HCl 5 mg tablet 20 mg PO DAILY #0 08/26/16 09/13/21 atenolol 25 mg tablet 50 mg PO DAILY 12/01/18 09/13/21 baclofen 20 mg tablet 30 mg PO TID 12/01/18 09/13/21 bupropion HCl 150 mg 24 hr tablet, 150 mg PO QAM 12/01/18 09/13/21 extended release buspirone 30 mg tablet 30 mg PO BID tab 12/01/18 09/13/21 melatonin 5 mg capsule 5 mg PO BEDTIME cap 12/01/18 09/13/21 topiramate 25 mg tablet (Topamax) 50 mg PO TID tab 12/01/18 09/13/21 hydrochlorothiazide 25 mg tablet 25 mg PO DAILY 01/13/20 09/13/21 oxycodone 15 mg tablet 30 mg PO Q6H PRN 01/13/20 09/13/21 tizanidine 4 mg tablet 8 mg PO BEDTIME 01/13/20 09/13/21 duloxetine 30 mg capsule,delayed 90 mg PO DAILY 08/15/21 09/13/21 release amlodipine 5 mg tablet 5 mg PO DAILY 08/16/21 09/13/21 acetaminophen 500 mg tablet 500 mg PO Q6H PRN 09/13/21 09/13/21 (Tylenol Extra Strength) albuterol sulfate 90 mcg/actuation g INHALATION 09/13/21 09/13/21 aerosol inhaler diphenhydramine HCl 25 mg capsule 25 mg PO Q6H PRN 09/13/21 09/13/21 (Benadryl) etonogestrel 0.12 mg-ethinyl 1 vag ring VAGINAL Q4W ea 09/13/21 09/13/21 estradiol 0.015 mg/24 hr vaginal ring nitrofurantoin macrocrystal 50 mg 50 mg PO DAILY PRN cap 09/13/21 09/13/21 capsule ocrelizumab 30 mg/mL intravenous 600 mg IV [id number] 09/13/21 09/13/21 solution omeprazole 20 mg capsule,delayed 20 mg PO DAILY cap 09/13/21 09/13/21 release Allergies Allergy/AdvReac Type Severity Reaction Status Date / Time amitriptyline [AMITRIPTYLINE] Allergy Unknown Verified 09/13/21 15:21 fluoxetine Allergy Unknown Verified 09/13/21 15:21 gabapentin [GABAPENTIN] Allergy Unknown Verified 09/13/21 15:21 shayne [SHAYNE] Allergy Unknown Verified 09/13/21 15:21 Review of Systems Constitutional Constitutional: Reports system reviewed and no additional complaints, except as documented Cardiovascular Cardiovascular: Reports system reviewed and no additional complaints, except as documented Respiratory Respiratory: Reports system reviewed and no additional complaints, except as documented Gastrointestinal Gastrointestinal: Reports system reviewed and no additional complaints, except as documented Musculoskeletal Musculoskeletal: Reports system reviewed and no additional complaints, except as documented Neurologic Neurologic: Reports system reviewed and no additional complaints, except as documented Hematologic/Lymphatic On Anticoagulants: No Patient History Medical History Anxiety Atypical chest pain GERD without esophagitis HTN (hypertension) Hx of optic neuritis Major depression in partial remission MS (multiple sclerosis) PTSD (post-traumatic stress disorder) Recurrent UTI Surgical History Bunion, right foot History of laparoscopy Family History Mother CVA (cerebral vascular accident) Diabetes type 2, uncontrolled Father Diabetes type 2, uncontrolled Social History household members: spouse and caregiver Smoking Status: Never smoker alcohol intake: former Smoking Status: Never smoker alcohol intake frequency: a few times a month Substance Use Type: does not use Exam Initial Vital Signs Initial Vital Signs: Vital Signs Temperature 99.2 F 11/10/21 21:03 Pulse Rate 144 H 11/10/21 21:03 Respiratory Rate 22 11/10/21 21:03 Blood Pressure 215/105 H 11/10/21 21:03 Pulse Oximetry 100 11/10/21 21:03 Const General: cooperative and comfortable Resp Effort & Inspection: normal respiratory effort Cardio Rate: tachycardic Skin General: no rashes or lesions noted Extrem General: normal to inspection Course Orders Ordered: ED Orders 11/10/21 21:08 XR chest 1V Stat Blood Culture Stat EKG-12 Lead Stat RT Consult Eval and Treat NOW 11/10/21 21:36 COVID19 -Nasal RAPID/Pre-Proc Stat Complete Blood Count AUTO DIFF Stat Comprehensive Metabolic Panel Stat Lactate (Lactic Acid) Stat Lipase Stat Procalcitonin Stat Discontinued Medications Sodium Chloride (Normal Saline 0.9%) 1,000 mls @ 1,000 mls/hr IV BOLUS ONE Stop: 11/10/21 22:07 Last Admin: 11/10/21 22:14 Dose: Not Given Documented by: NEHA Methylprednisolone 1,000 mg/ (Sodium Chloride) 258 mls @ 258 mls/hr IV NOW ONE Stop: 11/10/21 21:45 Last Infusion: 11/10/21 23:17 Dose: 0 mls/hr Documented by: Admin: 11/10/21 22:07 Dose: 258 mls/hr Documented by: NEHA Vital Signs Vital signs: Vital Signs - 8 hr 11/10/21 21:03 11/10/21 21:33 11/10/21 21:34 Temperature 99.2 F Pulse Rate 144 H 128 H 126 H Respiratory Rate 22 20 17 Blood Pressure 215/105 H 167/106 H Pulse Oximetry 100 100 99 11/10/21 22:00 11/10/21 22:30 11/10/21 23:00 Temperature Pulse Rate 116 H 122 H 117 H Respiratory Rate 14 33 H 28 H Blood Pressure 145/92 H 147/86 H Pulse Oximetry 98 98 98 11/10/21 23:40 Temperature Pulse Rate 101 H Respiratory Rate 19 Blood Pressure 141/79 H Pulse Oximetry 98 MDM - Neuro Symptoms/Deficit Lab Data Attestation: I reviewed the patient's lab results. Result diagrams: 11/10/21 21:36 11/10/21 21:36 Labs: Lab Results 11/10/21 11/10/21 11/10/21 Range/Units 21:36 21:36 21:36 WBC 5.0 (4.5-11.0) X10^3/uL RBC 3.83 L (4.0-5.2) X10^6/uL Hgb 11.6 L (12.0-16.0) g/dL Hct 34.0 L (36-46) % MCV 88.7 (80-100) fL MCH 30.3 (26-34) PG MCHC 34.1 (30-36) % RDW 14.2 (11.6-14.8) % Plt Count 265 (150-400) X10^3/uL Neut % (Auto) 58.6 (50-75) % Lymph % (Auto) 25.4 (25-40) % [place] % (Auto) 10.9 (3-14) % Eos % (Auto) 3.3 (2-4) % Baso % (Auto) 1.8 (0-2) % Neut # (Auto) 2900 (6130-0321) /uL Lymph # (Auto) 1300 (0699-2428) /uL [place] # (Auto) 500 (0-900) /uL Eos # (Auto) 200 (0-450) /uL Baso # (Auto) 100 (0-100) /uL Sodium 141 (137-145) mmol/L Potassium 3.4 (3.4-5.1) mmol/L Chloride 111 H (98-107) mmol/L Carbon Dioxide 19 L (22-32) mmol/L BUN 21 H (7-17) mg/dL Creatinine 1.08 H (0.52-1.04) mg/dL Estimated GFR > 60 (>60) mL/min BUN/Creatinine Ratio 19.4 (6-22) Glucose 96 (70-100) mg/dL Lactate 0.7 (0.7-2.1) mmol/L Calcium 8.7 (8.4-10.2) mg/dL Total Bilirubin 0.5 (0.2-1.3) mg/dL AST 24 (14-36) IU/L ALT 26 (<35) IU/L Alkaline Phosphatase 72 (38-126) U/L Total Protein 7.4 (6.3-8.2) g/dL Albumin 4.5 (3.5-5.0) g/dL Globulin 2.9 (1.7-4.1) g/dL Albumin/Globulin Ratio 1.6 (1.0-2.8) Lipase 64 (23-300) U/L Procalcitonin 0.07 (<0.5) ng/mL SARS-CoV-2 (PCR) (Negative) 11/10/21 Range/Units 21:36 WBC (4.5-11.0) X10^3/uL RBC (4.0-5.2) X10^6/uL Hgb (12.0-16.0) g/dL Hct (36-46) % MCV (80-100) fL MCH (26-34) PG MCHC (30-36) % RDW (11.6-14.8) % Plt Count (150-400) X10^3/uL Neut % (Auto) (50-75) % Lymph % (Auto) (25-40) % [place] % (Auto) (3-14) % Eos % (Auto) (2-4) % Baso % (Auto) (0-2) % Neut # (Auto) (9143-2013) /uL Lymph # (Auto) (7926-4065) /uL [place] # (Auto) (0-900) /uL Eos # (Auto) (0-450) /uL Baso # (Auto) (0-100) /uL Sodium (137-145) mmol/L Potassium (3.4-5.1) mmol/L Chloride (98-107) mmol/L Carbon Dioxide (22-32) mmol/L BUN (7-17) mg/dL Creatinine (0.52-1.04) mg/dL Estimated GFR (>60) mL/min BUN/Creatinine Ratio (6-22) Glucose (70-100) mg/dL Lactate (0.7-2.1) mmol/L Calcium (8.4-10.2) mg/dL Total Bilirubin (0.2-1.3) mg/dL AST (14-36) IU/L ALT (<35) IU/L Alkaline Phosphatase (38-126) U/L Total Protein (6.3-8.2) g/dL Albumin (3.5-5.0) g/dL Globulin (1.7-4.1) g/dL Albumin/Globulin Ratio (1.0-2.8) Lipase (23-300) U/L Procalcitonin (<0.5) ng/mL SARS-CoV-2 (PCR) Negative (Negative) ECG Data Interpretation: Sinus tachycardia Ventricular rate 141 Normal axis Normal QRS Normal QTC ST T wave changes MDM Narrative Medical decision making narrative: Patient here specifically for an infusion of Solu-Medrol. She was given 1 g IV. No pain medications were administered. She was instructed to contact her primary doctor when the office is open in order to get the remaining 4 days of this set up as an infusion. She was told that if for some reason she could not get it started that she could come back to the emergency department. She expressed understanding and agreement. Discharge Plan Departure Patient Disposition: Home Clinical Impression: MS (multiple sclerosis) Activity Restrictions/Additional Instructions: Continue to take all of your medications as directed. I do recommend you contact your primary doctor's office tomorrow morning to establish your next sev eral days of infusions. If this falls through you do need to return to the emergency department. Prescriptions: No Action atenolol 25 mg tablet 50 mg PO DAILY 0RF bupropion HCl 150 mg tablet extended release 24 hr 150 mg PO QAM 0RF buspirone 30 mg tablet 30 mg PO BID 0RF baclofen 20 mg tablet 30 mg PO TID 0RF topiramate [Topamax] 25 mg tablet 50 mg PO TID 0RF melatonin 5 mg capsule 5 mg PO BEDTIME 0RF ibuprofen 600 MG tablet 600 mg PO TIDP PRN (Reason: Pain (Scale Score 1-3)) Qty: 0 0RF methylphenidate HCl 5 MG tablet 20 mg PO DAILY Qty: 0 0RF lamotrigine [Lamictal] 25 MG tablet 300 mg PO DAILY Qty: 0 0RF omeprazole 20 mg capsule,delayed release(DR/EC) 20 mg PO DAILY 0RF albuterol sulfate 90 mcg/actuation HFA aerosol inhaler inhalation 0RF etonogestrel-ethinyl estradiol 0.12-0.015 mg/24 hr ring 1 vag ring vaginal Q4W 0RF acetaminophen [Tylenol Extra Strength] 500 mg tablet 500 mg PO Q6H PRN0RF ocrelizumab 30 mg/mL solution 600 mg IV [id number] 0RF nitrofurantoin macrocrystal 50 mg capsule 50 mg PO DAILY PRN0RF Rx Instructions: must administer with a meal/food. Only after sexual intercourse. diphenhydramine HCl [Benadryl] 25 mg capsule 25 mg PO Q6H PRN0RF tizanidine 4 mg Tablet 8 mg PO BEDTIME 0RF oxycodone 15 mg Tablet 30 mg PO Q6H PRN (Reason: Pain (Scale Score 7-10)) 0RF hydrochlorothiazide 25 mg Tablet 25 mg PO DAILY 0RF duloxetine 30 mg capsule,delayed release(DR/EC) 90 mg PO DAILY 0RF Label Comments: take 2 capsules by mouth once daily amlodipine 5 mg tablet 5 mg PO DAILY 0RF Label Comments: take 1 tablet by mouth once daily Referrals: Mona Weinstein DO [Primary Care Provider] -
[2021-11-10 21:48] LABS: Add Manual Diff / Slide Review NO; Basophils Absolute Auto 100 /uL (0-100); Basophils Percent Auto 1.8 % (0-2); Eosinophils Absolute Auto 200 /uL (0-450); Eosinophils Percent Auto 3.3 % (2-4); Hemoglobin 11.6 g/dL (12.0-16.0); Lymphocytes Absolute Auto 1300 /uL (1100-4500); Lymphocytes Percent Auto 25.4 % (25-40); Mean Corpuscular HGB Conc 34.1 % (30-36); Mean Corpuscular Hemoglobin 30.3 PG (26-34); Mean Corpuscular Volume 88.7 fL (80-100); Monocytes Absolute Auto 500 /uL (0-900); Monocytes Percent Auto 10.9 % (3-14); Neutrophils Absolute Auto 2900 /uL (1500-7000); Neutrophils Percent Auto 58.6 % (50-75); Platelet Count 265 X10^3/uL (150-400); Red Blood Cell Count 3.83 X10^6/uL (4.0-5.2); Red Cell Distribution Width 14.2 % (11.6-14.8)
[2021-11-10 21:58] LABS: Alanine Aminotransferase 26 IU/L (<35); Albumin 4.5 g/dL (3.5-5.0); Albumin Globulin Ratio 1.6 (1.0-2.8); Alkaline Phosphatase 72 U/L (38-126); Aspartate Aminotransferase 24 IU/L (14-36); BUN Creatinine Ratio 19.4 (6-22); Bilirubin Total 0.5 mg/dL (0.2-1.3); Blood Urea Nitrogen 21 mg/dL (7-17); Calcium 8.7 mg/dL (8.4-10.2); Carbon Dioxide 19 mmol/L (22-32); Chloride 111 mmol/L (98-107); Estimated Glomerular Filt Rate > 60 mL/min (>60); Globulin 2.9 g/dL (1.7-4.1); Glucose 96 mg/dL (70-100); HEMOLYSIS < 15 (0-50); Lipase 64 U/L (23-300); Potassium 3.4 mmol/L (3.4-5.1); Sodium 141 mmol/L (137-145); Total Protein 7.4 g/dL (6.3-8.2)
[2021-11-10 21:59] LABS: Lactate (Lactic Acid) 0.7 mmol/L (0.7-2.1)
[2021-11-10 22:02] LABS: COVID19 -Nasal RAPID Negative (Negative)
[2021-11-10] MEDS: methylPREDNISolone 1,000 MG in SODIUM CHLORIDE 0.9% 250 ML 258 MG IV (22:07)
[2021-11-10 22:15] LABS: Procalcitonin 0.07 ng/mL (<0.5)
[2021-11-13 03:16] LABS: Acinetobacter baumannii Not Detected (Not Detect); Candida albicans Not Detected (Not Detect); Candida glabrata Not Detected (Not Detect); Candida krusei Not Detected (Not Detect); Candida parapsilosis Not Detected (Not Detect); Candida tropicalis Not Detected (Not Detect); E. coli Not Detected (Not Detect); Enterobacter cloacae complex Not Detected (Not Detect); Enterobacteriaceae species Not Detected (Not Detect); Enterococcus species Not Detected (Not Detect); Haemophilus influenzae Not Detected (Not Detect); Listeria monocytogenes Not Detected (Not Detect); Neisseria meningitidis Not Detected (Not Detect); Proteus species Not Detected (Not Detect); Pseudomonas aeruginosa Not Detected (Not Detect); Serratia marcescens Not Detected (Not Detect); Staphylococcus species Not Detected (Not Detect); Streptococcus agalactiae (Gr B Not Detected (Not Detect); Streptococcus pneumonia Not Detected (Not Detect); Streptococcus pyogenes (Gr A) Not Detected (Not Detect); Streptococcus species Not Detected (Not Detect)
== END 2021-11-10 23:40 | disposition home or self-care (01) ==
PROVIDERS: Emergency Provider Emergency Medicine; Family Provider Family Medicine; PCP Family Medicine
DX: G35 Multiple sclerosis (principal); Z20.822 Contact with and (suspected) exposure to COVID-19
CPT/HCPCS: 36415; 71045; 80053; 83605; 83690; 84145; 85025; 87040; 87150; 87635; 93005; 96365; 99284; C9803; J2930

== ENCOUNTER 2021-11-11 13:53 | Emergency (ER) | payer MEDICARE, SELFPAY ==
[2021-06-22 13:19] VITALS: PULSE 73; RESP 23; RESP 3; O2SAT 99
[2021-08-16 01:52] VITALS: BMI 23.3
[2021-11-11 14:06] VITALS: BMI 22.4
[2021-11-11 14:17] VITALS: BP 121/65; PULSE 97; RESP 18; TEMP 36.6; O2SAT 99
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
--- NOTE | 2021-11-11 15:06 | PC.NURSE ---
Muscle spasms/tremors. Has MS.
[2021-11-11] MEDS: methylPREDNISolone 1,000 MG in SODIUM CHLORIDE 0.9% 250 ML 258 MG IV (15:38)
[2021-11-11 17:30] VITALS: BP 118/68; PULSE 77; RESP 18; O2SAT 99
== END 2021-11-11 17:30 | disposition home or self-care (01) ==
PROVIDERS: Emergency Provider Nurse Practitioner Critical Care Medicine; Family Provider Family Medicine; PCP Internal Medicine
DX: G35 Multiple sclerosis (principal)
CPT/HCPCS: 36415; J2930

== ENCOUNTER 2021-11-11 20:08 | Emergency (ER) | payer MEDICARE, SELFPAY ==
[2021-06-22 13:19] VITALS: PULSE 73; RESP 23; RESP 3; O2SAT 99
[2021-08-16 01:52] VITALS: BMI 23.3
--- NOTE | 2021-11-11 20:26 | ED_ITS ---
HPI - General Adult <Tez Lagunas DO - Last Filed: 11/12/21 22:09> General Chief complaint: Neuro Symptoms/Deficit Stated complaint: muscle spasm Time Seen by Provider: 11/11/21 20:15 Source: patient Mode of arrival: EMS Limitations: no limitations History of Present Illness HPI narrative: Patient is a 41-year-old female who has a known diagnosis of MS. I evaluated her here in the emergency department approximately 24 hours ago and gave her the 1st infusion of 1g of Solu-Medrol for a flare of her multiple sclerosis. During that visit there was no mention of any issues with muscle spasms or tremors. She returned earlier in the day today for her 2nd infusion of steroids. Accord ing to nursing staff there was some complaints of tremors and muscle spasms just prior to discharge but the plan is for her to go home and take her baclofen. According to the patient after she was discharged home she started have uncontrollable tremors and muscle spasms. Apparently her contacted the Neurology group at [facility] who manages her multiple sclerosis and described what appeared to be seizure-like activity where she was unconscious lying on the floor of the bathroom and according to reports had multiple episodes of seizure- like activity without returning to normal so there was concern for status. EMS was called to bring the patient to the emergency department. In route EMS reports that the patient did have episodes which she would shake and then laid back and have her eyes closed however they would ask her a question and she would wake up and answer the question. There did not appear to be any postictal state. Upon arrival the patient was shaking. And she describes that this is what has been going on throughout the day. She is having pain in her lower extremities this is not new for her. Related Data Home Medications Medication Instructions Recorded Confirmed ibuprofen 600 mg tablet 600 mg PO TIDP PRN #0 11/27/10 09/13/21 lamotrigine 25 mg tablet (Lamictal) 300 mg PO DAILY #0 08/26/16 09/13/21 methylphenidate HCl 5 mg tablet 20 mg PO DAILY #0 08/26/16 09/13/21 atenolol 25 mg tablet 50 mg PO DAILY 12/01/18 09/13/21 baclofen 20 mg tablet 30 mg PO TID 12/01/18 09/13/21 bupropion HCl 150 mg 24 hr tablet, 150 mg PO QAM 12/01/18 09/13/21 extended release buspirone 30 mg tablet 30 mg PO BID tab 12/01/18 09/13/21 melatonin 5 mg capsule 5 mg PO BEDTIME cap 12/01/18 09/13/21 topiramate 25 mg tablet (Topamax) 50 mg PO TID tab 12/01/18 09/13/21 hydrochlorothiazide 25 mg tablet 25 mg PO DAILY 01/13/20 09/13/21 oxycodone 15 mg tablet 30 mg PO Q6H PRN 01/13/20 09/13/21 tizanidine 4 mg tablet 8 mg PO BEDTIME 01/13/20 09/13/21 duloxetine 30 mg capsule,delayed 90 mg PO DAILY 08/15/21 09/13/21 release amlodipine 5 mg tablet 5 mg PO DAILY 08/16/21 09/13/21 acetaminophen 500 mg tablet 500 mg PO Q6H PRN 09/13/21 09/13/21 (Tylenol Extra Strength) albuterol sulfate 90 mcg/actuation g INHALATION 09/13/21 09/13/21 aerosol inhaler diphenhydramine HCl 25 mg capsule 25 mg PO Q6H PRN 09/13/21 09/13/21 (Benadryl) etonogestrel 0.12 mg-ethinyl 1 vag ring VAGINAL Q4W ea 09/13/21 09/13/21 estradiol 0.015 mg/24 hr vaginal ring nitrofurantoin macrocrystal 50 mg 50 mg PO DAILY PRN cap 09/13/21 09/13/21 capsule ocrelizumab 30 mg/mL intravenous 600 mg IV [id number] 09/13/21 09/13/21 solution omeprazole 20 mg capsule,delayed 20 mg PO DAILY cap 09/13/21 09/13/21 release Previous Rx's Medication Instructions Recorded lorazepam 1 mg tablet (Ativan) 1 mg PO TID PRN #14 tab 11/12/21 Allergies Allergy/AdvReac Type Severity Reaction Status Date / Time amitriptyline [AMITRIPTYLINE] Allergy Unknown Verified 09/13/21 15:21 fluoxetine Allergy Unknown Verified 09/13/21 15:21 gabapentin [GABAPENTIN] Allergy Unknown Verified 09/13/21 15:21 shayne [SHAYNE] Allergy Unknown Verified 09/13/21 15:21 Review of Systems <Tez Lagunas DO - Last Filed: 11/12/21 22:09> Review of Systems ROS Unobtainable: All systems reviewed & are unremarkable except as noted in HPI and below Patient History <Tez Lagunas DO - Last Filed: 11/12/21 22:09> Medical History Anxiety Atypical chest pain GERD without esophagitis HTN (hypertension) Hx of optic neuritis Major depression in partial remission MS (multiple sclerosis) PTSD (post-traumatic stress disorder) Recurrent UTI Surgical History Bunion, right foot History of laparoscopy Family History Mother CVA (cerebral vascular accident) Diabetes type 2, uncontrolled Father Diabetes type 2, uncontrolled Social History household members: spouse and caregiver Smoking Status: Never smoker alcohol intake: former Smoking Status: Never smoker alcohol intake frequency: a few times a month Substance Use Type: does not use Exam <Tez Lagunas DO - Last Filed: 11/12/21 22:09> Initial Vital Signs Initial Vital Signs: Vital Signs Pulse Rate 70 11/11/21 20:28 Respiratory Rate 18 11/11/21 20:28 Blood Pressure 112/75 11/11/21 20:28 Pulse Oximetry 99 11/11/21 20:28 Const General: cooperative, No acute distress and No ill appearing [facility] Head: normal to inspection and normocephalic Eyes General: Yes appearance normal, both eyes and all related structures Resp Effort & Inspection: normal respiratory effort Auscultation: clear to auscultation bilaterally Cardio Rate: regular rate Rhythm: regular rhythm GI Inspection: normal to inspection Skin General: no rashes or lesions noted Neuro General: patient alert, patient awake and moves all extremities Psych Appearance: well kempt <Magda Diaz DO - Last Filed: 11/13/21 19:01> Initial Vital Signs Initial Vital Signs: Vital Signs Pulse Rate 70 11/11/21 20:28 Respiratory Rate 18 11/11/21 20:28 Blood Pressure 112/75 11/11/21 20:28 Pulse Oximetry 99 11/11/21 20:28 Course <Tez DO Janneth - Last Filed: 11/12/21 22:09> Orders Ordered: Discontinued Medications Atenolol (Atenolol 50 Mg Tablet) 50 mg PO NOW ONE Stop: 11/12/21 08:45 Last Admin: 11/12/21 09:33 Dose: 50 mg Documented by: BECKI Baclofen (Baclofen 10 Mg Tablet) 30 mg PO NOW ONE Stop: 11/12/21 00:48 Last Admin: 11/12/21 01:29 Dose: 30 mg Documented by: ANDRAE Buspirone HCl (Buspirone 5 Mg Tablet) 30 mg PO NOW ONE Stop: 11/12/21 08:45 Last Admin: 11/12/21 09:33 Dose: 30 mg Documented by: BECKI Methylprednisolone 1,000 mg/ (Sodium Chloride) 258 mls @ 258 mls/hr IV NOW ONE Stop: 11/12/21 12:01 Last Infusion: 11/12/21 13:05 Dose: 0 mls/hr Documented by: Admin: 11/12/21 12:01 Dose: 258 mls/hr Documented by: BECKI Lorazepam (Lorazepam 2 Mg/Ml Inj) 1 mg IV NOW ONE Stop: 11/11/21 20:34 Last Admin: 11/11/21 20:56 Dose: 1 mg Documented by: ANH Lorazepam (Lorazepam 2 Mg/Ml Oral Blessing) 1 mg PO Q6HR PRN PRN Reason: Anxiety Oxycodone HCl (Oxycodone Er 10 Mg Tab) 30 mg PO NOW ONE Stop: 11/12/21 05:07 Last Admin: 11/12/21 05:24 Dose: 30 mg Documented by: ANDRAE Tizanidine HCl (Tizanidine 4 Mg Tablet) 4 mg PO NOW ONE Stop: 11/12/21 08:47 Last Admin: 11/12/21 09:33 Dose: 4 mg Documented by: BECKI Topiramate (Topiramate 25 Mg Tablet) 25 mg PO NOW ONE Stop: 11/12/21 05:05 Last Admin: 11/12/21 05:24 Dose: 25 mg Documented by: ANDRAE Vital Signs Vital signs: Vital Signs - 8 hr 11/12/21 15:38 Pulse Rate 93 H Respiratory Rate 18 Blood Pressure 119/81 Pulse Oximetry 100 <Magda Diaz, DO - Last Filed: 11/13/21 19:01> Orders Ordered: Discontinued Medications Atenolol (Atenolol 50 Mg Tablet) 50 mg PO NOW ONE Stop: 11/12/21 08:45 Last Admin: 11/12/21 09:33 Dose: 50 mg Documented by: BECKI Baclofen (Baclofen 10 Mg Tablet) 30 mg PO NOW ONE Stop: 11/12/21 00:48 Last Admin: 11/12/21 01:29 Dose: 30 mg Documented by: ANDRAE Buspirone HCl (Buspirone 5 Mg Tablet) 30 mg PO NOW ONE Stop: 11/12/21 08:45 Last Admin: 11/12/21 09:33 Dose: 30 mg Documented by: BECKI Methylprednisolone 1,000 mg/ (Sodium Chloride) 258 mls @ 258 mls/hr IV NOW ONE Stop: 11/12/21 12:01 Last Infusion: 11/12/21 13:05 Dose: 0 mls/hr Documented by: Admin: 11/12/21 12:01 Dose: 258 mls/hr Documented by: BECKI Lorazepam (Lorazepam 2 Mg/Ml Inj) 1 mg IV NOW ONE Stop: 11/11/21 20:34 Last Admin: 11/11/21 20:56 Dose: 1 mg Documented by: ANH Lorazepam (Lorazepam 2 Mg/Ml Oral Blessing) 1 mg PO Q6HR PRN PRN Reason: Anxiety Oxycodone HCl (Oxycodone Er 10 Mg Tab) 30 mg PO NOW ONE Stop: 11/12/21 05:07 Last Admin: 11/12/21 05:24 Dose: 30 mg Documented by: ANDRAE Tizanidine HCl (Tizanidine 4 Mg Tablet) 4 mg PO NOW ONE Stop: 11/12/21 08:47 Last Admin: 11/12/21 09:33 Dose: 4 mg Documented by: BECKI Topiramate (Topiramate 25 Mg Tablet) 25 mg PO NOW ONE Stop: 11/12/21 05:05 Last Admin: 11/12/21 05:24 Dose: 25 mg Documented by: ANDRAE Consultations Consultation #1: Dr. Joseph @ [facility] neurology MS clinic. Discussed he recommends completing 3 days of steroids. He suspects this may not be an MS flare but as she has had the initial 2 days of doses would recommend today's dose but no additional and benzodiazepines would be appropriate for helping with any behavioral issues related to steroids. He does states she has had psychosis in the past was they suspect early to her steroids and likely ketamine in her action. She does have an appointment scheduled with himself on the as well as there psychiatric component at the MS clinic. He does not request any MRI at this time. Time: 08:24 Vital Signs Vital signs: Vital Signs - 8 hr 11/12/21 15:38 Pulse Rate 93 H Respiratory Rate 18 Blood Pressure 119/81 Pulse Oximetry 100 Medical Decision Making <Tez Lagunas DO - Last Filed: 11/12/21 22:09> Lab Data Lab results reviewed: Yes I reviewed the patient's lab results. Result diagrams: 11/11/21 21:08 11/11/21 21:08 Labs: Lab Results 11/11/21 11/11/21 Range/Units 21:08 21:08 WBC 7.4 (4.5-11.0) X10^3/uL RBC 3.51 L (4.0-5.2) X10^6/uL Hgb 10.7 L (12.0-16.0) g/dL Hct 31.4 L (36-46) % MCV 89.5 (80-100) fL MCH 30.5 (26-34) PG MCHC 34.1 (30-36) % RDW 13.9 (11.6-14.8) % Plt Count 232 (150-400) X10^3/uL Neut % (Auto) 94.8 H D (50-75) % Lymph % (Auto) 4.4 L D (25-40) % [place] % (Auto) 0.8 L (3-14) % Eos % (Auto) 0.0 L (2-4) % Baso % (Auto) 0.0 (0-2) % Neut # (Auto) 7000 (3316-3080) /uL Lymph # (Auto) 300 L (2990-2483) /uL [place] # (Auto) 100 (0-900) /uL Eos # (Auto) 0 (0-450) /uL Baso # (Auto) 0 (0-100) /uL Sodium 139 (137-145) mmol/L Potassium 3.7 (3.4-5.1) mmol/L Chloride 112 H (98-107) mmol/L Carbon Dioxide 19 L (22-32) mmol/L BUN 21 H (7-17) mg/dL Creatinine 0.94 (0.52-1.04) mg/dL Estimated GFR > 60 (>60) mL/min BUN/Creatinine Ratio 22.3 H (6-22) Glucose 169 H (70-100) mg/dL Calcium 8.6 (8.4-10.2) mg/dL Total Creatine Kinase 334 H (30-135) U/L Prolactin 26.7 H (3.0-18.6) ng/mL MDM Narrative Medical decision making narrative: Patient's tremors since arrival here in the emergency department are not consistent with seizure-like activity. She has not lost consciousness. Has not had a postictal state. Patient was given Ativan which did seem to help her symptoms tremendously. She was able to sleep for period of time. With help she was able to ambulate to the bathroom after waking up. She states she is still having spasms in her legs which she states baclofen has helped her in the past for this so she was given a dose of baclofen. I did discuss the case with neurology at [facility] who stated that if the patient had an observed seizure that transfer to a facility that has Neurology is warranted. If there was more concerned that this was a nonepileptic seizure or other potential etiology that patient could be discharged home and follow-up with her MS neurologist at the beginning of next week. Patient does require a 3rd dose of her steroid and instead of discharging patient home just return in a couple hours for that 3rd steroid injection plan to be is to keep her here in the emergency department, receive another dose of steroids later today and then be discharged home with follow-up. Care turned over to Dr. Diaz to follow-up and disposition. <Magda Diaz, - Last Filed: 11/13/21 19:01> Lab Data Labs: Lab Results 11/11/21 11/11/21 Range/Units 21:08 21:08 WBC 7.4 (4.5-11.0) X10^3/uL RBC 3.51 L (4.0-5.2) X10^6/uL Hgb 10.7 L (12.0-16.0) g/dL Hct 31.4 L (36-46) % MCV 89.5 (80-100) fL MCH 30.5 (26-34) PG MCHC 34.1 (30-36) % RDW 13.9 (11.6-14.8) % Plt Count 232 (150-400) X10^3/uL Neut % (Auto) 94.8 H D (50-75) % Lymph % (Auto) 4.4 L D (25-40) % [place] % (Auto) 0.8 L (3-14) % Eos % (Auto) 0.0 L (2-4) % Baso % (Auto) 0.0 (0-2) % Neut # (Auto) 7000 (6633-3634) /uL Lymph # (Auto) 300 L (7885-3583) /uL [place] # (Auto) 100 (0-900) /uL Eos # (Auto) 0 (0-450) /uL Baso # (Auto) 0 (0-100) /uL Sodium 139 (137-145) mmol/L Potassium 3.7 (3.4-5.1) mmol/L Chloride 112 H (98-107) mmol/L Carbon Dioxide 19 L (22-32) mmol/L BUN 21 H (7-17) mg/dL Creatinine 0.94 (0.52-1.04) mg/dL Estimated GFR > 60 (>60) mL/min BUN/Creatinine Ratio 22.3 H (6-22) Glucose 169 H (70-100) mg/dL Calcium 8.6 (8.4-10.2) mg/dL Total Creatine Kinase 334 H (30-135) U/L Prolactin 26.7 H (3.0-18.6) ng/mL [facility] Narrative Medical decision making narrative: Patient's tremors since arrival here in the emergency department are not consistent with seizure-like activity. She has not lost consciousness. Has not had a postictal state. Patient was given Ativan which did seem to help her symptoms tremendously. She was able to sleep for period of time. With help she was able to ambulate to the bathroom after waking up. She states she is still having spasms in her legs which she states baclofen has helped her in the past for this so she was given a dose of baclofen. I did discuss the case with neurology at [facility] who stated that if the patient had an observed seizure that transfer to a facility that has Neurology is warranted. If there was more concerned that this was a nonepileptic seizure or other potential etiology that patient could be discharged home and follow-up with her MS neurologist at the beginning of next week. Patient does require a 3rd dose of her steroid and instead of discharging patient home just return in a couple hours for that 3rd steroid injection plan to be is to keep her here in the emergency department, receive another dose of steroids later today and then be discharged home with follow-up. Care turned over to Dr. Diaz to follow-up and disposition. Patient signed out to myself by Dr. Lagunas. She has not had any seizure-like activity in the department. He discussed with Neurology at [facility]. At this time plan was to treat patient with 3rd steroid injection later today after observing overnight rather than having patient return although there was discussion that maybe patient is developing some steroid psychosis. Patient does have follow-up set up on Monday with her neurologist neuropsych at [facility]. Dr. Lagunas states she is much more present at her mental state when he 1st saw her. Patient was seen and evaluated independently by myself. Patient is alert, appropriate, she states she is feeling about the same. She states she has appointments with follow-up. She is very clear in her mentation. Patient sees Dr. Joseph for neurology thru [facility] MS clinic. Discussed the case with Dr. Joseph who recommends this list the last day steroid infusion. Benzodiazepines be quite appropriate for behavioral management of any side effects from the steroids and follow-up on Monday. Patient given home am medications. Discussed she has found benzodiazepines helpful. She would appreciate a prescription. Plan to do Solu-Medrol at noon today. Discussed Dr. Joseph's recommendations and patient feels comfortable with this plan. Patient had her Solu-Medrol infusion here in the department. She tolerated this well. was also in the department discussed recommendations from Neurology and findings from overnight and into today. All questions answered. Discharge Plan Departure Patient Disposition: Home Clinical Impression: MS (multiple sclerosis) Activity Restrictions/Additional Instructions: I spoke with your neurologist Dr. Joseph at the MS clinic today with plan to see him at your tele-visit on Monday along with neuropsych visit on Monday. I hope you continue to feel improved. He recommends that we complete todays steroid infusion for a total of 3 days of steroids at this time. Prescription has been included for lorazepam as well you may take 1 tablet every 6 hours as needed. This medication can make it quite sleepy do not drive, perform hazardous activities or make any major decisions while taking them. Prescription sent to [facility]. Please return for new changes, fevers, altered mental status, intractable symptoms, persistent vomiting or other new or concerning symptoms. Prescriptions: New lorazepam [Ativan] 1 mg tablet 1 mg PO TID PRN (Reason: anxiety) Qty: 14 0RF No Action atenolol 25 mg tablet 50 mg PO DAILY 0RF bupropion HCl 150 mg tablet extended release 24 hr 150 mg PO QAM 0RF buspirone 30 mg tablet 30 mg PO BID 0RF baclofen 20 mg tablet 30 mg PO TID 0RF topiramate [Topamax] 25 mg tablet 50 mg PO TID 0RF melatonin 5 mg capsule 5 mg PO BEDTIME 0RF ibuprofen 600 MG tablet 600 mg PO TIDP PRN (Reason: Pain (Scale Score 1-3)) Qty: 0 0RF methylphenidate HCl 5 MG tablet 20 mg PO DAILY Qty: 0 0RF lamotrigine [Lamictal] 25 MG tablet 300 mg PO DAILY Qty: 0 0RF omeprazole 20 mg capsule,delayed release(DR/EC) 20 mg PO DAILY 0RF albuterol sulfate 90 mcg/actuation HFA aerosol inhaler inhalation 0RF etonogestrel-ethinyl estradiol 0.12-0.015 mg/24 hr ring 1 vag ring vaginal Q4W 0RF acetaminophen [Tylenol Extra Strength] 500 mg tablet 500 mg PO Q6H PRN0RF ocrelizumab 30 mg/mL solution 600 mg IV [id number] 0RF nitrofurantoin macrocrystal 50 mg capsule 50 mg PO DAILY PRN0RF Rx Instructions: must administer with a meal/food. Only after sexual intercourse. diphenhydramine HCl [Benadryl] 25 mg capsule 25 mg PO Q6H PRN0RF tizanidine 4 mg Tablet 8 mg PO BEDTIME 0RF oxycodone 15 mg Tablet 30 mg PO Q6H PRN (Reason: Pain (Scale Score 7-10)) 0RF hydrochlorothiazide 25 mg Tablet 25 mg PO DAILY 0RF duloxetine 30 mg capsule,delayed release(DR/EC) 90 mg PO DAILY 0RF Label Comments: take 2 capsules by mouth once daily amlodipine 5 mg tablet 5 mg PO DAILY 0RF Label Comments: take 1 tablet by mouth once daily Referrals: Jerad Horvath MD [Primary Care Provider] -
[2021-11-11 20:28] VITALS: BP 112/75; PULSE 70; RESP 18; O2SAT 99; BMI 22.4
[2021-11-11] MEDS: LORazepam 2 MG/ML INJ 1 MG IV (20:56)
[2021-11-11 21:00] VITALS: BP 127/77; PULSE 96; RESP 20; O2SAT 99
[2021-11-11 21:19] LABS: Add Manual Diff / Slide Review NO; Hematocrit 31.4 % (36-46); Hemoglobin 10.7 g/dL (12.0-16.0); Lymphocytes Absolute Auto 300 /uL (1100-4500); Lymphocytes Percent Auto 4.4 % (25-40); Mean Corpuscular HGB Conc 34.1 % (30-36); Mean Corpuscular Hemoglobin 30.5 PG (26-34); Mean Corpuscular Volume 89.5 fL (80-100); Monocytes Percent Auto 0.8 % (3-14); Neutrophils Absolute Auto 7000 /uL (1500-7000); Neutrophils Percent Auto 94.8 % (50-75); Platelet Count 232 X10^3/uL (150-400); Red Blood Cell Count 3.51 X10^6/uL (4.0-5.2); Red Cell Distribution Width 13.9 % (11.6-14.8); White Blood Cell Count 7.4 X10^3/uL (4.5-11.0)
[2021-11-11 21:20] LABS: Basophils Absolute Auto 0 /uL (0-100); Eosinophils Absolute Auto 0 /uL (0-450); Monocytes Absolute Auto 100 /uL (0-900)
[2021-11-11 21:30] VITALS: BP 121/73; PULSE 65; RESP 18; O2SAT 99
[2021-11-11 21:34] LABS: BUN Creatinine Ratio 22.3 (6-22); Blood Urea Nitrogen 21 mg/dL (7-17); Calcium 8.6 mg/dL (8.4-10.2); Carbon Dioxide 19 mmol/L (22-32); Chloride 112 mmol/L (98-107); Creatine Kinase 334 U/L (30-135); Estimated Glomerular Filt Rate > 60 mL/min (>60); Glucose 169 mg/dL (70-100); HEMOLYSIS < 15 (0-50); Potassium 3.7 mmol/L (3.4-5.1); Sodium 139 mmol/L (137-145)
[2021-11-11 21:51] LABS: Prolactin 26.7 ng/mL (3.0-18.6)
--- NOTE | 2021-11-11 21:55 | PC.NURSE ---
Pt laying still on stretcher with eyes closed, breathing even and unlabored.
[2021-11-11 22:00] VITALS: BP 142/82; PULSE 61; RESP 16; O2SAT 99
[2021-11-12] VITALS (9 sets, daily range): BP systolic 116–141; BP diastolic 70–100; PULSE 78–103; RESP 18; TEMP 36.6; O2SAT 95–100
[2021-11-12] MEDS: BACLOFEN 10 MG TABLET 30 MG PO (01:29)
[2021-11-12] MEDS: TOPIRAMATE 25 MG TABLET PO (05:24)
[2021-11-12] MEDS: OXYCODONE ER 10 MG TAB 30 MG PO (05:24)
[2021-11-12] MEDS: BUSPIRONE 5 MG TABLET 30 MG PO (09:33)
[2021-11-12] MEDS: TIZANIDINE 4 MG TABLET PO (09:33)
[2021-11-12] MEDS: atenoloL 50 MG TABLET PO (09:33)
[2021-11-12] MEDS: methylPREDNISolone 1,000 MG in SODIUM CHLORIDE 0.9% 250 ML 258 MG IV (12:01)
== END 2021-11-12 15:41 | disposition home or self-care (01) ==
PROVIDERS: Emergency Medicine; Emergency Provider Emergency Medicine; Family Provider Family Medicine; PCP Internal Medicine
DX: G35 Multiple sclerosis (principal); R25.1 Tremor, unspecified; R56.9 Unspecified convulsions
CPT/HCPCS: 36415; 80048; 82550; 84146; 85025; 96361; 96365; 96366; 96374; 96375; 99283; 99284; J2060; J2930

== ENCOUNTER → 2022-02-01 16:16 | Outpatient (CLI) | payer MEDICARE, SELFPAY ==
[2021-11-22 09:09] VITALS: PULSE 73; RESP 23; RESP 3; O2SAT 99; BMI 23.3
[2022-02-01 17:11] LABS: Add Manual Diff / Slide Review NO; Basophils Absolute Auto 100 /uL (0-100); Basophils Percent Auto 1.2 % (0-2); Eosinophils Absolute Auto 100 /uL (0-450); Eosinophils Percent Auto 2.5 % (2-4); Hematocrit 36.6 % (36-46); Hemoglobin 12.3 g/dL (12.0-16.0); Lymphocytes Absolute Auto 1300 /uL (1100-4500); Lymphocytes Percent Auto 30.1 % (25-40); Mean Corpuscular HGB Conc 33.6 % (30-36); Mean Corpuscular Hemoglobin 30.1 PG (26-34); Mean Corpuscular Volume 89.6 fL (80-100); Monocytes Absolute Auto 400 /uL (0-900); Monocytes Percent Auto 9.5 % (3-14); Neutrophils Absolute Auto 2500 /uL (1500-7000); Neutrophils Percent Auto 56.7 % (50-75); Platelet Count 263 X10^3/uL (150-400); Red Blood Cell Count 4.08 X10^6/uL (4.0-5.2); Red Cell Distribution Width 13.4 % (11.6-14.8); White Blood Cell Count 4.4 X10^3/uL (4.5-11.0)
[2022-02-01 18:06] LABS: Alanine Aminotransferase 22 IU/L (<35); Albumin 4.1 g/dL (3.5-5.0); Albumin Globulin Ratio 1.4 (1.0-2.8); Alkaline Phosphatase 85 U/L (38-126); Aspartate Aminotransferase 26 IU/L (14-36); BUN Creatinine Ratio 12.9 (6-22); Bilirubin Total 0.2 mg/dL (0.2-1.3); Blood Urea Nitrogen 13 mg/dL (7-17); Calcium 8.2 mg/dL (8.4-10.2); Carbon Dioxide 25 mmol/L (22-32); Chloride 107 mmol/L (98-107); Estimated Glomerular Filt Rate > 60 mL/min (>60); Globulin 2.9 g/dL (1.7-4.1); Glucose 127 mg/dL (70-100); HEMOLYSIS < 15 (0-50); Potassium 3.9 mmol/L (3.4-5.1); Sodium 139 mmol/L (137-145)
== END ==
PROVIDERS: Family Provider Family Medicine; PCP Internal Medicine; Referring Provider Psychiatry & Neurology Neurology; Visit Provider Psychiatry & Neurology Neurology
DX: G35 Multiple sclerosis (principal)
CPT/HCPCS: 36415; 80053; 85025; 86355; 86357; 86359; 86360

== ENCOUNTER → 2022-02-02 14:31 | Outpatient (ROUT) | payer MEDICARE, SELFPAY ==
[2021-11-22 09:09] VITALS: PULSE 73; RESP 23; RESP 3; O2SAT 99; BMI 23.3
[2022-02-02 14:51] LABS: Appearance Urine UA CLEAR; Bilirubin Urine UA NEGATIVE (NEGATIVE); Color Urine UA YELLOW; Glucose Urine UA NEGATIVE (Negative); Ketones Urine UA NEGATIVE (NEGATIVE); Leukocyte Esterase Urine UA TRACE (NEGATIVE); Nitrite Urine UA NEGATIVE (Negative); Occult Blood Urine UA NEGATIVE (Negative); Protein Urine UA NEGATIVE (Negative); Specific Gravity Urine UA 1.015 (1.000-1.035); Urobilinogen Urine UA 0.2 E.U./dL (0.2)
[2022-02-02 14:59] LABS: Bacteria Urine Occasional (0-1); Culture Indicated Urine Cult Not Indicated; RBC Urine None Seen (0-5/HPF); Squamous Epithelial Cell Urine 0-1 /HPF (0-5/HPF); Transitional Epi Cells Urine 0-1/HPF (0-5/HPF); WBC Urine 0-1/HPF (0-5/HPF)
== END ==
PROVIDERS: Family Provider Family Medicine; PCP Internal Medicine; Visit Provider Psychiatry & Neurology Neurology
DX: G35 Multiple sclerosis (principal)
CPT/HCPCS: 81001

== ENCOUNTER → 2022-07-28 12:26 | Outpatient (CLI) | payer MEDICARE, SELFPAY ==
[2021-11-22 09:09] VITALS: PULSE 73; RESP 23; RESP 3; O2SAT 99; BMI 23.3
[2022-07-28 12:49] LABS: Appearance Urine UA CLEAR; Bilirubin Urine UA NEGATIVE (NEGATIVE); Color Urine UA YELLOW; Glucose Urine UA NEGATIVE (Negative); Ketones Urine UA NEGATIVE (NEGATIVE); Leukocyte Esterase Urine UA 2+ (NEGATIVE); Nitrite Urine UA NEGATIVE (Negative); Occult Blood Urine UA NEGATIVE (Negative); Protein Urine UA NEGATIVE (Negative); Urobilinogen Urine UA 0.2 E.U./dL (0.2)
[2022-07-28 12:51] LABS: pH Urine UA 6.5 (4.5-8.0)
[2022-07-28 12:58] LABS: Amorphous Sediment Urine 1+; Bacteria Urine Moderate (10-30); Culture Indicated Urine Specimen Cultured; RBC Urine None Seen (0-5/HPF); Squamous Epithelial Cell Urine 10-30 /HPF (0-5/HPF); WBC Urine 5-10/HPF (0-5/HPF)
== END ==
PROVIDERS: Family Provider Family Medicine; PCP Internal Medicine; Referring Provider Internal Medicine; Visit Provider Internal Medicine
DX: N39.0 Urinary tract infection, site not specified (principal); R32 Unspecified urinary incontinence
CPT/HCPCS: 81001; 87086; 87147

== ENCOUNTER → 2022-09-07 16:15 | Outpatient (CLI) | payer MEDICARE, SELFPAY ==
[2021-11-22 09:09] VITALS: PULSE 73; RESP 23; RESP 3; O2SAT 99; BMI 23.3
--- NOTE | 2022-09-07 16:16 | DI.RAD.S_ITS ---
PROCEDURE: XR KNEE RT 3V INDICATIONS: knee pain TECHNIQUE: 3 views of the knee were acquired. COMPARISON: None. FINDINGS: Bones: No fractures or dislocations. No suspicious bony lesions. Soft tissues: No joint effusion. No suspicious soft tissue calcifications. IMPRESSION: No acute abnormality and no significant osteoarthritis. Dictated by: Moncho Oropeza M.D. on 09/07/2022 at 17:02 Approved by: Moncho Oropeza M.D. on 09/07/2022 at 17:02
== END ==
PROVIDERS: Family Provider Family Medicine; PCP Internal Medicine; Referring Provider Internal Medicine; Visit Provider Internal Medicine
DX: M25.561 Pain in right knee (principal)
CPT/HCPCS: 73562

== ENCOUNTER 2022-10-25 08:16 | Day surgery (SDC) | payer MEDICARE, SELFPAY ==
[2021-11-22 09:09] VITALS: PULSE 73; RESP 23; RESP 3; O2SAT 99; BMI 23.3
[2022-10-25] MEDS: LACTATED RINGERS 1,000 ML 42 ML IV (09:10)
[2022-10-25 09:32] VITALS: BP 133/91; PULSE 97; RESP 20; TEMP 36.1; O2SAT 100; BMI 26.5
--- NOTE | 2022-10-25 10:33 | P.HP_ITS ---
History of Present Illness History of Present Illness Date Patient Seen: 10/25/22 Time Patient Seen: 10:33 Chief complaint: Screening Colonoscopy Narrative: Ms Cardenas is a 42 y.o woman with history of multiple sclerosis here for colorectal screening. They have never had any previous examination for such. Family history mother had colon cancer. On further history denies any recent gastrointestinal symptoms. No nausea, vomiting, abdominal pain, loss of appetite, unexplained weight loss, change in bowel habits, or blood per rectum. [facility] Medical History Ankle pain (~1999) Anxiety Atypical chest pain Blindness (~2005) Contusion of right knee COVID-19 virus infection Family history of colon cancer in mother Fibromyalgia GERD without esophagitis HTN (hypertension) Hx of optic neuritis Kidney stones (~2020) Major depression in partial remission Migraines (~2020) MS (multiple sclerosis) (~1999) Pelvic pain PTSD (post-traumatic stress disorder) (~2010) Recurrent UTI Right knee pain Urinary incontinence Vertigo (~2000) Surgical History Anesthesia Bunion, right foot Dermatofibroma History of section History of laparoscopy Family History Mother CVA (cerebral vascular accident) Diabetes type 2, uncontrolled Colon cancer Father Diabetes type 2, uncontrolled Atrial fibrillation Gout Overweight Grandfather Kidney disease Family/Other SIDS (sudden infant syndrome) Social History details: . She has a 13 year son and lost another child to SIDS over 10 years household members: spouse Smoking Status: Never smoker alcohol intake: former Meds Home Medications and Allergies Home Medications Medication Instructions Recorded Confirmed Type ibuprofen 600 mg tablet 600 mg PO TIDP PRN Pain (Scale 11/27/10 10/25/22 History Score 1-3) ##0 methylphenidate HCl 5 mg tablet 20 mg PO DAILY ##0 08/26/16 10/25/22 History buspirone 30 mg tablet 30 mg PO BID 12/01/18 10/25/22 History oxycodone 15 mg tablet 30 mg PO Q6H PRN Pain (Scale Score 01/13/20 10/25/22 History 7-10) tizanidine 4 mg tablet 8 mg PO BEDTIME 01/13/20 10/25/22 History acetaminophen 500 mg tablet 500 mg PO Q6H PRN Pain (Scale 09/13/21 10/25/22 History (Tylenol Extra Strength) Score 1-3) albuterol sulfate 90 mcg/actuation 1 g inhalation PRN PRN Wheezing 09/13/21 10/25/22 History aerosol inhaler diphenhydramine HCl 25 mg capsule 25 mg PO Q6H PRN Insomnia 09/13/21 10/25/22 History (Benadryl) ocrelizumab 30 mg/mL intravenous 600 mg IV [id number] 09/13/21 10/25/22 History solution omeprazole 20 mg capsule,delayed 20 mg PO DAILY 09/13/21 10/25/22 History release topiramate 50 mg tablet 50 mg PO TID 11/22/21 10/25/22 History hydrochlorothiazide 25 mg tablet 50 mg PO DAILY #180 tabs 11/30/21 10/25/22 Rx etonogestrel 0.12 mg-ethinyl 1 vag ring vaginal Q4W #3 ea 01/31/22 10/25/22 Rx estradiol 0.015 mg/24 hr vaginal ring lamotrigine 25 mg tablet 25 mg PO BID 04/22/22 10/25/22 History bupropion HCl 150 mg 24 hr tablet, 150 mg PO QAM #90 tabs 04/27/22 10/25/22 Rx extended release duloxetine 30 mg capsule,delayed 30 mg PO DAILY #90 caps 07/04/22 10/25/22 Rx release olanzapine 10 mg tablet 10 mg PO BEDTIME 07/04/22 10/25/22 History amlodipine 10 mg tablet 10 mg PO DAILY #90 tabs 07/28/22 10/25/22 Rx lamotrigine 200 mg tablet 200 mg PO BID 07/28/22 10/25/22 History nitrofurantoin macrocrystal 50 mg 50 mg PO DAILY PRN UTI prevention 07/28/22 10/25/22 Rx capsule #60 caps oxybutynin chloride 5 mg tablet 5 mg PO BID-TID PRN bladder spasms 07/28/22 10/25/22 Rx #60 tabs baclofen 20 mg tablet See Rx Instructions .Route 08/16/22 10/25/22 Rx .COMPLEX #105 tabs atenolol 25 mg tablet 50 mg PO DAILY #90 tabs 08/22/22 10/25/22 Rx ketamine 100 mg/10 mL (10 mg/mL) 100 ml continuous IV infusion PRN 10/25/22 10/25/22 History in 0.9 % sodium chloride IV syringe PRN Neuromuscular Blockade Allergies Allergy/AdvReac Type Severity Reaction Status Date / Time fluoxetine Allergy Unknown Rash Verified 10/25/22 09:17 shayne [SHAYNE] Allergy Unknown Verified 10/25/22 09:17 amitriptyline [AMITRIPTYLINE] AdvReac Unknown Verified 10/25/22 09:17 gabapentin [GABAPENTIN] AdvReac Unknown Verified 10/25/22 09:17 Exam Vital Signs (past 8 hours): - 10/25/22 09:32 Temperature 96.9 F L Pulse Rate 97 H Respiratory Rate 20 Blood Pressure 133/91 H Pulse Oximetry 100 Narrative Exam Narrative: General adult woman alert oriented no acute distress Assessment & Plan Assessment and plan (1) Family history of colon cancer in mother: Status: Acute Assessment & Plan narrative: The patient requires colorectal screening and colonoscopy is recommended. Technical details were discussed. Risks, benefits, alternatives explained. Risks including but not limited to myocardial infarction, aspiration, bleeding, pain, missed lesion, incomplete examination, need for further radiographic studies, colonic perforation, and need for major abdominal surgery were di scussed. All questions were answered to their satisfaction, and they are in agreement with this plan.
--- NOTE | 2022-10-25 10:41 | PM.OP.COLON ---
Operative Date/Time/Diagnoses Date of procedure: 10/25/22 Time of procedure: 10:41 Pre-op diagnosis: Family history of colon cancer in mother Post-op diagnosis: same Procedure & Clinicians Study performed: Colonoscopy Same procedure as scheduled: Yes Indications: Family history of colon cancer, mother Colorectal screening Surgeon: Antony Fowler Procedure Notes Procedure in detail: The history and physical was performed/updated and the patient is ASA class is 2. The procedure was discussed in detail with the patient. Potential risks complications including infection, bleeding, missed diagnosis, perforation, need for surgery, and were explained. Their questions were answered and informed consent was obtained. Patient was brought to the procedure room and placed standard monitoring equipment. The patient's vital signs were monitored continuously throughout the entire procedure. Prior to starting time-out was performed. The patient was placed in the left lateral recumbent position. Procedural sedation was administered by anesthesia. Examination began with a thorough inspection of the perianal area there was no evidence of fissures, fistulae, external hemorrhoids or cutaneous malignancy. The colonoscopy scope was then placed into the anal canal and was advanced to the cecum, which was identified by the ileocecal valve, the appendiceal orifice and the confluence of the taenia. The scope was then slowly withdrawn examining colon thoroughly in all directions, irrigating it of any residual stool. No masses or inflammation. In the sigmoid colon there was suggestion of a 3 mm polyp which on closer inspection was a fold within the mucosa not a polyp The patient tolerated the procedure well. They will be discharged once criteria are met. The prep was of good/excellent quality. The withdrawl time was 15 minutes. Specimen(s): none sent Impression: Normal colonoscopy Post-procedure Recommendations: Colonoscopy in 5 years Disposition: same day surgery
[2022-10-25 11:17] VITALS: BP 129/95; PULSE 73; RESP 12; TEMP 36.1; O2SAT 100
[2022-10-25 11:22] VITALS: BP 137/91; PULSE 74; RESP 13; O2SAT 100
[2022-10-25 11:27] VITALS: BP 125/95; PULSE 83; RESP 13; TEMP 36.8; O2SAT 98
[2022-10-25 11:31] VITALS: BP 124/89; PULSE 80; RESP 15; TEMP 37; O2SAT 98
[2022-10-25 11:35] VITALS: BP 131/94; PULSE 83; RESP 15; TEMP 36.6; O2SAT 98
== END 2022-10-25 11:52 | disposition home or self-care (01) ==
PROVIDERS: Family Provider Family Medicine; PCP Internal Medicine; Referring Provider Surgery; Visit Provider Surgery
PROC: 0DJD8ZZ Inspection of Lower Intestinal Tract, Via Natural or Artificial Opening Endoscopic (ICD-10-PCS; CPT 45378; principal; 2022-10-25 09:15)
DX: Z12.11 Encounter for screening for malignant neoplasm of colon (principal); Z80.0 Family history of malignant neoplasm of digestive organs
CPT/HCPCS: G0105; 45378; J2704

== ENCOUNTER → 2022-11-02 12:03 | Outpatient (CLI) | payer MEDICARE, SELFPAY ==
[2021-11-22 09:09] VITALS: PULSE 73; RESP 23; RESP 3; O2SAT 99; BMI 23.3
[2022-11-02 12:24] LABS: Appearance Urine UA CLEAR; Bilirubin Urine UA NEGATIVE (NEGATIVE); Color Urine UA YELLOW; Glucose Urine UA NEGATIVE (Negative); Ketones Urine UA NEGATIVE (NEGATIVE); Leukocyte Esterase Urine UA 1+ (NEGATIVE); Nitrite Urine UA NEGATIVE (Negative); Occult Blood Urine UA NEGATIVE (Negative); Protein Urine UA NEGATIVE (Negative); Specific Gravity Urine UA <=1.005 (1.000-1.035); Urobilinogen Urine UA 0.2 E.U./dL (0.2)
[2022-11-02 12:42] LABS: Bacteria Urine Moderate (10-30); Culture Indicated Urine Cult Not Indicated; RBC Urine None Seen (0-5/HPF); Squamous Epithelial Cell Urine 5-10 /HPF (0-5/HPF); WBC Urine 5-10/HPF (0-5/HPF)
== END ==
PROVIDERS: Family Provider Family Medicine; PCP Internal Medicine; Referring Provider Internal Medicine; Visit Provider Internal Medicine
DX: N39.0 Urinary tract infection, site not specified (principal)
CPT/HCPCS: 81001

== ENCOUNTER → 2022-11-23 14:22 | Outpatient (CLI) | payer MEDICARE, SELFPAY ==
[2021-11-22 09:09] VITALS: PULSE 73; RESP 23; RESP 3; O2SAT 99; BMI 23.3
[2022-11-23 15:51] LABS: Add Manual Diff / Slide Review NO; Basophils Absolute Auto 0 /uL (0-100); Basophils Percent Auto 0.8 % (0-2); Eosinophils Absolute Auto 0 /uL (0-450); Eosinophils Percent Auto 0.3 % (2-4); Hematocrit 36.2 % (36-46); Hemoglobin 12.1 g/dL (12.0-16.0); Lymphocytes Absolute Auto 800 /uL (1100-4500); Mean Corpuscular HGB Conc 33.5 % (30-36); Mean Corpuscular Hemoglobin 29.9 PG (26-34); Mean Corpuscular Volume 89.3 fL (80-100); Monocytes Absolute Auto 500 /uL (0-900); Monocytes Percent Auto 7.5 % (3-14); Neutrophils Absolute Auto 5100 /uL (1500-7000); Neutrophils Percent Auto 78.4 % (50-75); Platelet Count 236 X10^3/uL (150-400); Red Blood Cell Count 4.05 X10^6/uL (4.0-5.2); Red Cell Distribution Width 14.3 % (11.6-14.8); White Blood Cell Count 6.5 X10^3/uL (4.5-11.0)
[2022-11-23 16:05] LABS: HEMOLYSIS < 15 (0-50); Iron 62 ug/dL (37-170)
[2022-11-23 16:08] LABS: Alanine Aminotransferase 17 IU/L (<35); Albumin 4.3 g/dL (3.5-5.0); Albumin Globulin Ratio 1.7 (1.0-2.8); Alkaline Phosphatase 93 U/L (38-126); Aspartate Aminotransferase 22 IU/L (14-36); BUN Creatinine Ratio 21.5 (6-22); Bilirubin Total 0.4 mg/dL (0.2-1.3); Blood Urea Nitrogen 14 mg/dL (7-17); Calcium 8.4 mg/dL (8.4-10.2); Carbon Dioxide 29 mmol/L (22-32); Chloride 100 mmol/L (98-107); Cholesterol 190 mg/dL (140-199); Estimated Glomerular Filt Rate > 60 mL/min (>60); Globulin 2.6 g/dL (1.7-4.1); Glucose 93 mg/dL (70-100); HEMOLYSIS < 15 (0-50); Potassium 3.6 mmol/L (3.4-5.1); Sodium 136 mmol/L (137-145); Total Protein 6.9 g/dL (6.3-8.2); Triglycerides 125 mg/dL (35-150)
[2022-11-23 16:19] LABS: HDL Cholesterol 115 mg/dL (40-60); LDL Cholesterol Calculated 50 mg/dL (<100); Percent Iron Saturation 15 % (15-50); Total Iron Binding Capacity 414 ug/dL (265-497); Transferrin 338 mg/dL (206-381)
[2022-11-23 16:22] LABS: Free T4, Direct Thyroxine 0.77 ng/dL (0.78-2.19)
[2022-11-23 16:36] LABS: Thyroid Stimulating Hormone 1.42 uIU/mL (0.47-4.68)
[2022-11-23 17:12] LABS: Folate 6.2 ng/mL (2.76-20.0)
[2022-11-28 14:54] LABS: Vitamin B12 941 pg/mL (239-931)
== END ==
PROVIDERS: Family Provider Family Medicine; PCP Internal Medicine; Referring Provider Psychiatry & Neurology Psychiatry; Visit Provider Psychiatry & Neurology Psychiatry
DX: Z51.81 Encounter for therapeutic drug level monitoring (principal); R53.83 Other fatigue
CPT/HCPCS: 36415; 80053; 80061; 82607; 82746; 83540; 83550; 84439; 84443; 85025

== ENCOUNTER → 2023-01-25 15:06 | Outpatient (CLI) | payer MEDICARE, SELFPAY ==
[2021-11-22 09:09] VITALS: PULSE 73; RESP 23; RESP 3; O2SAT 99; BMI 23.3
[2023-01-25 15:24] LABS: Appearance Urine UA CLOUDY; Bilirubin Urine UA NEGATIVE (NEGATIVE); Color Urine UA YELLOW; Glucose Urine UA NEGATIVE (Negative); Ketones Urine UA NEGATIVE (NEGATIVE); Leukocyte Esterase Urine UA 3+ (NEGATIVE); Nitrite Urine UA NEGATIVE (Negative); Occult Blood Urine UA TRACE-INTACT (Negative); Protein Urine UA NEGATIVE (Negative); Urobilinogen Urine UA 0.2 E.U./dL (0.2)
[2023-01-25 15:28] LABS: pH Urine UA 5.5 (4.5-8.0)
[2023-01-25 15:29] LABS: RBC Urine 1-5/HPF (0-5/HPF); WBC Urine 10-30/HPF (0-5/HPF)
[2023-01-25 15:30] LABS: Bacteria Urine Moderate (10-30); Culture Indicated Urine Specimen Cultured; Squamous Epithelial Cell Urine 1-5 /HPF (0-5/HPF)
== END ==
PROVIDERS: Family Provider Family Medicine; PCP Internal Medicine; Referring Provider Internal Medicine; Visit Provider Internal Medicine
DX: N39.0 Urinary tract infection, site not specified (principal)
CPT/HCPCS: 81001; 87077; 87086; 87147; 87185; 87186

== ENCOUNTER → 2023-02-14 08:21 | Outpatient (CLI) | payer MEDICARE, SELFPAY ==
[2021-11-22 09:09] VITALS: PULSE 73; RESP 23; RESP 3; O2SAT 99; BMI 23.3
[2023-02-14 10:25] LABS: Prolactin 48.7 ng/mL (3.0-18.6)
[2023-02-14 10:30] LABS: Follicle Stimulating Hormone 1.78 mIU/mL; Free T3, Triiodothyronine Free 4.64 pg/mL (2.77-5.27); Free T4, Direct Thyroxine 0.93 ng/dL (0.78-2.19); Luteinizing Hormone 1.05 mIU/mL; Progesterone, Total 0.78 ng/mL
[2023-02-14 10:43] LABS: Thyroid Stimulating Hormone 1.64 uIU/mL (0.47-4.68)
[2023-02-14 10:45] LABS: Estradiol, Total 21.3 pg/mL
[2023-02-18 16:13] LABS: Testosterone % Fr + Wkly bound 5.7 % (3.0-18.0); Testosterone Fr+Wkly bound 1.2 ng/dL (0.0-9.5); Testosterone, Total 20.4 ng/dL (.)
== END ==
PROVIDERS: Family Provider Family Medicine; PCP Internal Medicine
DX: N92.6 Irregular menstruation, unspecified (principal); K59.00 Constipation, unspecified; R63.5 Abnormal weight gain
CPT/HCPCS: 36415; 82670; 83001; 83002; 84144; 84146; 84403; 84439; 84443; 84481

== ENCOUNTER → 2023-10-04 12:45 | Outpatient (CLI) | payer MEDICARE, SELFPAY ==
[2021-11-22 09:09] VITALS: PULSE 73; RESP 23; RESP 3; O2SAT 99; BMI 23.3
[2023-10-04 13:25] LABS: Hematocrit 38.7 % (36-46); Hemoglobin 13.1 g/dL (12.0-16.0); Mean Corpuscular HGB Conc 33.7 % (30-36); Mean Corpuscular Hemoglobin 30.5 PG (26-34); Mean Corpuscular Volume 90.4 fL (80-100); Platelet Count 316 X10^3/uL (150-400); Red Blood Cell Count 4.28 X10^6/uL (4.0-5.2); Red Cell Distribution Width 14.6 % (11.6-14.8); White Blood Cell Count 6.1 X10^3/uL (4.5-11.0)
[2023-10-04 13:52] LABS: Alanine Aminotransferase 17 IU/L (<35); Albumin 4.5 g/dL (3.5-5.0); Albumin Globulin Ratio 1.7 (1.0-2.8); Alkaline Phosphatase 92 U/L (38-126); Aspartate Aminotransferase 19 IU/L (14-36); BUN Creatinine Ratio 18.4 (6-22); Bilirubin Total 0.3 mg/dL (0.2-1.3); Blood Urea Nitrogen 16 mg/dL (7-17); Calcium 9.8 mg/dL (8.4-10.2); Carbon Dioxide 25 mmol/L (22-32); Chloride 109 mmol/L (98-107); Cholesterol 185 mg/dL (140-199); Estimated Glomerular Filt Rate > 60 mL/min (>60); Globulin 2.6 g/dL (1.7-4.1); Glucose 91 mg/dL (70-100); HEMOLYSIS < 15 (0-50); Potassium 4.3 mmol/L (3.4-5.1); Sodium 141 mmol/L (137-145); Total Protein 7.1 g/dL (6.3-8.2); Triglycerides 227 mg/dL (35-150)
[2023-10-04 14:05] LABS: HDL Cholesterol 113 mg/dL (40-60); LDL Cholesterol Calculated 27 mg/dL (<100)
== END ==
PROVIDERS: Family Provider Family Medicine; PCP Internal Medicine; Referring Provider Internal Medicine; Visit Provider Internal Medicine
DX: Z00.00 Encounter for general adult medical examination without abnormal findings (principal); I10 Essential (primary) hypertension; G35 Multiple sclerosis
CPT/HCPCS: 36415; 80053; 80061; 85027

== ENCOUNTER → 2023-12-05 12:14 | Outpatient (CLI) | payer MEDICARE, SELFPAY ==
[2021-11-22 09:09] VITALS: PULSE 73; RESP 23; RESP 3; O2SAT 99; BMI 23.3
--- NOTE | 2023-12-05 12:16 | DI.RAD.S_ITS ---
PROCEDURE: XR FOOT RT MIN 3V INDICATIONS: RT FOOT PAIN AND SWELLING TECHNIQUE: 3 views of the foot were acquired. COMPARISON: [facility] [place], CR, XR FOOT 3+ VIEWS RIGHT, 03/28/2019, 10:08. FINDINGS: Bones: No fractures or dislocations. No suspicious bony lesions. Metatarsus adductus and hallux valgus. Question prior bunionectomy. There is lateral subluxation of the 1st proximal phalanx at the 1st metatarsophalangeal joint. Degenerative joint disease in ankle and foot, increased since the last exam. This is most pronounced at the 1st metatarsophalangeal joint. There are periarticular bony erosions at the base of the 1st proximal phalanx head at the base of the 1st distal phalanx. Soft tissues: No tibiotalar joint effusion. Achilles tendon appears normal. IMPRESSION: 1. No acute bony abnormality. 2. Metatarsus adductus and hallux valgus. 3. Progressive worsening of degenerative joint disease, most pronounced at the 1st metatarsophalangeal joint. There is lateral subluxation of the great toe at the 1st metatarsophalangeal joint. 4. 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 Dictated by: Rafa Encarnacion M.D. on 12/05/2023 at 14:28 Approved by: Rafa Encarnacion M.D. on 12/05/2023 at 14:32
== END ==
PROVIDERS: Family Provider Family Medicine; PCP Internal Medicine; Referring Provider Podiatrist; Visit Provider Podiatrist
DX: S93.141A Subluxation of metatarsophalangeal joint of right great toe, initial encounter (principal); M19.071 Primary osteoarthritis, right ankle and foot; M85.871 Other specified disorders of bone density and structure, right ankle and foot; M20.11 Hallux valgus (acquired), right foot; M20.5X1 Other deformities of toe(s) (acquired), right foot; M25.571 Pain in right ankle and joints of right foot; M79.89 Other specified soft tissue disorders
CPT/HCPCS: 73630

== ENCOUNTER → 2024-01-03 12:21 | Outpatient (CLI) | payer MEDICARE, SELFPAY ==
[2021-11-22 09:09] VITALS: PULSE 73; RESP 23; RESP 3; O2SAT 99; BMI 23.3
[2024-01-03 13:44] LABS: BUN Creatinine Ratio 21.1 (6-22); Blood Urea Nitrogen 20 mg/dL (7-17); Calcium 9.4 mg/dL (8.4-10.2); Carbon Dioxide 20 mmol/L (22-32); Chloride 109 mmol/L (98-107); Estimated Glomerular Filt Rate > 60 mL/min (>60); Glucose 149 mg/dL (70-100); HEMOLYSIS < 15 (0-50); Potassium 4.7 mmol/L (3.4-5.1); Sodium 138 mmol/L (137-145)
[2024-01-03 14:16] LABS: TSH w/ Reflex to FT4 0.47 uIU/mL (0.47-4.68)
[2024-01-03 14:19] LABS: Ferritin 51 ng/mL (6-137)
[2024-01-03 14:34] LABS: Vitamin B12 717 pg/mL (239-931)
== END ==
PROVIDERS: Family Provider Family Medicine; PCP Internal Medicine; Referring Provider Internal Medicine; Visit Provider Internal Medicine
DX: D50.9 Iron deficiency anemia, unspecified (principal); I10 Essential (primary) hypertension; E53.8 Deficiency of other specified B group vitamins; E07.9 Disorder of thyroid, unspecified
CPT/HCPCS: 80048; 82607; 82728; 84443

== ENCOUNTER 2024-02-06 18:24 | Emergency (ER) | payer MEDICARE, SELFPAY ==
[2021-11-22 09:09] VITALS: PULSE 73; RESP 23; RESP 3; O2SAT 99; BMI 23.3
[2024-02-06] VITALS (7 sets, daily range): BP systolic 98–127; BP diastolic 60–76; PULSE 62–83; RESP 13–18; TEMP 36.6; O2SAT 95–98; BMI 23.3
--- NOTE | 2024-02-06 20:53 | ED.FALL ---
HPI - Fall General Chief Complaint: Fall Stated Complaint: Fall, hit head dizziness, MARX, has MS Time Seen by Provider: 02/06/24 19:58 Source: patient Mode of arrival: Ambulatory History of Present Illness HPI Narrative: Patient is a 43-year-old female. Has a history of MS. States she was currently having an MS flare. Is receiving IV steroids. She states that yesterday she had an episode where she stated that she passed out. She did hit her head. Prior to passing out did not have chest pain nor palpitations no shortness of breath. No history of seizures. Since that time she was had a severe headache. Is also having neck pain. Reports no extremity injuries. She was placed in a cervical collar in triage. Related Data Home Medications Medication Instructions Recorded Confirmed ibuprofen 600 mg tablet 600 mg PO TIDP PRN Pain (Scale 11/27/10 01/03/24 Score 1-3) ##0 tizanidine 4 mg tablet 8 mg PO BEDTIME 01/13/20 01/03/24 acetaminophen 500 mg tablet 500 mg PO Q6H PRN Pain (Scale 09/13/21 01/03/24 (Tylenol Extra Strength) Score 1-3) albuterol sulfate 90 mcg/actuation 1 g inhalation PRN PRN Wheezing 09/13/21 01/03/24 aerosol inhaler diphenhydramine HCl 25 mg capsule 25 mg PO Q6H PRN Insomnia 09/13/21 01/03/24 (Benadryl) ocrelizumab 30 mg/mL intravenous 600 mg IV [id number] 09/13/21 01/03/24 solution topiramate 50 mg tablet 50 mg PO TID 11/22/21 01/03/24 olanzapine 10 mg tablet 10 mg PO BEDTIME 07/04/22 01/03/24 buspirone 30 mg tablet 30 mg PO DAILY 11/02/22 01/03/24 gabapentin enacarbil 600 mg 600 mg PO QPM 11/02/22 01/03/24 tablet,extended release (Horizant ER) methylphenidate HCl 10 mg tablet 10 mg PO BID 07/18/23 01/03/24 ketamine nasal spray Not Applicable 01/03/24 lamotrigine 300 mg tablet,extended 300 mg PO DAILY 01/03/24 01/03/24 release 24 hr oxycodone 15 mg tablet 15 mg PO Q3H PRN Pain (Scale Score 01/03/24 01/03/24 7-10) Previous Rx's Medication Instructions Recorded bupropion HCl 150 mg 24 hr tablet, 150 mg PO QAM #90 tabs 04/27/22 extended release mirabegron 25 mg tablet,extended See Rx Instructions PO DAILY #180 11/02/22 release 24 hr (Myrbetriq) tabs sulfamethoxazole 800 1 tab PO BID #14 tabs 01/23/23 mg-trimethoprim 160 mg tablet amlodipine 10 mg tablet 10 mg PO DAILY #90 tabs 07/26/23 duloxetine 30 mg capsule,delayed See Rx Instructions .Route 08/02/23 release .COMPLEX #90 caps nitrofurantoin macrocrystal 50 mg 50 mg PO DAILY PRN UTI prevention 08/21/23 capsule #60 caps baclofen 20 mg tablet See Rx Instructions .Route 09/04/23 .COMPLEX #105 tabs atenolol 25 mg tablet 50 mg (2 x 25 mg) PO DAILY #90 tabs 11/01/23 hydrochlorothiazide 25 mg tablet 50 mg (2 x 25 mg) PO DAILY #180 11/06/23 tabs etonogestrel 0.12 mg-ethinyl 1 vag ring vaginal Q4W #3 ea 12/29/23 estradiol 0.015 mg/24 hr vaginal ring levofloxacin 500 mg tablet 500 mg PO DAILY #3 tabs 02/01/24 lorazepam 1 mg tablet (Ativan) 1 mg PO BEDTIME PRN sleep #10 tabs 02/05/24 Allergies Allergy/AdvReac Type Severity Reaction Status Date / Time fluoxetine Allergy Unknown Rash Verified 01/03/24 11:44 shayne [SHAYNE] Allergy Unknown Verified 01/03/24 11:44 amitriptyline [AMITRIPTYLINE] AdvReac Unknown Verified 01/03/24 11:44 gabapentin [GABAPENTIN] AdvReac Unknown Verified 01/03/24 11:44 Review of Systems Review of Systems ROS Unobtainable: All systems reviewed & are unremarkable except as noted in HPI and below Patient History Medical History Alopecia areata Urinary incontinence Right knee pain COVID-19 virus infection Pelvic pain Family history of colon cancer in mother Contusion of right knee Migraines (~2020) Fibromyalgia Ankle pain (~1999) Vertigo (~2000) Blindness (~2005) Kidney stones (~2020) Atypical chest pain GERD without esophagitis Anxiety Major depression in partial remission Recurrent UTI Hx of optic neuritis PTSD (post-traumatic stress disorder) (~2010) HTN (hypertension) MS (multiple sclerosis) (~1999) Surgical History Anesthesia History of section Dermatofibroma Bunion, right foot History of laparoscopy Family History Mother CVA (cerebral vascular accident) Diabetes type 2, uncontrolled Colon cancer Father Diabetes type 2, uncontrolled Atrial fibrillation Gout Overweight Grandfather Kidney disease Family/Other SIDS (sudden syndrome) Social History details: . She has a 13 year son and lost another child to SIDS over 10 years household members: spouse Smoking Status: Never smoker alcohol intake: former Smoking Status: Never smoker alcohol intake frequency: a few times a month Substance Use Type: does not use Exam Initial Vital Signs Initial Vital Signs: Vital Signs Temperature 98 F 02/06/24 18:37 Pulse Rate 83 02/06/24 18:37 Respiratory Rate 18 02/06/24 18:37 Blood Pressure 108/60 02/06/24 18:37 Pulse Oximetry 97 02/06/24 18:37 Oxygen Delivery Method Room Air 02/06/24 18:37 Const General: cooperative, comfortable and No ill appearing [facility] Head: normal to inspection, normocephalic, No abrasion and No contusion Resp Effort & Inspection: normal respiratory effort Cardio Rate: regular rate Back/Spine/Pelvis Cervical Spine: cervical spinal tenderness Skin General: no rashes or lesions noted Neuro General: patient alert, patient awake, patient oriented x3 and moves all extremities Extrem General: normal to inspection and capillary refill normal Scores [place] CT Head Rule Age <16 years old: No Patient on blood thinners: No Seizure after injury: No Exclusion: Patient NOT Excluded, Proceed to next steps GCS < 15 at 2 hr post trauma: No Suspected open or depressed skull fracture: No Any sign of basilar skull fracture (hemotympanum, raccoon eyes, Mclain's sign, CSF milan-/rhinorrhea): No Two or more episodes of vomiting: No Age greater or equal to 65 years: No Retrograde amnesia to the event greater or equal to 30 min: No Dangerous Mechanism (pedestrian vs. mv, occupant ejected from mv, fall from >3 ft or > 5 stairs): No Recommendation: CT unnecessary GCS [place] coma scale eye opening: Spontaneous Julita coma scale verbal response: Orientated [place]ita coma scale motor response: Obey commands [place] coma scale total score: 15 Nexus Score for C-Spine Focal Neurologic deficit present: No Midline spinal tenderness present: Yes Altered level of conciousness present: No Intoxication present: No Distracting Injury Present: No Nexus Criteria for C-spine: 1 Course Orders Ordered: ED Orders 02/06/24 20:54 CT cervical spine wo con Stat CT head/brain wo con Stat Discontinued Medications Ondansetron HCl (Ondansetron 4 Mg/2 Ml Inj) 4 mg IV NOW PRN PRN Reason: Nausea And Vomiting Ondansetron HCl (Ondansetron 4 Mg Odt) 4 mg SL NOW PRN PRN Reason: Nausea And Vomiting Vital Signs Vital signs: Vital Signs - 8 hr 02/06/24 18:37 02/06/24 19:30 02/06/24 20:00 Temperature 98 F Pulse Rate 83 68 64 Respiratory Rate 18 16 17 Blood Pressure 108/60 98/64 109/67 Pulse Oximetry 97 95 96 Oxygen Delivery Method Room Air 02/06/24 20:37 02/06/24 21:00 02/06/24 21:30 Temperature Pulse Rate 64 68 68 Respiratory Rate 13 18 Blood Pressure 109/64 Pulse Oximetry 97 95 98 Oxygen Delivery Method 02/06/24 21:30 02/06/24 22:00 02/06/24 22:00 Temperature Pulse Rate 62 Respiratory Rate 18 Blood Pressure 122/76 127/62 Pulse Oximetry 96 Oxygen Delivery Method MDM - Fall Lab Data Attestation: I reviewed the patient's lab results. Labs: Point of Care Testing Test Results Negative Urine Dip Bedside Urine Glucose Negative Bedside Urine Bilirubin - Negative Bedside Urine Ketone - Negative Urine Specific [place] 1.015 Bedside Urine Occult Blood - Negative Bedside Urine pH 6.0 Bedside Urine Protein - Negative Bedside Urine Urobilinogen - Negative Bedside Urine Nitrite - Negative Bedside Urine Leukocytes - Negative Esterase Imaging Data CT - cervical spine: Radiologist's Impression: PROCEDURE: CT CERVICAL SPINE WO CON INDICATIONS: Midline neck pain after fall TECHNIQUE: Noncontrast 3 mm thick sections acquired from the skull base to the T4 level. Sagittal and coronal reformats were then constructed. For radiation dose reduction, the following was used: automated exposure control, adjustment of mA and/or kV according to patient size. COMPARISON: None. FINDINGS: Image quality: Excellent. Bones: No fractures or dislocations. Reversal the normal cervical lordosis. Multilevel degenerative changes, most pronounced C4-C5 and C6-C7. Visualized superior ribs are intact. Soft tissues: Prevertebral soft tissues are normal in thickness. No paravertebral hematomas. No apical pneumothoraces. IMPRESSION: No displaced fracture or traumatic subluxation. CT scan - head: Radiologist's Impression: PROCEDURE: CT HEAD/BRAIN WO CON INDICATIONS: syncope and severe headache TECHNIQUE: Noncontrast 4.5 mm thick angled axial sections acquired from the foramen magnum to the vertex, with coronal and sagittal reformats. For radiation dose reduction, the following was used: automated exposure control, adjustment of mA and/or kV according to patient size. COMPARISON: [facility], CT, CT HEAD/BRAIN WO CON, 06/21/2021, 9:10. FINDINGS: Image quality: Diagnostic. CSF spaces: Basal cisterns are patent. No extra-axial fluid collections. Ventricles are normal in size and shape. Brain: No midline shift. Redemonstration of chronic microvascular ischemic changes. No intracranial masses or hemorrhage. Manzo-white matter interface is normal. Skull and face: Calvarium and visualized facial bones are intact, without suspicious lesions. Sinuses: Visualized sinuses and mastoids are clear. IMPRESSION: No acute intracranial pathology. [facility] Narrative Medical decision making narrative: Patient has had a severe headache after sustaining a syncopal episode in the setting of having MS and on IV steroids. Head CT was ordered which showed no acute pathology. She was also having midline neck discomfort. Cervical collar was placed in triage. Subsequent CT cervical spine is negative as well. Discussed the finding of the CT scans with the patient. She can continue to take her steroid infusions for her MS. She was given return precautions. She expressed understanding and agreement. Discharge Plan Departure Patient Disposition: Home Clinical Impression: Syncope Instructions: DI for Closed Head Injury Activity Restrictions/Additional Instructions: You can continue to take all of your medications as directed. Recommend that you continue with the Tylenol/ibuprofen. You can also continue with your steroid infusions. Return to the emergency department for new symptoms. Prescriptions: No Action buspirone 30 mg tablet 30 mg PO DAILY ibuprofen 600 MG tablet 600 mg PO TIDP PRN (Reason: Pain (Scale Score 1-3)) Qty: 0 bupropion HCl 150 mg tablet extended release 24 hr 150 mg PO QAM Qty: 90 3RF sulfamethoxazole-trimethoprim 800-160 mg tablet 1 tab PO BID Qty: 14 2RF amlodipine 10 mg tablet 10 mg PO DAILY Qty: 90 3RF duloxetine 30 mg capsule,delayed release(DR/EC) See Rx Instructions .ROUTE .COMPLEX Qty: 90 3RF Dose Instruction: take 1 capsule once daily Rx Instructions: take 1 capsule once daily nitrofurantoin macrocrystal 50 mg capsule 50 mg PO DAILY PRN (Reason: UTI prevention) Qty: 60 2RF Rx Instructions: must administer with a meal/food. Only after sexual intercourse. baclofen 20 mg tablet See Rx Instructions .ROUTE .COMPLEX Qty: 105 5RF Dose Instruction: take 1 AND 1/2 tablets by mouth three times a day Rx Instructions: take 1 AND 1/2 tablets by mouth three times a day atenolol 25 mg tablet 50 mg PO DAILY Qty: 90 3RF hydrochlorothiazide 25 mg tablet 50 mg PO DAILY Qty: 180 4RF etonogestrel-ethinyl estradiol 0.12-0.015 mg/24 hr ring 1 vag ring vaginal Q4W Qty: 3 3RF lorazepam [Ativan] 1 mg tablet 1 mg PO BEDTIME PRN (Reason: sleep) Qty: 10 2RF albuterol sulfate 90 mcg/actuation HFA aerosol inhaler 1 g inhalation PRN PRN (Reason: Wheezing) acetaminophen [Tylenol Extra Strength] 500 mg tablet 500 mg PO Q6H PRN (Reason: Pain (Scale Score 1-3)) ocrelizumab 30 mg/mL solution 600 mg IV [id number] diphenhydramine HCl [Benadryl] 25 mg capsule 25 mg PO Q6H PRN (Reason: Insomnia) topiramate 50 mg tablet 50 mg PO TID olanzapine 10 mg tablet 10 mg PO BEDTIME Patient Comments: TAKE ONE TABLET BY MOUTH AT BEDTIME Horizant 600 mg tablet extended release 600 mg PO QPM Myrbetriq 25 mg tablet extended release 24 hr See Rx Instructions PO DAILY Qty: 180 3RF Rx Instructions: 1-2 pills daily for urinary incontinence levofloxacin 500 mg tablet 500 mg PO DAILY Qty: 3 0RF methylphenidate HCl 10 mg tablet 10 mg PO BID lamotrigine 300 mg tablet extended release 24hr 300 mg PO DAILY ketamine nasal spray Not Applicable Rx Instructions: 100mg/ML up to 12 sprays/day tizanidine 4 mg Tablet 8 mg PO BEDTIME oxycodone 15 mg tablet 15 mg PO Q3H PRN (Reason: Pain (Scale Score 7-10)) Referrals: Jerad Horvath MD [Primary Care Provider] - Stand Alone Forms: Patient Portal/API
--- NOTE | 2024-02-07 18:12 | PC.NURSE ---
Pt spouse came to [facility] home meds that patient left in room on 02/06/2024.
== END 2024-02-06 22:28 | disposition home or self-care (01) ==
PROVIDERS: Emergency Provider Emergency Medicine; Family Provider Family Medicine; PCP Internal Medicine
DX: R55 Syncope and collapse (principal); R51.9 Headache, unspecified; M54.2 Cervicalgia; G35 Multiple sclerosis; Z79.899 Other long term (current) drug therapy
CPT/HCPCS: 70450; 72125; 81003; 81025; 99282; 99284

== ENCOUNTER → 2024-02-13 10:16 | Outpatient (CLI) | payer MEDICARE, SELFPAY ==
[2024-02-07 13:42] VITALS: PULSE 73; RESP 23; RESP 3; O2SAT 99; BMI 23.3
--- NOTE | 2024-02-13 10:17 | DI.MG.S_ITS ---
BILATERAL DIGITAL SCREENING MAMMOGRAM 3D/2D WITH CAD: 02/13/2024 CLINICAL: Routine screening. Family history of Breast Cancer. Comparison is made to exams dated: 02/05/2019 mammogram, 01/10/2019 mammogram, and 12/28/2018 mammogram - Outside facility. Both breasts are heterogeneously dense, which may obscure small masses (category c / 51-75% glandular tissue). Current study was also evaluated with a Computer Aided Detection (CAD) system. No significant masses, calcifications, or other findings are seen in either breast. There has been no significant interval change. IMPRESSION: NEGATIVE There is no mammographic evidence of malignancy. A 1 year screening mammogram is recommended. Based on the Tyrer Cuzick model (a risk assessment model) the patient's lifetime risk is 12.8% and her 10 year risk is 2.3%. According to the ACR, ACS, and NCCN guidelines, an annual breast MRI exam along with mammogram is recommended if the patient's lifetime risk is 20% or greater. This exam was interpreted at Station ID: [id number]. NOTE: For mammograms, a report in lay terms will be sent to the patient. Approximately 15% of breast malignancies will not be visualized mammographically. In the management of a palpable breast mass, a negative mammogram must not discourage biopsy of a clinically suspicious lesion. Electronically Signed By: Jerardo delong/brenda:02/13/2024 12:47:05 letter sent: Normal Exam ACR BI-RADS Category 1: Negative [id number]
== END ==
LOC: MAMMO 10:16
PROVIDERS: Family Provider Family Medicine; PCP Internal Medicine; Referring Provider Internal Medicine; Visit Provider Internal Medicine
DX: Z12.31 Encounter for screening mammogram for malignant neoplasm of breast (principal); Z80.3 Family history of malignant neoplasm of breast; R92.333 Mammographic heterogeneous density, bilateral breasts
CPT/HCPCS: 77063; 77067

== ENCOUNTER → 2024-03-28 14:31 | Outpatient (CLI) | payer MEDICARE, SELFPAY ==
[2024-02-07 13:42] VITALS: PULSE 73; RESP 23; RESP 3; O2SAT 99; BMI 23.3
[2024-03-28 17:32] LABS: Appearance Urine UA CLEAR; Bilirubin Urine UA NEGATIVE (NEGATIVE); Color Urine UA YELLOW; Glucose Urine UA NEGATIVE (Negative); Ketones Urine UA NEGATIVE (NEGATIVE); Leukocyte Esterase Urine UA 2+ (NEGATIVE); Nitrite Urine UA NEGATIVE (Negative); Occult Blood Urine UA NEGATIVE (Negative); Protein Urine UA NEGATIVE (Negative); Specific Gravity Urine UA <=1.005 (1.000-1.035); Urobilinogen Urine UA 0.2 E.U./dL (0.2)
[2024-03-28 17:53] LABS: Bacteria Urine Few (2-10); Culture Indicated Urine Specimen Cultured; RBC Urine None Seen (0-5/HPF); Squamous Epithelial Cell Urine 1-5 /HPF (0-5/HPF); Urine Volume 10mL (spun); WBC Urine 5-10/HPF (0-5/HPF)
== END ==
LOC: LAB 14:32
PROVIDERS: Family Provider Family Medicine; PCP Internal Medicine; Referring Provider Internal Medicine; Visit Provider Internal Medicine
DX: N39.0 Urinary tract infection, site not specified (principal)
CPT/HCPCS: 81001; 87086

== ENCOUNTER → 2024-03-28 14:33 | Outpatient (CLI) | payer MEDICARE, SELFPAY ==
[2024-02-07 13:42] VITALS: PULSE 73; RESP 23; RESP 3; O2SAT 99; BMI 23.3
--- NOTE | 2024-03-28 | DI.RAD.S_ITS ---
PROCEDURE: XR FOOT RT MIN 3V INDICATIONS: Bunion of right foot TECHNIQUE: 3 views of the foot were acquired. COMPARISON: [facility], , XR FOOT RT MIN 3V, 12/05/2023, 12:15. FINDINGS: Bones: Severe hallux valgus anomaly appreciated. There has been medial shaving of the 1st metatarsal head. Pes planus noted. Joints: Mild degenerative change of the 1st MTP noted. Soft tissues: No soft tissue abnormality. IMPRESSION: Severe hallux valgus. Moderate 1st MTP degeneration Dictated by: Speedy Mccarthy M.D. on 03/29/2024 at 8:51 Approved by: Speedy Mccarthy M.D. on 03/29/2024 at 8:53
== END ==
LOC: RAD 14:34
PROVIDERS: Family Provider Family Medicine; PCP Internal Medicine; Referring Provider Podiatrist Foot & Ankle Surgery; Visit Provider Podiatrist Foot & Ankle Surgery
DX: M20.11 Hallux valgus (acquired), right foot (principal); M21.611 Bunion of right foot; M21.41 Flat foot [pes planus] (acquired), right foot; M19.071 Primary osteoarthritis, right ankle and foot; N39.0 Urinary tract infection, site not specified
CPT/HCPCS: 73630; 81001; 87086

== ENCOUNTER 2024-05-29 10:59 | Emergency (ER) | payer MEDICARE, SELFPAY ==
[2024-02-07 13:42] VITALS: PULSE 73; RESP 23; RESP 3; O2SAT 99; BMI 23.3
[2024-05-29] VITALS (7 sets, daily range): BP systolic 78–112; BP diastolic 53–82; PULSE 75–94; RESP 12–27; TEMP 36.3; O2SAT 92–98; BMI 25.3
--- NOTE | 2024-05-29 11:13 | DI.RAD.S_ITS ---
PROCEDURE: XR CHEST 1V INDICATIONS: chest pain TECHNIQUE: One view of the chest was acquired. COMPARISON: [facility], CR, XR CHEST 1V, 11/10/2021, 21:18. FINDINGS: Surgical changes and devices: None. Lungs and pleura: Lungs are clear. No pleural effusions or pneumothorax. Mediastinum: Mediastinal contours appear normal. Heart size is normal. Bones and chest wall: No suspicious bony lesions. Overlying soft tissues appear unremarkable. IMPRESSION: No acute pulmonary process. Dictated by: Christine Mayfield M.D. on 05/29/2024 at 11:37 Approved by: Christine Mayfield M.D. on 05/29/2024 at 11:37
--- NOTE | 2024-05-29 11:19 | EKG_ITS ---
[address] [address] [address] [address] Test Date: 2024-05-29 Pat Name: Keesha Cardenas Department: Room: Gender: Female [employer]: AMY : 1980 Requested By: Order Number: [id number] Reading MD: Speedy Cheema MD Measurements Intervals [place]verse Rate: 86 P: 55 MN: 176 QRS: 61 QRSD: 92 T: 35 QT: 372 QTc: 445 Interpretive Statements Normal sinus rhythm Possible Left atrial enlargement Electronically Signed On 05-30-2024 7:36:35 PST by Speedy Cheema MD
[2024-05-29 11:51] LABS: Add Manual Diff / Slide Review NO; Basophils Absolute Auto 100 /uL (0-100); Basophils Percent Auto 0.8 % (0-2); Eosinophils Absolute Auto 100 /uL (0-450); Eosinophils Percent Auto 1.5 % (2-4); Hematocrit 37.9 % (36-46); Lymphocytes Absolute Auto 2100 /uL (1100-4500); Lymphocytes Percent Auto 28.4 % (25-40); Mean Corpuscular HGB Conc 34.3 % (30-36); Mean Corpuscular Hemoglobin 30.8 PG (26-34); Mean Corpuscular Volume 89.7 fL (80-100); Monocytes Absolute Auto 700 /uL (0-900); Monocytes Percent Auto 9.1 % (3-14); Neutrophils Absolute Auto 4500 /uL (1500-7000); Neutrophils Percent Auto 60.2 % (50-75); Platelet Count 291 X10^3/uL (150-400); Red Blood Cell Count 4.23 X10^6/uL (4.0-5.2); Red Cell Distribution Width 13.1 % (11.6-14.8); White Blood Cell Count 7.5 X10^3/uL (4.5-11.0)
[2024-05-29 11:59] LABS: INR 0.9 (0.9-1.3); Prothrombin Time 9.9 SECONDS (9.4-12.5)
[2024-05-29 12:01] LABS: PTT Partial Thromboplastin Tim 32 SECONDS (25.1-36.5)
[2024-05-29 12:03] LABS: Alanine Aminotransferase 25 IU/L (<35); Albumin 4.6 g/dL (3.5-5.0); Albumin Globulin Ratio 1.7 (1.0-2.8); Alkaline Phosphatase 70 U/L (38-126); Aspartate Aminotransferase 27 IU/L (14-36); BUN Creatinine Ratio 26.9 (6-22); Bilirubin Total 0.4 mg/dL (0.2-1.3); Blood Urea Nitrogen 35 mg/dL (7-17); Calcium 9.5 mg/dL (8.4-10.2); Carbon Dioxide 21 mmol/L (22-32); Chloride 104 mmol/L (98-107); Creatine Kinase 96 U/L (30-135); Estimated Glomerular Filt Rate 52 mL/min (>60); Globulin 2.7 g/dL (1.7-4.1); Glucose 96 mg/dL (70-100); HEMOLYSIS < 15 (0-50); Lipase 206 U/L (23-300); Magnesium 2.3 mg/dL (1.6-2.3); Potassium 3.9 mmol/L (3.4-5.1); Sodium 136 mmol/L (137-145); Total Protein 7.3 g/dL (6.3-8.2)
--- NOTE | 2024-05-29 12:04 | PC.NURSE ---
patient was up at 0430 this morning and couldn't sleep. she went to watch a soothing show when she developed chest pain and squeezing pressure. The feeling got worse and now is still there but less severe. She takes Hctz for water retention, she thinks. she takes her BP prior to admin and took it today: 145/98. Today she is hypotensive when sitting up. She was laid flat and is 107/82. She takes an inhaler for reactive airway disease. She is triggered by vinegar. She was crying and frustrated but no tears were being produced. She complains of soft frequent stool, feeling warm, hot flashes, and both sides of her back hurts. She states a family member is sick at home with sinus congestion and has been cleaning a house that has mold in it and she feels like she may be coming down with the same thing.
--- NOTE | 2024-05-29 12:13 | ED_ITS ---
HPI - Chest Pain General Chief Complaint: Chest Pain Stated Complaint: diff falling sleep, heart pain Time Seen by Provider: 05/29/24 11:37 Source: patient Mode of arrival: Ambulatory Limitations: no limitations History of Present Illness HPI narrative: Patient was a 43-year-old female who is here for evaluation of chest discomfort and shortness of breath. She also states that she was unable to sleep last evening despite the use of Benadryl. She was to sleep from approximately 2100 hours yesterday evening to 2300 hours. She woke up when her came to bed and has been unable to sleep since then. She denies any fevers. Denies any abdominal pain. States she was just having some overall discomfort in her legs and her arms. No productive cough. Related Data Home Medications Medication Instructions Recorded Confirmed ibuprofen 600 mg tablet 600 mg PO TIDP PRN Pain (Scale 11/27/10 03/28/24 Score 1-3) ##0 tizanidine 4 mg tablet 8 mg PO BEDTIME 01/13/20 03/28/24 acetaminophen 500 mg tablet 500 mg PO Q6H PRN Pain (Scale 09/13/21 03/28/24 (Tylenol Extra Strength) Score 1-3) albuterol sulfate 90 mcg/actuation 1 g inhalation PRN PRN Wheezing 09/13/21 03/28/24 aerosol inhaler diphenhydramine HCl 25 mg capsule 25 mg PO Q6H PRN Insomnia 09/13/21 03/28/24 (Benadryl) ocrelizumab 30 mg/mL intravenous 600 mg IV [id number] 09/13/21 03/28/24 solution topiramate 50 mg tablet 50 mg PO TID 11/22/21 03/28/24 olanzapine 10 mg tablet 10 mg PO BEDTIME 07/04/22 03/28/24 buspirone 30 mg tablet 30 mg PO DAILY 11/02/22 03/28/24 gabapentin enacarbil 600 mg 600 mg PO QPM 11/02/22 03/28/24 tablet,extended release (Horizant ER) methylphenidate HCl 10 mg tablet 10 mg PO BID 07/18/23 03/28/24 ketamine nasal spray Not Applicable 01/03/24 03/28/24 lamotrigine 300 mg tablet,extended 300 mg PO DAILY 01/03/24 03/28/24 release 24 hr oxycodone 15 mg tablet 15 mg PO Q3H PRN Pain (Scale Score 01/03/24 03/28/24 7-10) Previous Rx's Medication Instructions Recorded bupropion HCl 150 mg 24 hr tablet, 150 mg PO QAM #90 tabs 04/27/22 extended release mirabegron 25 mg tablet,extended See Rx Instructions PO DAILY #180 11/02/22 release 24 hr (Myrbetriq) tabs sulfamethoxazole 800 1 tab PO BID #14 tabs 01/23/23 mg-trimethoprim 160 mg tablet amlodipine 10 mg tablet 10 mg PO DAILY #90 tabs 07/26/23 duloxetine 30 mg capsule,delayed See Rx Instructions .Route 08/02/23 release .COMPLEX #90 caps nitrofurantoin macrocrystal 50 mg 50 mg PO DAILY PRN UTI prevention 08/21/23 capsule #60 caps hydrochlorothiazide 25 mg tablet 50 mg (2 x 25 mg) PO DAILY #180 11/06/23 tabs etonogestrel 0.12 mg-ethinyl 1 vag ring vaginal Q4W #3 ea 12/29/23 estradiol 0.015 mg/24 hr vaginal ring levofloxacin 500 mg tablet 500 mg PO DAILY #3 tabs 02/01/24 lorazepam 1 mg tablet (Ativan) 1 mg PO BEDTIME PRN sleep #10 tabs 02/05/24 baclofen 20 mg tablet See Rx Instructions .Route 03/06/24 .COMPLEX #105 tabs methocarbamol 500 mg tablet 500 mg PO TID PRN muscle spasm #60 03/22/24 tabs atenolol 25 mg tablet 50 mg (2 x 25 mg) PO DAILY #180 04/29/24 tabs hydroxyzine HCl 25 mg tablet 25 mg PO BEDTIME PRN insomnia #14 05/29/24 tabs Allergies Allergy/AdvReac Type Severity Reaction Status Date / Time fluoxetine Allergy Unknown Rash Verified 05/29/24 11:09 shayne [SHAYNE] Allergy Unknown Verified 05/29/24 11:09 amitriptyline [AMITRIPTYLINE] AdvReac Unknown Verified 05/29/24 11:09 gabapentin [GABAPENTIN] AdvReac Unknown Verified 05/29/24 11:09 Review of Systems Review of Systems ROS Unobtainable: All systems reviewed & are unremarkable except as noted in HPI and below Patient History Medical History Alopecia areata Urinary incontinence Right knee pain COVID-19 virus infection Pelvic pain Family history of colon cancer in mother Contusion of right knee Migraines (~2020) Fibromyalgia Ankle pain (~1999) Vertigo (~2000) Blindness (~2005) Kidney stones (~2020) Atypical chest pain GERD without esophagitis Anxiety Major depression in partial remission Recurrent UTI Hx of optic neuritis PTSD (post-traumatic stress disorder) (~2010) HTN (hypertension) MS (multiple sclerosis) (~1999) Surgical History Anesthesia History of section Dermatofibroma Bunion, right foot History of laparoscopy Family History Mother CVA (cerebral vascular accident) Diabetes type 2, uncontrolled Colon cancer Father Diabetes type 2, uncontrolled Atrial fibrillation Gout Overweight Grandfather Kidney disease Family/Other SIDS (sudden infant syndrome) Social History details: . She has a 13 year son and lost another child to SIDS over 10 years household members: spouse Smoking Status: Never smoker alcohol intake: former Smoking Status: Never smoker alcohol intake frequency: a few times a month Exam Initial Vital Signs Initial Vital Signs: Vital Signs Temperature 97.4 F L 05/29/24 11:09 Pulse Rate 94 H 05/29/24 11:09 Respiratory Rate 15 05/29/24 11:09 Blood Pressure 112/58 L 05/29/24 11:09 Pulse Oximetry 97 05/29/24 11:09 Oxygen Delivery Method Room Air 05/29/24 11:09 Const General: cooperative, comfortable and No ill appearing HENPA Head: normal to inspection and normocephalic Resp Effort & Inspection: normal respiratory effort Cardio Rate: regular rate GI Inspection: normal to inspection Skin General: no rashes or lesions noted Neuro General: patient alert, patient awake and moves all extremities Extrem General: normal to inspection and capillary refill normal Course Orders Ordered: ED Orders 05/29/24 11:13 XR chest 1V Stat EKG-12 Lead Stat 05/29/24 11:42 Complete Blood Count AUTO DIFF Stat Comprehensive Metabolic Panel Stat Lipase Stat Magnesium Stat NT-proBNP (BNP-Adult 18+) Stat PTT Partial Thromboplastin Bryce Stat Prothrombin Time INR Stat Troponin & CK Cardiac Panel Stat 05/29/24 12:37 Urine Microscopic Stat Discontinued Medications Aspirin (Aspirin 81 Mg Chew Tab) 324 mg PO NOW ONE Stop: 05/29/24 11:14 Vital Signs Vital signs: Vital Signs - 8 hr 05/29/24 11:09 05/29/24 11:36 05/29/24 11:37 Temperature 97.4 F L Pulse Rate 94 H 85 Respiratory Rate 15 14 Blood Pressure 112/58 L 94/57 L Pulse Oximetry 97 Oxygen Delivery Method Room Air MDM - Chest Pain Lab Data Attestation: I reviewed the patient's lab results. 05/29/24 11:42 05/29/24 11:42 Labs: Lab Results 05/29/24 Range/Units 11:42 WBC 7.5 (4.5-11.0) X10^3/uL RBC 4.23 (4.0-5.2) X10^6/uL Hgb 13.0 (12.0-16.0) g/dL Hct 37.9 (36-46) % MCV 89.7 (80-100) fL MCH 30.8 (26-34) PG MCHC 34.3 (30-36) % RDW 13.1 (11.6-14.8) % Plt Count 291 (150-400) X10^3/uL Neut % (Auto) 60.2 (50-75) % Lymph % (Auto) 28.4 (25-40) % Mayes % (Auto) 9.1 (3-14) % Eos % (Auto) 1.5 L (2-4) % Baso % (Auto) 0.8 (0-2) % Neut # (Auto) 4500 (7897-9347) /uL Lymph # (Auto) 2100 (8786-4114) /uL Mayes # (Auto) 700 (0-900) /uL Eos # (Auto) 100 (0-450) /uL Baso # (Auto) 100 (0-100) /uL PT 9.9 (9.4-12.5) SECONDS INR 0.9 (0.9-1.3) APTT 32 (25.1-36.5) SECONDS Sodium 136 L (137-145) mmol/L Potassium 3.9 (3.4-5.1) mmol/L Chloride 104 (98-107) mmol/L Carbon Dioxide 21 L (22-32) mmol/L BUN 35 H (7-17) mg/dL Creatinine 1.30 H (0.52-1.04) mg/dL Estimated GFR 52 L (>60) mL/min BUN/Creatinine Ratio 26.9 H (6-22) Glucose 96 (70-100) mg/dL Calcium 9.5 (8.4-10.2) mg/dL Magnesium 2.3 (1.6-2.3) mg/dL Total Bilirubin 0.4 (0.2-1.3) mg/dL AST 27 (14-36) IU/L ALT 25 (<35) IU/L Alkaline Phosphatase 70 (38-126) U/L Total Creatine Kinase 96 (30-135) U/L Troponin I < 0.012 (0.01-0.034) ng/mL NT-Pro-B Natriuret Pep 91 (<125) pg/mL Total Protein 7.3 (6.3-8.2) g/dL Albumin 4.6 (3.5-5.0) g/dL Globulin 2.7 (1.7-4.1) g/dL Albumin/Globulin Ratio 1.7 (1.0-2.8) Lipase 206 (23-300) U/L Urine Dip Bedside Urine Glucose Negative Bedside Urine Bilirubin - Negative Bedside Urine Ketone - Negative Urine Specific [place] 1.015 Bedside Urine Occult Blood - Negative Bedside Urine pH 6.0 Bedside Urine Protein - Negative Bedside Urine Urobilinogen - Negative Bedside Urine Nitrite - Negative Bedside Urine Leukocytes +/- 15 Esterase Imaging Data Chest x-ray: Radiologist's Impression: PROCEDURE: XR CHEST 1V INDICATIONS: chest pain TECHNIQUE: One view of the chest was acquired. COMPARISON: [facility], , XR CHEST 1V, 11/10/2021, 21:18. FINDINGS: Surgical changes and devices: None. Lungs and pleura: Lungs are clear. No pleural effusions or pneumothorax. Mediastinum: Mediastinal contours appear normal. Heart size is normal. Bones and chest wall: No suspicious bony lesions. Overlying soft tissues appear unremarkable. IMPRESSION: No acute pulmonary process. ECG Data Attestation: I personally reviewed and interpreted this ECG as follows: Interpretation: Sinus rhythm Ventricular rate of 86 Normal axis Normal QRS QTC No ST T wave changes MDM Narrative Medical decision making narrative: Workup here in the emergency department is very reassuring. There was no signs of ACS. No indication of any infection. Chest x-ray shows no signs of pneumonia. No indication for antibiotics. She occasionally takes Benadryl. Will send home a prescription for hydroxyzine to help with the insomnia to use as needed. Recommended that she contact her primary doctor for follow-up. She was given return precautions. She expressed understanding and agreement. Discharge Plan Departure Patient Disposition: Home Clinical Impression: Insomnia, Chest pain Instructions: DI for Insomnia Activity Restrictions/Additional Instructions: Continue to take all of your medications as directed. Recommend you contact your primary care doctor for a follow-up. Return to the emergency department for new or worsening symptoms. Prescriptions: New hydroxyzine HCl 25 mg tablet 25 mg PO BEDTIME PRN (Reason: insomnia) Qty: 14 0RF No Action buspirone 30 mg tablet 30 mg PO DAILY ibuprofen 600 MG tablet 600 mg PO TIDP PRN (Reason: Pain (Scale Score 1-3)) Qty: 0 bupropion HCl 150 mg tablet extended release 24 hr 150 mg PO QAM Qty: 90 3RF sulfamethoxazole-trimethoprim 800-160 mg tablet 1 tab PO BID Qty: 14 2RF amlodipine 10 mg tablet 10 mg PO DAILY Qty: 90 3RF duloxetine 30 mg capsule,delayed release(DR/EC) See Rx Instructions .ROUTE .COMPLEX Qty: 90 3RF Dose Instruction: take 1 capsule once daily Rx Instructions: take 1 capsule once daily nitrofurantoin macrocrystal 50 mg capsule 50 mg PO DAILY PRN (Reason: UTI prevention) Qty: 60 2RF Rx Instructions: must administer with a meal/food. Only after sexual intercourse. hydrochlorothiazide 25 mg tablet 50 mg PO DAILY Qty: 180 4RF etonogestrel-ethinyl estradiol 0.12-0.015 mg/24 hr ring 1 vag ring vaginal Q4W Qty: 3 3RF lorazepam [Ativan] 1 mg tablet 1 mg PO BEDTIME PRN (Reason: sleep) Qty: 10 2RF baclofen 20 mg tablet See Rx Instructions .ROUTE .COMPLEX Qty: 105 5RF Dose Instruction: take 1 AND 1/2 tablets by mouth three times a day Rx Instructions: take 1 AND 1/2 tablets by mouth three times a day methocarbamol 500 mg tablet 500 mg PO TID PRN (Reason: muscle spasm) Qty: 60 3RF atenolol 25 mg tablet 50 mg PO DAILY Qty: 180 3RF albuterol sulfate 90 mcg/actuation HFA aerosol inhaler 1 g inhalation PRN PRN (Reason: Wheezing) acetaminophen [Tylenol Extra Strength] 500 mg tablet 500 mg PO Q6H PRN (Reason: Pain (Scale Score 1-3)) ocrelizumab 30 mg/mL solution 600 mg IV [id number] diphenhydramine HCl [Benadryl] 25 mg capsule 25 mg PO Q6H PRN (Reason: Insomnia) topiramate 50 mg tablet 50 mg PO TID olanzapine 10 mg tablet 10 mg PO BEDTIME Patient Comments: TAKE ONE TABLET BY MOUTH AT BEDTIME Horizant 600 mg tablet extended release 600 mg PO QPM Myrbetriq 25 mg tablet extended release 24 hr See Rx Instructions PO DAILY Qty: 180 3RF Rx Instructions: 1-2 pills daily for urinary incontinence levofloxacin 500 mg tablet 500 mg PO DAILY Qty: 3 0RF methylphenidate HCl 10 mg tablet 10 mg PO BID lamotrigine 300 mg tablet extended release 24hr 300 mg PO DAILY ketamine nasal spray Not Applicable Rx Instructions: 100mg/ML up to 12 sprays/day tizanidine 4 mg Tablet 8 mg PO BEDTIME oxycodone 15 mg tablet 15 mg PO Q3H PRN (Reason: Pain (Scale Score 7-10)) Referrals: Jerad Horvath MD [Primary Care Provider] - Stand Alone Forms: Patient Portal/API/Survey
[2024-05-29 12:14] LABS: NT-proBNP (BNP-Adult 18+) 91 pg/mL (<125); Troponin I < 0.012 ng/mL (0.01-0.034)
[2024-05-29 13:02] LABS: Bacteria Urine Occasional (0-1); Culture Indicated Urine Cult Not Indicated; RBC Urine 1-5/HPF (0-5/HPF); Squamous Epithelial Cell Urine >30 /HPF (0-5/HPF); Urine Volume 10mL (spun); WBC Urine 5-10/HPF (0-5/HPF)
== END 2024-05-29 13:19 | disposition home or self-care (01) ==
PROVIDERS: Emergency Provider Emergency Medicine; Family Provider Family Medicine; PCP Internal Medicine
DX: R07.9 Chest pain, unspecified (principal); G47.00 Insomnia, unspecified; R06.02 Shortness of breath
CPT/HCPCS: 36415; 71045; 80053; 81003; 81015; 82550; 83690; 83735; 83880; 84484; 85025; 85610; 85730; 93005; 93010; 99283; 99284

== ENCOUNTER 2024-06-22 12:51 | Emergency (ER) | payer OTHER, SELFPAY ==
[2024-02-07 13:42] VITALS: PULSE 73; RESP 23; RESP 3; O2SAT 99; BMI 23.3
[2024-06-22 12:54] VITALS: BP 131/95; PULSE 87; RESP 18; TEMP 36.8; O2SAT 98; BMI 22.4
--- NOTE | 2024-06-22 13:11 | ED.RECABL ---
HPI - Recheck/Abnormal Lab/Rx General Chief Complaint: Recheck/Abnormal Lab/Rx Stated Complaint: doing outpt infusions and her needle slipped Time Seen by Provider: 06/22/24 13:10 Source: patient Mode of arrival: Ambulatory History of Present Illness HPI narrative: Patient was a 43-year-old female. Has a history of MS. Is currently undergoing IV treatment of steroids. Today is day 5 of 5. Her peripheral IV came out and she was here for a new peripheral IV so she can complete the course of steroids at home. Related Data Home Medications Medication Instructions Recorded Confirmed ibuprofen 600 mg tablet 600 mg PO TIDP PRN Pain (Scale 11/27/10 03/28/24 Score 1-3) ##0 tizanidine 4 mg tablet 8 mg PO BEDTIME 01/13/20 03/28/24 acetaminophen 500 mg tablet 500 mg PO Q6H PRN Pain (Scale 09/13/21 03/28/24 (Tylenol Extra Strength) Score 1-3) albuterol sulfate 90 mcg/actuation 1 g inhalation PRN PRN Wheezing 09/13/21 03/28/24 aerosol inhaler diphenhydramine HCl 25 mg capsule 25 mg PO Q6H PRN Insomnia 09/13/21 03/28/24 (Benadryl) ocrelizumab 30 mg/mL intravenous 600 mg IV [id number] 09/13/21 03/28/24 solution topiramate 50 mg tablet 50 mg PO TID 11/22/21 03/28/24 olanzapine 10 mg tablet 10 mg PO BEDTIME 07/04/22 03/28/24 buspirone 30 mg tablet 30 mg PO DAILY 11/02/22 03/28/24 gabapentin enacarbil 600 mg 600 mg PO QPM 11/02/22 03/28/24 tablet,extended release (Horizant ER) methylphenidate HCl 10 mg tablet 10 mg PO BID 07/18/23 03/28/24 ketamine nasal spray Not Applicable 01/03/24 03/28/24 lamotrigine 300 mg tablet,extended 300 mg PO DAILY 01/03/24 03/28/24 release 24 hr oxycodone 15 mg tablet 15 mg PO Q3H PRN Pain (Scale Score 01/03/24 03/28/24 7-10) Previous Rx's Medication Instructions Recorded bupropion HCl 150 mg 24 hr tablet, 150 mg PO QAM #90 tabs 04/27/22 extended release mirabegron 25 mg tablet,extended See Rx Instructions PO DAILY #180 11/02/22 release 24 hr (Myrbetriq) tabs sulfamethoxazole 800 1 tab PO BID #14 tabs 01/23/23 mg-trimethoprim 160 mg tablet duloxetine 30 mg capsule,delayed See Rx Instructions .Route 08/02/23 release .COMPLEX #90 caps nitrofurantoin macrocrystal 50 mg 50 mg PO DAILY PRN UTI prevention 08/21/23 capsule #60 caps hydrochlorothiazide 25 mg tablet 50 mg (2 x 25 mg) PO DAILY #180 11/06/23 tabs etonogestrel 0.12 mg-ethinyl 1 vag ring vaginal Q4W #3 ea 12/29/23 estradiol 0.015 mg/24 hr vaginal ring levofloxacin 500 mg tablet 500 mg PO DAILY #3 tabs 02/01/24 lorazepam 1 mg tablet (Ativan) 1 mg PO BEDTIME PRN sleep #10 tabs 02/05/24 baclofen 20 mg tablet See Rx Instructions .Route 03/06/24 .COMPLEX #105 tabs methocarbamol 500 mg tablet 500 mg PO TID PRN muscle spasm #60 03/22/24 tabs atenolol 25 mg tablet 50 mg (2 x 25 mg) PO DAILY #180 04/29/24 tabs hydroxyzine HCl 25 mg tablet 25 mg PO BEDTIME PRN insomnia #14 05/29/24 tabs amlodipine 10 mg tablet 10 mg PO DAILY #90 tabs 06/10/24 Allergies Allergy/AdvReac Type Severity Reaction Status Date / Time fluoxetine Allergy Unknown Rash Verified 05/29/24 11:09 shayne [SHAYNE] Allergy Unknown Verified 05/29/24 11:09 amitriptyline [AMITRIPTYLINE] AdvReac Unknown Verified 05/29/24 11:09 gabapentin [GABAPENTIN] AdvReac Unknown Verified 05/29/24 11:09 Review of Systems Review of Systems Narrative: See HPI Patient History Medical History Alopecia areata Urinary incontinence Right knee pain COVID-19 virus infection Pelvic pain Family history of colon cancer in mother Contusion of right knee Migraines (~2020) Fibromyalgia Ankle pain (~1999) Vertigo (~2000) Blindness (~2005) Kidney stones (~2020) Atypical chest pain GERD without esophagitis Anxiety Major depression in partial remission Recurrent UTI Hx of optic neuritis PTSD (post-traumatic stress disorder) (~2010) HTN (hypertension) MS (multiple sclerosis) (~1999) Surgical History Anesthesia History of section Dermatofibroma Bunion, right foot History of laparoscopy Family History Mother CVA (cerebral vascular accident) Diabetes type 2, uncontrolled Colon cancer Father Diabetes type 2, uncontrolled Atrial fibrillation Gout Overweight Grandfather Kidney disease Family/Other SIDS (sudden syndrome) Social History details: . She has a 13 year son and lost another child to SIDS over 10 years household members: spouse Smoking Status: Never smoker alcohol intake: former Smoking Status: Never smoker alcohol intake frequency: a few times a month Exam Initial Vital Signs Initial Vital Signs: Vital Signs Temperature 98.3 F 06/22/24 12:54 Pulse Rate 87 06/22/24 12:54 Respiratory Rate 18 06/22/24 12:54 Blood Pressure 131/95 H 06/22/24 12:54 Pulse Oximetry 98 06/22/24 12:54 Oxygen Delivery Method Room Air 06/22/24 12:54 Skin Other: IV site right forearm appears well without signs of infection Course Vital Signs Vital signs: Vital Signs - 8 hr 06/22/24 12:54 Temperature 98.3 F Pulse Rate 87 Respiratory Rate 18 Blood Pressure 131/95 H Pulse Oximetry 98 Oxygen Delivery Method Room Air MDM - Recheck/Abnormal Lab/Rx MDM Narrative Medical decision making narrative: Will replace her peripheral IV so that she can finish her course of steroids at home. Patient is comfortable taking out the IV on her own. Discharge Plan Departure Patient Disposition: Home Clinical Impression: Encounter for intravenous line placement Activity Restrictions/Additional Instructions: Complete the course of steroids as directed and then remove the IV as directed as well. Return to the emergency department for new symptoms. Prescriptions: No Action buspirone 30 mg tablet 30 mg PO DAILY ibuprofen 600 MG tablet 600 mg PO TIDP PRN (Reason: Pain (Scale Score 1-3)) Qty: 0 bupropion HCl 150 mg tablet extended release 24 hr 150 mg PO QAM Qty: 90 3RF sulfamethoxazole-trimethoprim 800-160 mg tablet 1 tab PO BID Qty: 14 2RF duloxetine 30 mg capsule,delayed release(DR/EC) See Rx Instructions .ROUTE .COMPLEX Qty: 90 3RF Dose Instruction: take 1 capsule once daily Rx Instructions: take 1 capsule once daily nitrofurantoin macrocrystal 50 mg capsule 50 mg PO DAILY PRN (Reason: UTI prevention) Qty: 60 2RF Rx Instructions: must administer with a meal/food. Only after sexual intercourse. hydrochlorothiazide 25 mg tablet 50 mg PO DAILY Qty: 180 4RF etonogestrel-ethinyl estradiol 0.12-0.015 mg/24 hr ring 1 vag ring vaginal Q4W Qty: 3 3RF lorazepam [Ativan] 1 mg tablet 1 mg PO BEDTIME PRN (Reason: sleep) Qty: 10 2RF baclofen 20 mg tablet See Rx Instructions .ROUTE .COMPLEX Qty: 105 5RF Dose Instruction: take 1 AND 1/2 tablets by mouth three times a day Rx Instructions: take 1 AND 1/2 tablets by mouth three times a day methocarbamol 500 mg tablet 500 mg PO TID PRN (Reason: muscle spasm) Qty: 60 3RF atenolol 25 mg tablet 50 mg PO DAILY Qty: 180 3RF amlodipine 10 mg tablet 10 mg PO DAILY Qty: 90 3RF albuterol sulfate 90 mcg/actuation HFA aerosol inhaler 1 g inhalation PRN PRN (Reason: Wheezing) acetaminophen [Tylenol Extra Strength] 500 mg tablet 500 mg PO Q6H PRN (Reason: Pain (Scale Score 1-3)) ocrelizumab 30 mg/mL solution 600 mg IV [id number] diphenhydramine HCl [Benadryl] 25 mg capsule 25 mg PO Q6H PRN (Reason: Insomnia) topiramate 50 mg tablet 50 mg PO TID olanzapine 10 mg tablet 10 mg PO BEDTIME Patient Comments: TAKE ONE TABLET BY MOUTH AT BEDTIME Horizant 600 mg tablet extended release 600 mg PO QPM Myrbetriq 25 mg tablet extended release 24 hr See Rx Instructions PO DAILY Qty: 180 3RF Rx Instructions: 1-2 pills daily for urinary incontinence levofloxacin 500 mg tablet 500 mg PO DAILY Qty: 3 0RF methylphenidate HCl 10 mg tablet 10 mg PO BID lamotrigine 300 mg tablet extended release 24hr 300 mg PO DAILY ketamine nasal spray Not Applicable Rx Instructions: 100mg/ML up to 12 sprays/day tizanidine 4 mg Tablet 8 mg PO BEDTIME oxycodone 15 mg tablet 15 mg PO Q3H PRN (Reason: Pain (Scale Score 7-10)) hydroxyzine HCl 25 mg tablet 25 mg PO BEDTIME PRN (Reason: insomnia) Qty: 14 0RF Referrals: Jerad Horvath MD [Primary Care Provider] - Stand Alone Forms: Patient Portal/API/Survey
== END 2024-06-22 13:22 | disposition home or self-care (01) ==
PROVIDERS: Emergency Provider Emergency Medicine; Family Provider Family Medicine; PCP Internal Medicine
DX: T82.524A Displacement of infusion catheter, initial encounter (principal)
CPT/HCPCS: 99281; 99282

== ENCOUNTER → 2024-08-14 13:56 | Outpatient (CLI) | payer OTHER, SELFPAY ==
[2024-02-07 13:42] VITALS: PULSE 73; RESP 23; RESP 3; O2SAT 99; BMI 23.3
[2024-08-14 15:15] LABS: HEMOLYSIS < 15 (0-50); Iron 108 ug/dL (37-170)
[2024-08-14 15:27] LABS: Percent Iron Saturation 33 % (15-50); Total Iron Binding Capacity 327 ug/dL (265-497); Transferrin 343 mg/dL (206-381)
[2024-08-14 15:35] LABS: Free T4, Direct Thyroxine 0.84 ng/dL (0.78-2.19)
[2024-08-14 15:48] LABS: Thyroid Stimulating Hormone 2.05 uIU/mL (0.47-4.68)
[2024-08-14 16:25] LABS: Folate 11.4 ng/mL (2.76-20.0); Vitamin B12 646 pg/mL (239-931)
== END ==
PROVIDERS: Family Provider Family Medicine; PCP Internal Medicine; Referring Provider Psychiatry & Neurology Psychiatry; Visit Provider Psychiatry & Neurology Psychiatry
DX: F31.9 Bipolar disorder, unspecified (principal); G25.81 Restless legs syndrome; F90.0 Attention-deficit hyperactivity disorder, predominantly inattentive type
CPT/HCPCS: 36415; 82607; 82746; 83540; 83550; 84439; 84443

== ENCOUNTER → 2024-09-27 15:40 | Outpatient (CLI) | payer OTHER, SELFPAY ==
[2024-02-07 13:42] VITALS: PULSE 73; RESP 23; RESP 3; O2SAT 99; BMI 23.3
[2024-09-27 17:09] LABS: Add Manual Diff / Slide Review NO; Basophils Absolute Auto 100 /uL (0-100); Basophils Percent Auto 0.8 % (0-2); Eosinophils Absolute Auto 0 /uL (0-450); Eosinophils Percent Auto 0.6 % (2-4); Hematocrit 41.2 % (36-46); Hemoglobin 14.2 g/dL (12.0-16.0); Lymphocytes Absolute Auto 1600 /uL (1100-4500); Lymphocytes Percent Auto 24.5 % (25-40); Mean Corpuscular HGB Conc 34.5 % (30-36); Mean Corpuscular Hemoglobin 30.2 PG (26-34); Mean Corpuscular Volume 87.4 fL (80-100); Monocytes Absolute Auto 500 /uL (0-900); Neutrophils Absolute Auto 4200 /uL (1500-7000); Neutrophils Percent Auto 66.1 % (50-75); Platelet Count 259 X10^3/uL (150-400); Red Blood Cell Count 4.71 X10^6/uL (4.0-5.2); Red Cell Distribution Width 12.7 % (11.6-14.8); White Blood Cell Count 6.4 X10^3/uL (4.5-11.0)
[2024-09-27 18:00] LABS: Alanine Aminotransferase 31 IU/L (<35); Albumin 5.1 g/dL (3.5-5.0); Albumin Globulin Ratio 1.9 (1.0-2.8); Alkaline Phosphatase 70 U/L (38-126); Aspartate Aminotransferase 27 IU/L (14-36); Bilirubin Total 0.4 mg/dL (0.2-1.3); Globulin 2.7 g/dL (1.7-4.1); HEMOLYSIS < 15 (0-50); Total Protein 7.8 g/dL (6.3-8.2)
[2024-09-29 08:09] LABS: IGA 78 mg/dL (87-352); IGG 725 mg/dL (586-1602); IGM 140 mg/dL (26-217)
== END ==
PROVIDERS: Family Provider Family Medicine; PCP Internal Medicine; Referring Provider Internal Medicine; Visit Provider Psychiatry & Neurology Neurology
DX: G35 Multiple sclerosis (principal)
CPT/HCPCS: 36415; 80076; 82784; 85025

== ENCOUNTER → 2024-11-22 16:23 | Outpatient (CLI) | payer OTHER, SELFPAY ==
[2024-02-07 13:42] VITALS: PULSE 73; RESP 23; RESP 3; O2SAT 99; BMI 23.3
[2024-11-22 17:40] LABS: Add Manual Diff / Slide Review NO; Basophils Absolute Auto 0 /uL (0-100); Basophils Percent Auto 0.5 % (0-2); Eosinophils Absolute Auto 100 /uL (0-450); Hematocrit 38.1 % (36-46); Lymphocytes Absolute Auto 1700 /uL (1100-4500); Lymphocytes Percent Auto 25.9 % (25-40); Mean Corpuscular HGB Conc 34.2 % (30-36); Mean Corpuscular Hemoglobin 31.1 PG (26-34); Mean Corpuscular Volume 91.1 fL (80-100); Monocytes Absolute Auto 500 /uL (0-900); Monocytes Percent Auto 8.2 % (3-14); Neutrophils Absolute Auto 4200 /uL (1500-7000); Neutrophils Percent Auto 64.4 % (50-75); Platelet Count 241 X10^3/uL (150-400); Red Blood Cell Count 4.18 X10^6/uL (4.0-5.2); Red Cell Distribution Width 13.9 % (11.6-14.8); White Blood Cell Count 6.6 X10^3/uL (4.5-11.0)
[2024-11-22 17:56] LABS: Alanine Aminotransferase 18 IU/L (<35); Albumin 4.4 g/dL (3.5-5.0); Albumin Globulin Ratio 1.9 (1.0-2.8); Alkaline Phosphatase 54 U/L (38-126); Aspartate Aminotransferase 20 IU/L (14-36); Bilirubin Total 0.3 mg/dL (0.2-1.3); Globulin 2.3 g/dL (1.7-4.1); HEMOLYSIS < 15 (0-50); Total Protein 6.7 g/dL (6.3-8.2)
[2024-11-24 08:08] LABS: IGA 78 mg/dL (87-352); IGG 653 mg/dL (586-1602); IGM 125 mg/dL (26-217)
== END ==
PROVIDERS: Family Provider Family Medicine; PCP Internal Medicine; Referring Provider Psychiatry & Neurology Neurology; Visit Provider Psychiatry & Neurology Neurology
DX: G35 Multiple sclerosis (principal)
CPT/HCPCS: 36415; 80076; 82784; 85025

== ENCOUNTER → 2025-03-01 13:31 | Outpatient (CLI) | payer OTHER, SELFPAY ==
[2024-02-07 13:42] VITALS: PULSE 73; RESP 23; RESP 3; O2SAT 99; BMI 23.3
== END ==
PROVIDERS: PCP Internal Medicine; Visit Provider Chiropractor
DX: R30.0 Dysuria (principal)
CPT/HCPCS: 87086

== ENCOUNTER → 2025-03-07 17:44 | Outpatient (CLI) | payer OTHER, SELFPAY ==
[2024-02-07 13:42] VITALS: PULSE 73; RESP 23; RESP 3; O2SAT 99; BMI 23.3
[2025-03-07 18:34] LABS: Add Manual Diff / Slide Review NO; Hematocrit 37.2 % (36-46); Hemoglobin 12.1 g/dL (12.0-16.0); Lymphocytes Absolute Auto 2200 /uL (1100-4500); Mean Corpuscular HGB Conc 32.7 % (30-36); Mean Corpuscular Hemoglobin 29.4 PG (26-34); Mean Corpuscular Volume 90.0 fL (80-100); Platelet Count 270 X10^3/uL (150-400)
[2025-03-07 19:22] LABS: Alanine Aminotransferase 30 IU/L (<35); Albumin 4.8 g/dL (3.5-5.0); Albumin Globulin Ratio 1.8 (1.0-2.8); Alkaline Phosphatase 213 U/L (38-126); Globulin 2.7 g/dL (1.7-4.1); HEMOLYSIS < 15 (0-50); Total Protein 7.5 g/dL (6.3-8.2)
[2025-03-10 04:07] LABS: IGA 60 mg/dL (87-352); IGG 659 mg/dL (586-1602); IGM 101 mg/dL (26-217)
== END ==
PROVIDERS: PCP Internal Medicine; Referring Provider Nurse Practitioner Family; Visit Provider Nurse Practitioner Family
DX: G35 Multiple sclerosis (principal); R10.2 Pelvic and perineal pain
CPT/HCPCS: 36415; 80076; 82784; 85025; 87086

== ENCOUNTER 2025-03-11 14:32 | Emergency (ER) | payer OTHER, SELFPAY ==
[2024-02-07 13:42] VITALS: PULSE 73; RESP 23; RESP 3; O2SAT 99; BMI 23.3
[2025-03-11] VITALS (7 sets, daily range): BP systolic 99–142; BP diastolic 57–75; PULSE 72–79; RESP 15–18; TEMP 36.8–36.9; O2SAT 96–99; BMI 22.8
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
--- NOTE | 2025-03-11 16:34 | DI.CT.S_ITS ---
PROCEDURE: CT HEAD/BRAIN WO CON INDICATIONS: fall, hit forehead, thinners TECHNIQUE: Noncontrast 4.5 mm thick angled axial sections acquired from the foramen magnum to the vertex, with coronal and sagittal reformats. For radiation dose reduction, the following was used: automated exposure control, adjustment of mA and/or kV according to patient size. COMPARISON: [facility], CT, CT HEAD/BRAIN WO CON, 02/06/2024, 21:01. FINDINGS: Image quality: Diagnostic. CSF spaces: Basal cisterns are patent. No extra-axial fluid collections. The ventricles are symmetric in size and shape. Brain: No intracranial bleeds or mass effect. There are scattered periventricular and deep white matter chronic small vessel ischemic changes. Manzo-white matter interface is normal. No midline shift. Skull and face: Calvarium and visualized facial bones appear intact, without suspicious lesions. Sinuses: Visualized sinuses and mastoids are clear. IMPRESSION: No acute intracranial pathology. Dictated by: Ed Leigh M.D. on 03/11/2025 at 16:55 Approved by: Ed Leigh M.D. on 03/11/2025 at 16:56
--- NOTE | 2025-03-11 16:46 | DI.CT.S_ITS ---
PROCEDURE: CT CERVICAL SPINE WO CON INDICATIONS: fall hit head TECHNIQUE: Noncontrast 3 mm thick sections acquired from the skull base to the T4 level. Sagittal and coronal reformats were then constructed. For radiation dose reduction, the following was used: automated exposure control, adjustment of mA and/or kV according to patient size. COMPARISON: [facility], CT, CT CERVICAL SPINE WO CON, 02/06/2024, 21:01. FINDINGS: Image quality: Excellent. Bones: No fractures or dislocations. Reversal of the usual cervical lordosis may be secondary to positioning. Visualized superior ribs are intact. Soft tissues: Prevertebral soft tissues are normal in thickness. No paravertebral hematomas. No apical pneumothoraces. IMPRESSION: No displaced fracture or traumatic subluxation. Dictated by: Ed Leigh M.D. on 03/11/2025 at 16:56 Approved by: Ed Leigh M.D. on 03/11/2025 at 16:57
== END 2025-03-11 18:34 | disposition home or self-care (01) ==
PROVIDERS: Emergency Provider Physician Assistant; PCP Internal Medicine
DX: S93.401A Sprain of unspecified ligament of right ankle, initial encounter (principal); M25.461 Effusion, right knee; W19.XXXA Unspecified fall, initial encounter; M54.2 Cervicalgia; R29.6 Repeated falls; Z96.7 Presence of other bone and tendon implants; Z87.828 Personal history of other (healed) physical injury and trauma; S09.90XA Unspecified injury of head, initial encounter; G35 Multiple sclerosis
CPT/HCPCS: 70450; 72125; 73552; 73562; 73590; 99283; 99284